=== PATIENT | male | born 1955 | race Caucasian/White ===

== ENCOUNTER → 2016-08-16 | Outpatient (CLI) | payer OTHER ==
[~2016-08-16] MED LIST: ASPI81TA28 PO; CARV3.12 PO; CEPH500C PO; CIPR-255 PO; CLOP1TAB15 PO; CLOP1TAB5 PO; CZR25 PO; ESCI5TAB PO; FERRTAB18 PO; FRS/40 PO; HYDR-5688 PO; IPRA1AER2 INH; KFL500 PO; LISI-725 PO; LNX125 PO; LPT/40 PO; LPT40 PO; METO25TA3 PO; NCDT14 TD; PHEN-1043 PO; POTA10CA28 PO; POTA1POW PO; POTA1TAB97 PO; PRS5 PO; SACU1TAB PO; SPIR25TA89 PO; SPR25 PO; TORS20TA2 PO; TPRSR25 PO; VNTHFA/IN INH; hydroxyzine PEG
[2016-08-16 17:53] LABS: BLOOD UREA NITROGEN 22 mg/dl (7-18); BUN/CREATININE RATIO 19.5 (10-20); CALCIUM 8.5 mg/dl (8.5-10.1); CARBON DIOXIDE 27 mmol/L (21-32); CHLORIDE 104 mmol/L (98-107); GLUCOSE 98 mg/dl (70-99); MAGNESIUM 2.3 mg/dl (1.8-2.4); POTASSIUM 4.1 mmol/L (3.5-5.1); SODIUM 141 mmol/L (136-145)
[2016-08-16 19:14] LABS: LYME DISEASE AB IGG NEG (NEG); LYME DISEASE AB IGM NEG (NEG)
== END | disposition home or self-care (01) ==
LOC: C.LABPBG 11:53
PROVIDERS: ATTEND Family Medicine
DX: R06.02 Shortness of breath (principal); J20.9 Acute bronchitis, unspecified; R53.83 Other fatigue; R21 Rash and other nonspecific skin eruption

== ENCOUNTER 2016-08-25 10:08 | Inpatient (IN) | payer OTHER ==
[~2016-08-25] VITALS: Ht 182.9 cm; Wt 80.1 kg
[2016-08-25 10:41] LABS: HEMATOCRIT 38.5 % (42-52); MEAN CORPUSCULAR HEMOGLOBIN 28.3 pg (25-34); MEAN CORPUSCULAR HGB CONC 33.2 g/dl (32-36); MEAN PLATELET VOLUME 9.6 fL (7.4-10.4); PLATELET COUNT 376 K/uL (130-400); RED BLOOD COUNT 4.53 M/uL (4.7-6.1); WHITE BLOOD COUNT 9.67 K/uL (4.8-10.8)
[2016-08-25 10:54] LABS: INR 1.2 (0.9-1.1); PROTHROMBIN TIME (PATIENT) 12.7 SECONDS (9.0-12.0)
[2016-08-25 10:59] LABS: BUN/CREATININE RATIO 24.3 (10-20); CALCIUM 8.7 mg/dl (8.5-10.1); CREATININE 1.2 mg/dl (0.60-1.40); POTASSIUM 4.1 mmol/L (3.5-5.1)
[2016-08-25] MEDS ORDERED: FUROSEMIDE 40 MG/4 ML VIAL IV STA (11:02)
[2016-08-25 11:03] LABS: ALB/GLOB RATIO 0.9 (0.9-2); CKMB/CK RATIO 2.5 (0-3.0)
[2016-08-25] MEDS ORDERED: CLOP1TAB5 PO (11:07)
[2016-08-25] MEDS ORDERED: FRS/40 PO (11:07)
[2016-08-25] MEDS ORDERED: POTA1TAB97 PO (11:07)
[2016-08-25] MEDS ORDERED: ASPI81TA28 PO (11:07)
[2016-08-25] MEDS ORDERED: LISI-725 PO (11:07)
[2016-08-25] MEDS ORDERED: CARV3.12 PO (11:07)
--- NOTE | 2016-08-25 11:18 | DIAGNOSTIC IMAGING REPORT ---
CHEST ONE VIEW PORTABLE CLINICAL HISTORY: CP/SOB dyspnea COMPARISON STUDY: No previous studies for comparison. FINDINGS: Moderate cardiomegaly. Bipolar cardiac pacemaker. Diaphragms are smooth. Mild prominence of pulmonary vasculature. IMPRESSION: Findings of early congestive heart failure Electronically signed by: Javier Kim M.D. 08/25/2016 11:16 AM Dictated Date/Time: 08/25/2016 11:16 AM
[2016-08-25 11:33] LABS: MAGNESIUM 2.6 mg/dl (1.8-2.4); PHOSPHORUS 4.2 mg/dl (2.5-4.9)
--- NOTE | 2016-08-25 13:07 | EMERGENCY ROOM VISIT NOTE ---
ED Visit Note First contact with patient: 11:02 The patient was initially evaluated by Mr. Pedersen. He was re-examined by me. His care and treatment plan were discussed and agreed upon. I refer you to Mr. Pedersen's dictation for full details.
[2016-08-25 13:16] LABS: INFLUENZA A PCR Neg for Influ A (NEG); INFLUENZA B PCR Neg for Influ B (NEG)
[2016-08-25] MEDS ORDERED: NITROGLYCERIN 0.4 MG SL PER TAB CHARGE SL PRN (13:30)
[2016-08-25] MEDS ORDERED: POLYETHYLENE (MIRALAX) 17 GM PACK PO PRN (13:30)
[2016-08-25] MEDS ORDERED: ONDANSETRON INJ 2 MG/ML 2 ML VIAL IV PRN (13:30)
[2016-08-25] MEDS ORDERED: ACETAMINOPHEN 325 MG TAB PO PRN (13:30)
[2016-08-25] MEDS ORDERED: ALBUT/IPRATROP 3MG/0.5MG NEB 3 ML VIAL INH PRN (13:30)
[2016-08-25] MEDS ORDERED: MAGNESIUM HYDROXIDE SUSP 30 ML UDC PO PRN (13:30)
[2016-08-25] MEDS ORDERED: ALUMINUM/MAGNESIUM/SIMETH (MAALOX MAX) 30 ML UDC PO PRN (13:30)
--- NOTE | 2016-08-25 13:54 | History and Physical ---
History & Physical Date & Time of Service: Aug 25, 2016 at 13:31 Chief Complaint: Sob, Fluid, Swelling In Legs,Ankles,Feet, Cough Primary Care Physician: Katelyn Sutton DO History of Present Illness Source: patient, family Patient is a pleasant 61 y/o male, with PMHx of systolic CHF, T2DM, HTN, HDL, PVD s/p aorta-femoral bypass, ?COPD, who presented to the ED from PCP office due to hypoxia with ambulation w/ O2 saturation at 86%. According to patient, he has been having progressive SOB over the last month. Patient was prescribed abx treatment and prednisone course by PCP with minimal relief in his symptoms; medications were completed 2 weeks ago. He admits to having the flu ~2 months ago. Since that time, he feels his breathing has been slowly declining. + orthopnea. He admits to smoking 1 ppd. His PCP believes he has COPD, and patient is scheduled for outpatient PFTs. +bilateral lower extremity edema. Edema has been worsening over the last 1 month as well. No improvement with Lasix 40 mg BID. Patient follows with Dr. Glover for his CHF/cardiomyopathy. According to patient, his EF is 15%. Pacemaker/ICD was placed in January of 2016. +cough with sputum production. +hematuria- started this AM. Per patient, this is not the first time he has experienced hematuria. In March 2016, he had an episode of hematuria and a CT was performed looking for stones; no stones identified at that time. Patient denies any fever, chills, sweats, lightheadedness, dizziness, vision changes, CP, palpitations, wheezing, abdominal pain, nausea, vomiting, diarrhea, melena, numbness/tingling, weakness , muscle/joint pain, anxiety/depression, active bleeding, or new skin discoloration/changes. Past Medical/Surgical History Medical hx: 1. Systolic CHF 2. T2DM 3. HTN 4. HDL 5. PVD s/p aorta-femoral bypass 6. ?COPD Surgical hx: 1. Hernia repair x2 2. Herniated disc repair 3. L knee replacement 4. Aorta-femoral bypass 5. Cholecystectomy 6. s/p pacemaker/ICD Family History FH: diabetes mellitus FH: gallbladder disease FH: heart disease FH: hypertension Social History Smoking Status: Current Every Day Smoker Smokeless Tobacco Use: No Alcohol Use: occasionally Marital Status: Housing status: lives with family Allergies Coded Allergies: Metformin (Unverified Adverse Reaction, Severe, MEMORY LOSS, 08/25/16) Codeine (Unverified Adverse Reaction, Intermediate, ITCHING, 08/25/16) Home Medications Scheduled Aspirin (Aspirin Ec), 81 MG PO DAILY Carvedilol (Coreg), 3.125 MG PO DAILY Clopidogrel Bisulfate (Plavix), 75 MG PO DAILY Furosemide (Lasix), 40 MG PO BID Lisinopril (Zestril), 20 MG PO DAILY Potassium Chloride (K-Tab), 20 MEQ PO DAILY Physical Exam Vital Signs Date Time Temp Pulse Resp B/P Pulse Ox O2 Delivery O2 Flow Rate FiO2 08/25/16 11:40 97 Room Air 08/25/16 10:54 99 Room Air 08/25/16 10:54 84 20 103/77 99 Room Air 08/25/16 10:53 84 20 103/77 100 Room Air 08/25/16 10:50 97 Room Air 08/25/16 10:36 82 08/25/16 10:09 82 20 98/66 Room Air General Appearance: no apparent distress Head: normocephalic, atraumatic Eyes: normal inspection, PERRL ENT: hearing grossly normal Neck: supple Respiratory/Chest: no respiratory distress, no accessory muscle use, + crackles (bilateral lung bases ) Cardiovascular: regular rate, rhythm Abdomen/GI: normal bowel sounds, non tender, soft Back: normal inspection Extremities/Musculoskelatal: no calf tenderness, + swelling (+2 pitting edema of bilateral lower extremities L>R) Neurologic/Psych: alert, normal mood/affect, oriented x 3 Skin: normal color, warm/dry, no rash Diagnostics Laboratory Results Results Past 24 Hours Test 08/25/16 10:30 08/25/16 11:13 08/25/16 11:15 08/25/16 11:39 Range/Units White Blood Count 9.67 4.8-10.8 K/uL Red Blood Count 4.53 4.7-6.1 M/uL Hemoglobin 12.8 14.0-18.0 g/dL Hematocrit 38.5 42-52 % Mean Corpuscular Volume 85.0 80-100 fL Mean Corpuscular Hemoglobin 28.3 25-34 pg Mean Corpuscular Hemoglobin Concent 33.2 32-36 g/dl RDW Standard Deviation 54.8 36.4-46.3 fL RDW Coefficient of Variation 17.9 11.5-14.5 % Platelet Count 376 130-400 K/uL Mean Platelet Volume 9.6 7.4-10.4 fL Prothrombin Time 12.7 9.0-12.0 SECONDS Prothromb Time International Ratio 1.2 0.9-1.1 Activated Partial Thromboplast Time 25.1 21.0-31.0 SECONDS Partial Thromboplastin Ratio 1.0 Sodium Level 141 136-145 mmol/L Potassium Level 4.1 3.5-5.1 mmol/L Chloride Level 105 98-107 mmol/L Carbon Dioxide Level 27 21-32 mmol/L Anion Gap 9.0 3-11 mmol/L Blood Urea Nitrogen 29 7-18 mg/dl Creatinine 1.20 0.60-1.40 mg/dl Est Creatinine Clear Calc Drug Dose 72.8 ml/min Estimated GFR () 76.3 Estimated GFR (Non- 65.8 BUN/Creatinine Ratio 24.3 10-20 Random Glucose 97 70-99 mg/dl Calcium Level 8.7 8.5-10.1 mg/dl Phosphorus Level 4.2 2.5-4.9 mg/dl Magnesium Level 2.6 1.8-2.4 mg/dl Total Bilirubin 1.7 0.2-1 mg/dl Aspartate Amino Transf (AST/SGOT) 23 15-37 U/L Alanine Aminotransferase (ALT/SGPT) 33 12-78 U/L Alkaline Phosphatase 133 45-117 U/L Total Creatine Kinase 87 39-308 U/L Creatine Kinase MB 2.2 0.5-3.6 ng/ml Creatine Kinase MB Ratio 2.5 0-3.0 Troponin I 0.061 0-0.045 ng/ml Pro-B-Type Natriuretic Peptide 21868 0-900 pg/ml Total Protein 6.5 6.4-8.2 gm/dl Albumin 3.1 3.4-5.0 gm/dl Globulin 3.4 2.5-4.0 gm/dl Albumin/Globulin Ratio 0.9 0.9-2 Bedside Troponin I 0.000 0-0.045 ng/ml Influenza Type A (RT-PCR) Neg for Influ A NEG Influenza Type B (RT-PCR) Neg for Influ B NEG Lactic Acid Level 1.2 0.4-2.0 mmol/L Microbiology Results 08/25/16 Blood Culture, Received Pending 08/25/16 Blood Culture, Received Pending Diagnostic Radiology CHEST ONE VIEW PORTABLE CLINICAL HISTORY: CP/SOB dyspnea COMPARISON STUDY: No previous studies for comparison. FINDINGS: Moderate cardiomegaly. Bipolar cardiac pacemaker. Diaphragms are smooth. Mild prominence of pulmonary vasculature. IMPRESSION: Findings of early congestive heart failure Electronically signed by: Toney Kim M.D. 08/25/2016 11:16 AM Dictated Date/Time: 08/25/2016 11:16 AM The status of this report is Signed. Draft = Not yet reviewed or approved by Radiologist. Signed = Reviewed and approved by Radiologist. EKG RAMÓN TONEY ID:[id number] 25-AUG-2016 10:22:59 [facility] Normal sinus rhythm Left axis deviation Non-specific intra-ventricular conduction block Abnormal ECG No previous ECGs available Confirmed by CELESTINE DAVIS ([id number]) on 08/25/2016 1:03:47 PM 25mm/s 10mm/mV 150Hz 8.0 SP2 12SL 241 SHERIF: 13 Referred by: Confirmed By: CELESTINE Fleming. rate 89 BPM ME interval 158 ms QRS duration 128 ms QT/QTc 422/513 ms P-R-T axes 78 -39 85 1955 (61 yr) Male Room: Loc: Tamale Maker:TERRENCE Thurman ind: Impression Assessment and Plan 61 y/o male, with PMHx of systolic CHF, T2DM, HTN, HDL, PVD s/p aorta-femoral bypass, ?COPD, who presented to the ED from PCP office due to hypoxia with ambulation w/ O2 saturation at 86%. Acute on chronic systolic HF/cardiomyopathy s/p pacemaker/ICD: - Admit tele for cardiac monitoring - Trend cardiac enzymes - IV Lasix 40 mg BID. Hold PO Lasix 40 mg BID - Continue KCL 20 mEq supplement - Continue Coreg 3.125 mg PO daily - ECHO - Monitor daily weights and I&Os - Check TSH - Recheck BNP tomorrow AM - Blood cultures pending - Influenza negative - Patient follows with Dr. Glover of [place]--> no records available UTI w/ hematuria: - U/A dirty, urine culture pending - IV Rocephin Anemia, baseline hgb 13.0- stable: Follow CBC Elevated LFTs: Follow CMP T2DM: - BSG ACHS w/ sliding insulin scale - Check ha1c HDL: - Continue Lipitor 40 mg PO daily - Check lipid panel HTN: Continue Losartan 25 mg PO daily ?COPD: - Smoke 1 pack per day- smoking cessation counselling - Continue Combivent - Nicotine patch - Scheduled for PFTs outpt by PCP PVD s/p aorta-femoral bypass: Continue ASA 81 mg PO daily and Plavix 75 mg PO daily GI Prophylaxis: Maalox PRN, IV Zofran PRN, Colace and/or Milk of Mag PRN DVT prophylaxis: Ambulation, GERSON and SCDs Code Status: LEVEL I, FULL Dispo: From home, lives w/ Level of Care Telemetry Resuscitation Status FULL RESUSCITATION VTE Prophylaxis VTE Risk Assessment Done? Y/N: Yes Risk Level: Moderate Given or contraindicated: T.E.D. Stockings, SCD's
--- NOTE | 2016-08-25 14:34 | EMERGENCY ROOM VISIT NOTE ---
History First contact with patient: 11:02 Chief Complaint: SHORTNESS OF BREATH Stated Complaint: SOB, FLUID, SWELLING IN LEGS,ANKLES,FEET, COUGH Nursing Triage Summary: with increasing shortnes of breath for a month. see dr Glover (cardiology) has had a pacer put in for CHF, then got sick and was on antibiotics and steroids ever since has been retaining fluid. unable to walk the mitchell at PCP office o2 sat was 86 % after. sent over History of Present Illness The patient is a 61 year old male who presents to the Emergency Room with complaints of lower extremity swelling, shortness of breath and fatigue. The patient reports a history of CHF. The patient had a pacemaker and defibrillator placed on 01/16/16. His current fighting vehicle systems maintainer is Dr. Glover. He is in the process of transferring his care to [facility] fighting vehicle systems maintainer. The patient reports that he and his had the flu approximately one month ago. The patient was given a prescription for a "powerful antibiotic" and prednisone. The patient reports that his symptoms never really did resolve. He started to notice significantly worsening lower extremity swelling and shortness of breath 2 weeks ago. His fighting vehicle systems maintainer suggested that he go to [facility] for admission, but the patient refused. The patient is currently taking furosemide twice daily. He reports that the water pills are helping somewhat with his fluid retention. The patient was referred here this morning by his PCP as he was in the office for an appointment , and when ambulating through the hallways, his O2 saturation was 86%. The patient denies any recent chest pain, productive cough, sore throat, headache, sinus congestion, fevers or chills. Review of Systems HEENT: Denies dizziness, visual problems, hearing loss, tinnitus. Denies difficulty swallowing or oral lesions. PULMONARY: Denies cough, sputum production or hemoptysis. The patient does report shortness of breath. CARDIOVASCULAR: Denies chest pain, palpitations or orthopnea. He does report peripheral edema. GASTROINTESTINAL: Denies diarrhea, constipation, nausea, vomiting, or abdominal pain. GENITOURINARY: Denies dysuria, frequency, urgency or nocturia. NEUROLOGIC: Denies history of epilepsy, CVA, TIA or chronic headaches. MUSCULOSKELETAL: Denies history of joint tenderness/swelling. SKIN: Denies rashes or lesions. PSYCHIATRIC: Denies history of depression or mental illness. ENDOCRINE: Denies history of diabetes or thyroid disorders. 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 (5) History of pacemaker (6) Hypertension Surgical Problems: (1) History of [id number] bypass (2) History of left knee replacement Family History FH: diabetes mellitus FH: gallbladder disease FH: heart disease FH: hypertension Social History Smoking Status: Current Every Day Smoker Alcohol Use: none Marital Status: Occupation Status: retired Current/Historical Medications Scheduled Aspirin (Aspirin Ec), 81 MG PO DAILY Carvedilol (Coreg), 3.125 MG PO DAILY Clopidogrel Bisulfate (Plavix), 75 MG PO DAILY Furosemide (Lasix), 40 MG PO BID Lisinopril (Zestril), 20 MG PO DAILY Potassium Chloride (K-Tab), 20 MEQ PO DAILY Allergies Coded Allergies: Metformin (Unverified Adverse Reaction, Severe, MEMORY LOSS, 08/25/16) Codeine (Unverified Adverse Reaction, Intermediate, ITCHING, 08/25/16) Physical Exam Vital Signs Date Time Temp Pulse Resp B/P Pulse Ox O2 Delivery O2 Flow Rate FiO2 08/25/16 13:06 77 20 107/75 100 Room Air 08/25/16 11:40 97 Room Air 08/25/16 10:54 99 Room Air 08/25/16 10:54 84 20 103/77 99 Room Air 08/25/16 10:53 84 20 103/77 100 Room Air 08/25/16 10:50 97 Room Air 08/25/16 10:36 82 08/25/16 10:09 82 20 98/66 Room Air Physical Exam CONSTITUTIONAL: Healthy and well nourished. Alert and oriented X 3 with positive affect. She does not appear acutely or toxic. He does not appear in any acute distress. HEENT: Normocephalic, atraumatic. Pupils equal, round and reactive. Ears and nares are clear. No scleral icterus or conjunctival injection/pallor. NECK: Full active range of motion without discomfort. No obvious JVD or carotid bruits. RESPIRATORY: Clear to auscultation bilaterally with no wheezing, crackles, rhonchi or stridor. Lungs sounds are distant. CARDIOVASCULAR: Regular rate and rhythm with no murmurs, rubs or gallops. GASTROINTESTINAL: Bowel sounds present in all quadrants. Soft and nontender to palpation. No bruits on palpation or auscultation. MUSCULOSKELETAL: Full range of motion of all joints without discomfort. Patient does have 2+ pretibial pitting edema. He also has skin changes about the feet and ankles. He'll pulses are intact. INTEGUMENTARY: No rash or other significant dermatologic conditions noted. HEMATOLOGIC: No ecchymosis or petechiae. NEUROLOGIC: No focal neurologic deficits noted. Medical Decision & Procedures ER Provider Diagnostic Interpretation: My interpretation of an ECG shows a normal sinus rhythm of [address] elevation, conduction abnormalities or pacing. My interpretation of a portable chest x-ray shows on is consistent with failure pattern. Radiologist report is as follows: CHEST ONE VIEW PORTABLE CLINICAL HISTORY: CP/SOB dyspnea COMPARISON STUDY: No previous studies for comparison. FINDINGS: Moderate cardiomegaly. Bipolar cardiac pacemaker. Diaphragms are smooth. Mild prominence of pulmonary vasculature. IMPRESSION: Findings of early congestive heart failure Laboratory Results 08/25/16 10:30 08/25/16 10:30 Test 08/25/16 10:30 08/25/16 11:13 08/25/16 11:15 08/25/16 11:39 Red Blood Count 4.53 M/uL (4.7-6.1) Mean Corpuscular Volume 85.0 fL (80-100) Mean Corpuscular Hemoglobin 28.3 pg (25-34) Mean Corpuscular Hemoglobin Concent 33.2 g/dl (32-36) RDW Standard Deviation 54.8 fL (36.4-46.3) RDW Coefficient of Variation 17.9 % (11.5-14.5) Mean Platelet Volume 9.6 fL (7.4-10.4) Prothrombin Time 12.7 SECONDS (9.0-12.0) Prothromb Time International Ratio 1.2 (0.9-1.1) Activated Partial Thromboplast Time 25.1 SECONDS (21.0-31.0) Partial Thromboplastin Ratio 1.0 Anion Gap 9.0 mmol/L (3-11) Est Creatinine Clear Calc Drug Dose 72.8 ml/min Estimated GFR () 76.3 Estimated GFR (Non- 65.8 BUN/Creatinine Ratio 24.3 (10-20) Calcium Level 8.7 mg/dl (8.5-10.1) Phosphorus Level 4.2 mg/dl (2.5-4.9) Magnesium Level 2.6 mg/dl (1.8-2.4) Total Bilirubin 1.7 mg/dl (0.2-1) Aspartate Amino Transf (AST/SGOT) 23 U/L (15-37) Alanine Aminotransferase (ALT/SGPT) 33 U/L (12-78) Alkaline Phosphatase 133 U/L (45-117) Total Creatine Kinase 87 U/L (39-308) Creatine Kinase MB 2.2 ng/ml (0.5-3.6) Creatine Kinase MB Ratio 2.5 (0-3.0) Troponin I 0.061 ng/ml (0-0.045) Pro-B-Type Natriuretic Peptide 12912 pg/ml (0-900) Total Protein 6.5 gm/dl (6.4-8.2) Albumin 3.1 gm/dl (3.4-5.0) Globulin 3.4 gm/dl (2.5-4.0) Albumin/Globulin Ratio 0.9 (0.9-2) Bedside Troponin I 0.000 ng/ml (0-0.045) Influenza Type A (RT-PCR) Neg for Influ A (NEG) Influenza Type B (RT-PCR) Neg for Influ B (NEG) Lactic Acid Level 1.2 mmol/L (0.4-2.0) The above labs were reviewed. Bedside troponin and lactic acid are normal. BNP is almost 23,000. CBC and partial renal profile are otherwise grossly normal with a creatinine of 1.2. Medications Administered Medications (Trade) Dose Ordered Sig/Elroy Route Start Time Stop Time Status Last Admin Dose Admin Furosemide (Lasix Inj) 40 mg NOW STAT IV 08/25/16 11:02 08/25/16 11:06 DC 08/25/16 11:46 40 MG ED Course Patient history and physical exam were performed. Nurse's notes were reviewed. Vital signs were reviewed and were normal. His O2 saturation at rest was 100 % on room air. Probably ambulation was not performed, but phone documentation from the PCPs office did indicate that he was hypoxic on ambulation. Otherwise the patient is normotensive and afebrile. The patient did not appear in any acute respiratory distress. IV access was established, and labs were drawn. ECG was normal. Portable chest x-ray shows a congestive heart failure pattern. Review of labs shows a markedly elevated BNP of nearly 23,000. Troponin and lactic acid are normal. The case was further discussed with Dr. Connelly, ED attending physician, who agrees with hospitalist evaluation. The case was further discussed with the [facility] hospitalist service. See their dictation for further treatment and final disposition. Medical Decision Patient presents to the emergency department with symptoms consistent with CHF exacerbation. The patient has a history of CHF. He is currently on diuretics without any improvement of underlying peripheral edema. He also has a significant history of pacemaker/defibrillator placement. The patient does have chest x-ray findings and markedly elevated BNP consistent with a CHF exacerbation. ECG and troponin were otherwise normal. I do not suspect myocardial infarction. The patient is also afebrile, without leukocytosis and normal lactic acid. I do not suspect sepsis. Impression Primary Impression: CHF (congestive heart failure) Departure Information Referrals Katelyn Sutton DO (PCP) Patient Instructions My [facility] Problem Qualifiers Primary Impression: CHF (congestive heart failure) Congestive heart failure type: unspecified congestive heart failure type Congestive heart failure chronicity: acute on chronic Qualified Codes: I50.9 - Heart failure, unspecified
[2016-08-25] MEDS ORDERED: GLUCOSE 10 TABS/TUBE PO PRN (15:00)
[2016-08-25] MEDS ORDERED: DEXTROSE 50% 50 ML SYR IV PRN (15:00)
[2016-08-25] MEDS ORDERED: GLUCOSE 40% GEL 15 GM TUBE PO PRN (15:00)
[2016-08-25] MEDS ORDERED: GLUCAGON FOR INJ 1 MG VIAL SQ PRN (15:00)
[2016-08-25 16:00] VITALS: BP 104/70; PULSE 91; TEMP 36.3; O2SAT 96
[2016-08-25] MEDS ORDERED: CEFTRIAXONE SOD INJ 1 GM in DEXTROSE 5% ADD-VANTAGE 50ML 50 ML IV SCH (16:00)
[2016-08-25 17:00] VITALS: BP 104/70; PULSE 91; O2SAT 96; Ht 182.9 cm; Wt 80.1 kg
[2016-08-25] MEDS: FUROSEMIDE INJ 40 MG in SYRINGE 0 ML IV SCH (17:23)
[2016-08-25] MEDS: IPRATROPIUM BROMIDE/ALBUTEROL respimat INH INH SCH ×2 (17:23→21:18)
[2016-08-25] MEDS: INSULIN ASPART 100 UNITS/ML 3 ML PEN SC SCH ×2 (17:24→21:00)
[2016-08-25] MEDS ORDERED: COUGH DROP (SUGAR FREE) LOZ 24 LOZ/1 BOX PO STA (19:56)
[2016-08-25 19:58] VITALS: BP 108/70; PULSE 93; TEMP 36.8; O2SAT 94
[2016-08-25 20:00] VITALS: O2SAT 94
[2016-08-25] MEDS ORDERED: GUAIFENESIN SUGAR FREE 100 MG/5 ML UDC PO PRN (20:00)
[2016-08-25] MEDS ORDERED: COUGH DROP (SUGAR FREE) LOZ 24 LOZ/1 BOX PO PRN (20:00)
[2016-08-25] MEDS ORDERED: GUAIFENESIN SUGAR FREE 100 MG/5 ML UDC PO ONE (20:30)
[2016-08-26] VITALS (10 sets, daily range): BP systolic 91–138; BP diastolic 57–88; PULSE 70–99; TEMP 36.3–37.2; O2SAT 93–100
[2016-08-26 06:31] LABS: HEMATOCRIT 37.6 % (42-52); MEAN CELL VOLUME 84.9 fL (80-100); MEAN CORPUSCULAR HEMOGLOBIN 27.8 pg (25-34); MEAN CORPUSCULAR HGB CONC 32.7 g/dl (32-36); MEAN PLATELET VOLUME 10.1 fL (7.4-10.4); PLATELET COUNT 390 K/uL (130-400); RED BLOOD COUNT 4.43 M/uL (4.7-6.1); WHITE BLOOD COUNT 10.13 K/uL (4.8-10.8)
[2016-08-26 06:38] LABS: INR 1.2 (0.9-1.1); PROTHROMBIN TIME (PATIENT) 12.6 SECONDS (9.0-12.0)
[2016-08-26 07:06] LABS: BUN/CREATININE RATIO 23.6 (10-20); CALCIUM 8.5 mg/dl (8.5-10.1); CREATININE 1.2 mg/dl (0.60-1.40); MAGNESIUM 2.3 mg/dl (1.8-2.4); POTASSIUM 3.8 mmol/L (3.5-5.1)
--- NOTE | 2016-08-26 07:10 | Hospitalist Progress Note ---
Hospitalist Progress Note Date of Service Aug 26, 2016. Subjective Pt evaluation today including: conversation w/ patient, physical exam, chart review, lab review, review of inpatient medication list Voiding: no voiding problems, no incontinence Patient states he is feeling well. SOB and bilateral lower extremity edema has improved. Hematuria has resolved. He is eating and drinking OK. Patient denies any fever, chills, sweats, lightheadedness, dizziness, vision changes, CP, palpitations, wheezing, cough, abdominal pain, nausea, vomiting, diarrhea, urinary symptoms, melena, numbness/tingling, weakness, muscle/joint pain, anxiety/depression, active bleeding, or new skin discoloration/changes. Medications Current Inpatient Medications Medications (Trade) Dose Ordered Sig/Elroy Route Start Time Stop Time Status Last Admin Dose Admin Acetaminophen (Tylenol Tab) 650 mg Q4H PRN PO 08/25/16 13:30 09/24/16 13:29 Al Hydrox/Mg Hydrox/Simethicone (Maalox Max Susp) 15 ml Q4H PRN PO 08/25/16 13:30 09/24/16 13:29 Magnesium Hydroxide (Milk Of Magnesia Susp) 30 ml Q12H PRN PO 08/25/16 13:30 09/24/16 13:29 Ondansetron HCl (Zofran Inj) 4 mg Q6H PRN IV 08/25/16 13:30 09/24/16 13:29 Nitroglycerin (Nitrostat Tab) 0.4 mg UD PRN SL 08/25/16 13:30 09/24/16 13:29 Polyethylene 17 gm 17 gm DAILY PRN PO 08/25/16 13:30 09/24/16 13:29 Furosemide/Syringe (Lasix Inj/ Syringe) 4 ml @ 4 mls/min BID17 IV 08/25/16 17:00 09/24/16 16:59 08/26/16 08:16 4 MLS/MIN Aspirin (Ecotrin Tab) 81 mg DAILY PO 08/26/16 09:00 09/25/16 08:59 08/26/16 08:20 81 MG Carvedilol (Coreg Tab) 3.125 mg DAILY PO 08/26/16 09:00 09/25/16 08:59 08/26/16 08:17 3.125 MG Clopidogrel Bisulfate (plAVix TAB) 75 mg DAILY PO 08/26/16 09:00 09/25/16 08:59 08/26/16 08:18 75 MG Potassium Chloride 20 meq 20 meq QAM PO 08/26/16 09:00 09/25/16 08:59 08/26/16 08:18 20 MEQ Ceftriaxone Sodium/Dextrose (Rocephin Inj/ Dextrose Add-[place] 50ML) 50 ml @ 100 mls/hr Q24H IV 08/25/16 16:00 09/04/16 15:59 08/25/16 16:15 100 MLS/HR Insulin Aspart (novoLOG ASPART) SLIDING SCALE G... ACHS SC 08/25/16 16:00 09/24/16 15:59 Albuterol/ Ipratropium (Duoneb) 3 ml Q4R PRN INH 08/25/16 13:30 09/24/16 13:29 Atorvastatin Calcium (Lipitor Tab) 40 mg QAM PO 08/26/16 09:00 09/25/16 08:59 08/26/16 08:19 40 MG Albuterol/ Ipratropium (Combivent Respimat Inh) 1 puffs QID INH 08/25/16 17:00 09/24/16 16:59 08/26/16 08:16 1 PUFFS Losartan Potassium (coZAAR TAB) 25 mg QAM PO 08/26/16 09:00 09/25/16 08:59 Future Hold Nicotine (Nicoderm Cq 14MG Patch) 1 patch QAM TD 08/26/16 09:00 09/25/16 08:59 Miscellaneous (Remove Nicoderm Patch) 1 ea HS N/A 08/25/16 21:00 09/24/16 20:59 Glucose (Glucose 40% Gel) 15-30 GRAMS 15 GRAMS... UD PRN PO 08/25/16 15:00 09/24/16 14:59 Glucose (Glucose Chew Tab) 4-8 Tablets 4 Tabl... UD PRN PO 08/25/16 15:00 09/24/16 14:59 Dextrose (Dextrose 50% 50ML Syringe) 25-50ML OF 50% DW IV FOR... UD PRN IV 08/25/16 15:00 09/24/16 14:59 Glucagon (Glucagon Inj) 1 mg UD PRN SQ 08/25/16 15:00 09/24/16 14:59 Guaifenesin (Robitussin Sugar Free Syrup) 100 mg Q6H PRN PO 08/25/16 20:00 09/24/16 19:59 Menthol (Nice Vlad) 1 vlad Q1H PRN PO 08/25/16 20:00 09/24/16 19:59 Objective Vital Signs Date Time Temp Pulse Resp B/P Pulse Ox O2 Delivery O2 Flow Rate FiO2 08/26/16 04:43 36.6 70 22 104/72 100 Nasal Cannula 2.0 08/26/16 04:00 Room Air 2.0 Nasal Cannula 08/26/16 00:32 36.6 88 18 109/76 98 Nasal Cannula 2.0 08/26/16 00:00 Room Air 2.0 Nasal Cannula 08/25/16 20:00 94 Room Air 08/25/16 19:58 36.8 93 18 108/70 94 Room Air 08/25/16 17:00 91 18 104/70 96 Room Air 08/25/16 16:00 96 Room Air 08/25/16 16:00 36.3 91 18 104/70 96 Room Air 08/25/16 15:27 73 20 108/86 99 Room Air 08/25/16 14:08 61 15 96 08/25/16 14:01 100/53 08/25/16 13:08 69 30 99 08/25/16 13:06 77 20 107/75 100 Room Air 08/25/16 13:01 108/75 08/25/16 12:49 112/83 08/25/16 12:08 99 24 98 08/25/16 11:40 97 Room Air 08/25/16 11:08 78 11 97 08/25/16 11:00 103/76 08/25/16 10:54 99 Room Air 08/25/16 10:54 84 20 103/77 99 Room Air 08/25/16 10:53 103/77 08/25/16 10:53 84 20 103/77 100 Room Air 08/25/16 10:50 97 Room Air 08/25/16 10:36 82 08/25/16 10:31 105/80 08/25/16 10:09 82 20 98/66 Room Air Physical Exam General Appearance: no apparent distress Eyes: normal inspection, PERRL ENT: hearing grossly normal Neck: supple Respiratory/Chest: no respiratory distress, no accessory muscle use, + decreased breath sounds (bilateral lung bases ) Cardiovascular: + pertinent finding (irregular, regular rate ) Abdomen: normal bowel sounds, non tender, soft Extremities: no calf tenderness, + pertinent finding (TEDs on. +1-2 pitting edema of bilateral lower extremities from ankle to mid-torres ) Neurologic/Psychiatric: alert, normal mood/affect, oriented x 3 Skin: normal color, warm/dry, no rash Laboratory Results Last 24 Hours Test 08/25/16 10:30 08/25/16 11:13 08/25/16 11:15 08/25/16 11:39 White Blood Count 9.67 K/uL Red Blood Count 4.53 M/uL Hemoglobin 12.8 g/dL Hematocrit 38.5 % Mean Corpuscular Volume 85.0 fL Mean Corpuscular Hemoglobin 28.3 pg Mean Corpuscular Hemoglobin Concent 33.2 g/dl RDW Standard Deviation 54.8 fL RDW Coefficient of Variation 17.9 % Platelet Count 376 K/uL Mean Platelet Volume 9.6 fL Prothrombin Time 12.7 SECONDS Prothromb Time International Ratio 1.2 Activated Partial Thromboplast Time 25.1 SECONDS Partial Thromboplastin Ratio 1.0 Sodium Level 141 mmol/L Potassium Level 4.1 mmol/L Chloride Level 105 mmol/L Carbon Dioxide Level 27 mmol/L Anion Gap 9.0 mmol/L Blood Urea Nitrogen 29 mg/dl Creatinine 1.20 mg/dl Est Creatinine Clear Calc Drug Dose 72.8 ml/min Estimated GFR () 76.3 Estimated GFR (Non- 65.8 BUN/Creatinine Ratio 24.3 Random Glucose 97 mg/dl Calcium Level 8.7 mg/dl Phosphorus Level 4.2 mg/dl Magnesium Level 2.6 mg/dl Total Bilirubin 1.7 mg/dl Aspartate Amino Transf (AST/SGOT) 23 U/L Alanine Aminotransferase (ALT/SGPT) 33 U/L Alkaline Phosphatase 133 U/L Total Creatine Kinase 87 U/L Creatine Kinase MB 2.2 ng/ml Creatine Kinase MB Ratio 2.5 Troponin I 0.061 ng/ml Pro-B-Type Natriuretic Peptide 99755 pg/ml Total Protein 6.5 gm/dl Albumin 3.1 gm/dl Globulin 3.4 gm/dl Albumin/Globulin Ratio 0.9 Bedside Troponin I 0.000 ng/ml Influenza Type A (RT-PCR) Neg for Influ A Influenza Type B (RT-PCR) Neg for Influ B Lactic Acid Level 1.2 mmol/L Test 08/25/16 16:13 08/25/16 18:00 08/25/16 18:10 08/25/16 20:01 Bedside Glucose 110 mg/dl 97 mg/dl Creatine Kinase MB Ratio Creatine Kinase MB 1.9 ng/ml Troponin I 0.048 ng/ml Test 08/26/16 02:00 08/26/16 02:24 08/26/16 05:50 Creatine Kinase MB Ratio Creatine Kinase MB 1.5 ng/ml Troponin I 0.051 ng/ml White Blood Count 10.13 K/uL Red Blood Count 4.43 M/uL Hemoglobin 12.3 g/dL Hematocrit 37.6 % Mean Corpuscular Volume 84.9 fL Mean Corpuscular Hemoglobin 27.8 pg Mean Corpuscular Hemoglobin Concent 32.7 g/dl RDW Standard Deviation 53.9 fL RDW Coefficient of Variation 17.8 % Platelet Count 390 K/uL Mean Platelet Volume 10.1 fL Prothrombin Time 12.6 SECONDS Prothromb Time International Ratio 1.2 Sodium Level 142 mmol/L Potassium Level 3.8 mmol/L Chloride Level 105 mmol/L Carbon Dioxide Level 28 mmol/L Anion Gap 9.0 mmol/L Blood Urea Nitrogen 28 mg/dl Creatinine 1.20 mg/dl Est Creatinine Clear Calc Drug Dose 72.8 ml/min Estimated GFR () 76.3 Estimated GFR (Non- 65.8 BUN/Creatinine Ratio 23.6 Random Glucose 87 mg/dl Calcium Level 8.5 mg/dl Magnesium Level 2.3 mg/dl Alanine Aminotransferase (ALT/SGPT) 30 U/L Albumin 3.0 gm/dl Triglycerides Level 77 mg/dl Cholesterol Level 83 mg/dl VLDL Cholesterol, Calculated 15 mg/dl Assessment and Plan 61 y/o male, with PMHx of systolic CHF, T2DM, HTN, HDL, PVD s/p aorta-femoral bypass, ?COPD, who presented to the ED from PCP office due to hypoxia with ambulation w/ O2 saturation at 86%. Acute on chronic systolic HF/cardiomyopathy s/p pacemaker/ICD: - Admit tele for cardiac monitoring--> reviewed- paced SR, with episodes of PVCs - Trend cardiac enzymes- negative - IV Lasix 40 mg BID. Hold PO Lasix 40 mg BID - Continue KCL 20 mEq supplement - Continue Coreg 3.125 mg PO daily - ECHO pending - Monitor daily weights and I&Os- good UO - TSH WNL - Blood cultures pending - Influenza negative - Patient follows with Dr. Glover of [place]--> no records available UTI w/ hematuria POA- hematuria resolved: - U/A dirty, urine culture pending - IV Rocephin Anemia, baseline hgb 13.0- stable: Follow CBC Elevated LFTs: Follow CMP T2DM: - BSG ACHS w/ sliding insulin scale - Ha1c 6.8% HDL: - Continue Lipitor 40 mg PO daily - Lipid panel reviewed HTN: Hold Losartan 25 mg PO daily due to low BPs and being treated w/ IV Lasix ?COPD: - Smoke 1 pack per day- smoking cessation counselling - Continue Combivent - DuoNeb PRN - Nicotine patch - Scheduled for PFTs outpt by PCP PVD s/p aorta-femoral bypass: Continue ASA 81 mg PO daily and Plavix 75 mg PO daily GI Prophylaxis: Maalox PRN, IV Zofran PRN, Colace and/or Milk of Mag PRN DVT prophylaxis: Ambulation, GERSON and SCDs Code Status: LEVEL I, FULL Dispo: From home, lives w/ . Discharge to home once medically stable. Hopefully w/in the next 1-2 days.
[2016-08-26 07:15] LABS: CHOLESTEROL/HDL RATIO 3.3; THYROID STIMULATING HORMONE 0.775 uIu/ml (0.300-4.500)
[2016-08-26 08:01] LABS: ESTIMATED AVERAGE GLUCOSE 148 mg/dl; HA1C FLAG Normal (Normal)
[2016-08-26] MEDS: INSULIN ASPART 100 UNITS/ML 3 ML PEN SC SCH ×4 (08:16→21:00)
[2016-08-26] MEDS: IPRATROPIUM BROMIDE/ALBUTEROL respimat INH INH SCH ×4 (08:16→20:43)
[2016-08-26] MEDS: FUROSEMIDE INJ 40 MG in SYRINGE 0 ML IV SCH ×2 (08:16→17:13)
[2016-08-26] MEDS: CARVEDILOL 3.125 MG TAB PO SCH (08:17)
[2016-08-26] MEDS: CLOPIDOGREL BISULFATE 75 MG TAB PO SCH (08:18)
[2016-08-26] MEDS: POTASSIUM CHLORIDE 20 MEQ TABCR PO SCH (08:18)
[2016-08-26] MEDS: ATORVASTATIN 40 MG TAB PO SCH (08:19)
[2016-08-26] MEDS: ASPIRIN 81 MG ECTAB PO SCH (08:20)
[2016-08-26] MEDS: NICOTINE 14 MG/24 HR TDSY TD SCH ×2 (08:26→14:51)
[2016-08-26] MEDS ORDERED: LOSARTAN POTASSIUM 25 MG TAB PO SCH (09:00)
--- NOTE | 2016-08-26 14:46 | ECHOCARDIOGRAM REPORT ---
*NOTICE TO RECEIVING REPUBLICAN AGENCY This information is strictly Confidential and protected under [place] law. [place] law prohibits you from making any further disclosure of this information unless further disclosure is expressly permitted by the written consent of the person to whom it pertains or is authorized by law. A general authorization for the release of medical or other information is not sufficient for this purpose. Hospital accepts no responsibility if the information is made available to any other person, INCLUDING THE PATIENT. Interpretation Summary * Name: TONEY MELGAR Study Date: 08/26/2016 08:06 AM BP: 119/88 mmHg * Patient Location: .[facility]\S\N288\S\2 HR: 88 * : 1955 (M/d/yyyy) Gender: Male Height: 72 in * Age: 61 yrs Ethnicity: [place] Weight: 182 lb * Ordering Physician: Melissa Gutierrez * Performed By: Galilea Paris * * Reason For Study: CHF * BSA: 2.0 m2 * -- Conclusions -- * The left ventricle is severely dilated. * Left ventricular systolic function is severely reduced. * The right ventricle is moderately dilated. * The right ventricular systolic function is moderate to severely reduced. * The left atrium is severely dilated. * The right atrium is moderately dilated. * The non-coronary cusp is immobile and severely calcified. * Mild aortic regurgitation. * There is moderate mitral regurgitation. * Right ventricular systolic pressure is elevated at 40-50mmHg. Procedure Details * A complete two-dimensional transthoracic echocardiogram was performed (2D, M-mode, Doppler and color flow Doppler). Left Ventricle * The left ventricle is severely dilated. * There is borderline concentric left ventricular hypertrophy. * Ejection Fraction = 15-20%. * Left ventricular systolic function is severely reduced. * Basal segments are moderately hypokinetic with more severe hypokinesis distally. Anterior apex appears akinetic Right Ventricle * The right ventricle is moderately dilated. * The right ventricular systolic function is moderate to severely reduced. Atria * The left atrium is severely dilated. * The right atrium is moderately dilated. * The interatrial septum bows toward right atrium consistent with elevated left atrial pressure. Mitral Valve * The mitral valve is grossly normal. * There is moderate mitral regurgitation. Tricuspid Valve * The tricuspid valve is not well visualized, but is grossly normal. * There is mild tricuspid regurgitation. * Right ventricular systolic pressure is elevated at 40-50mmHg. Aortic Valve * The non-coronary cusp is immobile and severely calcified. * No hemodynamically significant valvular aortic stenosis. * Mild aortic regurgitation. Pericardium/Pleural * There is no pericardial effusion. MMode 2D Measurements and Calculations IVSd 1.2 cm IVSs 1.2 cm LVIDd 8.2 cm LVIDs 7.6 cm LVPWd 1.2 cm LVPWs 1.2 cm IVS/LVPW 0.99 FS 7.2 % EDV(Teich) 360.7 ml ESV(Teich) 305.3 ml EF(Teich) 15.3 % EDV(cubed) 544.3 ml ESV(cubed) 435.3 ml EF(cubed) 20.0 % % IVS thick 1.3 % % LVPW thick 4.4 % LV mass(C)d 513.2 grams LV mass(C)dI 250.7 grams/m\S\2 LV mass(C)s 467.7 grams LV mass(C)sI 228.5 grams/m\S\2 CO(Teich) 5.0 l/min CI(Teich) 2.4 l/min/m\S\2 SV(Teich) 55.3 ml SI(Teich) 27.0 ml/m\S\2 CO(cubed) 9.8 l/min CI(cubed) 4.8 l/min/m\S\2 SV(cubed) 109.1 ml SI(cubed) 53.3 ml/m\S\2 EPSS 2.3 cm LA dimension 5.2 cm asc Aorta Diam 3.6 cm LVOT diam 2.1 cm LVOT area 3.3 cm\S\2 LVAd ap4 65.7 cm\S\2 LVLd ap4 10.1 cm EDV(MOD-sp4) 348.0 ml LVAs ap4 57.7 cm\S\2 LVLs ap4 9.5 cm ESV(MOD-sp4) 290.0 ml EF(MOD-sp4) 16.7 % LVAd ap2 61.4 cm\S\2 LVLd ap2 9.9 cm EDV(MOD-sp2) 319.0 ml LVAs ap2 54.3 cm\S\2 LVLs ap2 9.0 cm ESV(MOD-sp2) 274.0 ml EF(MOD-sp2) 14.1 % CO(MOD-sp4) 5.2 l/min CI(MOD-sp4) 2.6 l/min/m\S\2 SV(MOD-sp4) 58.0 ml SI(MOD-sp4) 28.3 ml/m\S\2 CO(MOD-sp2) 4.1 l/min CI(MOD-sp2) 2.0 l/min/m\S\2 SV(MOD-sp2) 45.0 ml SI(MOD-sp2) 22.0 ml/m\S\2 Doppler Measurements and Calculations MV E max narcisa 60.4 cm/sec MV dec time 0.11 sec Ao V2 max 114.0 cm/sec Ao max PG 5.2 mmHg Ao max PG (full) 4.0 mmHg LOLITA(V,A) 1.6 cm\S\2 LOLITA(V,D) 1.6 cm\S\2 AI max narcisa 346.8 cm/sec AI max PG 48.1 mmHg AI dec slope 163.3 cm/sec\S\2 AI P1/2t 621.9 msec LV V1 max PG 1.2 mmHg LV V1 max 53.9 cm/sec MR max narcisa 333.3 cm/sec MR max PG 44.6 mmHg MR mean narcisa 217.3 cm/sec MR mean PG 22.8 mmHg MR VTI 104.8 cm PA V2 max 46.8 cm/sec PA max PG 0.87 mmHg PI end-d narcisa 170.8 cm/sec TR max narcisa 323.1 cm/sec
[2016-08-26] MEDS: CEPHALEXIN MONOHYDRATE 500 MG CAP PO SCH ×2 (17:15→20:43)
[2016-08-26] MEDS ORDERED: LISINOPRIL 5 MG TAB PO ONE (19:00)
[2016-08-26 19:18] LABS: FREE PSA 0.09 ng/ml; PROSTATE SPECIFIC ANTIGEN 0.867 ng/ml (0.000-4.000)
--- NOTE | 2016-08-26 19:51 | DIAGNOSTIC IMAGING REPORT ---
ABDOMEN AND PELVIS CT WITHOUT CONTRAST CT DOSE: 414.02 mGy.cm HISTORY: Generalized abdominal pain. TECHNIQUE: Multiaxial CT images of the abdomen and pelvis were performed without contrast. COMPARISON STUDY: None. FINDINGS: Groundglass densities at the base of the left lower lobe favor mild dependent change. Trace left pleural effusion. The heart is moderately enlarged. Pacemaker wires are noted. Bilateral L5 spondylolysis. Evidence for aortobiiliac stent graft repair. Mild body wall edema. Trace ascites. Normal bladder. There is a 2 cm right and a 2.3 severe left adrenal nodule. These are consistent with benign adrenal adenomas. No renal stones or hydronephrosis. Small calcification within the left kidney is likely cortical. There is a 2.6 cm hypodense lesion within the left kidney and a 3 cm hypodense lesion within the right kidney. These are incompletely is noncontrast study but favor cysts. The unenhanced spleen, liver, and pancreas are unremarkable. Cholecystectomy. No retroperitoneal lymphadenopathy. Suboptimal evaluation for bowel pathology due to the lack of intravenous and oral contrast. However, there is no definite bowel wall thickening or obstruction. Colonic diverticulosis. Normal appendix. IMPRESSION: 1. No definite bowel wall thickening or obstruction. 2. Normal appendix. 3. Colonic diverticulosis. 4. No renal stones or hydronephrosis. 5. Moderate cardiomegaly and a trace left pleural effusion. 6. Mild body wall edema and trace ascites. 7. Additional findings as described above. Electronically signed by: Chapo Nieto M.D. 08/26/2016 7:50 PM Dictated Date/Time: 08/26/2016 7:39 PM
[2016-08-26 20:10] LABS: URINE APPEARANCE CLEAR (CLEAR); URINE BILIRUBIN NEG (NEG); URINE COLOR YELLOW; URINE NITRITE NEG (NEG); URINE PH 5.5 (4.5-7.5); URINE SPECIFIC GRAVITY 1.006 (1.000-1.030); UROBILINOGEN NEG (NEG)
[2016-08-26 20:15] LABS: MANUAL MICROSCOPIC REQUIRED? NO; REVIEW REQ? NO
[2016-08-27] VITALS (10 sets, daily range): BP systolic 90–110; BP diastolic 60–71; PULSE 79–90; TEMP 36.2–36.6; O2SAT 94–100
[2016-08-27 08:00] LABS: INR 1.1 (0.9-1.1); PROTHROMBIN TIME (PATIENT) 12.2 SECONDS (9.0-12.0)
[2016-08-27 08:21] LABS: BUN/CREATININE RATIO 24.3 (10-20); CALCIUM 8.7 mg/dl (8.5-10.1); CREATININE 1.1 mg/dl (0.60-1.40); MAGNESIUM 2.5 mg/dl (1.8-2.4); POTASSIUM 3.9 mmol/L (3.5-5.1)
[2016-08-27] MEDS: FUROSEMIDE INJ 40 MG in SYRINGE 0 ML IV SCH (08:30)
[2016-08-27] MEDS: IPRATROPIUM BROMIDE/ALBUTEROL respimat INH INH SCH ×4 (08:30→21:28)
[2016-08-27] MEDS: ATORVASTATIN 40 MG TAB PO SCH (08:30)
[2016-08-27] MEDS: CLOPIDOGREL BISULFATE 75 MG TAB PO SCH (08:32)
[2016-08-27] MEDS: ASPIRIN 81 MG ECTAB PO SCH (08:32)
[2016-08-27] MEDS: CARVEDILOL 3.125 MG TAB PO SCH (08:32)
[2016-08-27] MEDS: CEPHALEXIN MONOHYDRATE 500 MG CAP PO SCH ×4 (08:32→21:28)
[2016-08-27] MEDS: POTASSIUM CHLORIDE 20 MEQ TABCR PO SCH (08:33)
[2016-08-27] MEDS: NICOTINE 14 MG/24 HR TDSY TD SCH (08:33)
[2016-08-27] MEDS: INSULIN ASPART 100 UNITS/ML 3 ML PEN SC SCH ×4 (08:39→20:44)
[2016-08-27] MEDS ORDERED: LISINOPRIL 20 MG TAB PO SCH (09:00)
--- NOTE | 2016-08-27 10:25 | Cardiology Consultation ---
Cardiology Consultation Date of Consultation: Aug 27, 2016. Attending Physician: Dr. My Lopez Pt evaluation today including: conversation w/ patient, physical exam, chart review, lab review History of Present Illness Patient noticed shortness of breath approximately beginning 1 month ago, which has progressively worsened since then. He is unsure as to what may have triggered this change as he was feeling very well prior, without any respiratory /cardiac symptoms. His progressive dyspnea was associated with feelings of fatigue, but no chest pain, palpitations, diaphoresis, nausea or vomiting. As the dyspnea continued to worsen, he did begin to experience dizziness/ lightheadedness, described as vision blacking out and requiring to sit down to recover. No other vision changes or headaches noted. He went to see the PCP who believed it to be a COPD exacerbation and put the patient on antibiotics and prednisone. The courses were completed two weeks ago and the patient continued to feel worse despite the medications. Early this week, patient also describes that his shortness of breath was particularly worse with micturition. Upon commencing urinating, he would suddenly feel himself gasping for air. However, patient denies syncope or associated falls. Diet lund, patient states he was never told to watch his sodium intake and has been eating relatively salty/high sodium foods. From a weight standpoint, patient says he weighs himself daily. Prior to this month, he was consistently in the low 170s lbs. About 4-5 weeks ago, he had started to notice that he was gradually putting on some weight. In the last 2 weeks, he says his weight has increased by 10lbs. He notes that there was significant swelling in his lower extremities. Patient states that he has had trouble sleeping for the last month. Although this wasn't the case prior, he now requires extra pillow support because he is unable to lie flat in bed. He also says he wakes up at night intermittently coughing and short of breath. He does not use home oxygen or CPAP. Patient has not noted a significant change in exercise tolerance, as he is not very active to begin with and does not push himself to exertion. At baseline, he ambulates independently, but is only able to walk about half a block before dyspnea and fatigue necessitate him taking a ~5min break before recommencing activity. He denies claudication symptoms. Currently he is able to walk about 50 feet (just around the home) without issue. He is unsure of his tolerance to stairs as he lives in a [place] and has not used any stairs in months/years. Family History FH: diabetes mellitus FH: gallbladder disease FH: heart disease FH: hypertension Social History Smoking Status: Current Every Day Smoker History of Alcohol Use: No Review of Systems Constitutional: + fatigue, + weakness, No chills, No fever Respiratory: + cough, + dyspnea on exertion, + shortness of breath, + sputum Cardiac: + PND, + edema, + orthopnea, No chest pain, No claudication, No palpitations Abdomen: No GI bleeding, No nausea, No pain, No vomiting Male : + hematuria, + nocturia more than once/night, + urinary frequency, No dysuria, No incontinence All Other Systems: Reviewed and Negative Allergies Coded Allergies: Metformin (Unverified Adverse Reaction, Severe, MEMORY LOSS, 08/25/16) Codeine (Unverified Adverse Reaction, Intermediate, ITCHING, 08/25/16) Medications Current Inpatient Medications Medications (Trade) Dose Ordered Sig/Elroy Route Start Time Stop Time Status Last Admin Dose Admin Acetaminophen (Tylenol Tab) 650 mg Q4H PRN PO 08/25/16 13:30 09/24/16 13:29 Al Hydrox/Mg Hydrox/Simethicone (Maalox Max Susp) 15 ml Q4H PRN PO 08/25/16 13:30 09/24/16 13:29 Magnesium Hydroxide (Milk Of Magnesia Susp) 30 ml Q12H PRN PO 08/25/16 13:30 09/24/16 13:29 Ondansetron HCl (Zofran Inj) 4 mg Q6H PRN IV 08/25/16 13:30 09/24/16 13:29 Nitroglycerin (Nitrostat Tab) 0.4 mg UD PRN SL 08/25/16 13:30 09/24/16 13:29 Polyethylene 17 gm 17 gm DAILY PRN PO 08/25/16 13:30 09/24/16 13:29 Furosemide/Syringe (Lasix Inj/ Syringe) 4 ml @ 4 mls/min BID17 IV 08/25/16 17:00 09/24/16 16:59 08/27/16 08:30 4 MLS/MIN Aspirin (Ecotrin Tab) 81 mg DAILY PO 08/26/16 09:00 09/25/16 08:59 08/27/16 08:32 81 MG Carvedilol (Coreg Tab) 3.125 mg DAILY PO 08/26/16 09:00 09/25/16 08:59 08/27/16 08:32 3.125 MG Clopidogrel Bisulfate (plAVix TAB) 75 mg DAILY PO 08/26/16 09:00 09/25/16 08:59 08/27/16 08:32 75 MG Potassium Chloride (Klor-Con Tab) 20 meq QAM PO 08/26/16 09:00 09/25/16 08:59 08/27/16 08:33 20 MEQ Insulin Aspart (novoLOG ASPART) SLIDING SCALE G... ACHS SC 08/25/16 16:00 09/24/16 15:59 Albuterol/ Ipratropium (Duoneb) 3 ml Q4R PRN INH 08/25/16 13:30 09/24/16 13:29 Atorvastatin Calcium (Lipitor Tab) 40 mg QAM PO 08/26/16 09:00 09/25/16 08:59 08/27/16 08:30 40 MG Albuterol/ Ipratropium (Combivent Respimat Inh) 1 puffs QID INH 08/25/16 17:00 09/24/16 16:59 08/27/16 08:30 1 PUFFS Losartan Potassium (coZAAR TAB) 25 mg QAM PO 08/26/16 09:00 09/25/16 08:59 Future Hold Nicotine (Nicoderm Cq 14MG Patch) 1 patch QAM TD 08/26/16 09:00 09/25/16 08:59 08/26/16 14:51 1 PATCH Miscellaneous (Remove Nicoderm Patch) 1 ea HS N/A 08/25/16 21:00 09/24/16 20:59 08/26/16 20:43 1 EA Glucose (Glucose 40% Gel) 15-30 GRAMS 15 GRAMS... UD PRN PO 08/25/16 15:00 09/24/16 14:59 Glucose (Glucose Chew Tab) 4-8 Tablets 4 Tabl... UD PRN PO 08/25/16 15:00 09/24/16 14:59 Dextrose (Dextrose 50% 50ML Syringe) 25-50ML OF 50% DW IV FOR... UD PRN IV 08/25/16 15:00 09/24/16 14:59 Glucagon (Glucagon Inj) 1 mg UD PRN SQ 08/25/16 15:00 09/24/16 14:59 Guaifenesin (Robitussin Sugar Free Syrup) 100 mg Q6H PRN PO 08/25/16 20:00 09/24/16 19:59 08/26/16 14:29 100 MG Menthol (Nice Vlad) 1 vlad Q1H PRN PO 08/25/16 20:00 09/24/16 19:59 Cephalexin Monohydrate (Keflex Cap) 500 mg QID PO 08/26/16 17:00 08/31/16 16:59 08/27/16 08:32 500 MG Lisinopril (Zestril Tab) 10 mg DAILY PO 08/27/16 09:00 09/26/16 08:59 08/27/16 08:32 10 MG Physical Exam Vital Signs Past 12 Hours Date Time Temp Pulse Resp B/P Pulse Ox O2 Delivery O2 Flow Rate FiO2 08/27/16 07:57 96 Room Air 08/27/16 07:32 36.3 79 18 102/68 96 08/27/16 04:00 Nasal Cannula 2.0 08/27/16 03:29 36.6 80 18 110/71 100 Nasal Cannula 2.0 08/27/16 00:00 Nasal Cannula 2.0 08/26/16 23:10 36.5 81 18 91/57 100 Nasal Cannula 2.5 Constitutional: General Apperance: heathly-appearing, well-nourished, well-developed Level of Distress: NAD Head: normocephalic, atraumatic ENMT: pharynx normal Neck: supple, trachea midline Lungs: Respiratory effort: no dyspnea, good air movement Auscultation: breath sounds normal, no wheezing, no rhonchi, dry rales/ crackles (at bases, worse on right) Cardiovascular: Apical Impulse: not displaced Heart Auscultation: RRR, normal S1, normal S2, murmur Peripheral Pulses: Bruits: none appreciated Carotid Pulse: normal on the left, normal on the right Radial Pulse: normal on the left, normal on the right Dorsalis Pedis Pulse: normal on the left, decreased on the right Abdomen: Bowel Sounds: normal Inspection & Palpation: soft, non-distended, no tenderness, guarding & rebound Liver: no hepatomegaly Extremities: no cyanosis, no varicosities, no clubbing, no ulcers, edema Data Laboratory Results: Last 24 Hours Test 08/26/16 11:31 08/26/16 16:45 08/26/16 16:48 08/26/16 18:45 Bedside Glucose 105 mg/dl 115 mg/dl Urine Color YELLOW Urine Appearance CLEAR Urine pH 5.5 Urine Specific [place] 1.006 Urine Protein NEG Urine Glucose (UA) NEG Urine Ketones NEG Urine Occult Blood NEG Urine Nitrite NEG Urine Bilirubin NEG Urine Urobilinogen NEG Urine Leukocyte Esterase NEG Prostate Specific Antigen 0.867 ng/ml Free Prostate Specific Antigen 0.09 ng/ml Percent Free Prostate Specific Ag % Test 08/26/16 20:40 08/27/16 07:12 08/27/16 07:40 Bedside Glucose 129 mg/dl 97 mg/dl Prothrombin Time 12.2 SECONDS Prothromb Time International Ratio 1.1 Sodium Level 141 mmol/L Potassium Level 3.9 mmol/L Chloride Level 104 mmol/L Carbon Dioxide Level 27 mmol/L Anion Gap 10.0 mmol/L Blood Urea Nitrogen 27 mg/dl Creatinine 1.10 mg/dl Est Creatinine Clear Calc Drug Dose 79.4 ml/min Estimated GFR () 84.7 Estimated GFR (Non- 73.1 BUN/Creatinine Ratio 24.3 Random Glucose 87 mg/dl Calcium Level 8.7 mg/dl Magnesium Level 2.5 mg/dl Total Bilirubin 1.6 mg/dl Aspartate Amino Transf (AST/SGOT) 15 U/L Alanine Aminotransferase (ALT/SGPT) 26 U/L Alkaline Phosphatase 109 U/L Total Protein 5.6 gm/dl Albumin 2.8 gm/dl Globulin 2.8 gm/dl Albumin/Globulin Ratio 1.0 Echocardiography The left atrium and ventricle are severely dilated. Left ventricular systolic function is severely reduced. Ejection Fraction = 15- 20%. Basal segments are moderately hypokinetic with more severe hypokinesis distally. Anterior apex appears akinetic The right atrium and ventricle is moderately dilated. The right ventricular systolic function is moderate to severely reduced. Right ventricular systolic pressure is elevated at 40-50mmHg.The left ventricle is severely dilated. The non-coronary cusp is immobile and severely calcified. Mild aortic regurgitation. Moderate mitral regurgitation. EKG: Normal sinus rhythm Left axis deviation Non-specific intra-ventricular conduction block Telemetry reviewed: at 08:00 PAC noted with compensatory pause, followed by broad complex QRS and eventual pacing seen. Assessment & Plan 61 year old male with systolic CHF and dilated cardiomyopathy s/p pacemaker/ICD insertion in Jan 2016 presents with dyspnea and hypoxia. Clinical assessment consistent with labs and imaging, patients symptoms likely secondary to CHF exacerbation. CHF - ongoing evidence of volume overload with JVD, evidence of fluid on lung auscultation and sacral and lower limb edema - Recommend continuing high dose of IV Lasix 40mg BID - Monitor daily weights, and assess for negative fluid balance. Daily assessment of hydration status required. - If patient ready for home, would discharge on Lasix PO 80mg BID if he can get close follow up with web publisher in the next week, with BMP - If amenable, would aim for ongoing diuresis to approach euvolemic state prior to discharge - Continue carvedilol 3.125mg daily and KCl supplement - Consider addition of spironolactone for buttermaker benefits seen in CHF - Would consider addition of Entresto on outpatient basis, to be determined by web publisher on follow up PVD s/p aorta-femoral bypass - Continue aspirin 81mg daily, clopidogrel 75mg daily and atorvastatin 40mg daily HTN - Continue carvedilol 3.125mg daily - Continue decreased Lisinopril dose 10mg in view of low normal blood pressure readings HLD - Continue atorvastatin 40mg daily Thank you for allowing us to participate in the care of this patient. DR. LOPEZ ADDENDUM: Patient seen and examined with Dr. Hopkins and assessment and plan discussed. I agree with plan as outlined above with following additions-- Patient with mild residual congestion on exam today but reports significant improvement form admission and appears comfortable on room air. Switched back to home 40mg PO lasix today which is reasonable. With severely reduced EF, NYHA class III symptoms would add Spironolactone 25 mg to his heart failure regimen Will need close outpatient follow-up on discharge. Follow-up with his [employer] Operator in [place] or if he wishes can follow-up with me. Otherwise not concerned about tachycardia while standing or NSVT on telemetry. Monitor electrolytes. Continue beta-pavithra.
[2016-08-27 10:29] LABS: MEAN CELL VOLUME 85.2 fL (80-100); MEAN CORPUSCULAR HEMOGLOBIN 27.1 pg (25-34); MEAN CORPUSCULAR HGB CONC 31.8 g/dl (32-36); MEAN PLATELET VOLUME 10.2 fL (7.4-10.4); PLATELET COUNT 389 K/uL (130-400); RED BLOOD COUNT 4.46 M/uL (4.7-6.1); WHITE BLOOD COUNT 10.07 K/uL (4.8-10.8)
--- NOTE | 2016-08-27 11:19 | Hospitalist Progress Note ---
Hospitalist Progress Note Date of Service Aug 27, 2016. Subjective Pt evaluation today including: conversation w/ patient, physical exam, chart review, lab review, review of studies, review of inpatient medication list Voiding: no voiding problems, no incontinence Patient states he is feeling well. Patient denies any fever, chills, sweats, lightheadedness, dizziness, vision changes, CP, palpitations, edema, SOB, wheezing, cough, abdominal pain, nausea, vomiting, diarrhea, urinary symptoms, melena, numbness/tingling, weakness, muscle/joint pain, anxiety/depression, active bleeding, or new skin discoloration/changes. Medications Current Inpatient Medications Medications (Trade) Dose Ordered Sig/Elroy Route Start Time Stop Time Status Last Admin Dose Admin Acetaminophen (Tylenol Tab) 650 mg Q4H PRN PO 08/25/16 13:30 09/24/16 13:29 Al Hydrox/Mg Hydrox/Simethicone (Maalox Max Susp) 15 ml Q4H PRN PO 08/25/16 13:30 09/24/16 13:29 Magnesium Hydroxide (Milk Of Magnesia Susp) 30 ml Q12H PRN PO 08/25/16 13:30 09/24/16 13:29 Ondansetron HCl (Zofran Inj) 4 mg Q6H PRN IV 08/25/16 13:30 09/24/16 13:29 Nitroglycerin (Nitrostat Tab) 0.4 mg UD PRN SL 08/25/16 13:30 09/24/16 13:29 Polyethylene (Miralax Powder Packet) 17 gm DAILY PRN PO 08/25/16 13:30 09/24/16 13:29 Aspirin (Ecotrin Tab) 81 mg DAILY PO 08/26/16 09:00 09/25/16 08:59 08/27/16 08:32 81 MG Carvedilol (Coreg Tab) 3.125 mg DAILY PO 08/26/16 09:00 09/25/16 08:59 08/27/16 08:32 3.125 MG Clopidogrel Bisulfate (plAVix TAB) 75 mg DAILY PO 08/26/16 09:00 09/25/16 08:59 08/27/16 08:32 75 MG Potassium Chloride (Klor-Con Tab) 20 meq QAM PO 08/26/16 09:00 09/25/16 08:59 08/27/16 08:33 20 MEQ Insulin Aspart (novoLOG ASPART) SLIDING SCALE G... ACHS SC 08/25/16 16:00 09/24/16 15:59 Albuterol/ Ipratropium (Duoneb) 3 ml Q4R PRN INH 08/25/16 13:30 09/24/16 13:29 Atorvastatin Calcium (Lipitor Tab) 40 mg QAM PO 08/26/16 09:00 09/25/16 08:59 08/27/16 08:30 40 MG Albuterol/ Ipratropium (Combivent Respimat Inh) 1 puffs QID INH 08/25/16 17:00 09/24/16 16:59 08/27/16 08:30 1 PUFFS Losartan Potassium (coZAAR TAB) 25 mg QAM PO 08/26/16 09:00 09/25/16 08:59 Future Hold Nicotine (Nicoderm Cq 14MG Patch) 1 patch QAM TD 08/26/16 09:00 09/25/16 08:59 08/26/16 14:51 1 PATCH Miscellaneous (Remove Nicoderm Patch) 1 ea HS N/A 08/25/16 21:00 09/24/16 20:59 08/26/16 20:43 1 EA Glucose (Glucose 40% Gel) 15-30 GRAMS 15 GRAMS... UD PRN PO 08/25/16 15:00 09/24/16 14:59 Glucose (Glucose Chew Tab) 4-8 Tablets 4 Tabl... UD PRN PO 08/25/16 15:00 09/24/16 14:59 Dextrose (Dextrose 50% 50ML Syringe) 25-50ML OF 50% DW IV FOR... UD PRN IV 08/25/16 15:00 09/24/16 14:59 Glucagon (Glucagon Inj) 1 mg UD PRN SQ 08/25/16 15:00 09/24/16 14:59 Guaifenesin (Robitussin Sugar Free Syrup) 100 mg Q6H PRN PO 08/25/16 20:00 09/24/16 19:59 08/26/16 14:29 100 MG Menthol (Nice Vlad) 1 vlad Q1H PRN PO 08/25/16 20:00 09/24/16 19:59 Cephalexin Monohydrate (Keflex Cap) 500 mg QID PO 08/26/16 17:00 08/31/16 16:59 08/27/16 08:32 500 MG Furosemide (Lasix Tab) 40 mg BID17 PO 08/27/16 17:00 09/26/16 16:59 Objective Vital Signs Date Time Temp Pulse Resp B/P Pulse Ox O2 Delivery O2 Flow Rate FiO2 08/27/16 07:57 96 Room Air 08/27/16 07:32 36.3 79 18 102/68 96 08/27/16 04:00 Nasal Cannula 2.0 08/27/16 03:29 36.6 80 18 110/71 100 Nasal Cannula 2.0 08/27/16 00:00 Nasal Cannula 2.0 08/26/16 23:10 36.5 81 18 91/57 100 Nasal Cannula 2.5 08/26/16 20:21 36.3 99 18 108/74 98 Room Air 08/26/16 20:00 97 Room Air 2.0 08/26/16 16:00 37.2 80 18 138/85 96 Nasal Cannula 2.0 08/26/16 16:00 96 Room Air 2.0 08/26/16 12:00 96 Room Air 08/26/16 11:26 36.8 80 18 101/68 99 Physical Exam General Appearance: no apparent distress Eyes: normal inspection, PERRL ENT: hearing grossly normal Neck: supple Respiratory/Chest: lungs clear, no respiratory distress, no accessory muscle use Cardiovascular: regular rate, rhythm Abdomen: normal bowel sounds, non tender, soft Extremities: no calf tenderness, + swelling (+2 pitting edema of LLE and +1 pitting edema of RLE) Neurologic/Psychiatric: alert, normal mood/affect, oriented x 3 Skin: normal color, warm/dry, no rash Laboratory Results Last 24 Hours Test 08/26/16 11:31 08/26/16 16:45 08/26/16 16:48 08/26/16 18:45 Bedside Glucose 105 mg/dl 115 mg/dl Urine Color YELLOW Urine Appearance CLEAR Urine pH 5.5 Urine Specific [place] 1.006 Urine Protein NEG Urine Glucose (UA) NEG Urine Ketones NEG Urine Occult Blood NEG Urine Nitrite NEG Urine Bilirubin NEG Urine Urobilinogen NEG Urine Leukocyte Esterase NEG Prostate Specific Antigen 0.867 ng/ml Free Prostate Specific Antigen 0.09 ng/ml Percent Free Prostate Specific Ag % Test 08/26/16 20:40 08/27/16 07:12 08/27/16 07:40 Bedside Glucose 129 mg/dl 97 mg/dl White Blood Count 10.07 K/uL Red Blood Count 4.46 M/uL Hemoglobin 12.1 g/dL Hematocrit 38.0 % Mean Corpuscular Volume 85.2 fL Mean Corpuscular Hemoglobin 27.1 pg Mean Corpuscular Hemoglobin Concent 31.8 g/dl RDW Standard Deviation 54.5 fL RDW Coefficient of Variation 17.9 % Platelet Count 389 K/uL Mean Platelet Volume 10.2 fL Prothrombin Time 12.2 SECONDS Prothromb Time International Ratio 1.1 Sodium Level 141 mmol/L Potassium Level 3.9 mmol/L Chloride Level 104 mmol/L Carbon Dioxide Level 27 mmol/L Anion Gap 10.0 mmol/L Blood Urea Nitrogen 27 mg/dl Creatinine 1.10 mg/dl Est Creatinine Clear Calc Drug Dose 79.4 ml/min Estimated GFR () 84.7 Estimated GFR (Non- 73.1 BUN/Creatinine Ratio 24.3 Random Glucose 87 mg/dl Calcium Level 8.7 mg/dl Magnesium Level 2.5 mg/dl Total Bilirubin 1.6 mg/dl Aspartate Amino Transf (AST/SGOT) 15 U/L Alanine Aminotransferase (ALT/SGPT) 26 U/L Alkaline Phosphatase 109 U/L Total Protein 5.6 gm/dl Albumin 2.8 gm/dl Globulin 2.8 gm/dl Albumin/Globulin Ratio 1.0 Diagnostic Results ABDOMEN AND PELVIS CT WITHOUT CONTRAST CT DOSE: 414.02 mGy.cm HISTORY: Generalized abdominal pain. TECHNIQUE: Multiaxial CT images of the abdomen and pelvis were performed without contrast. COMPARISON STUDY: None. FINDINGS: Groundglass densities at the base of the left lower lobe favor mild dependent change. Trace left pleural effusion. The heart is moderately enlarged. Pacemaker wires are noted. Bilateral L5 spondylolysis. Evidence for aortobiiliac stent graft repair. Mild body wall edema. Trace ascites. Normal bladder. There is a 2 cm right and a 2.3 severe left adrenal nodule. These are consistent with benign adrenal adenomas. No renal stones or hydronephrosis. Small calcification within the left kidney is likely cortical. There is a 2.6 cm hypodense lesion within the left kidney and a 3 cm hypodense lesion within the right kidney. These are incompletely is noncontrast study but favor cysts. The unenhanced spleen, liver, and pancreas are unremarkable. Cholecystectomy. No retroperitoneal lymphadenopathy. Suboptimal evaluation for bowel pathology due to the lack of intravenous and oral contrast. However, there is no definite bowel wall thickening or obstruction. Colonic diverticulosis. Normal appendix. IMPRESSION: 1. No definite bowel wall thickening or obstruction. 2. Normal appendix. 3. Colonic diverticulosis. 4. No renal stones or hydronephrosis. 5. Moderate cardiomegaly and a trace left pleural effusion. 6. Mild body wall edema and trace ascites. 7. Additional findings as described above. Electronically signed by: Chapo Nieto M.D. 08/26/2016 7:50 PM Dictated Date/Time: 08/26/2016 7:39 PM The status of this report is Signed. Draft = Not yet reviewed or approved by Radiologist. Signed = Reviewed and approved by Radiologist. Assessment and Plan 61 y/o male, with PMHx of systolic CHF, T2DM, HTN, HDL, PVD s/p aorta-femoral bypass, ?COPD, who presented to the ED from PCP office due to hypoxia with ambulation w/ O2 saturation at 86%. Acute on chronic systolic HF/cardiomyopathy s/p pacemaker/ICD: - Admit tele for cardiac monitoring - Trend cardiac enzymes- negative - IV Lasix 40 mg BID x4 doses. Resume PO Lasix 40 mg BID - Continue KCL 20 mEq supplement - Continue Coreg 3.125 mg PO daily - ECHO- The left ventricle is severely dilated. Left ventricular systolic function is severely reduced. The right ventricle is moderately dilated. The right ventricular systolic function is moderate to severely reduced. The left atrium is severely dilated. The right atrium is moderately dilated. The non- coronary cusp is immobile and severely calcified. Mild aortic regurgitation. There is moderate mitral regurgitation. Right ventricular systolic pressure is elevated at 40-50mmHg. - Monitor daily weights and I&Os- good UO - TSH WNL - Blood cultures NGTD - Influenza negative - Patient follows with Dr. Glover of [place]--> no records available - Episodes of tachycardia/SOB w/ standing--> consult cardiology, appreciate recommendations UTI w/ hematuria POA- hematuria resolved: - U/A dirty, urine culture pending - IV Rocephin x1 dose, started Keflex 500 mg PO QID on 08/27 - Patient started to experience pain w/ urination--> consult urology, appreciate recommendations - CT of abdomen/pelvis - PSA WNL Anemia, baseline hgb 13.0- stable: Follow CBC Elevated LFTs: Follow CMP T2DM: - BSG ACHS w/ sliding insulin scale - Ha1c 6.8% HDL: - Continue Lipitor 40 mg PO daily - Lipid panel reviewed HTN: Hold Losartan 25 mg PO daily due to low BPs and being treated w/ IV Lasix ?COPD: - Smoke 1 pack per day- smoking cessation counselling - Continue Combivent - DuoNeb PRN - Nicotine patch - Scheduled for PFTs outpt by PCP PVD s/p aorta-femoral bypass: Continue ASA 81 mg PO daily and Plavix 75 mg PO daily GI Prophylaxis: Maalox PRN, IV Zofran PRN, Colace and/or Milk of Mag PRN DVT prophylaxis: - Ambulation, GERSON and SCDs - Hold chemical anticoagulation due to hematuria/anemia Code Status: LEVEL I, FULL Dispo: From home, lives w/ . Discharge to home once medically stable. Hopefully w/in the next 1-2 days.
--- NOTE | 2016-08-27 15:25 | Urology Consultation ---
History General Date of Service: Aug 27, 2016. Primary Care Physician: Katelyn Sutton, DO Pt seen a urologist before?: No History of Present Illness 61y/o male w/ hematuria in the setting of suspected UTI - blood has now resolved - no current dysuria, urgency, frequency - on plavix - baseline voiding pattern has been unremarkable - rare nocturia - good strength of stream, no bother CT: b/l adrenal lesions (both under 3cm, c/w adenomas); renal cysts (likely). No clear masses, no hydro. No bladder masses, no clot in the bladder, no stones. UA yesterday - clear - complex overall hx - infected left knee after meniscus surgery - ultimately with extended course of abx, replacement/washout/replacement - vascular bypass - CHF - subjectively reports he feels very well right now Imaging Imaging: CT Laboratory Labs were reviewed and are within normal limits unless listed below. Labs are available in the chart and at [facility]08/27/16 07:12 08/27/16 07:12 Test 08/26/16 16:45 08/26/16 18:45 08/27/16 07:12 08/27/16 11:37 Urine Color YELLOW Urine Appearance CLEAR (CLEAR) Urine pH 5.5 (4.5-7.5) Urine Specific [place] 1.006 (1.000-1.030) Urine Protein NEG (NEG) Urine Glucose (UA) NEG (NEG) Urine Ketones NEG (NEG) Urine Occult Blood NEG (NEG) Urine Nitrite NEG (NEG) Urine Bilirubin NEG (NEG) Urine Urobilinogen NEG (NEG) Urine Leukocyte Esterase NEG (NEG) Prostate Specific Antigen 0.867 ng/ml (0.000-4.000) Free Prostate Specific Antigen 0.09 ng/ml Percent Free Prostate Specific Ag % Red Blood Count 4.46 M/uL (4.7-6.1) Mean Corpuscular Volume 85.2 fL (80-100) Mean Corpuscular Hemoglobin 27.1 pg (25-34) Mean Corpuscular Hemoglobin Concent 31.8 g/dl (32-36) RDW Standard Deviation 54.5 fL (36.4-46.3) RDW Coefficient of Variation 17.9 % (11.5-14.5) Mean Platelet Volume 10.2 fL (7.4-10.4) Prothrombin Time 12.2 SECONDS (9.0-12.0) Prothromb Time International Ratio 1.1 (0.9-1.1) Anion Gap 10.0 mmol/L (3-11) Est Creatinine Clear Calc Drug Dose 79.4 ml/min Estimated GFR () 84.7 Estimated GFR (Non- 73.1 BUN/Creatinine Ratio 24.3 (10-20) Calcium Level 8.7 mg/dl (8.5-10.1) Magnesium Level 2.5 mg/dl (1.8-2.4) Total Bilirubin 1.6 mg/dl (0.2-1) Aspartate Amino Transf (AST/SGOT) 15 U/L (15-37) Alanine Aminotransferase (ALT/SGPT) 26 U/L (12-78) Alkaline Phosphatase 109 U/L (45-117) Total Protein 5.6 gm/dl (6.4-8.2) Albumin 2.8 gm/dl (3.4-5.0) Globulin 2.8 gm/dl (2.5-4.0) Albumin/Globulin Ratio 1.0 (0.9-2) Bedside Glucose 132 mg/dl (70-99) Past History congestive heart failure, coronary artery disease, heart disease, high cholesterol, hypertension, osteoarthritis, vascular disease Past Surgical History: orthopedic surgery, other (vascular) Family History FH: diabetes mellitus FH: gallbladder disease FH: heart disease FH: hypertension Social History Hx Tobacco Use In Past Year?: Yes Marital status: Housing status: lives with family Occupation status: retired Allergies Coded Allergies: Metformin (Unverified Adverse Reaction, Severe, MEMORY LOSS, 08/25/16) Codeine (Unverified Adverse Reaction, Intermediate, ITCHING, 08/25/16) Medications Home Medications: Home Meds and Scripts Medications Dose Route/Sig Max Daily Dose Days Date Category K-Tab (Potassium Chloride) 20 Meq Tab 20 Meq PO DAILY 08/25/16 Reported Plavix (Clopidogrel Bisulfate) 75 Mg Tab 75 Mg PO DAILY 08/25/16 Reported Coreg (Carvedilol) 3.125 Mg Tab 3.125 Mg PO DAILY 08/25/16 Reported Zestril (Lisinopril) 20 Mg Tab 20 Mg PO DAILY 08/25/16 Reported Lasix (Furosemide) 40 Mg Tab 40 Mg PO BID 08/25/16 Reported Aspirin Ec (Aspirin) 81 Mg Tab 81 Mg PO DAILY 08/25/16 Reported Inpatient Medications: Current Inpatient Medications Medications (Trade) Dose Ordered Sig/Elroy Route Start Time Stop Time Status Last Admin Dose Admin Acetaminophen (Tylenol Tab) 650 mg Q4H PRN PO 08/25/16 13:30 09/24/16 13:29 Al Hydrox/Mg Hydrox/Simethicone (Maalox Max Susp) 15 ml Q4H PRN PO 08/25/16 13:30 09/24/16 13:29 Magnesium Hydroxide (Milk Of Magnesia Susp) 30 ml Q12H PRN PO 08/25/16 13:30 09/24/16 13:29 Ondansetron HCl (Zofran Inj) 4 mg Q6H PRN IV 08/25/16 13:30 09/24/16 13:29 Nitroglycerin (Nitrostat Tab) 0.4 mg UD PRN SL 08/25/16 13:30 09/24/16 13:29 Polyethylene (Miralax Powder Packet) 17 gm DAILY PRN PO 08/25/16 13:30 09/24/16 13:29 Aspirin (Ecotrin Tab) 81 mg DAILY PO 08/26/16 09:00 09/25/16 08:59 08/27/16 08:32 81 MG Carvedilol (Coreg Tab) 3.125 mg DAILY PO 08/26/16 09:00 09/25/16 08:59 08/27/16 08:32 3.125 MG Clopidogrel Bisulfate (plAVix TAB) 75 mg DAILY PO 08/26/16 09:00 09/25/16 08:59 08/27/16 08:32 75 MG Potassium Chloride (Klor-Con Tab) 20 meq QAM PO 08/26/16 09:00 09/25/16 08:59 08/27/16 08:33 20 MEQ Insulin Aspart (novoLOG ASPART) SLIDING SCALE G... ACHS SC 08/25/16 16:00 09/24/16 15:59 Albuterol/ Ipratropium (Duoneb) 3 ml Q4R PRN INH 08/25/16 13:30 09/24/16 13:29 Atorvastatin Calcium (Lipitor Tab) 40 mg QAM PO 08/26/16 09:00 09/25/16 08:59 08/27/16 08:30 40 MG Albuterol/ Ipratropium (Combivent Respimat Inh) 1 puffs QID INH 08/25/16 17:00 09/24/16 16:59 08/27/16 14:00 1 PUFFS Losartan Potassium (coZAAR TAB) 25 mg QAM PO 08/26/16 09:00 09/25/16 08:59 Future Hold Nicotine (Nicoderm Cq 14MG Patch) 1 patch QAM TD 08/26/16 09:00 09/25/16 08:59 08/26/16 14:51 1 PATCH Miscellaneous (Remove Nicoderm Patch) 1 ea HS N/A 08/25/16 21:00 09/24/16 20:59 08/26/16 20:43 1 EA Glucose (Glucose 40% Gel) 15-30 GRAMS 15 GRAMS... UD PRN PO 08/25/16 15:00 09/24/16 14:59 Glucose (Glucose Chew Tab) 4-8 Tablets 4 Tabl... UD PRN PO 08/25/16 15:00 09/24/16 14:59 Dextrose (Dextrose 50% 50ML Syringe) 25-50ML OF 50% DW IV FOR... UD PRN IV 08/25/16 15:00 09/24/16 14:59 Glucagon (Glucagon Inj) 1 mg UD PRN SQ 08/25/16 15:00 09/24/16 14:59 Guaifenesin (Robitussin Sugar Free Syrup) 100 mg Q6H PRN PO 08/25/16 20:00 09/24/16 19:59 08/26/16 14:29 100 MG Menthol (Nice Vlad) 1 vlad Q1H PRN PO 08/25/16 20:00 09/24/16 19:59 Cephalexin Monohydrate (Keflex Cap) 500 mg QID PO 08/26/16 17:00 08/31/16 16:59 08/27/16 14:00 500 MG Furosemide (Lasix Tab) 40 mg BID17 PO 08/27/16 17:00 09/26/16 16:59 Review of Systems Review of Systems Constitutional: No chills, No fever, No frequent headaches, No problem reported , No see HPI, No weight loss Eyes: No blurred vision, No double vision, No eye pain, No loss of night vision , No problem reported, No see HPI Neurological: No dizzy, No numbness/tingling, No passing out, No problem reported, No see HPI, No seizures Endocrine: No excessive thirst, No problem reported, No see HPI, No tired/ sluggish, No too cold, No too hot Gastrointestinal: No abdominal pain, No constipation, No diarrhea, No indigestion, No nausea, No problem reported, No see HPI, No vomiting Cardiovascular: No angina, No chest pain, No heart murmur, No irregular heartbeat, No palpitations, No problem reported, No see HPI, No swelling ankles/ feet Respiratory: No chronic cough, No coughing up blood, No problem reported, No see HPI, No shortness of breath, No wheezing Skin: No boils, No dry skin, No problem reported, No rash, No see HPI Musculoskeletal: No arthritis, No back pain, No joint pain, No neck pain, No problem reported, No see HPI Blood / Lymphatic: No bleed easily, No bruise easily, No problem reported, No see HPI, No swollen glands Ears / Nose / Throat: No hearing loss, No hoarse voice, No problem reported, No see HPI, No sinus, No sore throat Psychologic / Mental: No difficulty sleeping, No nervous, No problem reported, No see HPI, No trouble remembering Male : + blood in urine All Other Systems: Reviewed and Negative Physical Exam Vital Signs: Vital Signs Past 12 Hours Date Time Temp Pulse Resp B/P Pulse Ox O2 Delivery O2 Flow Rate FiO2 08/27/16 15:05 36.3 87 18 97/66 94 08/27/16 12:00 96 Room Air 08/27/16 11:33 36.2 80 18 90/68 99 08/27/16 07:57 96 Room Air 08/27/16 07:32 36.3 79 18 102/68 96 08/27/16 04:00 Nasal Cannula 2.0 08/27/16 03:29 36.6 80 18 110/71 100 Nasal Cannula 2.0 Physical Exam: General Appearance: WD/WN, no apparent distress Eyes: bilateral eyes normal inspection ENT: hearing grossly normal Neck: no adenopathy Respiratory/Chest: no respiratory distress, no accessory muscle use Cardiovascular: regular rate, rhythm, no edema Gastrointestinal: Abdomen: normal abdomen Bladder: normal bladder Renal: normal renal Extremities: no pedal edema, no calf tenderness Neurologic/Psychiatric: alert, normal mood/affect, oriented x 3 Skin: normal color, warm/dry Lymphatic: no adenopathy Assessment & Plan Assessment & Plan Hematuria - in the setting of UTI? - currently resolved - CT without clear pathology (no large tumors, masses, stones, hydro) - discussed the general workup of hematuria - given his smoking hx, I have recommended we arrange f/u and completion of his hematuria w/u as an outpatient - there are no other studies that need to be completed acutely from a standpoint - we will arrange for outpt f/u
[2016-08-27] MEDS ORDERED: SPIRONOLACTONE 25 MG TAB PO ONE (17:00)
[2016-08-27] MEDS ORDERED: POTA10CA28 PO (17:33)
[2016-08-27] MEDS ORDERED: KFL500 PO (17:33)
[2016-08-27] MEDS ORDERED: NCDT14 TD (17:33)
[2016-08-27] MEDS ORDERED: CZR25 PO (17:33)
[2016-08-27] MEDS ORDERED: LPT40 PO (17:33)
[2016-08-27] MEDS ORDERED: SPR25 PO (17:33)
--- NOTE | 2016-08-27 17:33 | Discharge Instructions ---
Discharge Instructions Date of Service Aug 28, 2016. Admission Reason for Admission: CHF Discharge Discharge Diagnosis / Problem: hematuria , chf exac Discharge Goals Goal(s): Decrease discomfort, Improve function, Increase independence, Improve disease control, Improve nutritional status, Learn about illness, Diagnostic testing, Therapeutic intervention, Prevent Disease Progression, Specific goals Activity Recommendations Activity Limitations: resume your previous activity . Instructions / Follow-Up Instructions / Follow-Up you was admitted because fo hypoxia with ambulation, Was found has CHF exacerbation Acute on chronic systolic Heart failure/cardiomyopathy s/p pacemaker/ICD: you followed with Dr. Glover of [place]-, you have expressed your intention to follow up with [facility] group title department manager because you preferred to transfer over here, RN please provide telephone number for Mr. Mckeon to call for appointment. you was having hematuria with possible UTI your CT of abdomen shows bilateral hypodensities area in kidneys, urology saw patient felt likely is cyst, you need to follow up with Urologist as instructed I give you Rx for labs test on Tuesday, you need to do it and report the results to pcp You need to have blood pressure check 2 time a day, writing down number and bring it to your family doctor to adjust that palpation medicine dose Your new medicine Losartan should be hold when the systolic blood pressure less than 95 - you need to follow up with your primary care physician in 1 week, - take medication as instructed, never overdose or any misuse, or take with alcohol, because misuse of medicine may cause organ damage or , call your primary care physician if have questions of medicaitons. - call your primary care physician OR go to local emergency room if has any fever/chill, chest pain, shortness of breathing, nausea/vomiting/abdominal pain , facial droop/slurry speech/local weakness, or if has any questions. - fall precaution - diet as instructed - you need to follow up with your subspecialist, such as urologist, and title department manager - you should understand that it is important to follow up the above instruction , and "not following the above instruction" may cause delayed or missed care of your medical conditions which may cause permanent organ damage and even . Call your Primary Care doctor if any of the following symptoms or problems start or get worse: * Shortness of breath or difficulty breathing * Wake up at night short of breath * Chest pain * Cough * Swelling of your hands, feet, or legs * More fatigued or tired with your normal activity * Palpitations - sudden fast heart beats WEIGHT * Weigh yourself every morning after using the bathroom. * Use the same scale. * Wear the same amount of clothing. * Write your weight down on a chart. * Call your Primary Care doctor if you gain more than 2-3 pounds in 1-2 days. MEDICATIONS * Use this discharge instruction sheet for medication instructions. * Take your medications at the time your doctor ordered. * Do not skip a dose of your medicines. * If you miss a dose of medicine, take it as soon as possible, but DO NOT DOUBLE A DOSE. * Read your medicine information when you get home. * Know all of the side effects of your medicine. If in doubt, ask your pharmacist * Call your Primary Care doctor's office if you have any side effects. * Be sure all of your doctors know what medicine and herbs you take (including cold, flu, and herbal medicine). Take the following with you to your follow-up doctor appointments: * Weight Chart * Medication List * List of questions Do not drink excessive alcohol, beer or wine. Current Hospital Diet Patient's current hospital diet: AHA Diet (Heart Healthy), Diabetes Type 2 Diet Discharge Diet Recommended Diet: Diabetes Type 2 Diet Fluid Restriction: 1800 ml (7 cups) Pending Studies Studies pending at discharge: no Laboratory Results Hemoglobin A1c Test 08/26/16 05:50 Range/Units Estimated Average Glucose 148 mg/dl Hemoglobin A1c 6.8 H 4.5-5.6 % Lipid Panel Test 08/26/16 05:50 Range/Units Triglycerides Level 77 0-150 mg/dl Cholesterol Level 83 0-200 mg/dl HDL Cholesterol 25 mg/dl Cholesterol/HDL Ratio 3.3 LDL Cholesterol, Calculated 43 mg/dl Medical Emergencies . Who to Call and When: Call 911 or go to the Emergency Room if: * If at any time you feel your situation is an emergency * You have tightness or pain in your chest that does not go away with rest or Nitroglycerin * You are very short of breath even with rest . Non-Emergent Contact Non-Emergency issues call your: Primary Care Provider . . "Provider Documentation" section prepared by Jamey Dixon. VTE Core Measure Inpt VTE Proph given/why not?: Sergio Medina, ALBINO's
[2016-08-27] MEDS: FUROSEMIDE 40 MG TAB PO SCH (17:53)
[2016-08-27 18:25] LABS: BUN/CREATININE RATIO 28.3 (10-20); CALCIUM 8.4 mg/dl (8.5-10.1); CREATININE 1.1 mg/dl (0.60-1.40); MAGNESIUM 2.4 mg/dl (1.8-2.4); PHOSPHORUS 3.4 mg/dl (2.5-4.9); POTASSIUM 3.9 mmol/L (3.5-5.1)
[2016-08-28] VITALS: O2SAT 99
[2016-08-28 04:00] VITALS: O2SAT 99
[2016-08-28 04:30] VITALS: BP 113/74; PULSE 84; TEMP 36.3; O2SAT 96
[2016-08-28 06:19] LABS: HEMATOCRIT 37.2 % (42-52); MEAN CELL VOLUME 84.7 fL (80-100); MEAN CORPUSCULAR HEMOGLOBIN 27.1 pg (25-34); MEAN PLATELET VOLUME 9.8 fL (7.4-10.4); PLATELET COUNT 355 K/uL (130-400); RED BLOOD COUNT 4.39 M/uL (4.7-6.1); WHITE BLOOD COUNT 9.51 K/uL (4.8-10.8)
[2016-08-28] MEDS: INSULIN ASPART 100 UNITS/ML 3 ML PEN SC SCH (06:30)
[2016-08-28 06:35] LABS: INR 1.1 (0.9-1.1)
[2016-08-28 06:48] LABS: BUN/CREATININE RATIO 26.8 (10-20); CALCIUM 8.5 mg/dl (8.5-10.1); CREATININE 1.1 mg/dl (0.60-1.40); MAGNESIUM 2.4 mg/dl (1.8-2.4); POTASSIUM 4.2 mmol/L (3.5-5.1)
[2016-08-28 07:27] VITALS: BP 95/65; PULSE 89; TEMP 36.3; O2SAT 93
[2016-08-28] MEDS: CARVEDILOL 3.125 MG TAB PO SCH (07:37)
[2016-08-28] MEDS: NICOTINE 14 MG/24 HR TDSY TD SCH (07:38)
[2016-08-28] MEDS: IPRATROPIUM BROMIDE/ALBUTEROL respimat INH INH SCH (07:39)
[2016-08-28] MEDS: ASPIRIN 81 MG ECTAB PO SCH (07:39)
[2016-08-28] MEDS: CEPHALEXIN MONOHYDRATE 500 MG CAP PO SCH (07:40)
[2016-08-28] MEDS: ATORVASTATIN 40 MG TAB PO SCH (07:40)
[2016-08-28] MEDS: CLOPIDOGREL BISULFATE 75 MG TAB PO SCH (07:40)
[2016-08-28] MEDS: FUROSEMIDE 40 MG TAB PO SCH (07:41)
[2016-08-28 08:29] VITALS: BP 95/65; PULSE 89; TEMP 36.3; O2SAT 93
[2016-08-28] MEDS ORDERED: SPIRONOLACTONE 25 MG TAB PO SCH (09:00)
[2016-08-28] MEDS ORDERED: POTASSIUM CHLORIDE 10 MEQ TABCR PO SCH (09:00)
--- NOTE | 2016-08-28 09:40 | Discharge Summary ---
Discharge Summary Date of Service Aug 28, 2016. Discharge Summary Admission Date: Aug 25, 2016 at 13:24 Discharge Date: Aug 28, 2016 Discharge Disposition: [facility] facility Principal Diagnosis: Acute on chronic systolic HF/cardiomyopathy s/p pacemaker/ ICD: Problems/Secondary Diagnoses: hematuria with possible UTI POA Anemia, Elevated LFTs: T2DM: HDL: HTN: ?COPD: Stable continue current care 4 beat of NSTVT, Procedures: Echo report seeping Consultations: Cardiology and urologist Medication Reconciliation New Medications: Atorvastatin (Atorvastatin Calcium) 40 Mg Tab 40 MG PO QAM for 30 Days, #30 TAB Cephalexin Monohydrate (Cephalexin) 500 Mg Cap 500 MG PO QID for 5 Days, #20 CAP Losartan Potassium (Losartan Potassium) 25 Mg Tab 25 MG PO QAM for 30 Days, #30 TAB hold when SBP<95 Nicotine (Nicotine) 1 Patch Tdsy 1 PATCH TD QAM for 30 Days Potassium Chloride (Micro-K Ext Rel) 10 Meq Capcr 10 MEQ PO QAM for 14 Days Spironolactone (Spironolactone) 25 Mg Tab 25 MG PO QAM for 30 Days, #30 TAB Continued Medications: Aspirin (Aspirin Ec) 81 Mg Tab 81 MG PO DAILY Carvedilol (Coreg) 3.125 Mg Tab 3.125 MG PO DAILY, TAB Clopidogrel Bisulfate (Plavix) 75 Mg Tab 75 MG PO DAILY, TAB Furosemide (Lasix) 40 Mg Tab 40 MG PO BID, TAB Discontinued Medications: Lisinopril (Zestril) 20 Mg Tab 20 MG PO DAILY, TAB Potassium Chloride (K-Tab) 20 Meq Tab 20 MEQ PO DAILY Discharge Exam Doing well, monitor has no remarkable events No special complaint Review of Systems: Constitutional: + fatigue, + weakness, No chills, No fever, No problem reported, No sweats, No weight loss Eyes: No diplopia, No discharge, No eye pain, No problem reported, No redness, No worsening of vision ENT: No dental problems, No hearing loss, No nasal symptoms, No problem reported, No sore throat, No tinnitus, No trouble swallowing, No unusual epistaxis Respiratory: No cough, No dyspnea at rest, No dyspnea on exertion, No hemoptysis, No problem reported, No shortness of breath, No sputum, No wheezing Cardiovascular: + edema (bilateral lower extremities is better), No PND, No chest pain, No claudication, No orthopnea, No palpitations, No problem reported Abdomen: No GI bleeding, No constipation, No diarrhea, No nausea, No pain, No problem reported, No vomiting Musculoskeletal: No calf pain, No joint pain, No muscle pain, No problem reported, No swelling Genitourinary - Male: No dysuria, No hematuria, No impotence, No lesions, No penile discharge, No problem reported, No urinary frequency, No urinary hesitancy, No urinary incontinence, No urinary retention, No urinary urgency Neurologic: No balance problems, No memory loss, No numbness/tingling, No paralysis, No problem reported, No vertigo, No weakness Psychiatric: No anhedonism, No anxiety, No depression symptoms, No insomnia , No problem reported, No substance abuse Endocrine: No excessive thirst, No excessive urination, No fatigue, No problem reported Hematologic / Lymphatic: No abnormal bleeding/bruising, No clotting problems , No night sweats, No problem reported, No swollen lymph nodes Integumentary: + bleeding, + color change, + itch, + new/changing skin lesions, + problem reported, + rash Physical Exam: General Appearance: WD/WN, no apparent distress Eyes: normal inspection, PERRL, EOMI ENT: normal ENT inspection, hearing grossly normal, TMs normal Neck: supple, no adenopathy, thyroid normal Respiratory/Chest: chest non-tender, no respiratory distress, no accessory muscle use, + decreased breath sounds Cardiovascular: regular rate, rhythm, no edema, no gallop, no JVD, no murmur Abdomen / GI: normal bowel sounds, non tender, soft, no organomegaly, no pulsatile mass Extremities: normal inspection, no calf tenderness, normal capillary refill , + swelling (1+) Neurologic/Psychiatric: gate tender II-XII nml as tested, no motor/sensory deficits , alert, normal mood/affect, normal reflexes, oriented x 3 Skin: normal color, warm/dry, no rash Hospital Course 61 y/o male admitted due to hypoxia with ambulation w/ O2 saturation at 86%. Was found has CHF exacerbation Acute on chronic systolic HF/cardiomyopathy s/p pacemaker/ICD: Has been on IV Lasix 40 mg BID x4 doses. Resume PO Lasix 40 mg BID continue improving and stable, totally -3 L which is consistent with weight lost all 3 kg during his hospitalization - Continue Coreg 3.125 mg PO daily , added Aldactone, decreased potassium dose, watch BMP - ECHO- The left ventricle is severely dilated. Left ventricular systolic function is severely reduced. The right ventricle is moderately dilated. The right ventricular systolic function is moderate to severely reduced. The left atrium is severely dilated. The right atrium is moderately dilated. The non- coronary cusp is immobile and severely calcified. Mild aortic regurgitation. There is moderate mitral regurgitation. Right ventricular systolic pressure is elevated at 40-50mmHg. - Continue Monitor daily weights and I&Os- good UO - TSH WNL - Blood cultures NGTD - Influenza negative - Patient follows with Dr. Glover of [place]--> no records available, now is seeing many physicians group textile technical officer because patient preferred to transfer over here, input appreciated, has detail counseling about lifestyle modification which include fluid restriction - On 08/27/2016, tele monitor just report he has 4 beat of NSTVT, Labs checked, magnesium and phosphorus was normal and repeated this morning was normal potassium was normal, EKG was unremarkable hematuria with possible UTI POA- hematuria resolved, CT of abdomen shows bilateral hypodensities area in kidneys, urology saw patient filled likely is cyst, - U/A dirty, urine culture pending - IV Rocephin x1 dose, started Keflex 500 mg PO QID on 08/27 - Patient started to experience pain w/ urination--> consult urology, appreciate recommendations - PSA WNL Anemia, Elevated LFTs: T2DM: HDL: HTN: ?COPD: Stable continue current care Stable to discharge outpatient follow-up with urology and cardiology Instructions / Follow-Up you was admitted because fo hypoxia with ambulation, Was found has CHF exacerbation Acute on chronic systolic Heart failure/cardiomyopathy s/p pacemaker/ICD: you followed with Dr. Glover of [place]-, you have expressed your intention to follow up with [facility] physicians group textile technical officer because you preferred to transfer over here, RN please provide telephone number for Mr. Mckeon to call for appointment. you was having hematuria with possible UTI your CT of abdomen shows bilateral hypodensities area in kidneys, urology saw patient felt likely is cyst, you need to follow up with Urologist as instructed I give you Rx for labs test on Tuesday, you need to do it and report the results to pcp You need to have blood pressure check 2 time a day, writing down number and bring it to your family doctor to adjust that palpation medicine dose Your new medicine Losartan should be hold when the systolic blood pressure less than 95 - you need to follow up with your primary care physician in 1 week, - take medication as instructed, never overdose or any misuse, or take with alcohol, because misuse of medicine may cause organ damage or , call your primary care physician if have questions of medicaitons. - call your primary care physician OR go to local emergency room if has any fever/chill, chest pain, shortness of breathing, nausea/vomiting/abdominal pain , facial droop/slurry speech/local weakness, or if has any questions. - fall precaution - diet as instructed - you need to follow up with your subspecialist, such as urologist, and textile technical officer - you should understand that it is important to follow up the above instruction , and "not following the above instruction" may cause delayed or missed care of your medical conditions which may cause permanent organ damage and even . Total Time Spent: Greater than 30 minutes This includes examination of the patient, discharge planning, medication reconciliation, and communication with other providers. Discharge Instructions Please refer to the electronic Patient Visit Report (Discharge Instructions) for additional information. Additional Copies To Francisco Vaughan MD; Simon Sarkar
== END 2016-08-28 10:50 | disposition home or self-care (01) | DRG 292 ==
LOC: ENRESERVTM → ENRESERVDT → C.EDB 10:09 → C.MED 13:24
PROVIDERS: ADMIT Hospitalist; ATTEND Hospitalist
DX: I50.23 Acute on chronic systolic (congestive) heart failure (principal); N39.0 Urinary tract infection, site not specified; I42.0 Dilated cardiomyopathy; J44.9 Chronic obstructive pulmonary disease, unspecified; R31.9 Hematuria, unspecified; D64.9 Anemia, unspecified; E11.9 Type 2 diabetes mellitus without complications; I10 Essential (primary) hypertension; I25.10 Atherosclerotic heart disease of native coronary artery without angina pectoris; E78.00 Pure hypercholesterolemia, unspecified; M19.90 Unspecified osteoarthritis, unspecified site; Z83.3 Family history of diabetes mellitus; Z82.49 Family history of ischemic heart disease and other diseases of the circulatory system; F17.210 Nicotine dependence, cigarettes, uncomplicated; Z95.810 Presence of automatic (implantable) cardiac defibrillator; K57.30 Diverticulosis of large intestine without perforation or abscess without bleeding; I08.0 Rheumatic disorders of both mitral and aortic valves

== ENCOUNTER → 2016-08-25 | Outpatient (CLI) | payer OTHER ==
[2016-08-25 11:17] LABS: URINE APPEARANCE TURBID (CLEAR); URINE COLOR RED; URINE NITRITE POS (NEG); UROBILINOGEN NEG (NEG)
[2016-08-25 11:28] LABS: MANUAL MICROSCOPIC REQUIRED? YES; REVIEW REQ? NO; URINE BILIRUBIN NEG (NEG)
[2016-08-25 11:35] LABS: URINE AMORPHOUS SEDIMENT PRESENT (NONE PRSENT); URINE RBC >30 /hpf (0-4)
[2016-08-25 11:36] LABS: URINE BACTERIA 2+ (NEG)
== END | disposition home or self-care (01) ==
LOC: C.LABSPEC 10:57
PROVIDERS: ATTEND Family Medicine
DX: R31.9 Hematuria, unspecified (principal)

== ENCOUNTER 2016-09-23 11:45 | Inpatient (IN) | payer OTHER ==
[~2016-09-23] VITALS: Ht 182.9 cm; Wt 78.9 kg
[~2016-09-23 11:45] MED LIST changes: -CEPH500C PO; -CIPR-255 PO; -CLOP1TAB15 PO; -ESCI5TAB PO; -FERRTAB18 PO; -HYDR-5688 PO; -IPRA1AER2 INH; -LISI-725 PO; -LNX125 PO; -LPT/40 PO; -METO25TA3 PO; -PHEN-1043 PO; -POTA1POW PO; -POTA1TAB97 PO; -PRS5 PO; -SACU1TAB PO; -SPIR25TA89 PO; -TORS20TA2 PO; -TPRSR25 PO; -VNTHFA/IN INH; -hydroxyzine PEG
[2016-09-23] MEDS ORDERED: FUROSEMIDE 40 MG/4 ML VIAL IV STA (11:56)
--- NOTE | 2016-09-23 12:21 | DIAGNOSTIC IMAGING REPORT ---
CHEST ONE VIEW PORTABLE HISTORY: Atypical CHEST PAIN COMPARISON: Chest 08/25/2016. FINDINGS: No pneumothorax. No pleural effusions. No new focal lung consolidations to suggest pneumonia. No evidence for pulmonary edema. Left-sided dual-chamber pacemaker. Moderate to severe enlargement of the cardiac silhouette, unchanged. IMPRESSION: Moderate to severe enlargement of the cardiac silhouette, unchanged. Electronically signed by: Chapo Nieto M.D. 09/23/2016 12:19 PM Dictated Date/Time: 09/23/2016 12:18 PM
[2016-09-23 12:49] LABS: HEMATOCRIT 37.1 % (42-52); MEAN CELL VOLUME 82.3 fL (80-100); MEAN CORPUSCULAR HEMOGLOBIN 26.4 pg (25-34); MEAN CORPUSCULAR HGB CONC 32.1 g/dl (32-36); MEAN PLATELET VOLUME 10.5 fL (7.4-10.4); PLATELET COUNT 275 K/uL (130-400); RED BLOOD COUNT 4.51 M/uL (4.7-6.1); WHITE BLOOD COUNT 8.16 K/uL (4.8-10.8)
[2016-09-23 13:05] LABS: INR 1.3 (0.9-1.1); PROTHROMBIN TIME (PATIENT) 14.1 SECONDS (9.0-12.0)
[2016-09-23 13:11] LABS: BUN/CREATININE RATIO 24.5 (10-20); CALCIUM 8.3 mg/dl (8.5-10.1); CREATININE 1.2 mg/dl (0.60-1.40); MAGNESIUM 2.3 mg/dl (1.8-2.4); POTASSIUM 3.3 mmol/L (3.5-5.1)
[2016-09-23 13:18] LABS: MANUAL MICROSCOPIC REQUIRED? YES; URINE APPEARANCE CLOUDY (CLEAR); URINE COLOR RED; URINE NITRITE NEG (NEG); UROBILINOGEN NEG (NEG)
[2016-09-23 13:20] LABS: REVIEW REQ? NO; URINE BILIRUBIN NEG (NEG)
[2016-09-23 13:28] LABS: URINE RBC >30 /hpf (0-4)
[2016-09-23 13:29] LABS: URINE BACTERIA NEG (NEG)
[2016-09-23 13:30] LABS: ZZUR CULT IF INDIC CLEAN CATCH YES
[2016-09-23 13:41] LABS: CKMB/CK RATIO 2.9 (0-3.0); THYROID STIMULATING HORMONE 1.17 uIu/ml (0.300-4.500)
[2016-09-23] MEDS ORDERED: ESCI5TAB PO (13:50)
[2016-09-23] MEDS ORDERED: LPT/40 PO (13:50)
[2016-09-23] MEDS ORDERED: IPRA1AER2 INH (13:50)
[2016-09-23] MEDS ORDERED: VNTHFA/IN INH (13:50)
[2016-09-23 14:05] LABS: ACANTHOCYTES 1+; ANISOCYTOSIS PRESENT; BASO % 0.2 %; BASO ABS # 0.02 K/uL (0-0.2); COMPLETE YES; GIANT PLATELETS 1+; HYPOCHROMIA PRESENT; IG% 0.1 %; LYMPH % 26.5 %; LYMPH ABS # 2.16 K/uL (1.2-3.4); MONO % 8.5 %; NEUT % 63.7 %; OVALOCYTES 1+
[2016-09-23] MEDS ORDERED: POTASSIUM CHLORIDE 10 MEQ TABCR PO STA (14:06)
--- NOTE | 2016-09-23 14:09 | EMERGENCY ROOM VISIT NOTE ---
History First contact with patient: 11:51 Chief Complaint: HEMATURIA Stated Complaint: BLOOD IN URINE, SWELLING FROM KNEES DOWN, COUGH Nursing Triage Summary: Pt here two weeks ago with chf, reports edema to b/l le at that time. States still having edema to lower extremities. Pt states, "I've had an itch for over a month. I dont know if it's meds I am on. The itch is driving me nuts." Pt reports hematuria that began yesterday. Denies sob or weakness. History of Present Illness The patient is a 61 year old male who presents to the Emergency Room with complaints of increasing leg swelling for the past few days with a history of CHF with a 3 pound weight gain. Patient also complains of pruritus. Patient denies chest pain, dyspnea, abdominal pain, vomiting, diarrhea, fever, chills. 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 He follows with Dr. hernandez for urology for his cyst on his kidneys and his hematuria. Review of Systems See HPI for pertinent positives & negatives. A total of 10 systems reviewed and were otherwise negative. 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 (5) History of pacemaker (6) Hypertension Surgical Problems: (1) History of kiolk-hxhqo-zoskciy bypass (2) History of left knee replacement Family History FH: diabetes mellitus FH: gallbladder disease FH: heart disease FH: hypertension Social History Smoking Status: Current Every Day Smoker Alcohol Use: none Marital Status: Occupation Status: retired Current/Historical Medications Scheduled Albuterol Hfa (Ventolin Hfa), 2-4 PUFFS INH Q6H Aspirin (Aspirin Ec), 81 MG PO QAM Atorvastatin (Lipitor), 40 MG PO HS Carvedilol (Coreg), 3.125 MG PO BID Clopidogrel Bisulfate (Plavix), 75 MG PO QAM Escitalopram Oxalate (Lexapro), 5 MG PO HS Furosemide (Lasix), 40 MG PO BID Ipratropium-Albuterol (Combivent Respimat), 1 PUFFS INH QID Losartan Potassium (Losartan Potassium), 25 MG PO QAM Potassium Chloride (Micro-K Ext Rel), 10 MEQ PO QAM Spironolactone (Spironolactone), 25 MG PO QAM Allergies Coded Allergies: Metformin (Unverified Adverse Reaction, Severe, MEMORY LOSS, 09/23/16) Codeine (Unverified Adverse Reaction, Intermediate, ITCHING, 09/23/16) Physical Exam Vital Signs Date Time Temp Pulse Resp B/P Pulse Ox O2 Delivery O2 Flow Rate FiO2 09/23/16 13:53 91 16 125/89 100 Room Air 09/23/16 13:02 78 09/23/16 12:32 Room Air 09/23/16 12:32 100 Room Air 09/23/16 12:30 71 18 106/60 100 Room Air 09/23/16 11:52 75 24 94/56 100 Room Air Physical Exam VITALS: Vitals are noted on the nurse's note and reviewed by myself. Vital signs stable. GENERAL: Pleasant male, in no acute distress, nondiaphoretic, well-developed well-nourished. SKIN: The skin was without rashes, erythema, edema, or bruising. There is no tenting of the skin. Capillary reflex less than 2 seconds. HEAD: Normocephalic atraumatic. EARS: External auditory canals clear, tympanic membranes pearly vickers without erythema or effusion bilaterally. EYES: Pupils equal round and reactive to light and accommodation. Conjunctivae without injection, sclerae without icterus. Extraocular movements intact. NOSE: Patent, turbinates without inflammation or discharge. MOUTH: Mucous membranes mildly dry. Pharynx without erythema or exudate. Uvula midline. Airway patent. Tongue does not deviate. NECK: Supple without nuchal rigidity. No lymphadenopathy. No thyromegaly. Cervical spine is nontender. No JVD. HEART: Regular rate and rhythm LUNGS: Clear to auscultation bilaterally without wheezes, rales or rhonchi. No dullness to percussion. No retractions or accessory muscle use. ABDOMEN: Positive bowel sounds x 4. Normal tympanic percussion. Soft, nontender, without masses or organomegaly. Montgomery sign negative. No guarding or rebound tenderness. MUSCULOSKELETAL: No muscle atrophy, erythema, noted. +1 pitting edema up to the mid tib-fib bilaterally. NEURO: Patient was alert and oriented to person place and time. Normal sensation to light and sharp touch. No focal neurological deficits. Medical Decision & Procedures Laboratory Results 09/23/16 12:20 Red Blood Count 4.51, Mean Corpuscular Volume 82.3, Mean Corpuscular Hemoglobin 26.4, Mean Corpuscular Hemoglobin Concent 32.1, Mean Platelet Volume 10.5, Neutrophils (%) (Auto) 63.7, Lymphocytes (%) (Auto) 26.5, Monocytes (%) (Auto) 8.5, Eosinophils (%) (Auto) 1.0, Basophils (%) (Auto) 0.2, Neutrophils # (Auto) 5.20, Lymphocytes # (Auto) 2.16, Monocytes # (Auto) 0.69, Eosinophils # (Auto) 0.08, Basophils # (Auto) 0.02 09/23/16 12:20 Test 09/23/16 12:20 09/23/16 12:55 White Blood Count 8.16 K/uL (4.8-10.8) Red Blood Count 4.51 M/uL (4.7-6.1) Hemoglobin 11.9 g/dL (14.0-18.0) Hematocrit 37.1 % (42-52) Mean Corpuscular Volume 82.3 fL (80-100) Mean Corpuscular Hemoglobin 26.4 pg (25-34) Mean Corpuscular Hemoglobin Concent 32.1 g/dl (32-36) Platelet Count 275 K/uL (130-400) Mean Platelet Volume 10.5 fL (7.4-10.4) Neutrophils (%) (Auto) 63.7 % Lymphocytes (%) (Auto) 26.5 % Monocytes (%) (Auto) 8.5 % Eosinophils (%) (Auto) 1.0 % Basophils (%) (Auto) 0.2 % Neutrophils # (Auto) 5.20 K/uL (1.4-6.5) Lymphocytes # (Auto) 2.16 K/uL (1.2-3.4) Monocytes # (Auto) 0.69 K/uL (0.11-0.59) Eosinophils # (Auto) 0.08 K/uL (0-0.5) Basophils # (Auto) 0.02 K/uL (0-0.2) RDW Standard Deviation 54.3 fL (36.4-46.3) RDW Coefficient of Variation 18.3 % (11.5-14.5) Immature Granulocyte % (Auto) 0.1 % Immature Granulocyte # (Auto) 0.01 K/uL (0.00-0.02) Giant Platelets 1+ Hypochromasia PRESENT Anisocytosis PRESENT Ovalocytes 1+ Acanthocytes 1+ Prothrombin Time 14.1 SECONDS (9.0-12.0) Prothromb Time International Ratio 1.3 (0.9-1.1) Activated Partial Thromboplast Time 26.6 SECONDS (21.0-31.0) Partial Thromboplastin Ratio 1.0 Anion Gap 9.0 mmol/L (3-11) Est Creatinine Clear Calc Drug Dose 72.8 ml/min Estimated GFR () 76.3 Estimated GFR (Non- 65.8 BUN/Creatinine Ratio 24.5 (10-20) Calcium Level 8.3 mg/dl (8.5-10.1) Magnesium Level 2.3 mg/dl (1.8-2.4) Total Bilirubin 2.3 mg/dl (0.2-1) Direct Bilirubin 0.7 mg/dl (0-0.2) Aspartate Amino Transf (AST/SGOT) 17 U/L (15-37) Alanine Aminotransferase (ALT/SGPT) 27 U/L (12-78) Alkaline Phosphatase 132 U/L (45-117) Total Creatine Kinase 70 U/L (39-308) Creatine Kinase MB 2.0 ng/ml (0.5-3.6) Creatine Kinase MB Ratio 2.9 (0-3.0) Troponin I 0.065 ng/ml (0-0.045) Pro-B-Type Natriuretic Peptide 63113 pg/ml (0-900) Total Protein 6.2 gm/dl (6.4-8.2) Albumin 3.1 gm/dl (3.4-5.0) Thyroid Stimulating Hormone (TSH) 1.170 uIu/ml (0.300-4.500) Urine Color RED Urine Appearance CLOUDY (CLEAR) Urine pH 6.0 (4.5-7.5) Urine Specific [place] 1.020 (1.000-1.030) Urine Protein 2+ (NEG) Urine Glucose (UA) NEG (NEG) Urine Ketones NEG (NEG) Urine Occult Blood 3+ (NEG) Urine Nitrite NEG (NEG) Urine Bilirubin NEG (NEG) Urine Urobilinogen NEG (NEG) Urine Leukocyte Esterase NEG (NEG) Urine RBC >30 /hpf (0-4) Urine WBC 10-30 /hpf (0-5) Urine Epithelial Cells 10-20 /lpf (0-5) Urine Bacteria NEG (NEG) Medications Administered Medications (Trade) Dose Ordered Sig/[place] Route Start Time Stop Time Status Last Admin Dose Admin Furosemide (Lasix Inj) 40 mg NOW STAT IV 09/23/16 11:56 09/23/16 12:00 DC 09/23/16 12:34 40 MG ED Course Prior records reviewed and summarized above. Triage Nursing notes reviewed. Additional history obtained from the family. The patient's history was concerning for swelling and pain in the leg. Differential diagnosis: Etiologies such as DVT, musculoskeletal, infection, joint effusion, trauma, lymphedema, idiopathic, CHF, as well as others were entertained.. Physical examination: The physical examination revealed no signs of infection. Neurovascularly intact. ER treatment provided: Lasix On reassessment the patient felt better. Diagnostics interpreted by me: EKG: Normal sinus, normal intervals, no acute ST-T wave changes. Occasional PVC , Impression normal sinus rhythm with occasional PVC interpreted by myself The labs revealed mild anemia, hypokalemia, elevated troponin, hematuria Imaging studies: CHEST ONE VIEW PORTABLE HISTORY: Atypical CHEST PAIN COMPARISON: Chest 08/25/2016. FINDINGS: No pneumothorax. No pleural effusions. No new focal lung consolidations to suggest pneumonia. No evidence for pulmonary edema. Left-sided dual-chamber pacemaker. Moderate to severe enlargement of the cardiac silhouette, unchanged. IMPRESSION: Moderate to severe enlargement of the cardiac silhouette, unchanged. Electronically signed by: Chapo Nieto M.D. Consultation: A consultation was placed with Dr. Toney, hospitalist. The case was discussed and diagnostics were reviewed. The patient was evaluated in the ER for further treatment. This appears to be consistent with elevated troponin with mild CHF that the troponin could be elevated from. Patient will be evaluated by medicine for possible admission. Patient was neurovascularly and neurologically intact. He was well-appearing. He was not hypoxic. Stable H&H. By the evaluation outlined above emergent etiologies such as DVT, septic joint, trauma, infection , as well as others were deemed relatively unlikely. case reviewed with my Attending Medical Decision As above Impression Primary Impression: Elevated troponin Additional Impressions: Anemia Hematuria CHF (congestive heart failure) Departure Information Dispostion Being Evaluated By Hospitalist Condition FAIR Referrals Katelyn Sutton DO (PCP) Patient Instructions My [facility] Problem Qualifiers
--- NOTE | 2016-09-23 14:16 | EMERGENCY ROOM VISIT NOTE ---
ED Visit Note First contact with patient: 11:51 I did evaluate and examine this patient myself. I did guide management for the patient. I agree with the PA's assessment as discussed. Please see the PAs dictation for further details. I did independently review the x-rays and blood work. He does have an elevated troponin and complains of increased shortness of breath recently but denies chest pain. He will be hospitalized for further evaluation.
[2016-09-23] MEDS ORDERED: SPIRONOLACTONE 25 MG TAB PO SCH (14:21)
[2016-09-23] MEDS ORDERED: POTASSIUM CHLORIDE 10 MEQ TABCR PO SCH (14:25)
[2016-09-23] MEDS ORDERED: ZOLPIDEM TARTRATE 5 MG TAB PO PRN (14:30)
[2016-09-23] MEDS ORDERED: ONDANSETRON INJ 2 MG/ML 2 ML VIAL IV PRN (14:30)
[2016-09-23] MEDS ORDERED: NITROGLYCERIN 0.4 MG SL PER TAB CHARGE SL PRN (14:30)
[2016-09-23 15:54] VITALS: BP 99/62; PULSE 80; TEMP 36.4; O2SAT 100
[2016-09-23 15:58] VITALS: BP 99/62; PULSE 80; TEMP 36.4; O2SAT 100; Ht 182.9 cm; Wt 78.9 kg
[2016-09-23 16:00] VITALS: O2SAT 100
--- NOTE | 2016-09-23 16:35 | History and Physical ---
History & Physical Date & Time of Service: Sep 23, 2016 at 16:18 Chief Complaint: Acute Systolic Chf, Nyha Class 4 Primary Care Physician: Katelyn Sutton DO History of Present Illness Source: patient, spouse The patient is a 61-year-old male who presents emergency department with complaint of worsening shortness of breath, increasing leg swelling and 7 pound weight gain over the previous few weeks. He reports that his appetite is reduced, that he continues on a low sodium diet, and is not excessive and salt or sugar intake. Most recently admitted into the hospital from August 25 August 28 for acute CHF, and had the addition of spironolactone to his regimen. However, his reports that the prescription was filled at the pharmacy, but somehow it has been displaced and he has not been taking. She thinks that he may have put it off to the side with anti-anxiety medications that he was prescribed, that made him feel spacey and that he had stopped. He does continue to take his Lasix as prescribed. He and his also report that, just as last time, when he had the similar symptoms he has been urinating more blood, but this time he is actually urinating clots as well. He has an upcoming urology appointment with . Family History FH: diabetes mellitus FH: gallbladder disease FH: heart disease FH: hypertension Social History Smoking Status: Current Every Day Smoker Smokeless Tobacco Use: No Alcohol Use: none Drug Use: none Marital Status: Housing status: lives with family Occupational Status: retired Multi-Drug Resistant Organisms History of MDRO: No Allergies Coded Allergies: Metformin (Unverified Adverse Reaction, Severe, MEMORY LOSS, 09/23/16) Codeine (Unverified Adverse Reaction, Intermediate, ITCHING, 09/23/16) Home Medications Scheduled Albuterol Hfa (Ventolin Hfa), 2-4 PUFFS INH Q6H Aspirin (Aspirin Ec), 81 MG PO QAM Atorvastatin (Lipitor), 40 MG PO HS Carvedilol (Coreg), 3.125 MG PO BID Clopidogrel Bisulfate (Plavix), 75 MG PO QAM Escitalopram Oxalate (Lexapro), 5 MG PO HS Furosemide (Lasix), 40 MG PO BID Ipratropium-Albuterol (Combivent Respimat), 1 PUFFS INH QID Losartan Potassium (Losartan Potassium), 25 MG PO QAM Potassium Chloride (Micro-K Ext Rel), 10 MEQ PO QAM Spironolactone (Spironolactone), 25 MG PO QAM Review of Systems The patient denies chest pain, palpitations, cough, vision change, hearing change, sore throat, fevers, chills, sweats, weight change, fatigue, nausea, vomiting, abdominal pain, pelvic pain, blood in stool, lightheadedness, dizziness, headache, memory loss, rash, imbalance, focal weakness, numbness or tingling in arms or legs, arthralgias or myalgias, back or neck pain, night sweats, or allergy symptoms. The review of systems is otherwise negative other than for that already noted above, and at least 10 systems have been reviewed. Physical Exam Vital Signs Date Time Temp Pulse Resp B/P Pulse Ox O2 Delivery O2 Flow Rate FiO2 09/23/16 15:58 36.4 80 24 99/62 100 Room Air 09/23/16 15:54 36.4 80 24 99/62 100 Room Air 09/23/16 14:32 80 16 106/78 98 Room Air 09/23/16 13:53 91 16 125/89 100 Room Air 09/23/16 13:02 78 09/23/16 12:32 Room Air 09/23/16 12:32 100 Room Air 09/23/16 12:30 71 18 106/60 100 Room Air 09/23/16 11:52 75 24 94/56 100 Room Air The patient is awake, well-developed and adequately nourished, alert and oriented 3, normocephalic and atraumatic, lying in bed and in mild acute distress. HEENT--PERRL, EOMI, mucous membranes and oropharynx normal. Neck--supple, no JVD or bruits, thyroid normal, trachea midline, no adenopathy. Heart--normal S1 and S2, no extra beats, no murmurs, rubs or gallops. Lungs--crackles at the bases bilaterally, no respiratory distress, no accessory muscle use. Abdomen--normal bowel sounds and soft, nontender and nondistended, no hernias or masses, no organomegaly. Extremities--no cyanosis, clubbing. There is bilaterally pretibial 3+ pitting Edema. There are good distal pulses b/l. Dermatologic--normal skin turgor, normal color, warm and dry, no abnormal lymph nodes, no rash. Neurologic--cranial nerves II through XII grossly intact. Rheumatologic--limited due to breathing issues. Psychiatric--normal affect. Diagnostics Laboratory Results Results Past 24 Hours Test 09/23/16 12:20 09/23/16 12:55 Range/Units White Blood Count 8.16 4.8-10.8 K/uL Red Blood Count 4.51 4.7-6.1 M/uL Hemoglobin 11.9 14.0-18.0 g/dL Hematocrit 37.1 42-52 % Mean Corpuscular Volume 82.3 80-100 fL Mean Corpuscular Hemoglobin 26.4 25-34 pg Mean Corpuscular Hemoglobin Concent 32.1 32-36 g/dl Platelet Count 275 130-400 K/uL Mean Platelet Volume 10.5 7.4-10.4 fL Neutrophils (%) (Auto) 63.7 % Lymphocytes (%) (Auto) 26.5 % Monocytes (%) (Auto) 8.5 % Eosinophils (%) (Auto) 1.0 % Basophils (%) (Auto) 0.2 % Neutrophils # (Auto) 5.20 1.4-6.5 K/uL Lymphocytes # (Auto) 2.16 1.2-3.4 K/uL Monocytes # (Auto) 0.69 0.11-0.59 K/uL Eosinophils # (Auto) 0.08 0-0.5 K/uL Basophils # (Auto) 0.02 0-0.2 K/uL RDW Standard Deviation 54.3 36.4-46.3 fL RDW Coefficient of Variation 18.3 11.5-14.5 % Immature Granulocyte % (Auto) 0.1 % Immature Granulocyte # (Auto) 0.01 0.00-0.02 K/uL Giant Platelets 1+ Hypochromasia PRESENT Anisocytosis PRESENT Ovalocytes 1+ Acanthocytes 1+ Prothrombin Time 14.1 9.0-12.0 SECONDS Prothromb Time International Ratio 1.3 0.9-1.1 Activated Partial Thromboplast Time 26.6 21.0-31.0 SECONDS Partial Thromboplastin Ratio 1.0 Sodium Level 143 136-145 mmol/L Potassium Level 3.3 3.5-5.1 mmol/L Chloride Level 106 98-107 mmol/L Carbon Dioxide Level 28 21-32 mmol/L Anion Gap 9.0 3-11 mmol/L Blood Urea Nitrogen 29 7-18 mg/dl Creatinine 1.20 0.60-1.40 mg/dl Est Creatinine Clear Calc Drug Dose 72.8 ml/min Estimated GFR () 76.3 Estimated GFR (Non- 65.8 BUN/Creatinine Ratio 24.5 10-20 Random Glucose 145 70-99 mg/dl Calcium Level 8.3 8.5-10.1 mg/dl Magnesium Level 2.3 1.8-2.4 mg/dl Total Bilirubin 2.3 0.2-1 mg/dl Direct Bilirubin 0.7 0-0.2 mg/dl Aspartate Amino Transf (AST/SGOT) 17 15-37 U/L Alanine Aminotransferase (ALT/SGPT) 27 12-78 U/L Alkaline Phosphatase 132 45-117 U/L Total Creatine Kinase 70 39-308 U/L Creatine Kinase MB 2.0 0.5-3.6 ng/ml Creatine Kinase MB Ratio 2.9 0-3.0 Troponin I 0.065 0-0.045 ng/ml Pro-B-Type Natriuretic Peptide 41873 0-900 pg/ml Total Protein 6.2 6.4-8.2 gm/dl Albumin 3.1 3.4-5.0 gm/dl Thyroid Stimulating Hormone (TSH) 1.170 0.300-4.500 uIu/ml Urine Color RED Urine Appearance CLOUDY CLEAR Urine pH 6.0 4.5-7.5 Urine Specific [place] 1.020 1.000-1.030 Urine Protein 2+ NEG Urine Glucose (UA) NEG NEG Urine Ketones NEG NEG Urine Occult Blood 3+ NEG Urine Nitrite NEG NEG Urine Bilirubin NEG NEG Urine Urobilinogen NEG NEG Urine Leukocyte Esterase NEG NEG Urine RBC >30 0-4 /hpf Urine WBC 10-30 0-5 /hpf Urine Epithelial Cells 10-20 0-5 /lpf Urine Bacteria NEG NEG Microbiology Results 09/23/16 Urine Culture, Received Pending Diagnostic Radiology Patient Name: TONEY MELGAR Unit Number: [id number] Dictated: 09/23/161217 Transcribed: 09/23/161217 LUCIANA Printed Date/Time: [~ rep prt dt]/[~ rep prt tm] [~ rep ct labl] - [~ rep ct ivnm] [facility] [place] [address] Dictated: 09/23/161217 Transcribed: 09/23/161217 ANAND Printed Date/Time: [~ rep prt dt]/[~ rep prt tm] [~ rep ct labl] - [~ rep ct ivnm] [~ rep ct add3]] CHEST ONE VIEW PORTABLE HISTORY: Atypical CHEST PAIN COMPARISON: Chest 08/25/2016. FINDINGS: No pneumothorax. No pleural effusions. No new focal lung consolidations to suggest pneumonia. No evidence for pulmonary edema. Left-sided dual-chamber pacemaker. Moderate to severe enlargement of the cardiac silhouette, unchanged. IMPRESSION: Moderate to severe enlargement of the cardiac silhouette, unchanged. Electronically signed by: Chapo Nieto M.D. 09/23/2016 12:19 PM Dictated Date/Time: 09/23/2016 12:18 PM The status of this report is Signed. Draft = Not yet reviewed or approved by Radiologist. Signed = Reviewed and approved by Radiologist. <AttendingPhy></AttendingPhy> <FamilyPhy>Katelyn Sutton DO</FamilyPhy> < PrimaryPhy>Katelyn Sutton, DO</PrimaryPhy> <UnitNumber>[id number]</UnitNumber > <VisitNumber>[id number]</VisitNumber> <PatientName>TONEY MELGAR</PatientName > <DateOfBirth>1955</DateOfBirth> <Location>C.EDB</Location> <ServiceDate> 09/23/16</ServiceDate> <MNE>ESINDI</MNE> <OrderingPhy>Lauren Walker PA-C</ OrderingPhy> <OrderingPhyMNE>f rep ord dr zhao</OrderingPhyMNE> <DictatingPhyMNE> f rep dict dr zhao</DictatingPhyMNE> <CCListMNE>f rep ct mne</CCListMNE> < AdmittingPhyMNE>f pt admit dr zhao</AdmittingPhyMNE> <AttendingPhyMNE>f pt attend dr zhao</AttendingPhyMNE> <ConsultingPhyMNE>f pt consult dr zhao</ConsultingPhyMNE> <FamilyPhyMNE>f pt fam dr zhao</FamilyPhyMNE> <OtherPhyMNE>f pt other dr zhao</OtherPhyMNE> < PrimaryPhyMNE>f pt prim care dr zhao</PrimaryPhyMNE> <ReferringPhyMNE>f pt referring dr zhao</ReferringPhyMNE> EKG EKG shows normal sinus rhythm with sinus arrhythmia, PVCs, left axis deviation and 85 bpm, nonspecific intraventricular conduction delay. Impression Assessment and Plan Acute on chronic systolic CHF--the patient will be admitted to the telemetry unit for serial cardiac enzymes, cardiac rhythm monitoring and a repeat 2-D echocardiogram with Dopplers. His last ejection fraction was 15-20% with four- chamber dilatation. We'll place on Lasix 40 mg IV twice a day and spironolactone 25 mg by mouth twice a day. If he does not respond appropriately , he may need a dobutamine drip. We will hold aspirin 81 mg every morning and clopidogrel 75 mg every morning briefly due to hematuria, and we'll continue carvedilol 3.125 mg by mouth twice a day and losartan potassium 25 mg by mouth every morning. Will be given potassium chloride 40 mEq by mouth 1 now for low potassium at 3.3. Continue potassium chloride 10 mEq by mouth daily. Hematuria with clots--we'll consult from urology. Hypercholesterolemia--continue atorvastatin 40 mg by mouth at bedtime. Depression--continue Lexapro 5 mg by mouth at bedtime. COPD--continue, 1 puff 4 times a day. Level of Care Telemetry Advanced Directives Existing Advance Directive: No Existing Living Will: No Existing Power of Strategic Accounts Manager: No Resuscitation Status FULL RESUSCITATION VTE Prophylaxis VTE Risk Assessment Done? Y/N: Yes Risk Level: Moderate Given or contraindicated: SCD's Social Service Consult None Apply
[2016-09-23] MEDS: IPRATROPIUM BROMIDE/ALBUTEROL respimat INH INH SCH ×2 (16:54→20:01)
[2016-09-23 20:00] VITALS: O2SAT 100
[2016-09-23] MEDS: FUROSEMIDE INJ 40 MG in SYRINGE 0 ML IV SCH (20:01)
[2016-09-23] MEDS: ESCITALOPRAM OXALATE 10 MG TAB PO SCH (20:02)
[2016-09-23] MEDS: SPIRONOLACTONE 25 MG TAB PO SCH (20:02)
[2016-09-23] MEDS: CARVEDILOL 3.125 MG TAB PO SCH (20:03)
[2016-09-23] MEDS: ATORVASTATIN 40 MG TAB PO SCH (20:03)
[2016-09-23 20:10] VITALS: BP 108/76; PULSE 92; TEMP 36.5; O2SAT 100
[2016-09-23] MEDS ORDERED: NURSING VERBAL MED ORDER ONE (20:30)
[2016-09-23] MEDS ORDERED: LORAZEPAM 2 MG/ML 1 ML VIAL ONE (20:30)
[2016-09-23] MEDS ORDERED: LORAZEPAM 2 MG/ML 1 ML VIAL IV PRN (20:30)
[2016-09-23 22:57] LABS: CKMB/CK RATIO 2.3 (0-3.0)
[2016-09-23 23:32] VITALS: BP 94/54; PULSE 88; TEMP 36.4; O2SAT 92
[2016-09-24 03:31] VITALS: BP 102/68; PULSE 81; TEMP 36.4; O2SAT 93
[2016-09-24 06:17] LABS: BASO % 0.3 %; BASO ABS # 0.03 K/uL (0-0.2); COMPLETE YES; EOS % 0.3 %; HEMATOCRIT 38.3 % (42-52); IG% 0.1 %; LYMPH % 28.5 %; LYMPH ABS # 3.09 K/uL (1.2-3.4); MEAN CELL VOLUME 83.3 fL (80-100); MEAN CORPUSCULAR HGB CONC 32.4 g/dl (32-36); MEAN PLATELET VOLUME 10.7 fL (7.4-10.4); MONO % 10.9 %; NEUT % 59.9 %; PLATELET COUNT 304 K/uL (130-400); WHITE BLOOD COUNT 10.83 K/uL (4.8-10.8)
[2016-09-24 07:07] LABS: BUN/CREATININE RATIO 26.2 (10-20); CALCIUM 8.7 mg/dl (8.5-10.1); CREATININE 1.4 mg/dl (0.60-1.40); MAGNESIUM 2.6 mg/dl (1.8-2.4); POTASSIUM 4.5 mmol/L (3.5-5.1)
[2016-09-24 07:13] LABS: CKMB/CK RATIO 2.2 (0-3.0)
[2016-09-24 07:55] VITALS: BP 104/70; PULSE 88; TEMP 36.6; O2SAT 94
[2016-09-24] MEDS: IPRATROPIUM BROMIDE/ALBUTEROL respimat INH INH SCH ×4 (08:27→20:46)
[2016-09-24] MEDS: SPIRONOLACTONE 25 MG TAB PO SCH ×2 (08:28→17:00)
[2016-09-24] MEDS: CARVEDILOL 3.125 MG TAB PO SCH ×2 (08:28→20:46)
[2016-09-24] MEDS: FUROSEMIDE INJ 40 MG in SYRINGE 0 ML IV SCH ×2 (08:28→17:00)
[2016-09-24] MEDS: LOSARTAN POTASSIUM 25 MG TAB PO SCH (08:29)
[2016-09-24] MEDS: POTASSIUM CHLORIDE 10 MEQ TABCR PO SCH (08:29)
[2016-09-24] MEDS ORDERED: CLOPIDOGREL BISULFATE 75 MG TAB PO SCH (09:00)
[2016-09-24 11:25] VITALS: BP 95/64; PULSE 75; TEMP 36.6; O2SAT 92
--- NOTE | 2016-09-24 11:54 | Urology Consultation ---
History General Date of Service: Sep 24, 2016. Primary Care Physician: Katelyn Sutton, DO Pt seen a urologist before?: Yes (Dr. Sarkar) If yes, why?: Hematuria History of Present Illness 61 year old male admitted with SOB and gross hematuria. Pt reports he has had visible blood in his urine since . He was hospitalized last month for UTI with hematuria. Noncontrast CT a/p on did not show hydro, stones or masses. Currently he has dark red bloody urine and voiding on his own. Reports he feels he is not emptying. C/o urinary urgency and frequency. He was on Plavix and ASA - these have been stopped. No previous urine cytology. Creatinine is 1.3 White count elevated Hgb and hct stable. He has not had an outpt cysto - is scheduled to see Dr. Sarkar on October 07 in office. Laboratory Last 24 Hours Test 09/23/16 12:20 09/23/16 12:55 09/23/16 22:15 09/24/16 06:07 White Blood Count 8.16 K/uL 10.83 K/uL Red Blood Count 4.51 M/uL 4.60 M/uL Hemoglobin 11.9 g/dL 12.4 g/dL Hematocrit 37.1 % 38.3 % Mean Corpuscular Volume 82.3 fL 83.3 fL Mean Corpuscular Hemoglobin 26.4 pg 27.0 pg Mean Corpuscular Hemoglobin Concent 32.1 g/dl 32.4 g/dl Platelet Count 275 K/uL 304 K/uL Mean Platelet Volume 10.5 fL 10.7 fL Neutrophils (%) (Auto) 63.7 % 59.9 % Lymphocytes (%) (Auto) 26.5 % 28.5 % Monocytes (%) (Auto) 8.5 % 10.9 % Eosinophils (%) (Auto) 1.0 % 0.3 % Basophils (%) (Auto) 0.2 % 0.3 % Neutrophils # (Auto) 5.20 K/uL 6.49 K/uL Lymphocytes # (Auto) 2.16 K/uL 3.09 K/uL Monocytes # (Auto) 0.69 K/uL 1.18 K/uL Eosinophils # (Auto) 0.08 K/uL 0.03 K/uL Basophils # (Auto) 0.02 K/uL 0.03 K/uL RDW Standard Deviation 54.3 fL 55.6 fL RDW Coefficient of Variation 18.3 % 18.4 % Immature Granulocyte % (Auto) 0.1 % 0.1 % Immature Granulocyte # (Auto) 0.01 K/uL 0.01 K/uL Giant Platelets 1+ Hypochromasia PRESENT Anisocytosis PRESENT Ovalocytes 1+ Acanthocytes 1+ Prothrombin Time 14.1 SECONDS Prothromb Time International Ratio 1.3 Activated Partial Thromboplast Time 26.6 SECONDS Partial Thromboplastin Ratio 1.0 Sodium Level 143 mmol/L 141 mmol/L Potassium Level 3.3 mmol/L 4.4 mmol/L 4.5 mmol/L Chloride Level 106 mmol/L 106 mmol/L Carbon Dioxide Level 28 mmol/L 24 mmol/L Anion Gap 9.0 mmol/L 11.0 mmol/L Blood Urea Nitrogen 29 mg/dl 37 mg/dl Creatinine 1.20 mg/dl 1.40 mg/dl Est Creatinine Clear Calc Drug Dose 72.8 ml/min 62.4 ml/min Estimated GFR () 76.3 63.3 Estimated GFR (Non- 65.8 54.6 BUN/Creatinine Ratio 24.5 26.2 Random Glucose 145 mg/dl 118 mg/dl Calcium Level 8.3 mg/dl 8.7 mg/dl Magnesium Level 2.3 mg/dl 2.6 mg/dl Total Bilirubin 2.3 mg/dl Direct Bilirubin 0.7 mg/dl Aspartate Amino Transf (AST/SGOT) 17 U/L Alanine Aminotransferase (ALT/SGPT) 27 U/L Alkaline Phosphatase 132 U/L Total Creatine Kinase 70 U/L 66 U/L 69 U/L Creatine Kinase MB 2.0 ng/ml 1.5 ng/ml 1.5 ng/ml Creatine Kinase MB Ratio 2.9 2.3 2.2 Troponin I 0.065 ng/ml 0.078 ng/ml 0.067 ng/ml Pro-B-Type Natriuretic Peptide 88135 pg/ml Total Protein 6.2 gm/dl Albumin 3.1 gm/dl Thyroid Stimulating Hormone (TSH) 1.170 uIu/ml Urine Color RED Urine Appearance CLOUDY Urine pH 6.0 Urine Specific [place] 1.020 Urine Protein 2+ Urine Glucose (UA) NEG Urine Ketones NEG Urine Occult Blood 3+ Urine Nitrite NEG Urine Bilirubin NEG Urine Urobilinogen NEG Urine Leukocyte Esterase NEG Urine RBC >30 /hpf Urine WBC 10-30 /hpf Urine Epithelial Cells 10-20 /lpf Urine Bacteria NEG Test 09/24/16 10:16 Current Inpatient Medications Medications (Trade) Dose Ordered Sig/Elroy Route Start Time Stop Time Status Last Admin Dose Admin Acetaminophen (Tylenol Tab) 650 mg Q4H PRN PO 09/23/16 14:30 10/23/16 14:29 Zolpidem Tartrate (Ambien Tab) 5 mg HSZ PRN PO 09/23/16 14:30 10/23/16 14:29 Nitroglycerin (Nitrostat Tab) 0.4 mg UD PRN SL 09/23/16 14:30 10/23/16 14:29 Ondansetron HCl (Zofran Inj) 4 mg Q6H PRN IV 09/23/16 14:30 10/23/16 14:29 Atorvastatin Calcium (Lipitor Tab) 40 mg HS PO 09/23/16 21:00 10/23/16 20:59 09/23/16 20:03 40 MG Carvedilol (Coreg Tab) 3.125 mg BID PO 09/23/16 21:00 10/23/16 20:59 09/24/16 08:28 3.125 MG Escitalopram Oxalate (Lexapro Tab) 5 mg HS PO 09/23/16 21:00 10/23/16 20:59 09/23/16 20:02 5 MG Albuterol/ Ipratropium (Combivent Respimat Inh) 1 puffs QID INH 09/23/16 17:00 10/23/16 16:59 09/24/16 08:27 1 PUFFS Losartan Potassium (coZAAR TAB) 25 mg QAM PO 09/24/16 09:00 10/24/16 08:59 09/24/16 08:29 25 MG Potassium Chloride (Klor-Con M10) 10 meq QAM PO 09/24/16 09:00 10/24/16 08:59 09/24/16 08:29 10 MEQ Spironolactone 25 mg 25 mg BID17 PO 09/23/16 21:00 10/23/16 20:59 09/24/16 08:28 25 MG Furosemide/Syringe (Lasix Inj/ Syringe) 4 ml @ 4 mls/min BID17 IV 09/23/16 21:00 10/23/16 20:59 09/24/16 08:28 4 MLS/MIN Lorazepam (Ativan Inj) 0.5 mg Q4H PRN IV 09/23/16 20:30 10/23/16 20:29 09/23/16 20:53 0.5 MG Labs were reviewed and are within normal limits unless listed below. Labs are available in the chart and at [facility] Problem List Medical Problems: (1) Anemia Status: Acute (2) Elevated troponin Status: Acute (3) Hematuria Status: Acute Past History congestive heart failure, coronary artery disease, heart disease, high cholesterol, hypertension, osteoarthritis, vascular disease Past Surgical History: orthopedic surgery, other Family History FH: diabetes mellitus FH: gallbladder disease FH: heart disease FH: hypertension Social History Hx Tobacco Use In Past Year?: Yes Marital status: Housing status: lives with family Occupation status: retired History of MDRO No Allergies Coded Allergies: Metformin (Unverified Adverse Reaction, Severe, MEMORY LOSS, 09/23/16) Codeine (Unverified Adverse Reaction, Intermediate, ITCHING, 09/23/16) Medications Home Medications: Home Meds and Scripts Medications Dose Route/Sig Max Daily Dose Days Date Category Dose Instructions Ventolin Hfa (Albuterol) 200 Puffs/62256 Mcg Aers 2-4 Puffs INH Q6H 09/23/16 Reported Combivent Respimat (Ipratropium-Albuterol) 1 Aer Aer 1 Puffs INH QID 09/23/16 Reported Lipitor (Atorvastatin) 40 Mg Tab 40 Mg PO HS 09/23/16 Reported Lexapro (Escitalopram Oxalate) 5 Mg Tab 5 Mg PO HS 09/23/16 Reported Micro-K Ext Rel (Potassium Chloride) 10 Meq Capcr 10 Meq PO QAM 14 08/27/16 Rx Spironolactone 25 Mg Tab 25 Mg PO QAM 30 08/27/16 Rx Losartan Potassium 25 Mg Tab 25 Mg PO QAM 30 08/27/16 Rx hold when SBP<95 Plavix (Clopidogrel Bisulfate) 75 Mg Tab 75 Mg PO QAM 08/25/16 Reported Coreg (Carvedilol) 3.125 Mg Tab 3.125 Mg PO BID 08/25/16 Reported Lasix (Furosemide) 40 Mg Tab 40 Mg PO BID 08/25/16 Reported Aspirin Ec (Aspirin) 81 Mg Tab 81 Mg PO QAM 08/25/16 Reported Inpatient Medications: Current Inpatient Medications Medications (Trade) Dose Ordered Sig/Elroy Route Start Time Stop Time Status Last Admin Dose Admin Acetaminophen (Tylenol Tab) 650 mg Q4H PRN PO 09/23/16 14:30 10/23/16 14:29 Zolpidem Tartrate (Ambien Tab) 5 mg HSZ PRN PO 09/23/16 14:30 10/23/16 14:29 Nitroglycerin (Nitrostat Tab) 0.4 mg UD PRN SL 09/23/16 14:30 10/23/16 14:29 Ondansetron HCl (Zofran Inj) 4 mg Q6H PRN IV 09/23/16 14:30 10/23/16 14:29 Atorvastatin Calcium (Lipitor Tab) 40 mg HS PO 09/23/16 21:00 10/23/16 20:59 09/23/16 20:03 40 MG Carvedilol (Coreg Tab) 3.125 mg BID PO 09/23/16 21:00 10/23/16 20:59 09/24/16 08:28 3.125 MG Escitalopram Oxalate (Lexapro Tab) 5 mg HS PO 09/23/16 21:00 10/23/16 20:59 09/23/16 20:02 5 MG Albuterol/ Ipratropium (Combivent Respimat Inh) 1 puffs QID INH 09/23/16 17:00 10/23/16 16:59 09/24/16 08:27 1 PUFFS Losartan Potassium (coZAAR TAB) 25 mg QAM PO 09/24/16 09:00 10/24/16 08:59 09/24/16 08:29 25 MG Potassium Chloride (Klor-Con M10) 10 meq QAM PO 09/24/16 09:00 10/24/16 08:59 09/24/16 08:29 10 MEQ Spironolactone 25 mg 25 mg BID17 PO 09/23/16 21:00 10/23/16 20:59 09/24/16 08:28 25 MG Furosemide/Syringe (Lasix Inj/ Syringe) 4 ml @ 4 mls/min BID17 IV 09/23/16 21:00 10/23/16 20:59 4/14/17 08:28 4 MLS/MIN Lorazepam (Ativan Inj) 0.5 mg Q4H PRN IV 09/23/16 20:30 10/23/16 20:29 09/23/16 20:53 0.5 MG Review of Systems Review of Systems Constitutional: No fever Eyes: No blurred vision Neurological: No dizzy Endocrine: No excessive thirst Gastrointestinal: No abdominal pain Cardiovascular: + see HPI Respiratory: + see HPI, + shortness of breath Blood / Lymphatic: + see HPI Male : + blood in urine, + frequent urination, + see HPI, No painful urination Physical Exam Vital Signs: Vital Signs Past 12 Hours Date Time Temp Pulse Resp B/P Pulse Ox O2 Delivery O2 Flow Rate FiO2 09/24/16 08:00 Room Air 09/24/16 07:55 36.6 88 22 104/70 94 Room Air 09/24/16 04:00 Room Air 09/24/16 03:31 36.4 81 22 102/68 93 Room Air 09/24/16 00:00 Room Air 09/23/16 23:32 36.4 88 22 94/54 92 Room Air Physical Exam: General Appearance: WD/WN, no apparent distress ENT: hearing grossly normal Neck: no JVD Respiratory/Chest: no respiratory distress, no accessory muscle use Extremities: + pedal edema, + swelling Neurologic/Psychiatric: alert, normal mood/affect, oriented x 3 Skin: normal color, warm/dry Assessment & Plan Assessment & Plan Gross Hematuria Voiding on his own but does not feel he is emptying well. Had nursing bladder scan pt- PVR was 390 Given the high residual- attempted to insert moreira catheter to irrigate bladder with possible clot retention. Pt has mild hypospadias- moreira insertion attempted with 22fr to 16 fr without success. Pt has urethral stenosis- unable to pass catheter. Was able to remove clot from urethra- pt sprayed urine at this point then was able to void on his own bloody urine with clots. repeat PVR of 143 ml. Will avoid moreira at this point.- but will get cart in case needed. Pt is on fluid restriction due to CHF/fluid retention. Hemodynamically stable. Continue to hold plavix/asa Urine culture pending. Would consider starting antibiotics to cover for UTI. Will get renal u/s to assess for hydro and reevaluate renal cysts. Send urine for cytology Check PSA. Thanks for the consult. Will continue to monitor hematuria. Case discussed with Dr. Vides. Pinpoint growth on urine culture. Wish to avoid urethral trauma unless pt unable to void completely as plavix certainly has not worn off will start on finasteride pt will need cysto when urine clears or plavix has worn off
[2016-09-24 11:57] LABS: PROSTATE SPECIFIC ANTIGEN 0.572 ng/ml (0.000-4.000)
--- NOTE | 2016-09-24 12:41 | ECHOCARDIOGRAM REPORT ---
*NOTICE TO RECEIVING [employer] This information is strictly Confidential and protected under [place] law. [place] law prohibits you from making any further disclosure of this information unless further disclosure is expressly permitted by the written consent of the person to whom it pertains or is authorized by law. A general authorization for the release of medical or other information is not sufficient for this purpose. Hospital accepts no responsibility if the information is made available to any other person, INCLUDING THE PATIENT. Interpretation Summary * Name: TONEY MELGAR Study Date: 09/24/2016 06:36 AM BP: 102/68 mmHg * Patient Location: C.2T\S\S229\S\2 HR: 72 * : 1955 (M/d/yyyy) Gender: Male Height: 72 in * Age: 61 yrs Ethnicity: [place] Weight: 182 lb * Ordering Physician: Mt Aparicio * Referring Physician: Katelyn Sutton * Performed By: Corinne Robertson RCS * * Reason For Study: CHF * BSA: 2.0 m2 * -- Conclusions -- * The left ventricle is severely dilated. * There is severe global hypokinesis of the left ventricle. * Left ventricular systolic function is severely reduced. * Ejection Fraction = <15%. * The aortic valve is trileaflet. * The non-coronary cusp is immobile and severely calcified. * Trace aortic regurgitation. * There is moderate mitral regurgitation. * There is mild to moderate tricuspid regurgitation. * Right ventricular systolic pressure is elevated at 40-50mmHg. Procedure Details * A complete two-dimensional transthoracic echocardiogram was performed (2D, M-mode, Doppler and color flow Doppler). Left Ventricle * The left ventricle is severely dilated. * There is normal left ventricular wall thickness. * Ejection Fraction = <15%. * Left ventricular systolic function is severely reduced. * There is severe global hypokinesis of the left ventricle. Right Ventricle * Borderline right ventricular enlargement. * There is a pacemaker lead in the right ventricle. Atria * The left atrium is mildly dilated. * Right atrial size is normal. * No ASD detected; PFO is not assessed. Mitral Valve * The mitral valve anatomy is normal. * There is no mitral valve stenosis. * There is moderate mitral regurgitation. Tricuspid Valve * The tricuspid valve anatomy is normal. * There is no tricuspid stenosis. * There is mild to moderate tricuspid regurgitation. * Right ventricular systolic pressure is elevated at 40-50mmHg. Aortic Valve * The aortic valve is trileaflet. * The non-coronary cusp is immobile and severely calcified. * No hemodynamically significant valvular aortic stenosis. * Trace aortic regurgitation. Pulmonic Valve * The pulmonic valve is not well visualized. Great Vessels * The aortic root is normal size. Pericardium/Pleural * There is no pericardial effusion. Great Vessels * Normal inferior vena cava diameter and respiratory variation suggests normal central venous pressure. Left Ventricular Diastolic Function * Diastolic dysfunction, Grade III, consistent with marked congestive heart failure. MMode 2D Measurements and Calculations IVSd 1.1 cm IVSs 0.91 cm LVIDd 7.5 cm LVIDs 7.4 cm LVPWd 1.3 cm LVPWs 1.6 cm IVS/LVPW 0.85 FS 0.83 % EDV(Teich) 295.0 ml ESV(Teich) 289.5 ml EF(Teich) 1.9 % EDV(cubed) 415.6 ml ESV(cubed) 405.3 ml EF(cubed) 2.5 % % IVS thick -19.51 % % LVPW thick 17.8 % LV mass(C)d 467.5 grams LV mass(C)dI 228.4 grams/m\S\2 LV mass(C)s 464.9 grams LV mass(C)sI 227.2 grams/m\S\2 SV(Teich) 5.5 ml SI(Teich) 2.7 ml/m\S\2 SV(cubed) 10.3 ml SI(cubed) 5.0 ml/m\S\2 Ao root diam 3.6 cm Ao root area 10.1 cm\S\2 ACS 1.7 cm LA dimension 3.9 cm LA/Ao 1.1 LVOT diam 2.1 cm LVOT area 3.6 cm\S\2 LVAd ap4 60.7 cm\S\2 LVLd ap4 9.3 cm EDV(MOD-sp4) 319.7 ml EDV(sp4-el) 334.4 ml LVAs ap4 58.2 cm\S\2 LVLs ap4 9.5 cm ESV(MOD-sp4) 294.1 ml ESV(sp4-el) 302.4 ml EF(MOD-sp4) 8.0 % EF(sp4-el) 9.6 % LVAd ap2 60.8 cm\S\2 LVLd ap2 9.0 cm EDV(MOD-sp2) 338.9 ml EDV(sp2-el) 348.0 ml LVAs ap2 59.1 cm\S\2 LVLs ap2 8.9 cm ESV(MOD-sp2) 323.2 ml ESV(sp2-el) 333.9 ml EF(MOD-sp2) 4.6 % EF(sp2-el) 4.0 % LVLd %diff -3.67 % EDV(MOD-bp) 340.7 ml LVLs %diff -7.33 % ESV(MOD-bp) 320.1 ml EF(MOD-bp) 6.1 % SV(MOD-sp4) 25.6 ml SI(MOD-sp4) 12.5 ml/m\S\2 SV(MOD-sp2) 15.8 ml SI(MOD-sp2) 7.7 ml/m\S\2 SV(MOD-bp) 20.6 ml SI(MOD-bp) 10.1 ml/m\S\2 SV(sp4-el) 32.0 ml SI(sp4-el) 15.6 ml/m\S\2 SV(sp2-el) 14.1 ml SI(sp2-el) 6.9 ml/m\S\2 Doppler Measurements and Calculations MV E max narcisa 80.5 cm/sec MV P1/2t max narcisa 88.2 cm/sec MV P1/2t 45.0 msec MVA(P1/2t) 4.9 cm\S\2 MV dec slope 573.8 cm/sec\S\2 MV dec time 0.14 sec Ao V2 max 77.6 cm/sec Ao max PG 2.4 mmHg Ao max PG (full) -0.18 mmHg LOLITA(V,A) 3.7 cm\S\2 LOLITA(V,D) 3.7 cm\S\2 AI max narcisa 321.9 cm/sec AI max PG 41.4 mmHg AI dec slope 161.4 cm/sec\S\2 AI P1/2t 584.1 msec LV V1 max PG 2.6 mmHg LV V1 max 80.5 cm/sec MR max narcisa 318.8 cm/sec MR max PG 40.8 mmHg PA V2 max 61.1 cm/sec PA max PG 1.5 mmHg PI max narcisa 232.1 cm/sec PI max PG 21.6 mmHg PI dec slope 215.5 cm/sec\S\2 PI P1/2t 315.4 msec TR max narcisa 260.6 cm/sec
--- NOTE | 2016-09-24 12:49 | Clinical Documentation Query ---
ARNAV Hayes : CLINICAL DOCUMENTATION QUERY Patient is a 61 year old male admitted for treatment of acute on chronic systolic CHF. Noted is an estimated GFR range of 55-73 ml/min from 08/16/16 to present. Combined with a history of hypertension, specified CKD will allow for DRG assignment which captures increased severity of illness when this triad of diagnoses is present (acute specified CHF, chronic specified kidney disease, and hypertension). In your clinical opinion is this patient being managed for: ( X ) Chronic kidney disease, stage 2-3 ( ) Other explanation of clinical findings (Please Explain) ( ) Unable to determine (Please Define) ( ) Need to Discuss ( ) Not Agree The medical record reflects the following clinical findings, treatment, and risk factors. Clinical Indicators:estimated GFR range of 55-73 ml/min from 08/16/16 to present Treatment: Serial chemistries Risk Factors: Smoking, chronic systolic CHF, hypertension Please clarify and document your clinical opinion in the progress notes and discharge summary. Terms such as "probable", "suspected", "likely", "questionable", "possible", or "still to be ruled out" are acceptable. IF IN AGREEMENT, YOU MUST DOCUMENT ABOVE DIAGNOSTIC STATEMENT IN DAILY PROGRESS NOTES AND DISCHARGE SUMMARY. This document is not part of the patient's record. Thank You, Ab Walker, JEREMY [phone]
--- NOTE | 2016-09-24 13:07 | CARDIOLOGY CONSULTATION ---
DATE OF CONSULTATION: 09/24/2016 CARDIOLOGY CONSULTATION ADDENDUM Data reviewed from [facility]. The patient underwent dual chamber ICD pacemaker implantation, January [address] [facility] medical/surgery registered nurse.
--- NOTE | 2016-09-24 13:46 | CARDIOLOGY CONSULTATION ---
DATE OF CONSULTATION: 09/24/2016 DATE OF CONSULTATION: 09/24/2016. REFERRING PHYSICIAN: Dr. Dixon. INDICATIONS: Congestive heart failure, hematuria. HISTORY OF PRESENT ILLNESS: The patient is a 61-year-old male with history of underlying nonischemic cardiomyopathy by patient description. He notes he is transferring care to [facility] previously followed by Dr. Herrera for cardiology concerns. His past medical history is notable for severe LV dysfunction prior pacer defibrillator implantation performed in January 2016 at [facility]. He carries a history of atherosclerotic peripheral vascular disease status post aortobifemoral bypass, history of chronic tobacco use, past congestive heart failure with recent hospitalization at [facility] on 08/25/2016 with clinical history by description of class 3 heart failure prior to hospitalization. Underlying medical problems also include hyperlipidemia, depression, chronic tobacco use. The patient represents this admission with complaints of worsening shortness of breath, lower extremity edema as well as recurrent hematuria. REVIEW OF SYSTEMS: Denies chest pains, tachypalpitations, syncope or near syncope. Notes no defibrillator activation. Notes no overt fevers or chills, weight is up just slightly but notes no dramatic change in weights at home. Exercise capacity is substantially reduced with minimal tolerance with activities. Notes no headache or visual changes. Notes no unexplained fevers or infections. Notes no rash or worsening arthritic complaint. Notes he has undergone prior diagnostic cardiac catheterization without obstructive disease consistent to explain patient's overall LV dysfunction per history. ALLERGIES: CODEINE AND METFORMIN. MEDICATIONS: Prior to hospitalization included albuterol inhaler 2 puffs q. 6 hours, aspirin 81 mg p.o. daily, atorvastatin 40 mg p.o. daily, carvedilol 3.125 mg b.i.d., Plavix 75 mg p.o. daily, Lexapro 5 was bedtime, furosemide 40 mg b.i.d., losartan 25 mg q.a.m., potassium chloride 10 mg q.a.m., spironolactone 25 mg p.o. every day. 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 FAMILY HISTORY: Not specifically notable for cardiac disease although little information available. 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 He uses no alcohol or significant [id number] medications. PHYSICAL EXAMINATION: VITAL SIGNS: Heart rate 75, blood pressure is 95/64. HEAD, EYES, EARS, NOSE, AND THROAT: Normocephalic, atraumatic. NECK: There is jugular venous distention to the angle of the jaw. LUNGS: Reveal crackles bibasilar. CARDIOVASCULAR EXAMINATION: Regular with a displaced apical impulse, grade 2/6 systolic murmur at the lower right sternal border. ABDOMEN: Soft with mild distention. EXTREMITIES: Reveal 2-3+ edema to the knees. NEUROLOGIC: The patient is answering questions, appears chronically fatigued. LABORATORY DATA: Troponins are mildly elevated but flat. Sodium is 141, potassium is 4.5, chloride is 106, bicarb 24, BUN is 37, creatinine is 1.4. Magnesium level is 2.6. TSH was normal. Echocardiogram demonstrated severely dilated left ventricle with severe diffuse LV dysfunction, EF less than 15%. There is mild to moderate mitral and tricuspid insufficiency and indirect evidence of at least moderate elevation in pulmonary pressures. Chest x-ray revealed no pulmonary edema though marked cardiac enlargement. White cell count 10.8, hemoglobin is 12.4, platelet count is 304. INR and PTT are normal. Urinalysis notable for 2+ protein, 3+ blood. IMPRESSION: A 61-year-old male with what appears to be a history of severely dilated cardiomyopathy with nonischemic origin, class 3-4 congestive heart failure, presents now with signs and symptoms of acute on chronic heart failure as well as gross hematuria. RECOMMENDATIONS AND PLAN: We will obtain records from [facility] regarding past cardiac procedures including pacer defibrillator interrogation. We will continue IV diuretics as ordered with patient on appropriate medical therapies otherwise. Currently on carvedilol, spironolactone, losartan. He is on aspirin and clopidogrel. Will obtain records regarding peripheral vascular procedures as well. Overall degree of LV dysfunction is significant. PLAN: Continue diuresis. Examination reflects both biventricular heart failure with jugular venous distention and peripheral edema. Will follow renal function as clinical course proceeds. The patient may require tertiary evaluation regarding destination therapies, LVAD, etc. in the future. Will follow patient in the hospital.
--- NOTE | 2016-09-24 14:33 | DIAGNOSTIC IMAGING REPORT ---
RENAL ULTRASOUND HISTORY: gross hematuria COMPARISON: Abdomen and pelvis CT 08/26/2016. FINDINGS: Right kidney: 11.6 cm. No hydronephrosis. Normal corticomedullary differentiation and cortical thickness. A 3.6 cm upper pole cyst containing a septation. Left kidney: 11.4 cm. No hydronephrosis. Normal corticomedullary differentiation and cortical thickness. A 2.5 cm upper pole cyst. Bladder: A 1.5 x 1.2 x 1.0 cm nonmobile echogenic nodule within the right posterior bladder. There is additional 5 mm echogenic nodule within the left posterior bladder. The ureteral jets are identified. Postvoid residual of 95 cc. IMPRESSION: 1. Bilateral renal cysts. 2. No hydronephrosis. 3. There are 2 echogenic nodules adherent to the posterior bladder wall with the largest measuring 1.5 cm. These are concerning for urothelial malignancy. Cystoscopy is recommended for further evaluation. 4. Small postvoid residual. Electronically signed by: Chapo Nieto M.D. 09/24/2016 2:31 PM Dictated Date/Time: 09/24/2016 2:27 PM
[2016-09-24 15:11] VITALS: BP 109/63; PULSE 70; TEMP 35.9; O2SAT 96
[2016-09-24] MEDS: CEFTRIAXONE SOD INJ 1 GM in DEXTROSE 5% ADD-VANTAGE 50ML 50 ML IV SCH (15:13)
--- NOTE | 2016-09-24 16:54 | Family Medicine Progress Note ---
Progress Note Date of Service Sep 24, 2016. Subjective Pt evaluation today including: conversation w/ patient, physical exam, chart review, lab review, review of studies Pain: Patient reports pain with urination this morning Voiding: voiding difficulty (difficulty passing urine) Constitutional: No chills, No fever Respiratory: + cough, + dyspnea at rest, + dyspnea on exertion, + shortness of breath, No sputum, No wheezing Cardiovascular: + PND, + orthopnea, No chest pain, No palpitations Abdomen: No nausea, No pain, No vomiting Male : + dysuria, + hematuria, + urinary frequency, No incontinence Medications Current Inpatient Medications Medications (Trade) Dose Ordered Sig/Elroy Route Start Time Stop Time Status Last Admin Dose Admin Acetaminophen (Tylenol Tab) 650 mg Q4H PRN PO 09/23/16 14:30 10/23/16 14:29 Zolpidem Tartrate (Ambien Tab) 5 mg HSZ PRN PO 09/23/16 14:30 10/23/16 14:29 Nitroglycerin (Nitrostat Tab) 0.4 mg UD PRN SL 09/23/16 14:30 10/23/16 14:29 Ondansetron HCl (Zofran Inj) 4 mg Q6H PRN IV 09/23/16 14:30 10/23/16 14:29 Atorvastatin Calcium (Lipitor Tab) 40 mg HS PO 09/23/16 21:00 10/23/16 20:59 09/23/16 20:03 40 MG Carvedilol (Coreg Tab) 3.125 mg BID PO 09/23/16 21:00 10/23/16 20:59 09/24/16 08:28 3.125 MG Escitalopram Oxalate (Lexapro Tab) 5 mg HS PO 09/23/16 21:00 10/23/16 20:59 09/23/16 20:02 5 MG Albuterol/ Ipratropium (Combivent Respimat Inh) 1 puffs QID INH 09/23/16 17:00 10/23/16 16:59 09/24/16 14:26 1 PUFFS Losartan Potassium (coZAAR TAB) 25 mg QAM PO 09/24/16 09:00 10/24/16 08:59 09/24/16 08:29 25 MG Potassium Chloride (Klor-Con M10) 10 meq QAM PO 09/24/16 09:00 10/24/16 08:59 09/24/16 08:29 10 MEQ Spironolactone 25 mg 25 mg BID17 PO 09/23/16 21:00 10/23/16 20:59 09/24/16 08:28 25 MG Furosemide/Syringe (Lasix Inj/ Syringe) 4 ml @ 4 mls/min BID17 IV 09/23/16 21:00 10/23/16 20:59 09/24/16 08:28 4 MLS/MIN Lorazepam 0.5 mg 0.5 mg Q4H PRN IV 09/23/16 20:30 10/23/16 20:29 09/23/16 20:53 0.5 MG Ceftriaxone Sodium/Dextrose (Rocephin Inj/ Dextrose Add-[place] 50ML) 50 ml @ 100 mls/hr Q24H IV 09/24/16 15:00 09/29/16 14:59 09/24/16 15:13 100 MLS/HR Finasteride (Proscar Tab) 5 mg QAM PO 09/25/16 09:00 10/25/16 08:59 Objective Vital Signs Date Time Temp Pulse Resp B/P Pulse Ox O2 Delivery O2 Flow Rate FiO2 09/24/16 15:11 35.9 70 18 109/63 96 Room Air 09/24/16 12:00 Room Air 09/24/16 11:25 36.6 75 22 95/64 92 Room Air 09/24/16 08:00 Room Air 09/24/16 07:55 36.6 88 22 104/70 94 Room Air 09/24/16 04:00 Room Air 09/24/16 03:31 36.4 81 22 102/68 93 Room Air 09/24/16 00:00 Room Air 09/23/16 23:32 36.4 88 22 94/54 92 Room Air 09/23/16 20:10 36.5 92 18 108/76 100 Room Air 09/23/16 20:00 100 Room Air Physical Exam General Appearance: WD/WN, no apparent distress Eyes: normal inspection, sclerae normal Neck: supple, no carotid bruits, + JVD Respiratory/Chest: chest non-tender, no respiratory distress, no accessory muscle use, + crackles Cardiovascular: regular rate, rhythm, no edema, no gallop, no murmur Abdomen: normal bowel sounds, non tender, soft Extremities: no calf tenderness, + pedal edema, + swelling (3+ Pitting to the hips) Neurologic/Psychiatric: alert, normal mood/affect, oriented x 3 Laboratory Results Results Past 24 Hours Test 09/23/16 22:15 09/24/16 06:07 Range/Units Potassium Level 4.4 4.5 3.5-5.1 mmol/L Total Creatine Kinase 66 69 39-308 U/L Creatine Kinase MB 1.5 1.5 0.5-3.6 ng/ml Creatine Kinase MB Ratio 2.3 2.2 0-3.0 Troponin I 0.078 0.067 0-0.045 ng/ml White Blood Count 10.83 4.8-10.8 K/uL Red Blood Count 4.60 4.7-6.1 M/uL Hemoglobin 12.4 14.0-18.0 g/dL Hematocrit 38.3 42-52 % Mean Corpuscular Volume 83.3 80-100 fL Mean Corpuscular Hemoglobin 27.0 25-34 pg Mean Corpuscular Hemoglobin Concent 32.4 32-36 g/dl Platelet Count 304 130-400 K/uL Mean Platelet Volume 10.7 7.4-10.4 fL Neutrophils (%) (Auto) 59.9 % Lymphocytes (%) (Auto) 28.5 % Monocytes (%) (Auto) 10.9 % Eosinophils (%) (Auto) 0.3 % Basophils (%) (Auto) 0.3 % Neutrophils # (Auto) 6.49 1.4-6.5 K/uL Lymphocytes # (Auto) 3.09 1.2-3.4 K/uL Monocytes # (Auto) 1.18 0.11-0.59 K/uL Eosinophils # (Auto) 0.03 0-0.5 K/uL Basophils # (Auto) 0.03 0-0.2 K/uL RDW Standard Deviation 55.6 36.4-46.3 fL RDW Coefficient of Variation 18.4 11.5-14.5 % Immature Granulocyte % (Auto) 0.1 % Immature Granulocyte # (Auto) 0.01 0.00-0.02 K/uL Sodium Level 141 136-145 mmol/L Chloride Level 106 98-107 mmol/L Carbon Dioxide Level 24 21-32 mmol/L Anion Gap 11.0 3-11 mmol/L Blood Urea Nitrogen 37 7-18 mg/dl Creatinine 1.40 0.60-1.40 mg/dl Est Creatinine Clear Calc Drug Dose 62.4 ml/min Estimated GFR () 63.3 Estimated GFR (Non- 54.6 BUN/Creatinine Ratio 26.2 10-20 Random Glucose 118 70-99 mg/dl Calcium Level 8.7 8.5-10.1 mg/dl Magnesium Level 2.6 1.8-2.4 mg/dl Prostate Specific Antigen 0.572 0.000-4.000 ng/ml Assessment and Plan Patient is a 61 year old male with a history of Nonischemic Dilated Cardiomyopathy s/p ICD placement in 01/2016 and an EF on previous admission in August of 15-20% that presents with worsening shortness of breath and lower extremity swelling 2/2 acute on chronic CHF exacerbation 1) Acute on Chronic CHF Exacerbation 2/2 Nonischemic Dilated Cardiomyopathy - ICD placement by Dr. Herrera in 01/2016 for prevention of sudden cardiac arrest - ECHO on past admission showed EF of 15-20% - ECHO this morning shows EF < 15% - Troponins stable since admission (0.065, 0.078, 0.067) - Telemetry - Sinus rhythm in the 80s, Run of Vtach (8 beats) - 40mg IV Lasix BID - 10mEq KCL - Spironolactone 25mg BID - Carvedilol 3.125mg PO BID - Cardiology Consult 2) Hematuria 2/2 suspected bladder carcinoma (differential also includes UTI, renal cysts, urinary tract stones) - Renal US: There are 2 echogenic nodules adherent to the posterior bladder wall with the largest measuring 1.5 cm. These are concerning for urothelial malignancy. Cystoscopy is recommended for further evaluation. - Urology Consult - History of smoking (>1PPD) - Hemoglobin stable - Rocephin 1g IV Daily - Urine Cytology ordered - Unable to place moreira due to urethral clot obstruction - Check PSA (ordered for tomorrow) - Finasteride 5mg PO Daily 3) History of Peripheral Artery Disease - S/p aortobifemoral bypass - Holding Aspirin and Plavix due to ongoing hematuria 4) CKD Stage 3 - Creatinine 1.4 - Baseline creatinine 1.2 - Current creatinine driven by dehydration as evidence from CBC/BMP and diuretic history - Continue to follow with daily CBC/BMP 5) Hyperlipidemia - Atorvastatin 40mg Daily 6) Depression -Lexapro 5mg Daily 7) Anxiety - Lorazepam 0.5mg q4hr PRN 8) COPD - Combivent 1 puff QID 9) DVT - Due to bleeding avoiding anticoagulation - SCDs 10) Code Status - Full Resuscitation Reviewed: Pt Seen/Exam by Me History Resident Physician Supervision Note: I interviewed and examined the patient. Discussed with Dr. Wild and agree with findings and plan as documented in the note. Any exceptions or clarifications are listed here: Patient feeling short of breath but slightly better than upon admission, Moreira was unable to be placed due to mild hypospadias, urethral stricture, and clot in the urethra as per urology. He is passing urine but it is still bloody. Vitals reviewed, bigeminy and one run of 8 beats of VT noted on telemetry Appears older than stated age, NAD Regular rate and rhythm, no murmurs gallops or rubs Positive bibasilar crackles, otherwise clear to auscultation bilaterally, breathing unlabored Abdomen soft nontender nondistended positive bowel sounds Extremities 1+ pitting edema to the knees bilaterally 61-year-old male with severe biventricular systolic CHF with an EF less than 15 % here with acute CHF and gross hematuria. -Concerning for bladder cancer with nodules visualized on ultrasound today-will need cystoscopy, need to discuss with urology on timing of this -Continue IV diuresis -With demand ischemia not likely to have non-STEMI with mildly elevated but stable troponins-appreciate cardiology following Documented By: Arabella Horn
--- NOTE | 2016-09-24 17:43 | GENITOURINARY CONSULTATION ---
DATE OF CONSULTATION: 09/24/2016 REASON FOR THE CONSULT: Gross hematuria. HISTORY OF PRESENTATION: The patient is a 61-year-old male with a history of severe congestive heart failure who presents with gross hematuria as well as symptoms of congestive heart failure. He had similar symptoms on presentation approximately 1 month ago, at which time he had gross hematuria on Plavix that resolved. He is scheduled to follow up with my partner, had a CT scan at the time of his last admission in August that had showed adenomatous renal cysts and no evidence of hydronephrosis. There were no obvious bladder masses seen at that time and no clot was in the bladder or stones. He was discharged and he has been on Plavix as well as aspirin and came back with gross hematuria and again shortness of breath consistent with heart failure. This morning, he was seen by the nurse practitioner having difficulty voiding with a residual of over 360 mL and she attempted to place a 22-Bengali catheter and then a 16-Bengali catheter but felt that he had a stricture stopped. He did have some bleeding from his urethra and subsequently was able to urinate with small residual. A sonogram was done which showed the lesions that were seen previously in his kidney consistent with cysts, but also showed what appeared to be relatively small 1.5 cm lesions in his bladder that are consistent with possible bladder tumors. The patient does have a long history of smoking. He has been passing some clots and again his Plavix has been stopped. Cardiology has seen the patient and it appears that he does not have significant obstructive heart disease, although it is unclear why his congestive heart failure is so severe. In this setting given the gross hematuria and difficulty with the possible stricture, I think it is quite important that he stay off of Plavix. If absolutely necessary, a baby aspirin could be given although I am concerned that the Plavix is going to be problematic if he continues to bleed and he has a stricture just getting a catheter in could cause significant bleeding. On this admission, his hematocrit is similar to what it was on his last admission. His urine is clearly grossly bloody. He does have some pinpoint growth on urine culture that is being reintubated. He has a slight elevation of his white blood cell count at 10.83 this morning and his hematocrit is 38.3, slightly up from yesterday. His creatinine is 1.4 and his PT is slightly elevated at 14.1, PTT is normal. The patient was seen down in the ultrasound and he appeared to be fatigued. ROS: see admitting H anp which was reviewed PHYSICAL EXAMINATION: HEENT: Unremarkable. LUNGS: Clear. He has no flank pain to percussion. ABDOMEN: Benign. EXTREMITIES: Unremarkable. NEUROLOGIC: He is alert and oriented without any focal or sensory deficits. ASSESSMENT: Gross hematuria, possible bladder tumor. PLAN: Stay off Plavix. The patient also has a possible stricture. We will need to assess for surgery and possible TURBT and incision of stricture at a future time off of Plavix. Unfortunately, because of Plavix if bleeding continues or gets worse, placing a catheter will place him at significant risk for hemorrhage. We will continue to follow this and we will also update the urine culture. MTDD
[2016-09-24 20:00] VITALS: BP_SYST 108; BP_SYST 138; BP_DIAS 68; BP_DIAS 82; PULSE 83; TEMP 36.3; O2SAT 95
[2016-09-24] MEDS: ESCITALOPRAM OXALATE 10 MG TAB PO SCH (20:46)
[2016-09-24] MEDS: ATORVASTATIN 40 MG TAB PO SCH (20:46)
[2016-09-24 23:54] VITALS: BP 115/73; PULSE 81; TEMP 36.5; O2SAT 95
[2016-09-25 03:08] VITALS: BP 118/77; PULSE 80; TEMP 36.4; O2SAT 93
[2016-09-25 05:30] LABS: BASO % 0.2 %; BASO ABS # 0.02 K/uL (0-0.2); COMPLETE YES; EOS % 0.8 %; IG% 0.3 %; LYMPH % 28.7 %; LYMPH ABS # 3.12 K/uL (1.2-3.4); MEAN CELL VOLUME 82.4 fL (80-100); MEAN CORPUSCULAR HEMOGLOBIN 26.3 pg (25-34); MEAN CORPUSCULAR HGB CONC 31.9 g/dl (32-36); MEAN PLATELET VOLUME 11.1 fL (7.4-10.4); MONO % 10.7 %; NEUT % 59.3 %; PLATELET COUNT 292 K/uL (130-400); RED BLOOD COUNT 4.37 M/uL (4.7-6.1); WHITE BLOOD COUNT 10.86 K/uL (4.8-10.8)
[2016-09-25 05:52] LABS: BUN/CREATININE RATIO 32.2 (10-20); CALCIUM 8.6 mg/dl (8.5-10.1); CREATININE 1.3 mg/dl (0.60-1.40); MAGNESIUM 2.5 mg/dl (1.8-2.4); POTASSIUM 4.5 mmol/L (3.5-5.1)
[2016-09-25 08:06] VITALS: BP 98/69; PULSE 87; TEMP 36.5; O2SAT 98
[2016-09-25] MEDS: SPIRONOLACTONE 25 MG TAB PO SCH (08:11)
[2016-09-25] MEDS: FUROSEMIDE INJ 40 MG in SYRINGE 0 ML IV SCH ×2 (08:11→16:51)
[2016-09-25] MEDS: IPRATROPIUM BROMIDE/ALBUTEROL respimat INH INH SCH ×4 (08:11→21:12)
[2016-09-25] MEDS: POTASSIUM CHLORIDE 10 MEQ TABCR PO SCH (08:12)
[2016-09-25] MEDS: FINASTERIDE 5 MG TAB PO SCH (08:13)
[2016-09-25] MEDS: CARVEDILOL 3.125 MG TAB PO SCH ×2 (09:00→21:13)
[2016-09-25] MEDS: LOSARTAN POTASSIUM 25 MG TAB PO SCH (09:00)
[2016-09-25] MEDS ORDERED: GUAIFENESIN SUGAR FREE 100 MG/5 ML UDC PO PRN (11:30)
[2016-09-25] MEDS ORDERED: SACUBITRIL-VALSARTAN 24-26 MG TAB PO ONE (11:44)
--- NOTE | 2016-09-25 12:08 | Cardiology Follow-Up ---
Subjective Subjective Date of Service: Sep 25, 2016. Pt evaluation today including: conversation w/ patient, physical exam, chart review, lab review, review of studies, review of inpatient medication list Additional Details: Pt seen and examined, states that he's feeling ok today. Still somewhat sob at rest. Did not diurese impressively. Denies cp, palpitations, lightheadedness or dizziness. Hematuria resolved. Tele reviewed: sinus rhythm without arrhythmia, occasional PVC's occurring as single beats. Problem List Medical Problems: (1) Anemia Status: Acute (2) Elevated troponin Status: Acute (3) Hematuria Status: Acute Review of Systems Constitutional: No chills, No fever Respiratory: + cough, + dyspnea at rest, + dyspnea on exertion, + shortness of breath, No sputum, No wheezing Cardiac: + PND, + orthopnea, No chest pain, No palpitations Abdomen: No nausea, No pain, No vomiting Male : + dysuria, + hematuria, + urinary frequency, No incontinence Objective Vital Signs Last Vital Signs Documentation Date Time Temp Pulse Resp B/P Pulse Ox O2 Delivery O2 Flow Rate FiO2 09/25/16 08:06 36.5 87 18 98/69 98 Room Air 09/24/16 20:00 3.0 Physical Exam: General Appearance: WD/WN, + mild distress, + pertinent finding (mild conversational dyspnea, auto peeping) Eyes: bilateral eyes EOMI, bilateral eyes PERRL, bilateral eyes normal inspection ENT: hearing grossly normal Neck: supple, no carotid bruits, + JVD Respiratory/Chest: chest non-tender, no respiratory distress, no accessory muscle use, + crackles Cardiovascular: regular rate, rhythm, no edema, no gallop, no murmur, + gallop/ S4 Abdomen: normal bowel sounds, non tender, soft Extremities: non-tender, normal inspection, no calf tenderness, + pedal edema, + swelling (+2 b/l LE pitting edema) Neurologic/Psychiatric: restaurant mgr II-XII nml as tested, no motor/sensory deficits, alert, normal mood/affect, oriented x 3 Skin: normal color, warm/dry Lymphatic: no adenopathy Assessment and Plan 1. acute decompensated systolic heart failure has not diuresed well prerenal by numbers chest cta without rales continued impressive LE edema will add compression stockings today in attempt to mobilize extravascular fluid will change to spironolactone to daily, no benefit to bid dosing from cardiac standpoint and increased risk of hyperkalemia will cont bid lasix today but if no significant diuresis overnight will likely attempt dobutamine in AM already on losartan, will change to Entresto bid will also consider changing coreg to toprol for increased selective beta blockade, will defer for now will ultimately need device/transplant evaluation had lengthy discussion informing patient that options would be limited if continues to smoke, agrees to quit 2. COPD has never seen pulm would consider evaluation 3. PAD would recommend restarting asa now and plavix as soon as possible
[2016-09-25 12:39] VITALS: BP 107/65; PULSE 87; TEMP 36.2; O2SAT 98
[2016-09-25] MEDS: CEFTRIAXONE SOD INJ 1 GM in DEXTROSE 5% ADD-VANTAGE 50ML 50 ML IV SCH (14:24)
--- NOTE | 2016-09-25 15:04 | Progress Note ---
Subjective Date of Service: Sep 25, 2016. Subjective Pt evaluation today including: conversation w/ patient, conversation w/ family , physical exam Pain: none pt urine is clearing and he is not having difficulty voiding ultrasound done yesterday suggests 2 small bladder tumors which would explain the recent 2 episodes of hematuria Problem List Medical Problems: (1) Anemia Status: Acute (2) Elevated troponin Status: Acute (3) Hematuria Status: Acute Objective Vital Signs Date Time Temp Pulse Resp B/P Pulse Ox O2 Delivery O2 Flow Rate FiO2 09/25/16 12:39 36.2 87 18 107/65 98 Room Air 09/25/16 12:00 Room Air 09/25/16 08:06 36.5 87 18 98/69 98 Room Air 09/25/16 08:00 Room Air 09/25/16 04:00 Room Air 09/25/16 03:08 36.4 80 22 118/77 93 Room Air 09/25/16 00:00 Room Air 09/24/16 23:54 36.5 81 18 115/73 95 Room Air 09/24/16 20:00 Room Air 09/24/16 20:00 36.3 83 22 108/68 95 Nasal Cannula 3.0 09/24/16 16:00 Room Air 09/24/16 15:11 35.9 70 18 109/63 96 Room Air Laboratory Results Last 24 Hours Test 09/25/16 05:10 White Blood Count 10.86 K/uL Red Blood Count 4.37 M/uL Hemoglobin 11.5 g/dL Hematocrit 36.0 % Mean Corpuscular Volume 82.4 fL Mean Corpuscular Hemoglobin 26.3 pg Mean Corpuscular Hemoglobin Concent 31.9 g/dl Platelet Count 292 K/uL Mean Platelet Volume 11.1 fL Neutrophils (%) (Auto) 59.3 % Lymphocytes (%) (Auto) 28.7 % Monocytes (%) (Auto) 10.7 % Eosinophils (%) (Auto) 0.8 % Basophils (%) (Auto) 0.2 % Neutrophils # (Auto) 6.44 K/uL Lymphocytes # (Auto) 3.12 K/uL Monocytes # (Auto) 1.16 K/uL Eosinophils # (Auto) 0.09 K/uL Basophils # (Auto) 0.02 K/uL RDW Standard Deviation 55.3 fL RDW Coefficient of Variation 18.4 % Immature Granulocyte % (Auto) 0.3 % Immature Granulocyte # (Auto) 0.03 K/uL Sodium Level 139 mmol/L Potassium Level 4.5 mmol/L Chloride Level 105 mmol/L Carbon Dioxide Level 26 mmol/L Anion Gap 8.0 mmol/L Blood Urea Nitrogen 42 mg/dl Creatinine 1.30 mg/dl Est Creatinine Clear Calc Drug Dose 67.2 ml/min Estimated GFR () 69.2 Estimated GFR (Non- 59.7 BUN/Creatinine Ratio 32.2 Random Glucose 120 mg/dl Calcium Level 8.6 mg/dl Magnesium Level 2.5 mg/dl Assessment and Plan if urine clear in am would start aspirin will try to arrange turbt this admission off plavix pt needs anesthesia
[2016-09-25 15:06] VITALS: BP 99/64; PULSE 63; TEMP 36.1; O2SAT 99
--- NOTE | 2016-09-25 16:57 | Family Medicine Progress Note ---
Progress Note Date of Service Sep 25, 2016. Subjective Pt evaluation today including: conversation w/ patient, physical exam, chart review, lab review, review of studies Pain: No pain reported this morning Voiding: voiding difficulty (hematuria and passing clots, but improved since admission) Patient states that his shortness of breath has improved since yesterday. He also states that his hematuria has improved and his urine has appeared to have less blood. Denies any chest pain, fever, chills, nausea, or vomiting. Constitutional: No chills, No fever Respiratory: + dyspnea on exertion, + shortness of breath, No cough, No wheezing Cardiovascular: + PND, + orthopnea, No chest pain, No palpitations Abdomen: No nausea, No pain, No vomiting Male : + hematuria Medications Current Inpatient Medications Medications (Trade) Dose Ordered Sig/Elroy Route Start Time Stop Time Status Last Admin Dose Admin Acetaminophen (Tylenol Tab) 650 mg Q4H PRN PO 09/23/16 14:30 10/23/16 14:29 Zolpidem Tartrate (Ambien Tab) 5 mg HSZ PRN PO 09/23/16 14:30 10/23/16 14:29 Nitroglycerin (Nitrostat Tab) 0.4 mg UD PRN SL 09/23/16 14:30 10/23/16 14:29 Ondansetron HCl (Zofran Inj) 4 mg Q6H PRN IV 09/23/16 14:30 10/23/16 14:29 Atorvastatin Calcium (Lipitor Tab) 40 mg HS PO 09/23/16 21:00 10/23/16 20:59 09/24/16 20:46 40 MG Carvedilol (Coreg Tab) 3.125 mg BID PO 09/23/16 21:00 10/23/16 20:59 09/24/16 20:46 3.125 MG Escitalopram Oxalate (Lexapro Tab) 5 mg HS PO 09/23/16 21:00 10/23/16 20:59 09/24/16 20:46 5 MG Albuterol/ Ipratropium 1 puffs 1 puffs QID INH 09/23/16 17:00 10/23/16 16:59 09/25/16 12:17 1 PUFFS Ceftriaxone Sodium/Dextrose (Rocephin Inj/ Dextrose Add-Chloride 50ML) 50 ml @ 100 mls/hr Q24H IV 09/24/16 15:00 09/29/16 14:59 09/25/16 14:24 100 MLS/HR Finasteride (Proscar Tab) 5 mg QAM PO 09/25/16 09:00 10/25/16 08:59 09/25/16 08:13 5 MG Spironolactone (Aldactone Tab) 25 mg DAILY PO 09/26/16 09:00 10/26/16 08:59 Guaifenesin (Robitussin Sugar Free Syrup) 100 mg Q6H PRN PO 09/25/16 11:30 10/25/16 11:29 09/25/16 16:26 100 MG Sacubitril/ Valsartan 1 tab 1 tab BID PO 09/25/16 21:00 10/25/16 20:59 Furosemide/Syringe (Lasix Inj/ Syringe) 4 ml @ 4 mls/min BID17 IV 09/25/16 17:00 10/25/16 16:59 Objective Vital Signs Date Time Temp Pulse Resp B/P Pulse Ox O2 Delivery O2 Flow Rate FiO2 09/25/16 16:00 Room Air 09/25/16 15:06 36.1 63 18 99/64 99 Room Air 09/25/16 12:39 36.2 87 18 107/65 98 Room Air 09/25/16 12:00 Room Air 09/25/16 08:06 36.5 87 18 98/69 98 Room Air 09/25/16 08:00 Room Air 09/25/16 04:00 Room Air 09/25/16 03:08 36.4 80 22 118/77 93 Room Air 09/25/16 00:00 Room Air 09/24/16 23:54 36.5 81 18 115/73 95 Room Air 09/24/16 20:00 Room Air 09/24/16 20:00 36.3 83 22 108/68 95 Nasal Cannula 3.0 Physical Exam General Appearance: WD/WN, no apparent distress Eyes: normal inspection, sclerae normal Respiratory/Chest: chest non-tender, no respiratory distress, no accessory muscle use, + crackles (At bases of the lungs) Cardiovascular: regular rate, rhythm, no gallop, no murmur Abdomen: normal bowel sounds, non tender, soft Extremities: non-tender, no calf tenderness, + pedal edema, + swelling (3+ lower extremity edema to his hips bilaterally) Neurologic/Psychiatric: alert, normal mood/affect, oriented x 3 Laboratory Results Results Past 24 Hours Test 09/25/16 05:10 Range/Units White Blood Count 10.86 4.8-10.8 K/uL Red Blood Count 4.37 4.7-6.1 M/uL Hemoglobin 11.5 14.0-18.0 g/dL Hematocrit 36.0 42-52 % Mean Corpuscular Volume 82.4 80-100 fL Mean Corpuscular Hemoglobin 26.3 25-34 pg Mean Corpuscular Hemoglobin Concent 31.9 32-36 g/dl Platelet Count 292 130-400 K/uL Mean Platelet Volume 11.1 7.4-10.4 fL Neutrophils (%) (Auto) 59.3 % Lymphocytes (%) (Auto) 28.7 % Monocytes (%) (Auto) 10.7 % Eosinophils (%) (Auto) 0.8 % Basophils (%) (Auto) 0.2 % Neutrophils # (Auto) 6.44 1.4-6.5 K/uL Lymphocytes # (Auto) 3.12 1.2-3.4 K/uL Monocytes # (Auto) 1.16 0.11-0.59 K/uL Eosinophils # (Auto) 0.09 0-0.5 K/uL Basophils # (Auto) 0.02 0-0.2 K/uL RDW Standard Deviation 55.3 36.4-46.3 fL RDW Coefficient of Variation 18.4 11.5-14.5 % Immature Granulocyte % (Auto) 0.3 % Immature Granulocyte # (Auto) 0.03 0.00-0.02 K/uL Sodium Level 139 136-145 mmol/L Potassium Level 4.5 3.5-5.1 mmol/L Chloride Level 105 98-107 mmol/L Carbon Dioxide Level 26 21-32 mmol/L Anion Gap 8.0 3-11 mmol/L Blood Urea Nitrogen 42 7-18 mg/dl Creatinine 1.30 0.60-1.40 mg/dl Est Creatinine Clear Calc Drug Dose 67.2 ml/min Estimated GFR () 69.2 Estimated GFR (Non- 59.7 BUN/Creatinine Ratio 32.2 10-20 Random Glucose 120 70-99 mg/dl Calcium Level 8.6 8.5-10.1 mg/dl Magnesium Level 2.5 1.8-2.4 mg/dl Assessment and Plan Patient is a 61 year old male with a history of Nonischemic Dilated Cardiomyopathy s/p ICD placement in 01/2016 and an EF on previous admission in August of 15-20% that presents with worsening shortness of breath and lower extremity swelling 2/2 acute on chronic CHF exacerbation 1) Acute on Chronic CHF Exacerbation 2/2 Nonischemic Dilated Cardiomyopathy - ICD placement by Dr. Herrera in 01/2016 for prevention of sudden cardiac arrest - ECHO on past admission showed EF of 15-20% - ECHO this morning shows EF < 15% - Troponins stable since admission (0.065, 0.078, 0.067) - Telemetry - Sinus rhythm in the 60s-70s with PVCs, PACs, and Bigeminy - 40mg IV Lasix BID - Entresto 24-26mg BID - 10mEq KCL - Spironolactone 25mg BID - Carvedilol 3.125mg PO BID - Cardiology Consult - Compression stockings - Spironolactone Daily (from BID) - Continue Lasix BID --> if no improvement switch to dobutamine in AM - Change Losartan to Entresto BID - Consider changing Coreg to Toprol - Eventually require device (LVAD) or transplant evaluation 2) Hematuria 2/2 suspected bladder carcinoma (differential also includes UTI, renal cysts, urinary tract stones) - Renal US: There are 2 echogenic nodules adherent to the posterior bladder wall with the largest measuring 1.5 cm. These are concerning for urothelial malignancy. Cystoscopy is recommended for further evaluation. - Urology Consult - Possible Stricture - Possible TURBT and incision of urethral stricture during inpatient stay - Cannot insert catheter due to significant risk of hemorrhage - Remain off of Plavix to prepare for potential surgery and due to current hematuria and bleeding - History of smoking (>1PPD) - Hemoglobin stable - Discontinued Rocephin due to finding source of bleed and also mixed urine culture - Urine Cytology ordered - PSA - 0.572 - Finasteride 5mg PO Daily 3) History of Peripheral Artery Disease - S/p aortobifemoral bypass - Holding Aspirin and Plavix due to ongoing hematuria 4) CKD Stage 3 - Renally dosing all medications and avoiding Nephrotoxic agents - Creatinine 1.3, improving - Baseline creatinine 1.2 - Continue to follow with daily CBC/BMP 5) Hyperlipidemia - Atorvastatin 40mg Daily 6) Depression and Anxiety - No issues - Lexapro 5mg Daily - Lorazepam 0.5mg q4hr PRN 8) COPD - Combivent 1 puff QID 9) DVT - Due to bleeding avoiding anticoagulation - SCDs 10) Code Status - Full Resuscitation History Resident Physician Supervision Note: I interviewed and examined the patient. Discussed with Dr. Wild and agree with findings and plan as documented in the note. Any exceptions or clarifications are listed here: Patient feeling short of breath but slightly better today. Discussed with him and his about his guarded prognosis with this heart failure. No hematuria today Vitals reviewed Appears older than stated age, NAD Regular rate and rhythm, no murmurs gallops or rubs Positive bibasilar crackles, otherwise clear to auscultation bilaterally, breathing unlabored Abdomen soft nontender nondistended positive bowel sounds Extremities 1+ pitting edema to the knees bilaterally 61-year-old male with severe biventricular systolic CHF with an EF less than 15 % here with acute CHF and gross hematuria. No clear etiology for his CHF but I do not yet have his cardiac catheterization report. Suspect this is ischemic given that he has known peripheral arterial disease and is a smoker. -Concerning for bladder cancer with nodules visualized on ultrasound -will need cystoscopy and TURBT possibly early next week after Plavix has been on hold for over 6 days -Continue IV diuresis and if not diuresing by tomorrow, will switch to dobutamine drip. Prognosis is not good unless he is a candidate for transplant evaluation -With demand ischemia not likely to have non-STEMI with mildly elevated but stable troponins-appreciate cardiology following Documented By: Arabella Horn
[2016-09-25 19:30] VITALS: BP 90/57; PULSE 54; TEMP 36.3; O2SAT 98
[2016-09-25] MEDS: SACUBITRIL-VALSARTAN 24-26 MG TAB PO SCH (21:12)
[2016-09-25] MEDS: ATORVASTATIN 40 MG TAB PO SCH (21:12)
[2016-09-25] MEDS: ESCITALOPRAM OXALATE 10 MG TAB PO SCH (21:13)
[2016-09-25 23:38] VITALS: BP 94/60; PULSE 78; TEMP 36.6; O2SAT 95
[2016-09-26] VITALS (7 sets, daily range): BP systolic 84–112; BP diastolic 49–68; PULSE 60–86; TEMP 36.1–36.6; O2SAT 94–98
[2016-09-26 05:23] LABS: HEMATOCRIT 34.3 % (42-52); MEAN CELL VOLUME 80.3 fL (80-100); MEAN CORPUSCULAR HGB CONC 32.4 g/dl (32-36); MEAN PLATELET VOLUME 10.9 fL (7.4-10.4); PLATELET COUNT 256 K/uL (130-400); RED BLOOD COUNT 4.27 M/uL (4.7-6.1); WHITE BLOOD COUNT 10.23 K/uL (4.8-10.8)
[2016-09-26 05:42] LABS: BUN/CREATININE RATIO 32.4 (10-20); CALCIUM 8.1 mg/dl (8.5-10.1); CREATININE 1.1 mg/dl (0.60-1.40); MAGNESIUM 2.4 mg/dl (1.8-2.4)
[2016-09-26 05:53] LABS: BASO ABS # 0.09 K/uL (0-0.2); BASOPHIL % 0.9 % (0-2); COMPLETE YES; ECHINOCYTES 2+; LYMPH ABS # 1.16 K/uL (1.2-3.4); LYMPHOCYTE % 11.3 %; VARIANT LYM ABS # 1.61 K/uL; VARIANT LYMPHOCYTE % 15.7 %
[2016-09-26] MEDS: IPRATROPIUM BROMIDE/ALBUTEROL respimat INH INH SCH ×4 (07:55→20:52)
[2016-09-26] MEDS: SPIRONOLACTONE 25 MG TAB PO SCH (07:55)
[2016-09-26] MEDS: SACUBITRIL-VALSARTAN 24-26 MG TAB PO SCH ×2 (07:56→20:53)
[2016-09-26] MEDS: CARVEDILOL 3.125 MG TAB PO SCH ×2 (07:56→20:54)
[2016-09-26] MEDS: FINASTERIDE 5 MG TAB PO SCH (07:57)
[2016-09-26] MEDS: FUROSEMIDE INJ 40 MG in SYRINGE 0 ML IV SCH (08:40)
[2016-09-26] MEDS ORDERED: SACUBITRIL-VALSARTAN 24-26 MG TAB PO SCH (09:00)
--- NOTE | 2016-09-26 10:41 | Cardiology Follow-Up ---
Subjective Subjective Date of Service: Sep 26, 2016. Pt evaluation today including: conversation w/ patient, physical exam, chart review, lab review, review of studies, review of inpatient medication list Additional Details: Pt seen and examined, states that he feels great today. No more hematuria. Denies sob even with light ambulation. Lower extremity edema greatly improved with compression stockings. Denies cp, palpitations, lightheadedness or dizziness. Tele reviewed: sinus rhythm Problem List Medical Problems: (1) Anemia Status: Acute (2) Elevated troponin Status: Acute (3) Hematuria Status: Acute Review of Systems Constitutional: No chills, No fever Respiratory: + dyspnea on exertion, + shortness of breath, No cough, No wheezing Cardiac: + PND, + orthopnea, No chest pain, No palpitations Abdomen: No nausea, No pain, No vomiting Male : + hematuria Objective Vital Signs Last Vital Signs Documentation Date Time Temp Pulse Resp B/P Pulse Ox O2 Delivery O2 Flow Rate FiO2 09/26/16 08:00 Room Air 09/26/16 07:53 36.4 77 18 91/59 95 09/24/16 20:00 3.0 Physical Exam: General Appearance: WD/WN, no apparent distress Eyes: bilateral eyes EOMI, bilateral eyes PERRL, bilateral eyes normal inspection ENT: hearing grossly normal Neck: supple, no carotid bruits, + JVD Respiratory/Chest: chest non-tender, no respiratory distress, no accessory muscle use, + crackles (At bases of the lungs) Cardiovascular: regular rate, rhythm, no gallop, no murmur Abdomen: normal bowel sounds, non tender, soft Extremities: non-tender, no calf tenderness, + pedal edema, + swelling (3+ lower extremity edema to his hips bilaterally) Neurologic/Psychiatric: alert, normal mood/affect, oriented x 3 Skin: normal color, warm/dry Lymphatic: no adenopathy Assessment and Plan 1. acute decompensated systolic heart failure has not diuresed well however, clinically looks great prerenal by numbers chest cta without rales edema improved/resolved with stockings no sob at rest or with limited ambulation will ambulate farther today no need for dobutamine at this time cont entresto, coreg, spironolactone will change lasix to po bid will also consider changing coreg to toprol for increased selective beta blockade, will defer for now will ultimately need device/transplant evaluation had lengthy discussion informing patient that options would be limited if continues to smoke, agrees to quit 2. COPD has never seen pulm would consider evaluation 3. PAD hx of fempop in 2014 no need for plavix at this point believe would be an acceptable risk to hold aspirin for a few days if required by urology 4. preop risk prior to undergoing cystoscopy patient counseled that he would be a high risk for adverse perioperative cardiovascular event, risk approx >5% no further cardiac testing or intervention would further lower that risk pt states that he understands, is accepting of the risk and would like to proceed no benefit from delaying from cardiac standpoint
--- NOTE | 2016-09-26 12:17 | Progress Note ---
Subjective Date of Service: Sep 26, 2016. Subjective Pt evaluation today including: conversation w/ patient, physical exam, chart review, lab review, review of inpatient medication list urine clear today pt w/o c/o chest pain and pedal edema improved Problem List Medical Problems: (1) Anemia Status: Acute (2) Elevated troponin Status: Acute (3) Hematuria Status: Acute Objective Vital Signs Date Time Temp Pulse Resp B/P Pulse Ox O2 Delivery O2 Flow Rate FiO2 09/26/16 11:02 36.4 60 18 96/61 97 Room Air 09/26/16 08:00 Room Air 09/26/16 07:53 36.4 77 18 91/59 95 Room Air 09/26/16 04:00 Room Air 09/26/16 03:43 36.6 72 18 112/68 94 Room Air 09/26/16 00:00 Room Air 09/25/16 23:38 36.6 78 18 94/60 95 Room Air 09/25/16 20:00 Room Air 09/25/16 19:30 36.3 54 18 90/57 98 Room Air 09/25/16 16:00 Room Air 09/25/16 15:06 36.1 63 18 99/64 99 Room Air 09/25/16 12:39 36.2 87 18 107/65 98 Room Air Laboratory Results Last 24 Hours Test 09/26/16 05:10 White Blood Count 10.23 K/uL Red Blood Count 4.27 M/uL Hemoglobin 11.1 g/dL Hematocrit 34.3 % Mean Corpuscular Volume 80.3 fL Mean Corpuscular Hemoglobin 26.0 pg Mean Corpuscular Hemoglobin Concent 32.4 g/dl Platelet Count 256 K/uL Mean Platelet Volume 10.9 fL RDW Standard Deviation 52.7 fL RDW Coefficient of Variation 18.2 % Neutrophils % (Manual) 66.0 % Lymphocytes % (Manual) 11.3 % Variant Lymphocytes % (manual) 15.7 % Monocytes % (Manual) 6.1 % Basophils % (Manual) 0.9 % Neutrophils # (Manual) 6.75 K/uL Total Absolute Neutrophils 6.75 K/uL Lymphocytes # (Manual) 1.16 K/uL Absolute Variant Lymphocytes 1.61 K/uL Total Absolute Lymphocytes 2.76 K/uL Monocytes # (Manual) 0.62 K/uL Basophils # (Manual) 0.09 K/uL Echinocytes 2+ Sodium Level 140 mmol/L Potassium Level 4.0 mmol/L Chloride Level 106 mmol/L Carbon Dioxide Level 29 mmol/L Anion Gap 5.0 mmol/L Blood Urea Nitrogen 36 mg/dl Creatinine 1.10 mg/dl Est Creatinine Clear Calc Drug Dose 79.4 ml/min Estimated GFR () 84.7 Estimated GFR (Non- 73.1 BUN/Creatinine Ratio 32.4 Random Glucose 105 mg/dl Calcium Level 8.1 mg/dl Magnesium Level 2.4 mg/dl Assessment and Plan urine clear would start baby aspirin but stay off plavix until turbt will try to arrange turbt this admission off plavix pt needs anesthesia consult npo after midnite possible turbt in am or Tuesday
--- NOTE | 2016-09-26 16:35 | Family Medicine Progress Note ---
Progress Note Date of Service Sep 26, 2016. Subjective Pt evaluation today including: conversation w/ patient, physical exam, chart review, lab review, review of studies Pain: No pain reported this morning Voiding: voiding difficulty (Occassional difficulty passing urine) Patient is resting in bed comfortably this morning in no acute distress. He states that his shortness of breath is greatly improved and he is no longer short of breath with rest, only with ambulation. He also states that he had no blood or clots in his urine yesterday. Urine in container at bedside appears yellow and clear with no evidence of blood tinge. Constitutional: No chills, No fever, No sweats Respiratory: + shortness of breath, No cough, No wheezing Cardiovascular: No chest pain, No palpitations Abdomen: No nausea, No pain, No vomiting Male : No dysuria, No hematuria Medications Current Inpatient Medications Medications (Trade) Dose Ordered Sig/Elroy Route Start Time Stop Time Status Last Admin Dose Admin Acetaminophen (Tylenol Tab) 650 mg Q4H PRN PO 09/23/16 14:30 10/23/16 14:29 Zolpidem Tartrate (Ambien Tab) 5 mg HSZ PRN PO 09/23/16 14:30 10/23/16 14:29 Nitroglycerin (Nitrostat Tab) 0.4 mg UD PRN SL 09/23/16 14:30 10/23/16 14:29 Ondansetron HCl (Zofran Inj) 4 mg Q6H PRN IV 09/23/16 14:30 10/23/16 14:29 Atorvastatin Calcium (Lipitor Tab) 40 mg HS PO 09/23/16 21:00 10/23/16 20:59 09/25/16 21:12 40 MG Carvedilol (Coreg Tab) 3.125 mg BID PO 09/23/16 21:00 10/23/16 20:59 09/26/16 07:56 3.125 MG Escitalopram Oxalate (Lexapro Tab) 5 mg HS PO 09/23/16 21:00 10/23/16 20:59 09/25/16 21:13 5 MG Albuterol/ Ipratropium (Combivent Respimat Inh) 1 puffs QID INH 09/23/16 17:00 10/23/16 16:59 09/26/16 13:00 1 PUFFS Finasteride (Proscar Tab) 5 mg QAM PO 09/25/16 09:00 10/25/16 08:59 09/26/16 07:57 5 MG Spironolactone (Aldactone Tab) 25 mg DAILY PO 09/26/16 09:00 10/26/16 08:59 09/26/16 07:55 25 MG Guaifenesin (Robitussin Sugar Free Syrup) 100 mg Q6H PRN PO 09/25/16 11:30 10/25/16 11:29 09/25/16 16:26 100 MG Sacubitril/ Valsartan 1 tab 1 tab BID PO 09/25/16 21:00 10/25/16 20:59 09/26/16 07:56 1 TAB Furosemide/Syringe (Lasix Inj/ Syringe) 4 ml @ 4 mls/min BID17 IV 09/25/16 17:00 10/25/16 16:59 09/26/16 08:40 4 MLS/MIN Aspirin (Aspirin Chew) 81 mg DAILY PO 09/27/16 09:00 10/27/16 08:59 Objective Physical Exam General Appearance: WD/WN, no apparent distress Eyes: normal inspection, sclerae normal Neck: supple, no carotid bruits, trachea midline Respiratory/Chest: chest non-tender, lungs clear, normal breath sounds Cardiovascular: regular rate, rhythm, no edema, no gallop Abdomen: normal bowel sounds, non tender, soft Extremities: no calf tenderness, + swelling (3+ Pitting edema in the lower extremities) Neurologic/Psychiatric: alert, normal mood/affect, oriented x 3 Laboratory Results Results Past 24 Hours Test 09/26/16 05:10 Range/Units White Blood Count 10.23 4.8-10.8 K/uL Red Blood Count 4.27 4.7-6.1 M/uL Hemoglobin 11.1 14.0-18.0 g/dL Hematocrit 34.3 42-52 % Mean Corpuscular Volume 80.3 80-100 fL Mean Corpuscular Hemoglobin 26.0 25-34 pg Mean Corpuscular Hemoglobin Concent 32.4 32-36 g/dl Platelet Count 256 130-400 K/uL Mean Platelet Volume 10.9 7.4-10.4 fL RDW Standard Deviation 52.7 36.4-46.3 fL RDW Coefficient of Variation 18.2 11.5-14.5 % Neutrophils % (Manual) 66.0 % Lymphocytes % (Manual) 11.3 % Variant Lymphocytes % (manual) 15.7 % Monocytes % (Manual) 6.1 % Basophils % (Manual) 0.9 0-2 % Neutrophils # (Manual) 6.75 1.4-6.5 K/uL Total Absolute Neutrophils 6.75 1.4-6.5 K/uL Lymphocytes # (Manual) 1.16 1.2-3.4 K/uL Absolute Variant Lymphocytes 1.61 K/uL Total Absolute Lymphocytes 2.76 1.2-3.4 K/uL Monocytes # (Manual) 0.62 0.11-0.59 K/uL Basophils # (Manual) 0.09 0-0.2 K/uL Echinocytes 2+ Sodium Level 140 136-145 mmol/L Potassium Level 4.0 3.5-5.1 mmol/L Chloride Level 106 98-107 mmol/L Carbon Dioxide Level 29 21-32 mmol/L Anion Gap 5.0 3-11 mmol/L Blood Urea Nitrogen 36 7-18 mg/dl Creatinine 1.10 0.60-1.40 mg/dl Est Creatinine Clear Calc Drug Dose 79.4 ml/min Estimated GFR () 84.7 Estimated GFR (Non- 73.1 BUN/Creatinine Ratio 32.4 10-20 Random Glucose 105 70-99 mg/dl Calcium Level 8.1 8.5-10.1 mg/dl Magnesium Level 2.4 1.8-2.4 mg/dl Assessment and Plan Patient is a 61 year old male with a history of Nonischemic Dilated Cardiomyopathy s/p ICD placement in 01/2016 and an EF on previous admission in August of 15-20% that presents with worsening shortness of breath and lower extremity swelling 2/2 acute on chronic CHF exacerbation 1) Acute on Chronic CHF Exacerbation 2/2 Nonischemic Dilated Cardiomyopathy - Very low EF during current admission and most likely will require transplant/ device placement - ICD placement by Dr. Herrera in 01/2016 for prevention of sudden cardiac arrest - ECHO on past admission showed EF of 15-20% - ECHO this morning shows EF < 15% - Troponins stable since admission (0.065, 0.078, 0.067) - Telemetry - 7 beat run of Vtach - 40mg IV Lasix BID --> Converted to 40mg PO BID - Entresto 24-26mg BID - 10mEq KCL - Spironolactone 25mg BID - Carvedilol 3.125mg PO BID - Cardiology Consult - Compression stockings - Spironolactone Daily (from BID) - Continue Lasix BID - Had mentioned considering Dobutamine if diuresis insufficient, but patient clinically improving so for time being holding off on Dobutamine - Change Losartan to Entresto BID - Consider changing Coreg to Toprol - Eventually require device (LVAD) or transplant evaluation - Will not be considered a candidate for transplant if currently smoking or has bladder cancer 2) Hematuria 2/2 suspected bladder carcinoma (differential also includes UTI, renal cysts, urinary tract stones) - Renal US: There are 2 echogenic nodules adherent to the posterior bladder wall with the largest measuring 1.5 cm. These are concerning for urothelial malignancy. Cystoscopy is recommended for further evaluation. - Urology Consult - Possible Stricture - Possible TURBT and incision of urethral stricture during inpatient stay - Cannot insert catheter due to significant risk of hemorrhage - Remain off of Plavix to prepare for potential surgery and due to current hematuria and bleeding - History of smoking (>1PPD) - Hemoglobin stable - Discontinued Rocephin due to finding source of bleed and also mixed urine culture - Urine Cytology ordered - Cytology sent but lab technicians unavailable during the weekend, follow up on Tuesday - PSA - 0.572 - Finasteride 5mg PO Daily 3) History of Peripheral Artery Disease - S/p aortobifemoral bypass - Holding Aspirin and Plavix due to ongoing hematuria 4) CKD Stage 3 - Resolved - Renally dosing all medications and avoiding Nephrotoxic agents - Creatinine 1.1, improving - Baseline creatinine 1.2 - Continue to follow with daily CBC/BMP 5) Hyperlipidemia - Atorvastatin 40mg Daily 6) Depression and Anxiety - No issues - Lexapro 5mg Daily - Lorazepam 0.5mg q4hr PRN 8) COPD - Combivent 1 puff QID - Consider PFTs as outpatient, PCP Katelyn Sutton currently following COPD 9) DVT - Due to bleeding avoiding anticoagulation - SCDs 10) Code Status - Full Resuscitation History Resident Physician Supervision Note: I interviewed and examined the patient. Discussed with Dr. Wild and agree with findings and plan as documented in the note. Any exceptions or clarifications are listed here: Patient feeling less short of breath today despite minimal diuresis since admission. Discussed case with cardiology today and will hold off on dobutamine drip. 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 Vitals reviewed Appears older than stated age, NAD Regular rate and rhythm, no murmurs gallops or rubs Positive bibasilar crackles, otherwise clear to auscultation bilaterally, breathing unlabored Abdomen soft nontender nondistended positive bowel sounds Extremities 2+ pitting edema to the knees bilaterally 61-year-old male with severe biventricular systolic CHF with an EF less than 15% , nonischemic dilated cardiomyopathy, here with acute CHF and gross hematuria. No clear etiology for his CHF. I reviewed his Cardiac catheterization reports in the records from [facility] which showed mild to moderate CAD nonobstructive in 2016. -Concerning for bladder cancer with nodules visualized on ultrasound -will need cystoscopy and TURBT possibly early next week after Plavix has been on hold for over 6 days-this has been discussed with Dr. Vides of urology -If he does indeed have a malignancy, he will not be a candidate for any sort of cardiac transplant. He also needs to quit smoking in order to be considered for transplant anyway. -Cardiology okay with switching to by mouth Lasix, they have added Entresto for decreased mortality benefit -With demand ischemia not likely to have non-STEMI with mildly elevated but stable troponins-appreciate cardiology following -Urology is okay with restarting a baby aspirin daily if deemed necessary-he has bypass grafts, but no stents for his PAD Documented By: Arabella Horn
[2016-09-26] MEDS: FUROSEMIDE 40 MG TAB PO SCH (17:56)
[2016-09-26] MEDS: ATORVASTATIN 40 MG TAB PO SCH (20:54)
[2016-09-26] MEDS: ESCITALOPRAM OXALATE 10 MG TAB PO SCH (20:54)
[2016-09-27] VITALS (13 sets, daily range): BP systolic 90–110; BP diastolic 53–78; PULSE 62–92; TEMP 36.4–36.8; O2SAT 94–100
[2016-09-27 05:53] LABS: HEMATOCRIT 35.3 % (42-52); MEAN CELL VOLUME 82.9 fL (80-100); MEAN CORPUSCULAR HGB CONC 32.6 g/dl (32-36); MEAN PLATELET VOLUME 10.8 fL (7.4-10.4); PLATELET COUNT 249 K/uL (130-400); RED BLOOD COUNT 4.26 M/uL (4.7-6.1); WHITE BLOOD COUNT 10.32 K/uL (4.8-10.8)
[2016-09-27] MEDS ORDERED: CIPROFLOXACIN 400MG / 200ML D5W IV SCH (06:00)
[2016-09-27 06:16] LABS: BUN/CREATININE RATIO 26.8 (10-20); CALCIUM 7.8 mg/dl (8.5-10.1); CREATININE 0.98 mg/dl (0.60-1.40); MAGNESIUM 2.6 mg/dl (1.8-2.4); POTASSIUM 3.9 mmol/L (3.5-5.1)
--- NOTE | 2016-09-27 08:04 | Progress Note ---
Subjective Date of Service: Sep 27, 2016. Subjective Pt evaluation today including: conversation w/ patient, chart review, lab review 61 yo male with gross hematuria. + hx of smoking. Noted to have incomplete bladder emptying. Butts catheter unable to be placed by nursing staff. ? urethral stricture. Urine is clear yellow today with some old clot in the bladder. H&H is stable. Pt denies pain or difficulty voiding today. Problem List Medical Problems: (1) Anemia Status: Acute (2) Elevated troponin Status: Acute (3) Hematuria Status: Acute Review of Systems Constitutional: No chills, No fever Respiratory: No shortness of breath Cardiac: No chest pain Abdomen: No nausea, No pain, No vomiting Male : No hematuria Heme: No abnormal bleeding/bruising Objective Vital Signs Date Time Temp Pulse Resp B/P Pulse Ox O2 Delivery O2 Flow Rate FiO2 09/27/16 07:42 36.6 89 18 96/63 94 Room Air 09/27/16 04:00 Room Air 09/27/16 03:32 36.4 62 18 90/53 96 Room Air 09/26/16 23:59 Room Air 09/26/16 23:44 36.5 65 18 86/49 96 Room Air 09/26/16 20:00 Room Air 09/26/16 19:10 36.5 86 18 94/61 98 Room Air 09/26/16 17:57 93/62 09/26/16 16:00 Room Air 09/26/16 15:35 36.1 62 18 84/57 97 Room Air 84/53 09/26/16 12:00 Room Air 09/26/16 11:02 36.4 60 18 96/61 97 Room Air 09/26/16 08:00 Room Air Physical Exam General Appearance: no apparent distress Eyes: normal inspection ENT: hearing grossly normal Neck: no JVD Respiratory/Chest: no respiratory distress, no accessory muscle use Cardiovascular: no JVD Extremities: normal inspection Neurologic/Psychiatric: alert, normal mood/affect, oriented x 3 Skin: normal color Laboratory Results Last 24 Hours Test 09/27/16 05:25 White Blood Count 10.32 K/uL Red Blood Count 4.26 M/uL Hemoglobin 11.5 g/dL Hematocrit 35.3 % Mean Corpuscular Volume 82.9 fL Mean Corpuscular Hemoglobin 27.0 pg Mean Corpuscular Hemoglobin Concent 32.6 g/dl RDW Standard Deviation 55.7 fL RDW Coefficient of Variation 18.6 % Platelet Count 249 K/uL Mean Platelet Volume 10.8 fL Sodium Level 143 mmol/L Potassium Level 3.9 mmol/L Chloride Level 108 mmol/L Carbon Dioxide Level 27 mmol/L Anion Gap 8.0 mmol/L Blood Urea Nitrogen 26 mg/dl Creatinine 0.98 mg/dl Est Creatinine Clear Calc Drug Dose 89.1 ml/min Estimated GFR () 97.4 Estimated GFR (Non- 84.1 BUN/Creatinine Ratio 26.8 Random Glucose 93 mg/dl Calcium Level 7.8 mg/dl Magnesium Level 2.6 mg/dl Assessment and Plan A/P: Gross hematuria Will plan for the OR today for a diagnostic cysto with possible TURBT, fulguration, clot evacuation, and TUR of stricture. Risks and benefits of the procedure discussed with the pt. All questions answered. Pt agrees to the procedure at this time. Consent obtained. Medical and cardiac clearance have been obtained. Will consult anesthesia. Will continue to follow along with primary service at this time.
--- NOTE | 2016-09-27 08:08 | Family Medicine Progress Note ---
Progress Note Date of Service Sep 27, 2016. Subjective Pt evaluation today including: conversation w/ patient, conversation w/ family Patient sitting up comfortably in bed. Denies acute overnight issues. Says that he has been feeling well, better than he has in weeks. Denies SOB or CP. Says he has not had overt hematuria since Tuesday. He is otherwise eating and sleeping well. Patient is nervous about the pending procedure and is particularly concerned about the possible adverse outcomes associated with TURBT. But he understands the need for such a procedure, given that he does not want anything to hinder his potential cardiac management. Constitutional: No chills, No fever Respiratory: No cough, No shortness of breath, No wheezing Cardiovascular: + edema, No PND, No chest pain, No orthopnea, No palpitations Abdomen: No nausea, No pain, No vomiting Male : No dysuria, No hematuria, No incontinence, No urinary frequency Skin: No color change, No rash Objective Vital Signs Date Time Temp Pulse Resp B/P Pulse Ox O2 Delivery O2 Flow Rate FiO2 09/27/16 07:42 36.6 89 18 96/63 94 Room Air 09/27/16 04:00 Room Air 09/27/16 03:32 36.4 62 18 90/53 96 Room Air 09/26/16 23:59 Room Air 09/26/16 23:44 36.5 65 18 86/49 96 Room Air 09/26/16 20:00 Room Air 09/26/16 19:10 36.5 86 18 94/61 98 Room Air 09/26/16 17:57 93/62 09/26/16 16:00 Room Air 09/26/16 15:35 36.1 62 18 84/57 97 Room Air 84/53 09/26/16 12:00 Room Air 09/26/16 11:02 36.4 60 18 96/61 97 Room Air Physical Exam General Appearance: WD/WN, no apparent distress Eyes: normal inspection, EOMI ENT: hearing grossly normal Neck: supple, no JVD Respiratory/Chest: lungs clear, normal breath sounds, no respiratory distress, no accessory muscle use Cardiovascular: regular rate, rhythm, no JVD, no murmur Abdomen: normal bowel sounds, non tender, soft Extremities: normal inspection, no calf tenderness, + pedal edema, + swelling ( minimal) Neurologic/Psychiatric: alert, normal mood/affect, oriented x 3 Skin: normal color, warm/dry, no rash Laboratory Results Results Past 24 Hours Test 09/27/16 05:25 Range/Units White Blood Count 10.32 4.8-10.8 K/uL Red Blood Count 4.26 4.7-6.1 M/uL Hemoglobin 11.5 14.0-18.0 g/dL Hematocrit 35.3 42-52 % Mean Corpuscular Volume 82.9 80-100 fL Mean Corpuscular Hemoglobin 27.0 25-34 pg Mean Corpuscular Hemoglobin Concent 32.6 32-36 g/dl RDW Standard Deviation 55.7 36.4-46.3 fL RDW Coefficient of Variation 18.6 11.5-14.5 % Platelet Count 249 130-400 K/uL Mean Platelet Volume 10.8 7.4-10.4 fL Sodium Level 143 136-145 mmol/L Potassium Level 3.9 3.5-5.1 mmol/L Chloride Level 108 98-107 mmol/L Carbon Dioxide Level 27 21-32 mmol/L Anion Gap 8.0 3-11 mmol/L Blood Urea Nitrogen 26 7-18 mg/dl Creatinine 0.98 0.60-1.40 mg/dl Est Creatinine Clear Calc Drug Dose 89.1 ml/min Estimated GFR () 97.4 Estimated GFR (Non- 84.1 BUN/Creatinine Ratio 26.8 10-20 Random Glucose 93 70-99 mg/dl Calcium Level 7.8 8.5-10.1 mg/dl Magnesium Level 2.6 1.8-2.4 mg/dl Assessment and Plan 61 year old male with a history of non-ischemic dilated cardiomyopathy s/p ICD placement in 01/[address] Herrera and EF 15-20% on 08/27 admitted with worsening shortness of breath and lower extremity swelling 2/2 acute on chronic CHF exacerbation Acute on Chronic CHF Exacerbation 2/2 Nonischemic Dilated Cardiomyopathy - Troponin x3 stable. Echo shows EF <15%. Cardiology consulted - recs appreciated. Concern for eventually requiring device (LVAD) or transplant evaluation. Patient aware that he will not be considered a candidate for transplant if currently smoking or has bladder cancer. Losartan changed to Entresto, spironolactone frequency decreased. - Continue PO furosemide 40mg BID, Entresto 24-26mg BID, Carvedilol 3.125mg PO BID, Spironolactone 25mg daily - Compression stockings - Considering Dobutamine if diuresis insufficient - patient clinically improving , so not required thus far Hematuria 2/2 suspected bladder carcinoma - differential also includes UTI, renal cysts, urinary tract stones. History of smoking (>1PPD). PSA - 0.572. Renal U/S showed 2 echogenic nodules concerning for urothelial malignancy adherent to the posterior bladder wall, the largest ~1.5 cm. Urology consulted - recs appreciated. Butts difficult to insert likely secondary to urethral stricture and also increased risk of hemorrhage. Rocephin discontinued due to finding source of bleed and also mixed urine culture - Trace urine cytology result - Hold clopidogrel for procedure and previous hematuria - Continue Finasteride 5mg PO daily - For diagnostic cysto +/- TURBT today History of Peripheral Artery Disease - s/p aortobifemoral bypass - Aspirin 81mg daily restarted - Plavix held COPD - Combivent 1 puff QID - Consider PFTs as outpatient, PCP Katelyn Sutton currently following COPD CKD Stage 3 - renally dosing all medications and avoiding Nephrotoxic agents, creatinine improving. Baseline creatinine 1.2 - Monitor BMP HLD - Atorvastatin 40mg Daily Depression and Anxiety - Lexapro 5mg Daily - Lorazepam 0.5mg q4hr PRN VTE prophylaxis - SCDs Code Status - Full Resuscitation Resident Physician Supervision Note: I interviewed and examined the patient. Discussed with Dr. Hopkins and agree with findings and plan as documented in the note. Any exceptions or clarifications are listed here: None Documented By: Anish Choi "I feel as good as i've felt in a long time" awaiting cysto no new breathing troubles discussed medication management and tertiary evals vitals noted, nad sitting up in bed looking NAD/pleasant, breathing unlabored, no pallor severe systolic chf - appearing compensated. for tertiary eval pending findings related to hematuria hematuria - for cysto today otherwise as above; pharmacologic DVT proph beyond asa obviously contraindicated due to hematuria Continued [facility] stay due to: inadequate oral pain control Discharge planning: home Resident Tracking Resident Involvement: Resident Care Provided Care Provided: Adult Hospital Medicine
[2016-09-27] MEDS ORDERED: ASPIRIN 81 MG CHEW PO SCH (09:00)
--- NOTE | 2016-09-27 09:30 | Cardiology Follow-Up ---
Subjective Subjective Date of Service: Sep 27, 2016. Pt evaluation today including: conversation w/ patient, physical exam, chart review, lab review, review of studies, review of inpatient medication list Additional Details: Pt seen and examined, states that he feels fine. Anxious about procedure today. Otherwise, denies cp, sob, palpitations, lightheadedness or dizziness. Compression stockings on, edema above the stocking line. Tele reviewed: Problem List Medical Problems: (1) Anemia Status: Acute (2) Elevated troponin Status: Acute (3) Hematuria Status: Acute Review of Systems Constitutional: No chills, No fever Respiratory: No shortness of breath Cardiac: No chest pain Abdomen: No nausea, No pain, No vomiting Male : No hematuria Heme: No abnormal bleeding/bruising Objective Vital Signs Last Vital Signs Documentation Date Time Temp Pulse Resp B/P Pulse Ox O2 Delivery O2 Flow Rate FiO2 09/27/16 07:42 36.6 89 18 96/63 94 Room Air 09/24/16 20:00 3.0 Physical Exam: General Appearance: WD/WN, no apparent distress Eyes: bilateral eyes EOMI, bilateral eyes PERRL, bilateral eyes normal inspection ENT: normal ENT inspection, hearing grossly normal, pharynx normal Neck: supple, no adenopathy, thyroid normal, no JVD, no carotid bruits, trachea midline Respiratory/Chest: chest non-tender, no respiratory distress, no accessory muscle use, + decreased breath sounds, + crackles (fibrotic) Cardiovascular: regular rate, rhythm, no JVD, no murmur, + gallop/S4 Abdomen: normal bowel sounds, non tender, soft, no organomegaly, no pulsatile mass Extremities: + swelling (+1 pitting edema above the stockings) Neurologic/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 acute decompensated systolic heart failure has not diuresed well however, clinically looks great chest cta some possible fibrotic rales edema improved/resolved with stockings no sob at rest or with limited ambulation cont to ambulate believe him to be medically optimized at this time cont entresto, coreg, spironolactone will change lasix to po bid will also consider changing coreg to toprol for increased selective beta blockade, will defer for now will ultimately need device/transplant evaluation had lengthy discussion informing patient that options would be limited if continues to smoke, agrees to quit 2. COPD has never seen pulm would consider evaluation 3. PAD hx of fempop in 2013 no need for plavix at this point urology ok with asa, restart 4. preop risk prior to undergoing cystoscopy patient counseled that he would be a high risk for adverse perioperative cardiovascular event, risk approx >5% no further cardiac testing or intervention would further lower that risk pt states that he understands, is accepting of the risk and would like to proceed no benefit from delaying from cardiac standpoint
[2016-09-27] MEDS: IPRATROPIUM BROMIDE/ALBUTEROL respimat INH INH SCH ×4 (13:00→20:01)
[2016-09-27] MEDS ORDERED: FENTANYL CITRATE INJ 50 MCG/1 ML 2 ML VIAL ONE ×2 (14:27→15:06)
[2016-09-27] MEDS ORDERED: LIDOCAINE HCL 2% 2 ML VIAL (20MG/ML) ONE (14:27)
[2016-09-27] MEDS ORDERED: PROPOFOL IV EMULSION 10 MG/ML 20 ML VIAL IV ONE (14:27)
[2016-09-27] MEDS ORDERED: MIDAZOLAM HCL 1 MG/ML 2ML VIAL ONE (14:27)
[2016-09-27] MEDS ORDERED: ONDANSETRON INJ 2 MG/ML 2 ML VIAL ONE (14:27)
[2016-09-27] MEDS ORDERED: DEXAMETHASONE SOD INJ 4 MG/ML VIAL ONE (14:27)
[2016-09-27] MEDS ORDERED: CONRAY 30% 150ML BOTTLE ONE (14:50)
[2016-09-27] MEDS ORDERED: FENTANYL CITRATE INJ 50 MCG/1 ML 2 ML VIAL IV PRN (15:15)
[2016-09-27] MEDS ORDERED: MEPERIDINE HCL 25 MG/ML CARP IV PRN (15:15)
[2016-09-27] MEDS ORDERED: EpHEDrine SULFATE INJ 50 MG/ML AMP IV PRN (15:15)
[2016-09-27] MEDS ORDERED: ONDANSETRON INJ 2 MG/ML 2 ML VIAL IV PRN (15:15)
[2016-09-27] MEDS ORDERED: LABETALOL HCL IV 5 MG/ML 20ML IV PRN (15:15)
[2016-09-27] MEDS ORDERED: HYDROmorphone INJ 1 MG/ML SYR IV PRN (15:15)
[2016-09-27] MEDS ORDERED: ATROPINE SULFATE 0.1 MG/ML 5ML SYR IV PRN (15:15)
[2016-09-27] MEDS ORDERED: BELLADONNA/OPIUM SUPP 60 MG SUPP PR ONE ×2 (15:21→15:27)
--- NOTE | 2016-09-27 15:43 | [facility] Post Operative Brief Note ---
Immediate Operative Summary Operative Date Sep 27, 2016. Pre-Operative Diagnosis Gross Hematuria Post-Operative Diagnosis Right Sided Bladder Tumor, Hypospadias with Meatal Stenosis Procedure(s) Performed Cystoscopy; Meatal Dilation; Bilateral Retrograde Pyelography; Transurethral Resection Bladder Tumor; Right Sided Ureteral Stent Placement Surgeon Dr. Gt Paris Manager Student Services Surgeon(s) none Estimated Blood Loss 10 cc Findings Meatal stenosis associated with hypospadias, BPH with obstructive bladder neck, normal RPG bilateral, good stent position (placed due to proximity of UO to TUR) , small R papillary bladder tumor (only one tumor noted on cysto) resected without bladder perforation Specimens A: Right side bladder tumor Cytology of Urine Drains 5 fr R multilength JJ ureteral stent, 18 fr silicone moreira 10 cc H2O Anesthesia GALMA Complication(s) None Disposition Recovery Room / PACU (should be able to restart anticoagulation in 1-2 days if urine is clear)
--- NOTE | 2016-09-27 15:54 | Anesthesiology Progress Note ---
Anesthesia Post Op Note Date & Time Sep 27, 2016 at 15:53 Vital Signs Pain Intensity: 0 Vital Signs Past 12 Hours Date Time Temp Pulse Resp B/P Pulse Ox O2 Delivery O2 Flow Rate FiO2 09/27/16 15:45 80 20 99/69 100 Mask 10 09/27/16 15:36 37.0 82 17 102/73 100 Mask 10 09/27/16 13:25 36.8 79 18 91/64 95 Room Air 3.0 09/27/16 12:00 Room Air 09/27/16 11:54 36.8 79 18 91/64 95 Room Air 09/27/16 08:00 94 Room Air 3.0 09/27/16 07:42 36.6 89 18 96/63 94 Room Air 09/27/16 04:00 Room Air Notes Mental Status: alert / awake / arousable, participated in evaluation Pt Amnestic to Procedure: Yes Nausea / Vomiting: adequately controlled Pain: adequately controlled Airway Patency, RR, SpO2: stable & adequate BP & HR: stable & adequate Hydration State: stable & adequate Anesthetic Complications: no major complications apparent
--- NOTE | 2016-09-27 16:03 | DIAGNOSTIC IMAGING REPORT ---
Retrograde PolyGram RETROGRADE INCLUDES KUB CLINICAL HISTORY: CYSTO nephrocalcinosis TECHNIQUE: Image intensifier COMPARISON STUDY: None FINDINGS: Retrograde opacification of the right ureter is performed and confirms a small filling defect of the lower right renal pelvis. There is be a right bladder diverticulum. There is retrograde passage of a left guidewire with partial opacification of the left ureter and upper collecting system. IMPRESSION: Bilateral retrograde examination with 1 and possibly 2 filling defects. One is in the distal right ureter at the level of the right sacroiliac joint of the second of the lower aspect of the right renal pelvis. Negative study of the left urinary tract in a retrograde fashion. Electronically signed by: Javier Kim M.D. 09/27/2016 4:01 PM Dictated Date/Time: 09/27/2016 3:59 PM
[2016-09-27] MEDS: SPIRONOLACTONE 25 MG TAB PO SCH (16:51)
[2016-09-27] MEDS: FUROSEMIDE 40 MG TAB PO SCH ×2 (16:52→17:00)
[2016-09-27] MEDS: SACUBITRIL-VALSARTAN 24-26 MG TAB PO SCH ×2 (16:52→20:01)
[2016-09-27] MEDS: FINASTERIDE 5 MG TAB PO SCH (16:52)
[2016-09-27] MEDS: CARVEDILOL 3.125 MG TAB PO SCH ×2 (16:52→20:01)
--- NOTE | 2016-09-27 17:48 | OPERATIVE REPORT ---
DATE OF OPERATION: 09/27/2016 PREOPERATIVE DIAGNOSIS: Recurrent gross hematuria on antiplatelet therapy. POSTOPERATIVE DIAGNOSES: Hypospadias with meatal stenosis, benign prostatic hypertrophy, and right-sided bladder tumor. PROCEDURES: Meatal dilation, cystoscopy, bilateral retrograde pyelography, transurethral resection of right-sided bladder tumor and right-sided ureteral stent placement. SURGEON: Dr. Gt Paris. CORRECTIONAL PROGRAM OFFICER: None. ANESTHESIA: General anesthesia with laryngeal mask. COMPLICATIONS: None. ESTIMATED BLOOD LOSS: 10 mL. FINDINGS: Meatal stenosis associated with hypospadias dilated to a 24-Lao caliber, BPH with obstructive bladder neck, normal retrograde pyelography bilaterally with some tracking of contrast into the mucosa on the right bladder floor, good stent position on the right side (placed due to proximity of the ureteral orifices to the transurethral resection), small right solitary papillary bladder tumor noted on cystoscopy resected in its entirety without bladder perforation. SPECIMENS SENT TO PATHOLOGY: Urine for cytology and right-sided bladder tumor for pathologic analysis. DRAINS LEFT IN PLACE: Include a 5-Lao multilength right-sided double-J ureteral stent in place and an 18-Lao silicone Butts to gravity drainage with 10 mL of sterile water in the balloon. BRIEF HISTORY OF PRESENT ILLNESS: Mr. Mckeon is a 61-year-old male who has been seen by our service on previous occasions due to a history of gross hematuria and voiding difficulties. Butts catheter was felt to be difficult by the primary service and per Dr. Vides's recommendation, it was not placed due to the patient's anticoagulation on antiplatelet therapy. Please see urology consultation and progress notes for further details. The patient was due for an outpatient appointment with our service, but was readmitted with further bleeding. CT scan has demonstrated no hydro or worrisome upper tract lesions, but ultrasound demonstrated 2 possible papillary lesions within the bladder. The patient is being brought to the operating room today to manage his difficulty as well as antiplatelet therapy has been stopped that may need to be restarted for his cardiac disease. Informed consent was reviewed in the chart preoperatively and intravenous ciprofloxacin provided for antibiotic coverage. SCDs used for DVT prophylaxis. DESCRIPTION OF PROCEDURE: The patient was properly identified and brought to the operative suite. After identification of appropriate consent on the chart, general anesthesia with laryngeal mask was initiated. The patient was prepped and draped in standard fashion for this procedure. time study observer-out procedure was followed. A hypospadias, known to the patient, was noted on initial evaluation. The patient's meatus was stenotic and likely due to his congenital difficulties, it did not allow for easy passage of the scope. This was therefore dilated using urethral dilators up to 24-Lao caliber. It was then allowed for access to the lower urinary tract. Cystoscopy demonstrated normal urethra and obstructive short prostate gland with obstructive bladder neck tissue. Minimal lateral lobe hypertrophy was appreciated. Scope was passed in the bladder once the bladder was surveyed in its entirety using 30 and 70 degree lenses. This demonstrated a solitary bladder tumor on the right bladder floor (great care being taken to evaluate the entirety of the bladder to ensure lack of a second tumor) with grade 2 trabeculation and ureteral orifices noted in the normal anatomic location bilaterally. No other mucosal abnormalities or worrisome finding was appreciated. Seeing the patient's history of intravenous contrast allergy in the form of itching and seeing the lack of a contrast study preoperatively, decision was made to perform retrograde pyelography to evaluate the upper urinary tract bilaterally for urothelial defects. Benadryl 50 mg IV was provided. Gentle retrograde pyelography was performed on both sides demonstrating a normal caliber ureter with no hydronephrosis, filling defects, strictures or other significant abnormalities in anatomy. A pocket of contrast in the right lower quadrant at the level of the bladder was noted and a possible ureterocele was first suspected, but this was felt afterwards be tracking of contrast in the submucosal plane perhaps due to relative tightness of the ureteral orifice on retrograde. This fortuitously happened underneath the bladder tumor and allowed for easier resection seeing the lifting of the mucosa from the bladder wall. After this was complete, the irrigation was switched for a sorbitol and the tumor was resected and sent for pathologic analysis. No evidence of residual tumor was appreciated on further cystoscopy. Surrounding mucosa was fulgurated. No bladder perforation was noted. At this point, it was appreciated that the level of the resection was in relative close proximity to the ureteral orifice, although it did not involve it directly. Due to concern over obstruction from edema on this side, decision to place a ureteral stent was made. Sensor tip wire was advanced up to the level of the right renal pelvis without difficulties or resistance. This was followed by a 5-Lao multilength stent with redundant stent present within the upper pole and a full coil within the renal pelvis and a double coil present within the bladder. Hydronephrotic drip was appreciated on this side with minimal bleeding. Small amount of urethral bleeding from passage of the scope and the dilation was also noted, rapidly abated. Bladder was partially distended and cystoscope was removed. An 18-Lao silicone catheter was placed with 10 mL of sterile water in the balloon and return of clear urine. Anesthesia was reversed after provision of a belladonna and opium suppository for further analgesia and the patient was transferred to recovery room in stable condition. FOLLOWUP CARE: The patient will be readmitted to the floor of the primary service. He should be able to undergo a trial of void prior to discharge home. We will arrange for cystoscopy and stent removal as an outpatient in a couple weeks' time. Findings were discussed with the patient's family who were present here today per the patient's wishes and further care per the primary service. The patient should be able to restart his antiplatelet therapy in a couple of days as long as his urine remains clear. I attest to the content of the Intraoperative Record and any orders documented therein. Any exceptions are noted below. DOMINGAD
[2016-09-27] MEDS: PHENAZOPYRIDINE HCL 200 MG TAB PO PRN (19:20)
[2016-09-27] MEDS: ATORVASTATIN 40 MG TAB PO SCH (20:01)
[2016-09-27] MEDS: ESCITALOPRAM OXALATE 10 MG TAB PO SCH (20:01)
[2016-09-27] MEDS: ACETAMINOPHEN 325 MG TAB PO PRN (20:24)
[2016-09-28] VITALS (7 sets, daily range): BP systolic 89–108; BP diastolic 52–72; PULSE 61–87; TEMP 36.5–36.8; O2SAT 95–99
[2016-09-28 06:04] LABS: MEAN CELL VOLUME 84.4 fL (80-100); MEAN CORPUSCULAR HGB CONC 30.8 g/dl (32-36); MEAN PLATELET VOLUME 11.2 fL (7.4-10.4); PLATELET COUNT 274 K/uL (130-400); WHITE BLOOD COUNT 9.17 K/uL (4.8-10.8)
[2016-09-28 06:30] LABS: BUN/CREATININE RATIO 19.7 (10-20); CALCIUM 8.4 mg/dl (8.5-10.1); CREATININE 1.1 mg/dl (0.60-1.40); POTASSIUM 4.1 mmol/L (3.5-5.1)
--- NOTE | 2016-09-28 07:41 | Family Medicine Progress Note ---
Progress Note Date of Service Sep 28, 2016. Subjective Pt evaluation today including: conversation w/ patient Patient well, sitting comfortably in bed. Denies acute overnight events. He is breathing comfortably, and denies CP, palpitations. He is having some mild bilateral inguinal tenderness and soreness in the general areas, but denies suprapubic pain. He is not requesting increased pain medication. He is otherwise eating and sleeping without issue. His leg swelling remains stable. There is significant hematuria in the Moreira bag. Constitutional: No chills, No fever Respiratory: No cough, No shortness of breath Cardiovascular: + edema, No PND, No chest pain, No orthopnea, No palpitations Abdomen: + pain, No nausea, No vomiting Male : + hematuria Objective Vital Signs Date Time Temp Pulse Resp B/P Pulse Ox O2 Delivery O2 Flow Rate FiO2 09/28/16 07:17 36.6 87 18 108/70 95 Room Air 09/28/16 04:00 Room Air 09/28/16 03:45 36.6 68 18 108/64 98 Nasal Cannula 2.0 09/28/16 00:01 Room Air 09/28/16 00:00 36.5 76 18 105/72 98 Room Air 09/27/16 20:00 96 Room Air 09/27/16 19:17 36.6 91 18 110/71 96 Room Air 09/27/16 18:00 36.5 86 16 109/78 99 Nasal Cannula 3.0 09/27/16 17:45 62 18 109/74 100 Nasal Cannula 3.0 09/27/16 17:15 92 16 106/71 99 Nasal Cannula 3.0 09/27/16 16:45 83 18 104/76 09/27/16 16:20 81 19 104/71 100 Nasal Cannula 2 09/27/16 16:10 36.4 72 14 100/66 99 Nasal Cannula 2 09/27/16 16:00 Nasal Cannula 3.0 09/27/16 16:00 72 12 95/67 98 Nasal Cannula 2 09/27/16 15:55 78 20 100 Mask 10 09/27/16 15:45 80 20 99/69 100 Mask 10 09/27/16 15:36 37.0 82 17 102/73 100 Mask 10 09/27/16 14:30 95 Nasal Cannula 3.0 09/27/16 14:30 36.6 83 18 109/75 95 Nasal Cannula 3.0 09/27/16 13:25 36.8 79 18 91/64 95 Room Air 3.0 09/27/16 12:00 Room Air 09/27/16 11:54 36.8 79 18 91/64 95 Room Air 09/27/16 08:00 94 Room Air 3.0 09/27/16 07:42 36.6 89 18 96/63 94 Room Air Physical Exam General Appearance: WD/WN, no apparent distress Eyes: normal inspection ENT: hearing grossly normal Neck: supple, no JVD Respiratory/Chest: lungs clear, normal breath sounds, no respiratory distress Cardiovascular: regular rate, rhythm, no murmur Abdomen: normal bowel sounds, soft, + tenderness (mild) Extremities: no calf tenderness, + pedal edema, + swelling Neurologic/Psychiatric: alert, normal mood/affect, oriented x 3 Skin: normal color, warm/dry, no rash Laboratory Results Results Past 24 Hours Test 09/28/16 05:14 Range/Units White Blood Count 9.17 4.8-10.8 K/uL Red Blood Count 4.50 4.7-6.1 M/uL Hemoglobin 11.7 14.0-18.0 g/dL Hematocrit 38.0 42-52 % Mean Corpuscular Volume 84.4 80-100 fL Mean Corpuscular Hemoglobin 26.0 25-34 pg Mean Corpuscular Hemoglobin Concent 30.8 32-36 g/dl RDW Standard Deviation 57.7 36.4-46.3 fL RDW Coefficient of Variation 18.7 11.5-14.5 % Platelet Count 274 130-400 K/uL Mean Platelet Volume 11.2 7.4-10.4 fL Sodium Level 141 136-145 mmol/L Potassium Level 4.1 3.5-5.1 mmol/L Chloride Level 105 98-107 mmol/L Carbon Dioxide Level 28 21-32 mmol/L Anion Gap 8.0 3-11 mmol/L Blood Urea Nitrogen 22 7-18 mg/dl Creatinine 1.10 0.60-1.40 mg/dl Est Creatinine Clear Calc Drug Dose 79.4 ml/min Estimated GFR () 84.7 Estimated GFR (Non- 73.1 BUN/Creatinine Ratio 19.7 10-20 Random Glucose 149 70-99 mg/dl Calcium Level 8.4 8.5-10.1 mg/dl Assessment and Plan 61 year old male with a history of non-ischemic dilated cardiomyopathy s/p ICD placement in 01/[address] Herrera and EF 15-20% on 08/27 admitted with worsening shortness of breath and lower extremity swelling 2/2 acute on chronic CHF exacerbation Acute on Chronic CHF Exacerbation 2/2 Nonischemic Dilated Cardiomyopathy - Troponin x3 stable. Echo shows EF <15%. Cardiology consulted - recs appreciated. Concern for eventually requiring device (LVAD) or transplant evaluation. Patient aware that he will not be considered a candidate for transplant if currently smoking or has bladder cancer. Losartan changed to Entresto, spironolactone frequency decreased. - Continue PO furosemide 40mg BID, Entresto 24-26mg BID, Carvedilol 3.125mg PO BID, Spironolactone 25mg daily - Compression stockings - Considering Dobutamine if diuresis insufficient - patient clinically improving , so not required thus far Hematuria 2/2 suspected bladder carcinoma - differential also includes UTI, renal cysts, urinary tract stones. History of smoking (>1PPD). PSA - 0.572. Renal U/S showed 2 echogenic nodules concerning for urothelial malignancy adherent to the posterior bladder wall, the largest ~1.5 cm. Urology consulted - recs appreciated. Moreira difficult to insert likely secondary to urethral stricture and also increased risk of hemorrhage. Rocephin discontinued due to finding source of bleed and also mixed urine culture. Cysto +/- TURBT performed 09/27. Urine cytology showed mildly atypical urothelial cells in papillary aggregates, but otherwise negative for high-grade urothelial carcinoma. - Hold clopidogrel until post-procedural hematuria improves - Continue moreira with irrigation. Will require MILAGRO prior to discharge once hematuria improves - Continue Finasteride 5mg PO daily History of Peripheral Artery Disease - s/p aortobifemoral bypass - Aspirin 81mg daily - Plavix held COPD - Combivent 1 puff QID - Consider PFTs as outpatient, PCP Katelyn Sutton currently following COPD CKD Stage 3 - renally dosing all medications and avoiding Nephrotoxic agents, creatinine improving. Baseline creatinine 1.2 - Monitor BMP HLD - Atorvastatin 40mg Daily Depression and Anxiety - Lexapro 5mg Daily - Lorazepam 0.5mg q4hr PRN VTE prophylaxis - SCDs Code Status - Full Resuscitation Resident Physician Supervision Note: I interviewed and examined the patient. Discussed with Dr. Hopkins and agree with findings and plan as documented in the note. Any exceptions or clarifications are listed here: None Documented By: Anish Choi feeling ok. no sob. ongoing hematuria post TURBT. no significant pain ros otherwise negative except for as above vitals noted nad breathing unlabored urine red no clots, no pallor or icterus hematuria s/p turbt - ongoing moreira drainage and time, hold asa severe systolic chf - currently compensated, continue current treatment Continued [facility] stay due to: other Discharge planning: home Resident Tracking Resident Involvement: Resident Care Provided Care Provided: Adult Hospital Medicine
[2016-09-28] MEDS: FUROSEMIDE 40 MG TAB PO SCH ×2 (08:27→16:53)
[2016-09-28] MEDS: IPRATROPIUM BROMIDE/ALBUTEROL respimat INH INH SCH ×4 (08:27→20:45)
--- NOTE | 2016-09-28 08:30 | Anesthesiology Progress Note ---
Anesthesia Post Op Note Date & Time Sep 28, 2016 at 08:29 Vital Signs Pain Intensity: 0.0 Vital Signs Past 12 Hours Date Time Temp Pulse Resp B/P Pulse Ox O2 Delivery O2 Flow Rate FiO2 09/28/16 07:17 36.6 87 18 108/70 95 Room Air 09/28/16 04:00 Room Air 09/28/16 03:45 36.6 68 18 108/64 98 Nasal Cannula 2.0 09/28/16 00:01 Room Air 09/28/16 00:00 36.5 76 18 105/72 98 Room Air Notes Mental Status: alert / awake / arousable, participated in evaluation Pt Amnestic to Procedure: Yes Nausea / Vomiting: adequately controlled Pain: adequately controlled Airway Patency, RR, SpO2: stable & adequate BP & HR: stable & adequate Hydration State: stable & adequate Anesthetic Complications: no major complications apparent
--- NOTE | 2016-09-28 08:48 | Progress Note ---
Subjective Date of Service: Sep 28, 2016. Subjective Pt evaluation today including: conversation w/ patient, physical exam, chart review, lab review, review of inpatient medication list Pain: Moreira irritation PO Intake: Yanelis PO intake Voiding: moreira catheter in place (burgandy urine, mix of hematuria and Pyridium , no clots) 61 yo male POD#1 s/p meatal dilation and TURBT. His moreira is in place, dark urine, no clots or irrigation by nursing overnight. Intraop findings reviewed. Problem List Medical Problems: (1) Anemia Status: Acute (2) Elevated troponin Status: Acute (3) Hematuria Status: Acute Review of Systems Constitutional: No chills, No fever Eyes: No worsening of vision ENT: No hearing loss Respiratory: + cough Cardiac: No chest pain Abdomen: No nausea, No vomiting Musculoskeletal: No joint pain Male : + hematuria Neurologic: No numbness/tingling, No weakness Psychiatric: No depression symptoms Skin: No color change, No new/changing skin lesions Objective Vital Signs Date Time Temp Pulse Resp B/P Pulse Ox O2 Delivery O2 Flow Rate FiO2 09/28/16 07:17 36.6 87 18 108/70 95 Room Air 09/28/16 04:00 Room Air 09/28/16 03:45 36.6 68 18 108/64 98 Nasal Cannula 2.0 09/28/16 00:01 Room Air 09/28/16 00:00 36.5 76 18 105/72 98 Room Air 09/27/16 20:00 96 Room Air 09/27/16 19:17 36.6 91 18 110/71 96 Room Air 09/27/16 18:00 36.5 86 16 109/78 99 Nasal Cannula 3.0 09/27/16 17:45 62 18 109/74 100 Nasal Cannula 3.0 09/27/16 17:15 92 16 106/71 99 Nasal Cannula 3.0 09/27/16 16:45 83 18 104/76 09/27/16 16:20 81 19 104/71 100 Nasal Cannula 2 09/27/16 16:10 36.4 72 14 100/66 99 Nasal Cannula 2 09/27/16 16:00 Nasal Cannula 3.0 09/27/16 16:00 72 12 95/67 98 Nasal Cannula 2 09/27/16 15:55 78 20 100 Mask 10 09/27/16 15:45 80 20 99/69 100 Mask 10 09/27/16 15:36 37.0 82 17 102/73 100 Mask 10 09/27/16 14:30 95 Nasal Cannula 3.0 09/27/16 14:30 36.6 83 18 109/75 95 Nasal Cannula 3.0 09/27/16 13:25 36.8 79 18 91/64 95 Room Air 3.0 09/27/16 12:00 Room Air 09/27/16 11:54 36.8 79 18 91/64 95 Room Air Physical Exam General Appearance: WD/WN, no apparent distress ENT: hearing grossly normal Neck: supple, no adenopathy Respiratory/Chest: no respiratory distress, no accessory muscle use Cardiovascular: no JVD Abdomen: non tender, soft Extremities: non-tender Neurologic/Psychiatric: alert, oriented x 3 Skin: normal color Laboratory Results Last 24 Hours Test 09/28/16 05:14 White Blood Count 9.17 K/uL Red Blood Count 4.50 M/uL Hemoglobin 11.7 g/dL Hematocrit 38.0 % Mean Corpuscular Volume 84.4 fL Mean Corpuscular Hemoglobin 26.0 pg Mean Corpuscular Hemoglobin Concent 30.8 g/dl RDW Standard Deviation 57.7 fL RDW Coefficient of Variation 18.7 % Platelet Count 274 K/uL Mean Platelet Volume 11.2 fL Sodium Level 141 mmol/L Potassium Level 4.1 mmol/L Chloride Level 105 mmol/L Carbon Dioxide Level 28 mmol/L Anion Gap 8.0 mmol/L Blood Urea Nitrogen 22 mg/dl Creatinine 1.10 mg/dl Est Creatinine Clear Calc Drug Dose 79.4 ml/min Estimated GFR () 84.7 Estimated GFR (Non- 73.1 BUN/Creatinine Ratio 19.7 Random Glucose 149 mg/dl Calcium Level 8.4 mg/dl Assessment and Plan A/P 61 yo male POD#1 s/p TURBT and meatal dilation, stent placement. Intermittent hematuria will likely persist with stent. Would try to hold antiplatelets a little longer if possible while healing from TURBT to avoid clot retention. Irrigate moreira as needed. Can hold Pyridium for more accurate evaluation of his urine color. Trial of void in 3-5 days depending on urine appearance. Can be done as outpatient if needed. Will schedule for cysto, stent removal in about 2 weeks. Will follow the patient with you. Continued [facility] stay due to: inadequate oral pain control Discharge planning: home
[2016-09-28] MEDS: CIPROFLOXACIN 500 MG TAB PO SCH ×2 (09:47→20:45)
[2016-09-28] MEDS: CARVEDILOL 3.125 MG TAB PO SCH ×2 (09:48→20:45)
[2016-09-28] MEDS: SACUBITRIL-VALSARTAN 24-26 MG TAB PO SCH ×2 (09:48→20:45)
[2016-09-28] MEDS: FINASTERIDE 5 MG TAB PO SCH (09:48)
[2016-09-28] MEDS: SPIRONOLACTONE 25 MG TAB PO SCH (09:48)
--- NOTE | 2016-09-28 11:33 | Cardiology Follow-Up ---
Subjective Subjective Date of Service: Sep 28, 2016. Pt evaluation today including: conversation w/ patient, physical exam, chart review, lab review, review of studies, review of inpatient medication list Additional Details: Pt seen and examined, states that he feels well. Butts in place with continued hematuria. Denies cp, sob, palpitations, lightheadedness or dizziness. Edema stable. Tele reviewed Problem List Medical Problems: (1) Anemia Status: Acute (2) Elevated troponin Status: Acute (3) Hematuria Status: Acute Review of Systems Constitutional: No chills, No fever Eyes: No worsening of vision ENT: No hearing loss Respiratory: + cough Cardiac: No chest pain Abdomen: No nausea, No vomiting Musculoskeletal: No joint pain Male : + hematuria Neurologic: No numbness/tingling, No weakness Psychiatric: No depression symptoms Heme: No abnormal bleeding/bruising Skin: No color change, No new/changing skin lesions Objective Vital Signs Last Vital Signs Documentation Date Time Temp Pulse Resp B/P Pulse Ox O2 Delivery O2 Flow Rate FiO2 09/28/16 08:00 Room Air 09/28/16 07:17 36.6 87 18 108/70 95 09/28/16 03:45 2.0 Physical Exam: General Appearance: WD/WN, no apparent distress Eyes: bilateral eyes EOMI, bilateral eyes PERRL, bilateral eyes normal inspection ENT: hearing grossly normal Neck: supple, no adenopathy Respiratory/Chest: no respiratory distress, no accessory muscle use Cardiovascular: no JVD Abdomen: non tender, soft Extremities: non-tender Neurologic/Psychiatric: alert, oriented x 3 Skin: normal color Lymphatic: no adenopathy Assessment and Plan 1. acute decompensated systolic heart failure remains stable chest cta some possible fibrotic rales edema improved/resolved with stockings no sob at rest or with limited ambulation cont to ambulate believe him to be medically optimized at this time cont entresto, coreg, spironolactone cont lasix to po bid will also consider changing coreg to toprol for increased selective beta blockade, will defer for now will ultimately need device/transplant evaluation had lengthy discussion informing patient that options would be limited if continues to smoke, agrees to quit 2. COPD has never seen pulm would consider evaluation 3. PAD hx of fempop in 2013 no need for plavix at this point urology ok with asa, restart 4. preop risk prior to undergoing cystoscopy patient counseled that he would be a high risk for adverse perioperative cardiovascular event, risk approx >5% no further cardiac testing or intervention would further lower that risk pt states that he understands, is accepting of the risk and would like to proceed no benefit from delaying from cardiac standpoint Continued [facility] stay due to: inadequate oral pain control Discharge planning: home
[2016-09-28] MEDS: ESCITALOPRAM OXALATE 10 MG TAB PO SCH (20:45)
[2016-09-28] MEDS: ATORVASTATIN 40 MG TAB PO SCH (20:45)
[2016-09-29 03:11] VITALS: BP 95/59; PULSE 60; TEMP 36.4; O2SAT 97
[2016-09-29 05:44] LABS: HEMATOCRIT 36.6 % (42-52); MEAN CELL VOLUME 86.3 fL (80-100); MEAN CORPUSCULAR HEMOGLOBIN 26.7 pg (25-34); MEAN CORPUSCULAR HGB CONC 30.9 g/dl (32-36); MEAN PLATELET VOLUME 11.1 fL (7.4-10.4); PLATELET COUNT 284 K/uL (130-400); RED BLOOD COUNT 4.24 M/uL (4.7-6.1); WHITE BLOOD COUNT 11.02 K/uL (4.8-10.8)
[2016-09-29 06:16] LABS: BUN/CREATININE RATIO 19.4 (10-20); CALCIUM 7.8 mg/dl (8.5-10.1); CREATININE 0.86 mg/dl (0.60-1.40); POTASSIUM 4.1 mmol/L (3.5-5.1)
--- NOTE | 2016-09-29 07:40 | Family Medicine Progress Note ---
Progress Note Date of Service Sep 29, 2016. Objective Vital Signs Date Time Temp Pulse Resp B/P Pulse Ox O2 Delivery O2 Flow Rate FiO2 09/29/16 04:00 Room Air 09/29/16 03:11 36.4 60 16 95/59 97 Room Air 09/28/16 23:59 Room Air 09/28/16 23:02 36.8 61 18 89/52 95 Room Air 09/28/16 20:00 Room Air 09/28/16 19:59 36.8 72 19 96/61 96 Room Air 09/28/16 16:00 Room Air 09/28/16 15:04 36.5 76 20 99/66 95 Room Air 09/28/16 12:00 Room Air 09/28/16 11:35 36.6 86 22 96/63 99 Room Air 09/28/16 08:00 Room Air Resident Tracking Resident Involvement: Resident Care Provided Care Provided: Adult Hospital Medicine
[2016-09-29 07:45] VITALS: BP 102/66; PULSE 80; TEMP 36.4; O2SAT 92
[2016-09-29] MEDS: IPRATROPIUM BROMIDE/ALBUTEROL respimat INH INH SCH ×2 (08:39→11:59)
[2016-09-29] MEDS: FINASTERIDE 5 MG TAB PO SCH (08:40)
[2016-09-29] MEDS: SACUBITRIL-VALSARTAN 24-26 MG TAB PO SCH (08:40)
[2016-09-29] MEDS: CARVEDILOL 3.125 MG TAB PO SCH (08:40)
[2016-09-29] MEDS: FUROSEMIDE 40 MG TAB PO SCH (08:40)
[2016-09-29] MEDS: SPIRONOLACTONE 25 MG TAB PO SCH (08:40)
--- NOTE | 2016-09-29 08:41 | Progress Note ---
Subjective Date of Service: Sep 29, 2016. Subjective Pt evaluation today including: conversation w/ patient, chart review, lab review Voiding: moreira catheter in place (patent, draining dark arana colored urine) 61 yo male s/p TURBT. Pt denies pain this morning. Feels well. H&H stable. Moreira continues to drain dark arana colored urine. Problem List Medical Problems: (1) Anemia Status: Acute (2) Elevated troponin Status: Acute (3) Hematuria Status: Acute Review of Systems Constitutional: No chills, No fever Respiratory: No shortness of breath Cardiac: No chest pain Abdomen: No nausea, No pain, No vomiting Male : + hematuria Heme: No abnormal bleeding/bruising Objective Vital Signs Date Time Temp Pulse Resp B/P Pulse Ox O2 Delivery O2 Flow Rate FiO2 09/29/16 07:45 36.4 80 18 102/66 92 Room Air 09/29/16 04:00 Room Air 09/29/16 03:11 36.4 60 16 95/59 97 Room Air 09/28/16 23:59 Room Air 09/28/16 23:02 36.8 61 18 89/52 95 Room Air 09/28/16 20:00 Room Air 09/28/16 19:59 36.8 72 19 96/61 96 Room Air 09/28/16 16:00 Room Air 09/28/16 15:04 36.5 76 20 99/66 95 Room Air 09/28/16 12:00 Room Air 09/28/16 11:35 36.6 86 22 96/63 99 Room Air Physical Exam General Appearance: no apparent distress Eyes: normal inspection ENT: hearing grossly normal Neck: no JVD Respiratory/Chest: no respiratory distress, no accessory muscle use Cardiovascular: no JVD Extremities: normal inspection Neurologic/Psychiatric: alert, normal mood/affect, oriented x 3 Skin: normal color Laboratory Results Last 24 Hours Test 09/29/16 05:24 White Blood Count 11.02 K/uL Red Blood Count 4.24 M/uL Hemoglobin 11.3 g/dL Hematocrit 36.6 % Mean Corpuscular Volume 86.3 fL Mean Corpuscular Hemoglobin 26.7 pg Mean Corpuscular Hemoglobin Concent 30.9 g/dl RDW Standard Deviation 58.6 fL RDW Coefficient of Variation 18.7 % Platelet Count 284 K/uL Mean Platelet Volume 11.1 fL Nucleated RBC Absolute Count (auto) 0.02 K/uL Nucleated Red Blood Cells % 0.2 % Sodium Level 141 mmol/L Potassium Level 4.1 mmol/L Chloride Level 107 mmol/L Carbon Dioxide Level 30 mmol/L Anion Gap 4.0 mmol/L Blood Urea Nitrogen 17 mg/dl Creatinine 0.86 mg/dl Est Creatinine Clear Calc Drug Dose 101.5 ml/min Estimated GFR () 110.0 Estimated GFR (Non- 94.9 BUN/Creatinine Ratio 19.4 Random Glucose 104 mg/dl Calcium Level 7.8 mg/dl Assessment and Plan A/P 61 yo male POD#2 s/p TURBT and meatal dilation, stent placement. Hematuria after stent placement not uncommon. Would try to hold antiplatelets a little longer if possible while healing from TURBT to avoid clot retention. Irrigate moreira as needed. Trial of void in 3-5 days depending on urine appearance. Can be done as outpatient if needed. Will schedule for cysto, stent removal in about 2 weeks. Pt OK for d/c home from [facility] when OK with primary service. Will follow the patient with you. Continued [facility] stay due to: other Discharge planning: home
--- NOTE | 2016-09-29 09:39 | PROGRESS NOTE ---
DATE: 09/29/2016 FOLLOWUP VISIT SUBJECTIVE: The patient is a 61-year-old with severe cardiomyopathy and chronic systolic heart failure. He was started on Entresto during this admission. He has been doing well. He is also here because of hematuria which is being managed by the urology service. He is status post ureteral stent. He has no complaints today. OBJECTIVE: VITAL SIGNS: Blood pressure is 100/60, pulse is regular at 60, he is afebrile. HEENT: He is normocephalic. Pupils are equal and reactive to light. Extraocular muscles are intact bilaterally. NECK: The neck veins are flat. Carotids have good upstrokes bilaterally without bruits. Thyroid is nonpalpable. RESPIRATORY: Breath sounds equal bilaterally and clear to auscultation. CARDIOVASCULAR: Heart has a regular rhythm. Normal S1, S2. No S3, S4. No cardiac rubs or murmurs. GASTROINTESTINAL: Abdomen is soft, nontender, without organomegaly. EXTREMITIES: Free of edema, digit clubbing, or cyanosis. NEUROLOGIC: He is grossly intact. SKIN: Warm to touch. LYMPH NODES: Negative to palpation. LABORATORY DATA: Hemoglobin is 11.3, WBC count is 11.0. Creatinine is 0.86. IMPRESSION: 1. Chronic systolic heart failure. 2. Hematuria. 3. Dilated cardiomyopathy, nonischemic. 4. [place] Heart Association class 3-4 congestive heart failure. RECOMMENDATIONS: The patient from a cardiac standpoint is doing well and will continue his current medications. The patient can be discharged per the hospitalist and urology services.
[2016-09-29 11:07] VITALS: BP 94/61; PULSE 81; TEMP 36.5; O2SAT 96
[2016-09-29] MEDS: PHENAZOPYRIDINE HCL 200 MG TAB PO PRN (11:58)
[2016-09-29] MEDS ORDERED: PHEN-1043 PO (12:49)
[2016-09-29] MEDS ORDERED: PRS5 PO (12:49)
[2016-09-29] MEDS ORDERED: SACU1TAB PO (12:49)
--- NOTE | 2016-09-29 13:05 | Discharge Instructions ---
Discharge Instructions Date of Service Sep 29, 2016. Admission Reason for Admission: Acute Systolic Chf, Nyha Class 4 Discharge Discharge Diagnosis / Problem: Acute on chronic congestive heart failure, bladder tumor Discharge Goals Goal(s): Decrease discomfort, Improve function, Improve disease control, Learn about illness, Diagnostic testing, Therapeutic intervention Activity Recommendations Activity Limitations: resume your previous activity Exercise/Sports Limitations: as tolerated . Instructions / Follow-Up Instructions / Follow-Up Congestive heart failure - At presentation, a heart attack was ruled out via labs. A chest zray did show significant fluid in the lungs and a heart ultra sound showed worsening cardiac functions. Cardiology helped with management and recommended changes in some of your medication, as listed below. Please continue all of these as prescribed upon discharge: furosemide 40mg twice daily , Entresto 24-26mg twice daily, Carvedilol 3.125mg PO twice daily, Spironolactone 25mg once daily. Once home, continue to wear your compression stockings daily and continuing a low salt diet is padilla. Read all food labels to help you decide when grocery shopping! Follow up will be arranged for you to see cardiologists to further assess and manage your cardiac health, they will discuss options with you in greater detail. Blood in urine - A renal ultra sound showed masses in the bladder. Urology performed a cystoscopy and removed a mass from your bladder. You are being discharged with your moreira in situ. You will follow up with urology in clinic at which point they will remove it and trial voiding. Your urologist will let you know if you can resume your clopidogrel, if the bladder bleeding has diminished. Continue Finasteride 5mg once daily. History of Peripheral Artery Disease s/p aortobifemoral bypass. Continue aspirin 81mg daily COPD - Continue Combivent 1 puff QID. Your PCP who is managing your [employer] [facility] can arrange for out patient pulmonary function tests CKD Stage 3 - very stable HLD - Continue atorvastatin 40mg Daily Continue all other home medications Current Hospital Diet Patient's current hospital diet: AHA Diet (Heart Healthy) Discharge Diet Recommended Diet: AHA Diet (Heart Healthy), Low Sodium Diet (2gm Na) Procedures Procedures Performed: Cystoscopy; Meatal Dilation; Bilateral Retrograde Pyelography; Transurethral Resection Bladder Tumor; Right Sided Ureteral Stent Placement Pending Studies Studies pending at discharge: no Laboratory Results Hemoglobin A1c Test 08/26/16 05:50 Range/Units Estimated Average Glucose 148 mg/dl Hemoglobin A1c 6.8 H 4.5-5.6 % Lipid Panel Test 08/26/16 05:50 Range/Units Triglycerides Level 77 0-150 mg/dl Cholesterol Level 83 0-200 mg/dl HDL Cholesterol 25 mg/dl Cholesterol/HDL Ratio 3.3 LDL Cholesterol, Calculated 43 mg/dl Medical Emergencies . Who to Call and When: Medical Emergencies: If at any time you feel your situation is an emergency, please call 911 immediately. . Non-Emergent Contact Non-Emergency issues call your: Primary Care Provider, Junior Paralegal, Urologist . . "Provider Documentation" section prepared by Kenya Hopkins. . VTE Core Measure Inpt VTE Proph given/why not?: SCD's
[2016-09-29 13:44] VITALS: BP 94/61; PULSE 81; TEMP 36.5; O2SAT 96
[2016-09-29] MEDS: ACETAMINOPHEN 325 MG TAB PO PRN (14:12)
[2016-09-29] MEDS ORDERED: NURSING VERBAL MED ORDER ONE (14:45)
[2016-09-29] MEDS ORDERED: OXYCODONE/ACETAMINOPHEN 5-325 TAB PO ONE (15:15)
--- NOTE | 2016-09-29 17:42 | Discharge Summary ---
Discharge Summary Date of Service Sep 29, 2016. (Alka. Hopkins MD) Discharge Summary Admission Date: Sep 23, 2016 at 14:29 Discharge Date: Sep 29, 2016 Discharge Disposition: Home Principal Diagnosis: Acute on chronic CHF and bladder tumor Procedures: Cystoscopy; Meatal Dilation; Bilateral Retrograde Pyelography; Transurethral Resection Bladder Tumor; Right Sided Ureteral Stent Placement (Alka. Hopkins MD) Medication Reconciliation New Medications: Finasteride (Finasteride) 5 Mg Tab 5 MG PO QAM for 30 Days, #30 TAB 2 Refills Phenazopyridine HCl (Phenazopyridine HCl) 200 Mg Tab 200 MG PO TID PRN for Bladder pain for 7 Days, #21 TAB Sacubitril-Valsartan (Entresto 24-26 mg) 1 Tab Tab 1 TAB PO BID for 30 Days, #60 TAB 2 Refills Continued Medications: Albuterol Hfa (Ventolin Hfa) 200 Puffs/88517 Mcg Aers 2-4 PUFFS INH Q6H, INHALER Aspirin (Aspirin Ec) 81 Mg Tab 81 MG PO QAM Atorvastatin (Lipitor) 40 Mg Tab 40 MG PO HS, TAB Carvedilol (Coreg) 3.125 Mg Tab 3.125 MG PO BID, TAB Escitalopram Oxalate (Lexapro) 5 Mg Tab 5 MG PO HS, TAB Furosemide (Lasix) 40 Mg Tab 40 MG PO BID, TAB Ipratropium-Albuterol (Combivent Respimat) 1 Aer Aer 1 PUFFS INH QID, INH Spironolactone (Spironolactone) 25 Mg Tab 25 MG PO QAM for 30 Days, #30 TAB Discontinued Medications: Clopidogrel Bisulfate (Plavix) 75 Mg Tab 75 MG PO QAM, TAB Losartan Potassium (Losartan Potassium) 25 Mg Tab 25 MG PO QAM for 30 Days, #30 TAB hold when SBP<95 Potassium Chloride (Micro-K Ext Rel) 10 Meq Capcr 10 MEQ PO QAM for 14 Days Discharge Exam Patient well, sitting comfortably in bed. Denies acute overnight events. He is breathing comfortably, and denies CP, palpitations. Inguinal soreness resolved. He is otherwise eating and sleeping without issue. His leg swelling remains improved. There is decreased concentration of hematuria in the Moreira bag. Patient keen to go home. Review of Systems: Constitutional: No chills, No fever Respiratory: No cough, No shortness of breath Cardiovascular: + edema, No PND, No chest pain, No orthopnea, No palpitations Abdomen: No constipation, No diarrhea, No nausea, No pain, No vomiting Genitourinary - Male: + hematuria, No dysuria Physical Exam: General Appearance: WD/WN, no apparent distress Eyes: normal inspection, EOMI ENT: hearing grossly normal, pharynx normal Neck: supple, no adenopathy, no JVD Respiratory/Chest: lungs clear, normal breath sounds, no respiratory distress, no accessory muscle use Cardiovascular: regular rate, rhythm, no murmur Abdomen / GI: normal bowel sounds, non tender, soft Extremities: normal inspection, no calf tenderness, + pedal edema (minimal) Neurologic/Psychiatric: alert, normal mood/affect, oriented x 3 Skin: normal color, warm/dry, no rash (Alka. Hopkins MD) Hospital Course 61 year old male with a history of non-ischemic dilated cardiomyopathy s/p ICD placement in 01/[address] Herrera and EF 15-20% on 08/27 admitted with worsening shortness of breath and lower extremity swelling 2/2 acute on chronic CHF exacerbation Acute on Chronic CHF Exacerbation 2/2 Nonischemic Dilated Cardiomyopathy - Troponin x3 stable. Echo shows EF <15%. Cardiology consulted. Concern for eventually requiring device (LVAD) or transplant evaluation. Patient aware that he will not be considered a candidate for transplant if currently smoking or has bladder cancer. Losartan changed to Entresto, spironolactone frequency decreased. On discharge, continue: - Furosemide 40mg BID, Entresto 24-26mg BID, Carvedilol 3.125mg BID, Spironolactone 25mg daily - Compression stockings - Heart healthy, low sodium diet - Follow up arranged for further cardiac assessment and treatment discussion/ decision Hematuria 2/2 suspected bladder carcinoma - History of smoking (>1PPD). PSA - 0.572. Renal U/S showed 2 echogenic nodules concerning for urothelial malignancy adherent to the posterior bladder wall, the largest ~1.5 cm. Urology consulted. Moreira difficult to insert likely secondary to urethral stricture and also increased risk of hemorrhage. Rocephin discontinued due to finding source of bleed and also mixed urine culture. Cysto + TURBT performed 09/27. Urine cytology showed mildly atypical urothelial cells in papillary aggregates, but otherwise negative for high-grade urothelial carcinoma. On discharge, continue: - Continue Finasteride 5mg PO daily - Moreira in situ with plans for urology outpatient follow up for trial void off catheter - Urologist to decide if clopidogrel to be resumed if hematuria diminished History of Peripheral Artery Disease - s/p aortobifemoral bypass On discharge, continue - Continue Aspirin 81mg daily - Clopidogrel held COPD - Combivent 1 puff QID - PCP to consider arranging PFTs +/- pulm referral if necessary, as per patient' s interest CKD Stage 3 - Renal function stable HLD - Atorvastatin 40mg Daily Depression/Anxiety - Lexapro 5mg Daily Code Status - Full Resuscitation Total Time Spent: Greater than 30 minutes This includes examination of the patient, discharge planning, medication reconciliation, and communication with other providers. (Alka. Hopkins MD) Resident Physician Supervision Note: I interviewed and examined the patient. Discussed with Dr. Hopkins and agree with findings and plan as documented in the note. Any exceptions or clarifications are listed here: None Documented By: Anish Choi feeling better overall wants to go home. after pt//dr hopkins and i all discussed discharge planning, later called about flank pain c/w discomfort from stent. gave 1x dose percocet w intention of writing Rx for prn at home. after 1x dose, pt decided he felt good enough to go home without Rx. extensive discussions on moreira care at home, when to worry, outpt f/u w urology. extensive discussions on sodium restriction, specifically less than 400mg/meal and less than 1500-2000mg in a day vitals noted, nad, breathing unlabored urine clearing no pallor or icterus a/p -severe systolic cardiomyopathy- medically stable, ongoing med management and tertiary eval, Na restrict -bladder tumor/hematuria - s/p TURBT and stenting. urology follow up early next week. for now home w moreira. Total Time Spent: Greater than 30 minutes (Anish Choi, D.Dalton.) Discharge Instructions Please refer to the electronic Patient Visit Report (Discharge Instructions) for additional information. (Alka. Hopkins MD) Additional Copies To Gt Edwards M.D.; Samuel Rosario M.D.; Katelyn Sutton,
== END 2016-09-29 15:34 | disposition home or self-care (01) | DRG 987 ==
LOC: ENRESERVDT → ENRESERVTM → C.EDB 11:47 → C.2T 14:29
PROVIDERS: ADMIT Hospitalist; ATTEND Family Medicine
PROC: 0TBB8ZX Excision of Bladder, Via Natural or Artificial Opening Endoscopic, Diagnostic (ICD-10-PCS; principal; 2016-09-27 15:15)
PROC: 0T768DZ Dilation of Right Ureter with Intraluminal Device, Via Natural or Artificial Opening Endoscopic (ICD-10-PCS; principal; 2016-09-27 15:15)
PROC: BT1D1ZZ Fluoroscopy of Right Kidney, Ureter and Bladder using Low Osmolar Contrast (ICD-10-PCS; principal; 2016-09-27 15:15)
DX: I13.0 Hypertensive heart and chronic kidney disease with heart failure and stage 1 through stage 4 chronic kidney disease, or unspecified chronic kidney disease (principal); I50.23 Acute on chronic systolic (congestive) heart failure; N18.3 Chronic kidney disease, stage 3 (moderate); E87.6 Hypokalemia; J44.9 Chronic obstructive pulmonary disease, unspecified; E86.0 Dehydration; F32.9 Major depressive disorder, single episode, unspecified; F41.9 Anxiety disorder, unspecified; I42.0 Dilated cardiomyopathy; I25.10 Atherosclerotic heart disease of native coronary artery without angina pectoris; E78.00 Pure hypercholesterolemia, unspecified; M19.90 Unspecified osteoarthritis, unspecified site; Z83.3 Family history of diabetes mellitus; Z82.49 Family history of ischemic heart disease and other diseases of the circulatory system; N28.1 Cyst of kidney, acquired; Z95.810 Presence of automatic (implantable) cardiac defibrillator; Z96.652 Presence of left artificial knee joint; N40.0 Benign prostatic hyperplasia without lower urinary tract symptoms; Z79.82 Long term (current) use of aspirin; Z79.02 Long term (current) use of antithrombotics/antiplatelets; Z85.51 Personal history of malignant neoplasm of bladder; Z87.891 Personal history of nicotine dependence; R31.0 Gross hematuria; Q54.9 Hypospadias, unspecified

== ENCOUNTER 2016-10-08 10:46 | Emergency (ER) | payer OTHER ==
[~2016-10-08] VITALS: Ht 182.9 cm; Wt 79.5 kg
[~2016-10-08 10:46] MED LIST changes: -CEPH500C PO; -CIPR-255 PO; -CLOP1TAB15 PO; -FERRTAB18 PO; -HYDR-5688 PO; -LNX125 PO; -METO25TA3 PO; -POTA1POW PO; -SPIR25TA89 PO; -TORS20TA2 PO; -TPRSR25 PO; -hydroxyzine PEG
[2016-10-08 10:50] VITALS: Ht 182.9 cm; Wt 79.5 kg
[2016-10-08] MEDS ORDERED: SODIUM CHLORIDE 0.9% 1000ML 1,000 ML IV STA (11:52)
[2016-10-08] MEDS ORDERED: SODIUM CHLORIDE 0.9% 500ML 500 ML IV STA (11:52)
--- NOTE | 2016-10-08 12:27 | EMERGENCY ROOM VISIT NOTE ---
History Report prepared by Odalis: Vangie Brooks Under the Supervision of: Dr. Krystal Varner M.D. First contact with patient: 11:46 Chief Complaint: HEMATURIA Stated Complaint: TIRED, PEEING BLOOD History of Present Illness The patient is a 61 year old male who presents to the Emergency Room with complaints of persistent hematuria starting today. He describes it to be dark blood in his urine but denies any clots. He also reports burning with urination and increased urgency of urination. He also had low blood pressure today which was 93/68. He has a history of hypertension and is on high blood pressure medication. The patient is also on Aspirin. He was referred to the Emergency Room today by his urologist. The patient had was diagnosed with a bladder tumor which was removed 2 weeks ago. He is supposed to have one last surgery for the tumor in about a week. The patient is on fluid restriction due to a history of CHF. The patient denies fevers, chest pain, shortness of breath, abdominal pain , or any other complaints. He has a history of bypass surgery. Source of History: patient Onset: today Position: other (global) Quality: other (hematuria) Timing: other (persistent) Associated Symptoms: No SOB, No abdominal pain, No chest pain, No fevers Review of Systems See HPI for pertinent positives & negatives. A total of 10 systems reviewed and were otherwise negative. Past Medical & Surgical Medical Problems: (1) Acute systolic CHF (congestive heart failure), NYHA class 4 (2) CHF (congestive heart failure) (3) Gallbladder disease (4) History of implantable cardiac defibrillator (ICD) (5) History of infection of total joint prosthesis of knee (6) History of pacemaker (7) Hypertension Surgical Problems: (1) History of xjlux-yjmjn-[id number] bypass (2) History of left knee replacement Family History FH: diabetes mellitus FH: gallbladder disease FH: heart disease FH: hypertension Social History Smoking Status: Current Every Day Smoker Alcohol Use: none Drug Use: none Marital Status: Occupation Status: retired Current/Historical Medications Scheduled Albuterol Hfa (Ventolin Hfa), 2-4 PUFFS INH Q6H Aspirin (Aspirin Ec), 81 MG PO QAM Atorvastatin (Lipitor), 40 MG PO HS Carvedilol (Coreg), 3.125 MG PO BID Ciprofloxacin Hcl (Cipro), 500 MG PO BID Escitalopram Oxalate (Lexapro), 5 MG PO HS Finasteride (Finasteride), 5 MG PO QAM Furosemide (Lasix), 40 MG PO BID Ipratropium-Albuterol (Combivent Respimat), 1 PUFFS INH QID Sacubitril-Valsartan (Entresto 24-26 mg), 1 TAB PO BID Spironolactone (Spironolactone), 25 MG PO QAM Scheduled PRN Phenazopyridine HCl (Phenazopyridine HCl), 200 MG PO TID PRN for Bladder pain Allergies Coded Allergies: Iodinated Diagnostic Agents (Unverified Allergy, Intermediate, itchiness, 10/08/16) gets pretreat of Benadryl before tests Metformin (Unverified Adverse Reaction, Severe, MEMORY LOSS, 10/08/16) Codeine (Unverified Adverse Reaction, Intermediate, ITCHING, 10/08/16) Physical Exam Vital Signs Date Time Temp Pulse Resp B/P Pulse Ox O2 Delivery O2 Flow Rate FiO2 10/08/16 13:55 36.5 83 18 92/62 97 Room Air 10/08/16 12:39 73 10/08/16 12:03 36.6 10/08/16 12:03 36.5 86 18 93/70 97 Room Air 10/08/16 10:50 86 20 103/71 98 Room Air Physical Exam Vital signs reviewed. General: Chronically ill-appearing, pale, noticeably hypotensive. HEENT: No scleral icterus, PERRLA, neck supple. Atraumatic. Cardiovascular: Regular rate and rhythm, no extra sounds. Pulmonary: Clear to auscultation bilaterally, normal work of breathing. Abdomen: Soft, nontender, nondistended, positive bowel sounds. Musculoskeletal: Atraumatic, no peripheral edema. Neurologic: Patient awake alert and oriented x 3, full strength in all 4 extremities. Cranial nerves 2 through 12 grossly intact. Skin: Warm, dry, no rash Medical Decision & Procedures Laboratory Results 10/08/16 12:05 Red Blood Count 4.08, Mean Corpuscular Volume 84.1, Mean Corpuscular Hemoglobin 26.2, Mean Corpuscular Hemoglobin Concent 31.2, Mean Platelet Volume 9.6, Neutrophils (%) (Auto) 59.8, Lymphocytes (%) (Auto) 27.4, Monocytes (%) (Auto) 10.7, Eosinophils (%) (Auto) 1.6, Basophils (%) (Auto) 0.4, Neutrophils # (Auto ) 5.53, Lymphocytes # (Auto) 2.53, Monocytes # (Auto) 0.99, Eosinophils # (Auto ) 0.15, Basophils # (Auto) 0.04 10/08/16 10:25 Test 10/08/16 10:25 10/08/16 11:41 10/08/16 12:05 10/08/16 12:16 Est Creatinine Clear Calc Drug Dose 99.2 ml/min Estimated GFR () 109.0 Estimated GFR (Non- 94.0 BUN/Creatinine Ratio 18.6 (10-20) Calcium Level 8.2 mg/dl (8.5-10.1) Total Bilirubin 1.2 mg/dl (0.2-1) Direct Bilirubin 0.4 mg/dl (0-0.2) Aspartate Amino Transf (AST/SGOT) 13 U/L (15-37) Alanine Aminotransferase (ALT/SGPT) 25 U/L (12-78) Alkaline Phosphatase 144 U/L (45-117) Total Protein 6.3 gm/dl (6.4-8.2) Albumin 3.1 gm/dl (3.4-5.0) Urine Color RED Urine Appearance CLOUDY (CLEAR) Urine pH 6.5 (4.5-7.5) Urine Specific [place] 1.015 (1.000-1.030) Urine Protein 2+ (NEG) Urine Glucose (UA) NEG (NEG) Urine Ketones NEG (NEG) Urine Occult Blood 3+ (NEG) Urine Nitrite NEG (NEG) Urine Bilirubin NEG (NEG) Urine Urobilinogen NEG (NEG) Urine Leukocyte Esterase MODERATE (NEG) Urine RBC >30 /hpf (0-4) Urine WBC >30 /hpf (0-5) Urine Epithelial Cells 10-20 /lpf (0-5) Urine Calcium Oxalate Crystals PRESENT (NONE PRSENT) Urine Bacteria 1+ (NEG) Urine Mucus PRESENT (NONE PRSENT) White Blood Count 9.25 K/uL (4.8-10.8) Red Blood Count 4.08 M/uL (4.7-6.1) Hemoglobin 10.7 g/dL (14.0-18.0) Hematocrit 34.3 % (42-52) Mean Corpuscular Volume 84.1 fL (80-100) Mean Corpuscular Hemoglobin 26.2 pg (25-34) Mean Corpuscular Hemoglobin Concent 31.2 g/dl (32-36) Platelet Count 326 K/uL (130-400) Mean Platelet Volume 9.6 fL (7.4-10.4) Neutrophils (%) (Auto) 59.8 % Lymphocytes (%) (Auto) 27.4 % Monocytes (%) (Auto) 10.7 % Eosinophils (%) (Auto) 1.6 % Basophils (%) (Auto) 0.4 % Neutrophils # (Auto) 5.53 K/uL (1.4-6.5) Lymphocytes # (Auto) 2.53 K/uL (1.2-3.4) Monocytes # (Auto) 0.99 K/uL (0.11-0.59) Eosinophils # (Auto) 0.15 K/uL (0-0.5) Basophils # (Auto) 0.04 K/uL (0-0.2) RDW Standard Deviation 58.7 fL (36.4-46.3) RDW Coefficient of Variation 19.2 % (11.5-14.5) Immature Granulocyte % (Auto) 0.1 % Immature Granulocyte # (Auto) 0.01 K/uL (0.00-0.02) Poikilocytosis PRESENT Anisocytosis PRESENT Acanthocytes 1+ Schistocytes OCCASIONAL Bedside Hemoglobin 12.2 g/dl (14.0-18.0) Bedside Hematocrit 36 % (42-52) Bedside Sodium 141 mEq/L (135-144) Bedside Potassium 3.5 mEq/L (3.3-5.0) Bedside Chloride 102 mEq/L (101-112) Bedside Total CO2 25 mEq/l (24-31) Anion Gap 18.0 mmol/L (16-25) Bedside Blood Urea Nitrogen 16 mg/dl (7-18) Bedside Creatinine 0.8 mg/dl (0.6-1.3) Bedside Glucose (other) 62 mg/dl (70-99) Bedside Ionized Calcium (Luis Felipe) 1.12 mmol/l (1.12-1.32) Date/Time Source Procedure Growth Status 10/08/16 11:41 Urine , Clean Catch Urine Culture - Final NO GROWTH - LESS THAN 1,000 COLONIES/ML Complete Laboratory results per my review. Medications Administered Medications (Trade) Dose Ordered Sig/Elroy Route Start Time Stop Time Status Last Admin Dose Admin Sodium Chloride (Nss 1000ml) 1,000 ml @ 200 mls/hr Q5H STAT IV 10/08/16 11:52 10/08/16 15:33 DC 10/08/16 11:52 200 MLS/HR Ciprofloxacin (Cipro Tab) 500 mg NOW STAT PO 10/08/16 13:49 10/08/16 13:51 DC 10/08/16 13:58 500 MG ECG Indication: other (Low blood pressure) Rate (beats per minute): 93 Rhythm: normal sinus Findings: T-wave inversion (lateral), no acute ischemic change, left axis deviation, other (Nonspecific intraventricular conduction delay; likely previous anterior infarct) ED Course 1146: Past medical records reviewed. The patient was evaluated in room C08. A complete history and physical examination was performed. 1152: Sodium Chloride 1000 ml @ 200 mls/hr IV 1345: I discussed the patient's case with YONI Rivera with [facility]. 1349: Cipro Tab 500 mg PO 1410: Upon reevaluation, the patient appeared to have improvement of his symptoms. I discussed findings with him. He verbalized agreement of the treatment plan. The patient was discharged home. Medical Decision Differential diagnosis includes but is not limited to UTI, hematuria, anemia, dehydration, sepsis. This patient was evaluated and appeared to be in no significant distress. IV access was obtained and laboratory work was drawn. The patient was found to be mildly hypotensive here in the ER. In review of the patient's records, he is persistently hypotensive. This is likely related to CHF and diuretic therapy. The patient's urinalysis is grossly bloody. I suspect the patient has been fluid restricting and a clot has formed in the bladder. The patient was hydrated with normal saline solution. He urinated several times in the emergency department without difficulty. He states the gross bleeding has subsided. The patient was hesitant to leave without antibiotics. I did speak with the urology nurse practitioner, Lou Mcmanus, who has suggested a 3 day course of Cipro 500 mg twice a day. She stated they would follow-up on the urine culture on Tuesday. Pt was d/c to the care of his and encouraged to drink more water. He will follow-up with urology in several days for reevaluation and return to the ER for worsening of symptoms or any medical concerns. Consults Time Called: 1343 Consulting Physician: YONI Rivera with [facility] Returned Call: [phone] I discussed the patient's case with YONI Rivera with [facility]. Impression Primary Impression: Hematuria Additional Impression: Dehydration Scribe Attestation The scribe's documentation has been prepared under my direction and personally reviewed by me in its entirety. I confirm that the note above accurately reflects all work, treatment, procedures, and medical decision making performed by me. Departure Information Dispostion Home / Self-Care Prescriptions Ciprofloxacin Hcl (CIPRO) 500 Mg Tab 500 MG PO BID, #6 TAB Prov: Krystal Varner M.D. 10/08/16 Referrals Katelyn Sutton DO (PCP) Forms HOME CARE DOCUMENTATION FORM, IMPORTANT VISIT INFORMATION, WORK / SCHOOL INSTRUCTIONS Patient Instructions [facility] Additional Instructions Diagnosis: Dehydration, hematuria Cipro 500 mg twice daily for 3 days. Drink adequate fluids, max out your daily limits. Follow up with urology, call Mon for follow up appt. Return to emergency for worsening of symptoms or any medical concerns. Problem Qualifiers
[2016-10-08 12:29] LABS: ISTAT CREATININE 0.8 mg/dl (0.6-1.3); ISTAT HEMOGLOBIN 12.2 g/dl (14.0-18.0); ISTAT IONIZED CALCIUM 1.12 mmol/l (1.12-1.32)
[2016-10-08 12:39] LABS: BASO % 0.4 %; BASO ABS # 0.04 K/uL (0-0.2); EOS % 1.6 %; HEMATOCRIT 34.3 % (42-52); IG% 0.1 %; LYMPH % 27.4 %; LYMPH ABS # 2.53 K/uL (1.2-3.4); MEAN CELL VOLUME 84.1 fL (80-100); MEAN CORPUSCULAR HEMOGLOBIN 26.2 pg (25-34); MEAN CORPUSCULAR HGB CONC 31.2 g/dl (32-36); MEAN PLATELET VOLUME 9.6 fL (7.4-10.4); MONO % 10.7 %; NEUT % 59.8 %; PLATELET COUNT 326 K/uL (130-400); RED BLOOD COUNT 4.08 M/uL (4.7-6.1); WHITE BLOOD COUNT 9.25 K/uL (4.8-10.8)
[2016-10-08 12:51] LABS: MANUAL MICROSCOPIC REQUIRED? YES; URINE APPEARANCE CLOUDY (CLEAR); URINE BILIRUBIN NEG (NEG); URINE COLOR RED; URINE NITRITE NEG (NEG); URINE PH 6.5 (4.5-7.5); URINE SPECIFIC GRAVITY 1.015 (1.000-1.030); UROBILINOGEN NEG (NEG)
[2016-10-08 12:52] LABS: REVIEW REQ? NO
[2016-10-08 12:55] LABS: URINE RBC >30 /hpf (0-4)
[2016-10-08 12:55] LABS: BUN/CREATININE RATIO 18.6 (10-20); CALCIUM 8.2 mg/dl (8.5-10.1); CREATININE 0.88 mg/dl (0.60-1.40); POTASSIUM 3.5 mmol/L (3.5-5.1)
[2016-10-08 12:56] LABS: URINE BACTERIA 1+ (NEG); URINE MUCUS PRESENT (NONE PRSENT); URINE WBC >30 /hpf (0-5)
[2016-10-08 12:57] LABS: ZZUR CULT IF INDIC CLEAN CATCH YES
[2016-10-08 13:36] LABS: ACANTHOCYTES 1+; ANISOCYTOSIS PRESENT; COMPLETE YES; POIKILOCYTOSIS PRESENT; SCHISTOCYTES OCCASIONAL
[2016-10-08] MEDS ORDERED: CIPROFLOXACIN 500 MG TAB PO STA (13:49)
[2016-10-08 13:55] VITALS: BP 92/62; PULSE 83; TEMP 36.5; O2SAT 97
[2016-10-08] MEDS ORDERED: CIPR-255 PO (14:15)
== END 2016-10-08 14:33 | disposition home or self-care (01) ==
LOC: C.EDB 10:47 → C.EDC 14:33
DX: R31.9 Hematuria, unspecified (principal); E86.0 Dehydration; I10 Essential (primary) hypertension; I50.23 Acute on chronic systolic (congestive) heart failure; K82.9 Disease of gallbladder, unspecified; F17.200 Nicotine dependence, unspecified, uncomplicated; Z95.0 Presence of cardiac pacemaker; Z95.810 Presence of automatic (implantable) cardiac defibrillator; Z96.652 Presence of left artificial knee joint; Z98.890 Other specified postprocedural states; Z79.82 Long term (current) use of aspirin; Z79.899 Other long term (current) drug therapy; Z88.5 Allergy status to narcotic agent; Z91.041 Radiographic dye allergy status

== ENCOUNTER → 2016-10-08 | Outpatient (CLI) | payer OTHER ==
[~2016-10-08] MED LIST changes: +CEPH500C PO; +CIPR-255 PO; +CLOP1TAB15 PO; -CLOP1TAB5 PO; -CZR25 PO; +ESCI5TAB PO; +FERRTAB18 PO; +HYDR-5688 PO; +IPRA1AER2 INH; -KFL500 PO; +LNX125 PO; +LPT/40 PO; -LPT40 PO; +METO25TA3 PO; -NCDT14 TD; +PHEN-1043 PO; -POTA10CA28 PO; +POTA1POW PO; +PRS5 PO; +SACU1TAB PO; +SPIR25TA89 PO; +TORS20TA2 PO; +TPRSR25 PO; +VNTHFA/IN INH; +hydroxyzine PEG
== END | disposition home or self-care (01) ==
LOC: C.LABSPEC 15:38
PROVIDERS: ATTEND Urology
DX: R31.9 Hematuria, unspecified (principal)

== ENCOUNTER 2016-11-10 05:57 | Observation (INO) | payer OTHER ==
[2016-11-09 19:02] VITALS: BMI 21.0
[2016-11-10] VITALS (8 sets, daily range): BP systolic 91–107; BP diastolic 60–69; PULSE 67–98; TEMP 36.5–36.8; O2SAT 94–96; Ht 182.9 cm; Wt 70.7 kg
[~2016-11-10] VITALS: Ht 182.9 cm; Wt 70.7 kg
[~2016-11-10 05:57] MED LIST changes: +CIPR-255 PO
[2016-11-10] MEDS ORDERED: LACTATED RINGER'S 1000ML 1,000 ML IV SCH (06:00)
[2016-11-10] MEDS ORDERED: CLOP1TAB15 PO (07:00)
[2016-11-10] MEDS ORDERED: hydroxyzine PEG (07:09)
[2016-11-10] MEDS ORDERED: LNX125 PO (07:09)
[2016-11-10] MEDS ORDERED: TORS20TA2 PO (07:09)
[2016-11-10] MEDS ORDERED: METO25TA3 PO (07:09)
[2016-11-10] MEDS ORDERED: SPIR25TA89 PO (07:10)
[2016-11-10] MEDS ORDERED: FERRTAB18 PO (07:12)
[2016-11-10] MEDS ORDERED: POTA1POW PO (07:12)
[2016-11-10] MEDS ORDERED: BUPIVACAINE 0.5 % 5 MG/1 ML MPF 30ML VIAL ONE (07:20)
[2016-11-10] MEDS ORDERED: BACITRACIN 50000 UNIT VIAL ONE (07:20)
[2016-11-10] MEDS ORDERED: LIDOCAINE HCL 1% 20 ML VIAL ONE (07:20)
[2016-11-10] MEDS ORDERED: PROPOFOL IV EMULSION 10 MG/ML 100 ML VIAL IV ONE (07:29)
[2016-11-10] MEDS ORDERED: MIDAZOLAM HCL 1 MG/ML 2ML VIAL ONE ×2 (07:44)
[2016-11-10] MEDS ORDERED: FENTANYL CITRATE INJ 50 MCG/1 ML 2 ML VIAL ONE ×3 (07:44→09:31)
--- NOTE | 2016-11-10 07:51 | History & Physical Bridge Note ---
H&P Re-Evaluation Bridge Note: I have examined the patient, reviewed the History & Physical and in the interval since the performance of the History & Physical I have noted the following changes of clinical significance: No changes noted
[2016-11-10] MEDS ORDERED: LIDOCAINE HCL 2% 2 ML VIAL (20MG/ML) ONE (07:54)
[2016-11-10] MEDS ORDERED: PROPOFOL IV EMULSION 10 MG/ML 20 ML VIAL IV ONE (07:54)
[2016-11-10] MEDS ORDERED: ONDANSETRON INJ 2 MG/ML 2 ML VIAL IV PRN (08:00)
[2016-11-10] MEDS ORDERED: ATROPINE SULFATE 0.1 MG/ML 5ML SYR IV PRN (08:00)
[2016-11-10] MEDS ORDERED: CEFAZOLIN IV 2,000 MG/60 ML D5W IV ONE (08:01)
[2016-11-10] MEDS ORDERED: NURSING VERBAL MED ORDER ONE (08:03)
[2016-11-10] MEDS ORDERED: DiphenhydrAMINE HCL 50 MG/ML VIAL ONE (08:14)
[2016-11-10] MEDS ORDERED: METHYLPREDNISOLONE 125 MG VIAL ONE (08:14)
[2016-11-10] MEDS ORDERED: RANITIDINE HCL 25 MG/ML INJ ONE (08:14)
[2016-11-10] MEDS ORDERED: PHENYLEPHRINE HCL INJ 10 MG/ML VIAL ONE (09:09)
[2016-11-10] MEDS ORDERED: EpHEDrine SULFATE 50MG/5ML SYR ONE (09:09)
[2016-11-10] MEDS ORDERED: PHENYLEPHRINE 100MCG/ML 5ML SYR ONE (09:09)
[2016-11-10] MEDS ORDERED: PHENAZOPYRIDINE HCL 200 MG TAB PO PRN (10:45)
[2016-11-10] MEDS ORDERED: OXYCODONE/ACETAMINOPHEN 5-325 TAB PO PRN (10:45)
[2016-11-10] MEDS ORDERED: ALBUTEROL HFA 8 GM INHALER INH PRN (10:45)
[2016-11-10] MEDS ORDERED: ACETAMINOPHEN 325 MG TAB PO PRN (10:45)
--- NOTE | 2016-11-10 10:49 | [facility] Post Operative Brief Note ---
Immediate Operative Summary Operative Date November 10, 2016. Pre-Operative Diagnosis nicm, chronic systolic heart failure NYHA Class III, pVT Post-Operative Diagnosis same Procedure(s) Performed upgrade to biventricular ICD (insertion of LV lead) Surgeon wilver morales [employer]er Surgeon(s) none Estimated Blood Loss <10cc Findings none Fluids (cc crystalloids) 250cc Specimens none Drains none Anesthesia 4mg versed, 300mcg fentanyl, 850mg propofol Complication(s) None Disposition PCU
--- NOTE | 2016-11-10 10:51 | Discharge Instructions ---
Discharge Instructions Date of Service November 10, 2016. Admission Reason for Admission: Non Ischemic Cardiomyopathy W/Anesthesia Discharge Discharge Diagnosis / Problem: nicm Discharge Goals Goal(s): Improve function Activity Recommendations Activity Limitations: as noted below Lifting Limitations: no more than 10 pounds (do not lift the left elbow over the left shoulder for 1 month and do not lift more than 10 pounds with the left arm for 2 weeks) Shower/Bathe: tomorrow Driving or Machine Use: resume 1 day after discharge . Instructions / Follow-Up Instructions / Follow-Up ACTIVITY RECOMMENDATIONS: * Do not raise affected arm over head for 4 weeks. SPECIAL CARE INSTRUCTIONS: * If bleeding occurs, apply direct pressure to area for 5 minutes. * Call your doctor if you have severe pain, fever, drainage or bleeding at site. * Keep dressing on and dry for 48 hours then remove. * Keep any scheduled doctor's appointment. * Implant Card - hand held device with website information given. SKIN IRRITATION: * You may experience some redness and/or swelling in the area where radiation was administered. If any skin irritation occurs, please contact your family physician. FOLLOW UP VISIT: Keep any scheduled doctor appointments. Current Hospital Diet Patient's current hospital diet: Low Sodium Diet (2gm Na), AHA Diet (Heart Healthy) Discharge Diet Recommended Diet: AHA Diet (Heart Healthy), Low Sodium Diet (2gm Na) Procedures Procedures Performed: upgrade to biventricular ICD (insertion of LV lead) Pending Studies Studies pending at discharge: no Laboratory Results Hemoglobin A1c Test 08/26/16 05:50 Range/Units Estimated Average Glucose 148 mg/dl Hemoglobin A1c 6.8 H 4.5-5.6 % Lipid Panel Test 08/26/16 05:50 Range/Units Triglycerides Level 77 0-150 mg/dl Cholesterol Level 83 0-200 mg/dl HDL Cholesterol 25 mg/dl Cholesterol/HDL Ratio 3.3 LDL Cholesterol, Calculated 43 mg/dl Medical Emergencies . Who to Call and When: Medical Emergencies: If at any time you feel your situation is an emergency, please call 911 immediately. . Non-Emergent Contact Non-Emergency issues call your: Creative Technologist . . "Provider Documentation" section prepared by Marianna Conway. . VTE Core Measure Inpt VTE Proph given/why not?: Treatment not indicated
--- NOTE | 2016-11-10 10:56 | Discharge Summary ---
Discharge Summary Date of Service November 10, 2016. Discharge Summary Admission Date: 11/10/2016 Discharge Date: Nov 11, 2016 Discharge Disposition: Home Principal Diagnosis: NICM Secondary Diagnoses/Problems: Chronic systolic heart failure, NYHA Class III h/o dual chamber ICD 01/2016 (in [place]) pVT s/p ICD shock 10/28/2016 PAD s/p aorto-femoral bypass 02/2014 Hypotension Prior Tobacco Use COPD h/o bladder cancer Procedures: upgrade to BiVentricular ICD (insertion of LV pacing Lead) Medication Reconciliation Continued Medications: Albuterol Hfa (Ventolin Hfa) 200 Puffs/49013 Mcg Aers 2-4 PUFFS INH Q6H, INHALER Aspirin (Aspirin Ec) 81 Mg Tab 81 MG PO QAM Atorvastatin (Lipitor) 40 Mg Tab 40 MG PO HS, TAB Carvedilol (Coreg) 3.125 Mg Tab 3.125 MG PO BID, TAB Clopidogrel (Plavix) 75 Mg Tab 75 MG PO DAILY, TAB Digoxin (Digoxin) 0.125 Mg Tab 125 MCG PO DAILY Finasteride (Finasteride) 5 Mg Tab 5 MG PO QAM for 30 Days, #30 TAB 2 Refills Ipratropium-Albuterol (Combivent Respimat) 1 Aer Aer 1 PUFFS INH QID, INH Iron-Vitamin C (Vitron-C) 1 Tab Tab 1 TAB PO BID Metoprolol Succinate (Toprol Xl) 25 Mg Tabcr 0.5 TAB PO DAILY for 30 Days, #15 TAB 5 Refills Phenazopyridine HCl (Phenazopyridine HCl) 200 Mg Tab 200 MG PO TID PRN for Bladder pain for 7 Days, #21 TAB Potassium Chloride Pwd (Klor-Con Pwd) 20 Meq Pack 20 MEQ PO DAILY Sacubitril-Valsartan (Entresto 24-26 mg) 1 Tab Tab 1 TAB PO BID for 30 Days, #60 TAB 2 Refills Spironolactone (Aldactone) 25 Mg Tab 1 TAB PO BID for 90 Days, #180 TAB 1 Refill Torsemide (Demadex) 20 Mg Tab 100 TAB PO BID for 90 Days, TAB 1 Refill [hydroxyzine] () 25 MG PEG DIRECTED Admission Information Physical Exam (per Admitting): aaox3, NAD NC/AT, EOMI Supple, +JVD Nrl S1/S2, +Systolic murmur CTA b/l No w/r/r soft NT/ND Trace Edema b/l no focal deficits skin grossly intact Hospital Course Pt admitted for elective upgrade to BiVentricular ICD due to NICM EF 35%, LBBB and Chronic systolic HF, NYHA Class III. Pt underwent procedure without any complications. Monitored overnight and discharged home in stable condition. Total time spent on discharge = This includes examination of the patient, discharge planning, medication reconciliation, and communication with other providers. Discharge Instructions ACTIVITY RECOMMENDATIONS: * Do not raise affected arm over head for 4 weeks. SPECIAL CARE INSTRUCTIONS: * If bleeding occurs, apply direct pressure to area for 5 minutes. * Call your doctor if you have severe pain, fever, drainage or bleeding at site. * Keep dry for 48 hours. * Keep any scheduled doctor's appointment. * Implant Card - hand held device with website information given. SKIN IRRITATION: * You may experience some redness and/or swelling in the area where radiation was administered. If any skin irritation occurs, please contact your family physician. FOLLOW UP VISIT: Keep any scheduled doctor appointments.
[2016-11-10] MEDS ORDERED: IV FLUIDS COMPLETED PRN (11:00)
--- NOTE | 2016-11-10 11:29 | Anesthesiology Progress Note ---
Anesthesia Post Op Note Date & Time November 10, 2016 at 11:29 Vital Signs Pain Intensity: 0 Vital Signs Past 12 Hours Date Time Temp Pulse Resp B/P Pulse Ox O2 Delivery O2 Flow Rate FiO2 11/10/16 11:20 85 16 91/58 98 Room Air 11/10/16 11:05 88 16 88/57 98 Room Air 11/10/16 10:55 87 16 89/57 98 Room Air 11/10/16 10:45 87 16 92/65 98 Room Air Notes Mental Status: alert / awake / arousable, participated in evaluation Pt Amnestic to Procedure: Yes Nausea / Vomiting: adequately controlled Pain: adequately controlled Airway Patency, RR, SpO2: stable & adequate BP & HR: stable & adequate Hydration State: stable & adequate Anesthetic Complications: no major complications apparent
[2016-11-10] MEDS: IPRATROPIUM BROMIDE/ALBUTEROL respimat INH INH SCH ×3 (13:00→20:50)
[2016-11-10] MEDS ORDERED: DIGOXIN 0.125 MG TAB PO SCH (16:00)
[2016-11-10] MEDS: SPIRONOLACTONE 25 MG TAB PO SCH (16:56)
[2016-11-10] MEDS: TORSEMIDE 20 MG TAB PO SCH (16:58)
[2016-11-10] MEDS: CARVEDILOL 3.125 MG TAB PO SCH (20:50)
[2016-11-10] MEDS: SACUBITRIL-VALSARTAN 24-26 MG TAB PO SCH (20:52)
[2016-11-10] MEDS ORDERED: ATORVASTATIN 40 MG TAB PO SCH (21:00)
[2016-11-10] MEDS ORDERED: NON-FORMULARY MEDICATION (Iron-Vitamin C (Vitron-C) 1 TAB) PO SCH (21:00)
--- NOTE | 2016-11-11 02:01 | OPERATIVE REPORT ---
DATE OF OPERATION: 11/10/2016 PREOPERATIVE DIAGNOSES: Nonischemic cardiomyopathy, left bundle branch block, chronic systolic congestive heart failure, [place] [employer] class 3 and dual chamber ICD placed in January 2016 in [place]. POSTOPERATIVE DIAGNOSES: Nonischemic cardiomyopathy, chronic systolic heart failure, [place] [employer] class 3 and left bundle branch. PROCEDURE: Upgrade to biventricular rate responsive implantable cardiac defibrillator (insertion of a left ventricular pacing lead). SURGEON: Marianna Conway DO CONCERT MANAGER: None. ANESTHESIA: Monitored anesthetic care was given via anesthesiology. Total of 850 mg of propofol, 4 mg of Versed and 300 mcg of fentanyl. INTRAVENOUS FLUIDS: 250 mL. IV CONTRAST: 10 mL. ESTIMATED BLOOD LOSS: 10 mL. CONTRAST PRETREATMENT: 125 mg of Solu-Medrol, 25 mg of Benadryl and 50 mg of Zantac. COMPLICATIONS: None. CONDITION: Stable. URINE OUTPUT: Not applicable. SPECIMENS: None. FINDINGS: None. DRAINS: None. INDICATIONS: This is a 61-year-old gentleman who has a past medical history of nonischemic cardiomyopathy, most recent ejection fraction of 15%, chronic systolic congestive heart failure, [place] [employer] class 3, peripheral arterial disease status post an aortofemoral bypass back in February 2014, hypertension, prior tobacco use, COPD, history of bladder cancer and left bundle branch block. He used to follow in [place] and underwent a dual chamber ICD in January 2016 at that time. He then transferred his care to us for the last month and being found to be in acute heart failure and also with his baseline left bundle in addition. He was recommended to have upgrade to a biventricular device. In the interim, when I saw him till the procedure, he did also have an episode of VT when he got an ICD shock; this was on 10/28/2016 early in the morning. CONSENT: Consent was obtained prior to the patient going into the electrophysiology lab. The patient was informed of risks, benefits and alternatives to the procedure. Risks include but not limited to sudden cardiac , cardiac arrhythmias, cerebrovascular accident, myocardial infarction, injury to the blood vessels, chamber of the heart or lung, bleeding and infection. The patient understood these risks and agreed to the procedures as planned. Informed consent was obtained. DESCRIPTION OF THE PROCEDURE: The patient was brought into the electrophysiology lab in a fasting state. He was connected to continuous manager sustainability. Timeout was performed to ensure patient's identity and procedure correctly. The patient received prophylactic antibiotics prior to incision (2 grams of Ancef). The patient was prepped and draped over the left infraclavicular space in a normal surgical standard fashion. Monitored anesthetic care was given throughout the procedure via anesthesiology for patient's comfort level. [place] precautions were maintained throughout the procedure. A 10 mL of 1% lidocaine and bupivacaine mixture were given over the prior surgical incision. Incision was made over the prior surgical incision and blunt dissection was performed down to identify the cephalic vein. The cephalic vein was isolated next with a #11 blade and a guidewire was inserted without any resistance. A 9.5-Syriac sheath was inserted over the guidewire without any resistance. The dilator was removed and initially a Medtronic MPX command sheath was inserted and advanced into the right atrium. The guidewire and dilator were removed and a decapolar coronary sinus diagnostic catheter was inserted through the sheath to obtain access through the coronary into the coronary sinus. Coronary sinus did have a sharp takeoff, so we ended up switching out the same Medtronic MPX command outer sheath to an Attain Command extended hook outer sheath. Then I got access again into the coronary sinus, then we did a venogram of the coronary sinus and found a nice posterolateral branch. I wired this through with a Whisper wire. I did use an inner Attain Select 90 short sheath, hence there was an acute takeoff of the coronary sinus os to give me more stability. I then advanced the lead over the Whisper wire out into the posterolateral branch. We had adequate pacing threshold and impedance. I split the inner 90 sheath under fluoroscopic guidance, followed them by the outer command extended hook coronary sinus sheath, followed them by the 9.5 Syriac sheath; all under fluoroscopic guidance. The lead was fixated to the pectoralis muscle using 0 silk suture. I then continued with blunt dissection to get the prior defibrillator generator out and removed the pocket where the capsule was disrupted inferiorly and caudally to allow for new blood flow. The pocket was then flushed with copious amounts of bacitracin saline wash. The new defibrillator generator was attached to the leads making sure that the pins were in appropriate position, passed the set screws and the set screws were all tightened. The new pulse generator was placed in the pocket, making sure that the leads were lying flat beneath the device. The incision was then closed in 3-layer fashion, using 2-0 silk suture followed by 3-0 Vicryl suture followed by a 4-0 Monocryl running stitch and Dermabond was applied as well as a pressure dressing. EQUIPMENTS: 1. Explanted old defibrillator was a [employer] Assura DR serial #[id number] implanted on 01/16/2016. 2. New defibrillator generator is Medtronic Viva Quad XT BARREL WATERER-D model #[id number], serial #[id number]. 3. Right atrial lead serial # [id number] implanted on 01/16/2016. 4. Right ventricular lead, serial #[id number] implanted on 01/16/2016. 5. New left ventricular pacing lead is a Medtronic 4598-88 cm serial #[id number]. INTRAOPERATIVE TESTIN. Right atrial lead: P-waves 0.7 millivolts, impedance 465 ohms, threshold 0.7 volts at 1.9 milliamps. 2. Right ventricular lead was not tested intraoperatively as I did not have the correct tool to test the D4 lead. 3. Left ventricular intraoperative testing, bipolar LV1-LV2 R-waves 11.2 millivolts, impedance 611 ohms, threshold 1.5 volts at 2.4 milliamps. FINAL MEASUREMENTS THROUGH THE DEVICE: 1. Right atrial lead: P-wave 0.7 millivolts, impedance 455 ohms, threshold 0.75 volts at 0.4 milliseconds. 2. Right ventricular lead: R-wave 11.1 millivolts, impedance 456 ohms, threshold 0.5 volts at 0.4 milliseconds. 3. Left ventricular lead programmed bipolar, LV1-LV2, impedance 760 ohms, threshold 1.5 volts at 0.4 milliseconds. FINAL PARAMETERS: DDD 60/130. Right atrial and right ventricular amplitude 1.5 volts, pulse width 0.4 milliseconds, sensitivity 0.3 millivolts. Left ventricular amplitude 4 volts, pulse width 0.4 milliseconds. A VT monitor zone at 140 beats per minute, a VT zone at 176 beats per minute for 20 intervals and a VF zone at 200 beats per minute for 24/32 detection interval. IMPRESSION: Successful upgrade to a biventricular rate responsive implantable cardiac defibrillator. PLAN: Monitor patient overnight, 12-lead ECG, chest x-ray. He is not allowed to lift the left elbow over the left shoulder for 1 month. He cannot lift more than 10 pounds with the left arm for 2 weeks. He can shower tomorrow. He can remove the pressure dressing tomorrow and he should follow up in our [facility] office for device and wound check in 7-10 days as already scheduled. Continue all medications. Check renal function in the morning. I attest to the content of the Intraoperative Record and any orders documented therein. Any exceptions are noted below. MTDD
[2016-11-11 03:22] VITALS: BP 93/66; PULSE 94; TEMP 36.4; O2SAT 92
[2016-11-11 07:12] LABS: BUN/CREATININE RATIO 25.7 (10-20); POTASSIUM 4.4 mmol/L (3.5-5.1)
--- NOTE | 2016-11-11 07:49 | DIAGNOSTIC IMAGING REPORT ---
CHEST 2 VIEWS ROUTINE CLINICAL HISTORY: Pacemaker insertion. COMPARISON STUDY: Chest radiograph September 23, 2016. FINDINGS: A left subclavian biventricular pacer/AICD is in place. Lead tips project over the right atrial appendage, right ventricle as well as a third lead which likely extends from the coronary sinus. Moderate cardiomegaly is unchanged. There is no evidence of pulmonary edema. There is no pneumothorax. No pleural effusion is present. IMPRESSION: No pneumothorax following placement of a left subclavian biventricular pacer/AICD. Electronically signed by: Adam Black M.D. 11/11/2016 7:48 AM Dictated Date/Time: 11/11/2016 7:47 AM
[2016-11-11 08:00] VITALS: BP 84/59; PULSE 89; TEMP 36.9; O2SAT 96
[2016-11-11] MEDS: SPIRONOLACTONE 25 MG TAB PO SCH (08:00)
[2016-11-11] MEDS: SACUBITRIL-VALSARTAN 24-26 MG TAB PO SCH (08:00)
[2016-11-11] MEDS: CARVEDILOL 3.125 MG TAB PO SCH (08:00)
[2016-11-11] MEDS: IPRATROPIUM BROMIDE/ALBUTEROL respimat INH INH SCH (08:02)
[2016-11-11] MEDS: TORSEMIDE 20 MG TAB PO SCH (08:02)
[2016-11-11] MEDS ORDERED: CLOPIDOGREL BISULFATE 75 MG TAB PO SCH (09:00)
[2016-11-11] MEDS ORDERED: FINASTERIDE 5 MG TAB PO SCH (09:00)
[2016-11-11] MEDS ORDERED: METOPROLOL SUCC 25MG EXT REL TAB PO SCH ×2 (09:00)
[2016-11-11] MEDS ORDERED: POTASSIUM CHLORIDE PWD 20 MEQ PACK PO SCH (09:00)
[2016-11-11] MEDS ORDERED: ASPIRIN 81 MG ECTAB PO SCH (09:00)
--- NOTE | 2016-11-11 09:45 | Anesthesiology Progress Note ---
Anesthesia Post Op Note Date & Time Nov 11, 2016 at 09:45 Vital Signs Pain Intensity: 5.0 Vital Signs Past 12 Hours Date Time Temp Pulse Resp B/P (MAP) Pulse Ox O2 Delivery O2 Flow Rate FiO2 11/11/16 08:00 36.9 89 18 84/59 (67) 96 Room Air 11/11/16 08:00 Room Air 11/11/16 04:00 Room Air 11/11/16 03:22 36.4 94 20 93/66 (75) 92 Room Air 11/11/16 00:00 Room Air 11/10/16 23:14 36.6 93 18 95/61 (72) 96 Room Air Notes Mental Status: alert / awake / arousable, participated in evaluation Pt Amnestic to Procedure: Yes Nausea / Vomiting: adequately controlled Pain: adequately controlled Airway Patency, RR, SpO2: stable & adequate BP & HR: stable & adequate Hydration State: stable & adequate Anesthetic Complications: no major complications apparent
--- NOTE | 2016-11-11 10:10 | Cardiology Follow-Up ---
Subjective General Date of Service: Nov 11, 2016. Chief Complaint: Status post November 10, 2016 BiV upgrade Pt evaluation today including: conversation w/ patient, physical exam, chart review, lab review, review of studies, review of inpatient medication list History of Present Illness Patient seen and examined. No complaints. No chest pain. No palpitations. No diaphragmatic stimulation. No new or worsening dyspnea. Chest x-ray this morning looks good. Coronary sinus lead is OK. No pneumothorax. No pulmonary edema. No pleural effusion Device interrogation this morning reveals appropriate function. LV impedance 722 ohms. 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 Telemetry: Ventricular paced. Patient received 100 mg of Torsemide this morning. He notes that he has been inadvertently taking both Carvedilol and metoprolol at home, missing multiple doses of clopidogrel. Allergies Coded Allergies: Iodinated Diagnostic Agents (Unverified Allergy, Intermediate, itchiness, 11/10/16) gets pretreat of Benadryl before tests Metformin (Unverified Adverse Reaction, Severe, MEMORY LOSS, 11/10/16) Codeine (Unverified Adverse Reaction, Intermediate, ITCHING, 11/10/16) Social History Smoking Status: Current Every Day Smoker Hx Tobacco Use In Past Year?: Yes Hx Alcohol Use - Type And Amou: No Hx Substance Use - Type And Am: No Problem List Medical Problems: (1) Anemia Status: Acute (2) Dehydration Status: Acute (3) Elevated troponin Status: Acute (4) Hematuria Status: Acute (5) Hematuria Status: Acute Physical Exam Vital Signs Last Vital Signs Documentation Date Time Temp Pulse Resp B/P (MAP) Pulse Ox O2 Delivery O2 Flow Rate FiO2 11/11/16 08:00 36.9 89 18 84/59 (67) 96 Room Air Physical Exam Constitutional: Level of Distress: NAD, chronically ill Psychiatric: Mental Status: active & alert Orientation: to time, to place, to person Memory: recent memory normal, remote memory normal Head: normocephalic, atraumatic Neck: pertinent finding (Normal JVP. No HJR) Lungs: Respiratory effort: no dyspnea Auscultation: no wheezing, no rales/crackles, no rhonchi, deminished air movement, decreased breath sounds Cardiovascular: Heart Auscultation: no murmurs, no rubs, no gallops, tachycardia (100), pertinent finding (Left subclavian pressure dressing removed. Wound is glued, clean, dry, intact. Mild typical erythema and surround ecchymosis. ) Peripheral Pulses: Dorsalis Pedis Pulse: decreased on the left, decreased on the right Abdomen: Bowel Sounds: normal Inspection & Palpation: soft, non-distended, no tenderness, guarding & rebound Musculoskeletal: normal Extremities: no cyanosis, no edema, no varicosities Neurologic: Cranial Nerves: grossly intact Assessment and Plan Assessment and Plan Status post November 10, 2016 device upgrade to a biventricular rate responsive implantable cardiac defibrillator, insertion of a LV lead by Dr. Marianna Conway DO, without complication. OK to discharge home. Patient received 100 mg of Torsemide this morning. His home regimen of Torsemide is 50 mg twice a day thus he was advised to not take any further torsemide today. Metoprolol will be increased from 12.5 mg/day to 12.5 mg twice a day for additional heart rate control. He is not to take carvedilol. All other medications are to be continued as prescribed. Plans are for slow gradual titration of Toprol XL as tolerated noting the episode of VT on 10/28/2016 requiring device discharge. Cardiology follow-up at [facility] on November 23, 2016 at 2: 15 PM for General Cardiology follow-up as well as device interrogation. CARDIOLOGY ATTENDING ADDENDUM: The patient was seen and personally examined. Agree with Javier Reynolds PA-C's findings and plans as documented above. Laboratory Results Last 24 Hours Test 11/11/16 06:09 Sodium Level 138 mmol/L Potassium Level 4.4 mmol/L Chloride Level 99 mmol/L Carbon Dioxide Level 30 mmol/L Anion Gap 9.0 mmol/L Blood Urea Nitrogen 26 mg/dl Creatinine 1.00 mg/dl Est Creatinine Clear Calc Drug Dose 79.5 ml/min Estimated GFR () 95.1 Estimated GFR (Non- 82.0 BUN/Creatinine Ratio 25.7 Random Glucose 123 mg/dl Calcium Level 9.0 mg/dl
[2016-11-11 12:18] VITALS: BP 84/59; PULSE 89; TEMP 36.9; O2SAT 96
[2016-11-11] MEDS ORDERED: TPRSR25 PO (12:39)
[2016-11-11] MEDS ORDERED: TORSEMIDE 20 MG TAB PO SCH (16:45)
== END 2016-11-11 13:04 | disposition home or self-care (01) ==
LOC: ENRESERVDT → ENRESERVTM → C.ACU 05:57 → C.2T 10:46
PROVIDERS: ADMIT Internal Medicine; ATTEND Internal Medicine
DX: I42.9 Cardiomyopathy, unspecified (principal); I50.22 Chronic systolic (congestive) heart failure; J44.9 Chronic obstructive pulmonary disease, unspecified; I10 Essential (primary) hypertension; I44.7 Left bundle-branch block, unspecified; I73.9 Peripheral vascular disease, unspecified; Z95.810 Presence of automatic (implantable) cardiac defibrillator; Z87.891 Personal history of nicotine dependence; Z85.51 Personal history of malignant neoplasm of bladder; Z79.82 Long term (current) use of aspirin

== ENCOUNTER 2017-01-01 12:28 | Emergency (ER) | payer OTHER ==
[~2017-01-01] VITALS: Ht 185.4 cm; Wt 63.0 kg
[~2017-01-01 12:28] MED LIST changes: -CARV3.12 PO; -CIPR-255 PO; +CLOP1TAB15 PO; -ESCI5TAB PO; +FERRTAB18 PO; -FRS/40 PO; +LNX125 PO; +METO25TA3 PO; +POTA1POW PO; +SPIR25TA89 PO; -SPR25 PO; +TORS20TA2 PO; +hydroxyzine PEG
[2017-01-01 12:33] VITALS: TEMP 36.6; Ht 185.4 cm; Wt 63.0 kg
[2017-01-01] MEDS ORDERED: SODIUM CHLORIDE 0.9% 1000ML 1,000 ML IV STA (12:56)
[2017-01-01 13:08] LABS: BASO % 0.2 %; BASO ABS # 0.02 K/uL (0-0.2); HEMATOCRIT 40.6 % (42-52); IG% 0.2 %; LYMPH ABS # 2.67 K/uL (1.2-3.4); MEAN CELL VOLUME 89.2 fL (80-100); MEAN CORPUSCULAR HGB CONC 34.7 g/dl (32-36); MEAN PLATELET VOLUME 9.9 fL (7.4-10.4); MONO % 7.9 %; NEUT % 65.7 %; PLATELET COUNT 247 K/uL (130-400); RED BLOOD COUNT 4.55 M/uL (4.7-6.1); WHITE BLOOD COUNT 10.66 K/uL (4.8-10.8)
[2017-01-01 13:20] LABS: BLOOD UREA NITROGEN 25 mg/dl (7-18); BUN/CREATININE RATIO 21.1 (10-20); C-REACTIVE PROTEIN < 0.29 mg/dl (0-0.29); CALCIUM 9.2 mg/dl (8.5-10.1); CARBON DIOXIDE 28 mmol/L (21-32); CHLORIDE 98 mmol/L (98-107); GLUCOSE 105 mg/dl (70-99); POTASSIUM 3.8 mmol/L (3.5-5.1); SODIUM 133 mmol/L (136-145)
--- NOTE | 2017-01-01 13:35 | DIAGNOSTIC IMAGING REPORT ---
LEFT KNEE 3 VIEWS CLINICAL HISTORY: Left knee pain. COMPARISON: None FINDINGS: Alignment of the total left knee arthroplasty is anatomic. There is no periprosthetic fracture or lucency. There is a moderate to large left knee joint effusion. Left knee soft tissue swelling is noted. There is mild heterotopic ossification. Moderate vascular calcification is present. IMPRESSION: 1. Status post total left knee arthroplasty. No periprosthetic fracture or lucency. 2. Moderate to large left knee joint effusion. Electronically signed by: Adam Black M.D. 01/01/2017 1:33 PM Dictated Date/Time: 01/01/2017 1:32 PM
[2017-01-01 13:36] LABS: ANISOCYTOSIS PRESENT; COMPLETE YES
--- NOTE | 2017-01-01 14:23 | DIAGNOSTIC IMAGING REPORT ---
LEFT LOWER EXTREMITY VENOUS DOPPLER CLINICAL HISTORY: Left leg pain. COMPARISON STUDY: No previous studies for comparison. TECHNIQUE: Sonography of the deep venous system of the left lower extremity was performed. Compression and augmentation were evaluated. FINDINGS: The common femoral, superficial femoral and popliteal veins were compressible. Augmentation was normal. Flow was shown within the deep calf vessels. IMPRESSION: No evidence of deep venous thrombus within the left lower extremity. Electronically signed by: Adam Black M.D. 01/01/2017 2:22 PM Dictated Date/Time: 01/01/2017 2:22 PM
[2017-01-01] MEDS ORDERED: MoRPHine SULFATE 10 MG/ML CARP/VIAL IV STA (14:41)
[2017-01-01] MEDS ORDERED: SACU1TAB PO (14:44)
[2017-01-01] MEDS ORDERED: MoRPHine SULFATE 4 MG/ML 1 ML CARP\\VIAL IV STA (14:46)
[2017-01-01] MEDS ORDERED: KETOROLAC TROMETHAMINE 30 MG/ML VIAL IV STA (14:46)
[2017-01-01] MEDS ORDERED: CEFTRIAXONE SOD INJ 1 GM ADDVIAL IV STA (14:57)
[2017-01-01] MEDS ORDERED: CEPH500C PO (15:03)
[2017-01-01] MEDS ORDERED: HYDR-5688 PO (15:07)
[2017-01-01 15:47] VITALS: BP 98/56; PULSE 76; O2SAT 97
--- NOTE | 2017-01-01 17:54 | EMERGENCY ROOM VISIT NOTE ---
History Report prepared by Odalis: Sandra Pryor Under the Supervision of: Dr. Anish Rogel D.O. First contact with patient: 12:47 Chief Complaint: KNEEPAIN Stated Complaint: KNEE PAIN History of Present Illness The patient is a 61 year old male who presents to the Emergency Room with complaints of constant left knee pain beginning this morning. His pain radiates down into his torres, calf, and ankle. It is worsened with movement especially straightening the leg. He rates his current pain as an 8/10 in severity. The patient has an abrasion to the leg that he acquired yesterday from a branch while he was cutting the grass. He denies any recent falls and injury or trauma to the knee. He denies any new swelling to the knee. He also denies any chest pain, shortness of breath, nausea, and vomiting. He has had three previous surgeries on the left knee including a meniscus repair and knee replacement. His most recent surgery was about 1 year ago. The patient takes aspirin and Plavix. He was sent to the ED by ambulance from the [facility]. His knee has been infected a total of 2 times. Source of History: patient Onset: this morning Position: knee (left) Symptom Intensity: 8/10 Quality: other (radiating) Timing: constant Modifying Factors (Worsening): movement Associated Symptoms: No chest pain, No SOB, No nausea, No vomiting Review of Systems See HPI for pertinent positives & negatives. A total of 10 systems reviewed and were otherwise negative. Past Medical & Surgical Medical Problems: (1) Acute systolic CHF (congestive heart failure), NYHA class 4 (2) CHF (congestive heart failure) (3) Gallbladder disease (4) History of implantable cardiac defibrillator (ICD) (5) History of infection of total joint prosthesis of knee (6) History of pacemaker (7) Hypertension (8) NICM (nonischemic cardiomyopathy) Surgical Problems: (1) History of alaod-fftjq-pyffgno bypass (2) History of left knee replacement Family History FH: diabetes mellitus FH: gallbladder disease FH: heart disease FH: hypertension Social History Smoking Status: Current Every Day Smoker Alcohol Use: none Drug Use: none Marital Status: Housing Status: lives with significant other Occupation Status: retired Current/Historical Medications Scheduled Aspirin (Aspirin Ec), 81 MG PO QAM Atorvastatin (Lipitor), 40 MG PO HS Cephalexin Monohydrate (Keflex), 500 MG PO QID Clopidogrel (Plavix), 75 MG PO DAILY Digoxin (Digoxin), 0.125 MG PO DAILY Finasteride (Finasteride), 5 MG PO QAM Ipratropium-Albuterol (Combivent Respimat), 1 PUFFS INH QID Iron-Vitamin C (Vitron-C), 1 TAB PO BID Metoprolol Succinate (Toprol Xl), 0.5 TAB PO BID Sacubitril-Valsartan (Entresto 24-26 mg), 0.5 TAB PO BID Spironolactone (Aldactone), 1 TAB PO BID Torsemide (Demadex), 2 TAB PO BID Scheduled PRN Hydrocodone/Acetaminophen 5MG/325MG ([place] 5MG/325MG), 1 TABLET PO Q8H PRN for Pain Phenazopyridine HCl (Phenazopyridine HCl), 200 MG PO TID PRN for Bladder pain Allergies Coded Allergies: Iodinated Diagnostic Agents (Unverified Allergy, Intermediate, itchiness, 01/01/17) gets pretreat of Benadryl before tests Metformin (Unverified Adverse Reaction, Severe, MEMORY LOSS, 01/01/17) Codeine (Unverified Adverse Reaction, Intermediate, ITCHING, 01/01/17) Physical Exam Vital Signs Date Time Temp Pulse Resp B/P (MAP) Pulse Ox O2 Delivery O2 Flow Rate FiO2 01/01/17 15:47 76 20 98/56 97 01/01/17 14:42 75 15 94/60 97 Room Air 01/01/17 13:11 84 18 100/66 97 Room Air 01/01/17 12:33 36.6 82 18 97/59 98 Room Air Physical Exam GENERAL: alert, sitting up in bed, disheveled, well appearing, well nourished, no distress, non-toxic EYE EXAM: normal conjunctiva OROPHARYNX: no exudate, no erythema, lips, buccal mucosa, and tongue normal and mucous membranes are moist NECK: supple, no nuchal rigidity, no adenopathy, non-tender LUNGS: Clear to auscultation. Normal chest wall mechanics HEART: no murmurs, S1 normal and S2 normal ABDOMEN: abdomen soft, non-tender, normo-active bowel sounds, no masses, no rebound or guarding. BACK: Back is symmetrical on inspection and there is no deformity, no midline tenderness, no CVA tenderness. PELVIS: Stable to compression anteriorly and laterally. SKIN: no rashes and no bruising UPPER EXTREMITIES: upper extremities are grossly normal. LOWER EXTREMITIES: FROM of the left hip without tenderness. Left knee with a small amount of prepatellar swelling. Flexion greater than 90 with minimal discomfort, able to extend completely with minimal discomfort. No surrounding erythema. Linear abrasion in the mid tib/fib with good venous stasis. Tenderness on palpation of the calf, anterior tib/fib most prominent over the tibia and mid-torres. Minimal tenderness with ROM of left ankle. DP 2/4. Gross sensation intact. NEURO EXAM: Normal sensorium, cranial nerves II-XII grossly intact, normal speech, no gross weakness of arms, no gross weakness of legs. Medical Decision & Procedures ER Provider Diagnostic Interpretation: Radiology results as stated below per my review and the radiologist's interpretation: LEFT LOWER EXTREMITY VENOUS DOPPLER CLINICAL HISTORY: Left leg pain. COMPARISON STUDY: No previous studies for comparison. TECHNIQUE: Sonography of the deep venous system of the left lower extremity was performed. Compression and augmentation were evaluated. FINDINGS: The common femoral, superficial femoral and popliteal veins were compressible. Augmentation was normal. Flow was shown within the deep calf vessels. IMPRESSION: No evidence of deep venous thrombus within the left lower extremity. Electronically signed by: Adam Black M.D. 01/01/2017 2:22 PM Dictated Date/Time: 01/01/2017 2:22 PM LEFT KNEE 3 VIEWS CLINICAL HISTORY: Left knee pain. COMPARISON: None FINDINGS: Alignment of the total left knee arthroplasty is anatomic. There is no periprosthetic fracture or lucency. There is a moderate to large left knee joint effusion. Left knee soft tissue swelling is noted. There is mild heterotopic ossification. Moderate vascular calcification is present. IMPRESSION: 1. Status post total left knee arthroplasty. No periprosthetic fracture or lucency. 2. Moderate to large left knee joint effusion. Electronically signed by: Adam Black M.D. 01/01/2017 1:33 PM Dictated Date/Time: 01/01/2017 1:32 PM The status of this report is Signed. Laboratory Results 01/01/17 12:03 Red Blood Count 4.55, Mean Corpuscular Volume 89.2, Mean Corpuscular Hemoglobin 31.0, Mean Corpuscular Hemoglobin Concent 34.7, Mean Platelet Volume 9.9, Neutrophils (%) (Auto) 65.7, Lymphocytes (%) (Auto) 25.0, Monocytes (%) (Auto) 7.9, Eosinophils (%) (Auto) 1.0, Basophils (%) (Auto) 0.2, Neutrophils # (Auto) 7.00, Lymphocytes # (Auto) 2.67, Monocytes # (Auto) 0.84, Eosinophils # (Auto) 0.11, Basophils # (Auto) 0.02 01/01/17 12:03 Test 01/01/17 12:03 White Blood Count 10.66 K/uL (4.8-10.8) Red Blood Count 4.55 M/uL (4.7-6.1) Hemoglobin 14.1 g/dL (14.0-18.0) Hematocrit 40.6 % (42-52) Mean Corpuscular Volume 89.2 fL (80-100) Mean Corpuscular Hemoglobin 31.0 pg (25-34) Mean Corpuscular Hemoglobin Concent 34.7 g/dl (32-36) Platelet Count 247 K/uL (130-400) Mean Platelet Volume 9.9 fL (7.4-10.4) Neutrophils (%) (Auto) 65.7 % Lymphocytes (%) (Auto) 25.0 % Monocytes (%) (Auto) 7.9 % Eosinophils (%) (Auto) 1.0 % Basophils (%) (Auto) 0.2 % Neutrophils # (Auto) 7.00 K/uL (1.4-6.5) Lymphocytes # (Auto) 2.67 K/uL (1.2-3.4) Monocytes # (Auto) 0.84 K/uL (0.11-0.59) Eosinophils # (Auto) 0.11 K/uL (0-0.5) Basophils # (Auto) 0.02 K/uL (0-0.2) RDW Standard Deviation 72.4 fL (36.4-46.3) RDW Coefficient of Variation 22.7 % (11.5-14.5) Immature Granulocyte % (Auto) 0.2 % Immature Granulocyte # (Auto) 0.02 K/uL (0.00-0.02) Anisocytosis PRESENT Erythrocyte Sedimentation Rate 15 mm/hr (0-14) Anion Gap 7.0 mmol/L (3-11) Est Creatinine Clear Calc Drug Dose 59.1 ml/min Estimated GFR () 76.3 Estimated GFR (Non- 65.8 BUN/Creatinine Ratio 21.1 (10-20) Calcium Level 9.2 mg/dl (8.5-10.1) C-Reactive Protein < 0.29 mg/dl (0-0.29) Laboratory results per my review. Medications Administered Medications (Trade) Dose Ordered Sig/Elroy Route Start Time Stop Time Status Last Admin Dose Admin Sodium Chloride 1,000 ml @ 999 mls/hr Q1H1M STAT IV 01/01/17 12:56 01/01/17 13:56 DC 01/01/17 13:10 999 MLS/HR Ketorolac Tromethamine (Toradol Inj) 30 mg NOW STAT IV 01/01/17 14:46 01/01/17 14:47 DC 01/01/17 15:20 30 MG Ceftriaxone Sodium (Rocephin Inj) 1 gm NOW STAT IV 01/01/17 14:57 01/01/17 14:58 DC 01/01/17 15:20 1 GM ED Course ED COURSE: Vital signs were reviewed and showed normal vitals. The patients medical record was reviewed The above diagnostic studies were performed and reviewed. ED treatments and interventions as stated above. 1247: The patient was evaluated in room B2. A complete history and physical examination was performed. 1256: NSS 1000 ml @ 999 mls/hr IV 1441: Morphine sulfate 6 mg IV 1445: I spoke with Dr. Corrales of orthopedics at this time. We discussed the patient's case. He recommended starting the patient on antibiotics. He does not want to tap him at this point. Have the patient follow-up with his orthopedic surgeon on Tuesday morning. 1446: Toradol 30 mg IV 1451: Upon reevaluation, the patient is feeling significantly better. His blood pressure is always a little low and he wants to go home. He does not want crutches. I discussed my findings with the patient and he understands and agrees with the treatment plan. Based on the patients age, coexisting illnesses, exam and lab findings the decision to treat as an outpatient was made. The patient remained stable while under my care. The patient appeared well at the time of discharge. 1457: Rocephin 1 gm IV Medical Decision Differential diagnosis includes etiologies such as cellulitis, abscess, MRSA infection, DVT, necrotizing fasciitis, dermatitis, drug eruption, as well as others were entertained. Patient is a 61-year-old male who presents the ER for left lower leg pain. He notes he starts at the base of his knee and travels down the entire anterior portion of the torres which is tender on palpation. He has minimal pain with axial loading of his knee. No erythema. He does have swelling the patient notes this is been there for over a year. 3 previous surgeries for infected right knee. Last surgery over a year ago. Denies any recent trauma. X-rays show a large effusion. Ultrasound shows no clot. Patient was given Toradol with significant improvement in his pain. He was hypotensive but patient notes this is chronic. Sed and CRP were not significantly elevated. There is no overlying cellulitis. Discussed case with orthopedics as this judgment is on Plavix and has hardware in his knee in regards to having them tap them knee. They declined and recommended giving antibiotics and having the patient follow- up. At this time I do not believe that the knee is infected cannot be certain without tap. The patient also agrees that this does not feel like his previous infections. No leukocytosis, inflammatory markers and a slightly elevated and afebrile patient was discharged on antibiotics to follow-up with his orthopedic surgeon on Tuesday. Discussed with Pt concerning signs and symptoms to watch out for. Pt was instructed to follow up with their PCP and discussed with the patient their option to return to the ED at anytime for persistent or worsening symptoms. The appropriate anticipatory guidance and out-patient management, including indications for return to the emergency department, were explained at length to the patient and understood. Medication Reconcilliation Current Medication List: was personally reviewed by me Blood Pressure Screening Patient's blood pressure: Normal blood pressure Consults Time Called: 1443 Consulting Physician: Dr. Corrales Returned Call: [phone] Corrales of orthopedics at this time. We discussed the patient's case. He recommended starting the patient on antibiotics. He does not want to tap him at this point. Have the patient follow-up with his orthopedic surgeon on Tuesday morning. Impression Primary Impression: Knee pain Scribe Attestation The scribe's documentation has been prepared under my direction and personally reviewed by me in its entirety. I confirm that the note above accurately reflects all work, treatment, procedures, and medical decision making performed by me. Departure Information Dispostion Home / Self-Care Prescriptions Hydrocodone/Acetaminophen 5MG/325MG ([place] 5MG/325MG) Tab 1 TABLET PO Q8H Y for Pain, #10 TAB PRN PAIN Prov: Anish Rogel, 01/01/17 Cephalexin Monohydrate (Keflex) 500 Mg Cap 500 MG PO QID, #40 CAP Prov: Anish Rogel, 01/01/17 Referrals Katelyn Sutton DO (PCP) Forms HOME CARE DOCUMENTATION FORM, IMPORTANT VISIT INFORMATION Patient Instructions ED Knee Pain [place], [facility] Additional Instructions Please follow up with your primary care doctor with in the next 24 hours. Any worsening of your symptoms, please return to the ED immediately. This includes any fevers greater than 100.4, redness of knee, increased swelling, worsening pain, chest pain, shortness breath, persistent nausea, vomiting, unable to eat or drink, or any other concerning signs or symptoms from your standpoint. You were given medications during this visit that will inhibit your ability to drive, operate machinery and work. Please do NOT drive, operate machinery or work for the next 12hrs. You were also given a prescription for a narcotic. While taking this medication you should also not drive, operate machinery and or work. Please take antibiotics as prescribed. Please contact your orthopedic surgeon and be seen within the next 48 hours. Problem Qualifiers Primary Impression: Knee pain Chronicity: acute Laterality: left Qualified Codes: M25.562 - Pain in left knee
== END 2017-01-01 15:50 | disposition home or self-care (01) ==
LOC: EDBD 12:28 → C.EDB 12:32
DX: M25.562 Pain in left knee (principal); I50.9 Heart failure, unspecified; I10 Essential (primary) hypertension; Z83.3 Family history of diabetes mellitus; Z82.49 Family history of ischemic heart disease and other diseases of the circulatory system; F17.200 Nicotine dependence, unspecified, uncomplicated; Z79.82 Long term (current) use of aspirin; M79.605 Pain in left leg

== ENCOUNTER → 2017-01-07 | Outpatient (CLI) | payer OTHER ==
[~2017-01-07] MED LIST changes: +CEPH500C PO; +HYDR-5688 PO; -POTA1POW PO; -VNTHFA/IN INH; -hydroxyzine PEG
== END | disposition home or self-care (01) ==
LOC: C.LABPBG 11:09
PROVIDERS: ATTEND Family Medicine
DX: T84.84XA Pain due to internal orthopedic prosthetic devices, implants and grafts, initial encounter (principal); Y83.1 Surgical operation with implant of artificial internal device as the cause of abnormal reaction of the patient, or of later complication, without mention of misadventure at the time of the procedure

== ENCOUNTER → 2017-02-17 | Outpatient (CLI) | payer OTHER ==
[2017-02-17 12:46] LABS: ALT/SGPT 24 U/L (12-78); AST/SGOT 19 U/L (15-37); BLOOD UREA NITROGEN 30 mg/dl (7-18); BUN/CREATININE RATIO 30.5 (10-20); CARBON DIOXIDE 31 mmol/L (21-32); CHLORIDE 99 mmol/L (98-107); GLUCOSE 105 mg/dl (70-99); POTASSIUM 3.8 mmol/L (3.5-5.1); SODIUM 135 mmol/L (136-145)
[2017-02-17 12:47] LABS: ESTIMATED AVERAGE GLUCOSE 137 mg/dl; HA1C FLAG Normal (Normal)
[2017-02-17 12:57] LABS: ALKALINE PHOSPHATASE 119 U/L (45-117); CHOLESTEROL 134 mg/dl (0-200); CHOLESTEROL/HDL RATIO 2.6; HDL CHOLESTEROL 51 mg/dl; LDL CHOLESTEROL CALCULATED 65 mg/dl; THYROID STIMULATING HORMONE 0.696 uIu/ml (0.300-4.500); TRIGLYCERIDES 92 mg/dl (0-150); VERY LOW DENSITY LIPOPROT CALC 18 mg/dl
== END | disposition home or self-care (01) ==
LOC: C.LABPBG 09:40
PROVIDERS: ATTEND Family Medicine
DX: E11.9 Type 2 diabetes mellitus without complications (principal)

== ENCOUNTER → 2017-05-18 | Outpatient (CLI) | payer OTHER | END | disposition home or self-care (01) | LOC: C.LABPBG 09:14 | PROVIDERS: ATTEND Orthopaedic Surgery | DX: T84.84XA Pain due to internal orthopedic prosthetic devices, implants and grafts, initial encounter (principal); Y83.1 Surgical operation with implant of artificial internal device as the cause of abnormal reaction of the patient, or of later complication, without mention of misadventure at the time of the procedure ==

== ENCOUNTER 2019-08-06 11:34 | Inpatient (IN) ==
--- NOTE | 2019-08-06 12:13 | Emergency Department Note ---
Entered by Yazan Payan acting as a scribe for History of Present Illness General Chief complaint: Illness Stated complaint: FILLING UP WITH FLUID, SENT BY DR Schafer Seen by Provider: 08/06/19 11:49 Source: patient Limitations: no limitations History of Present Illness Onset (ago): week(s) 1 Location: lower extremity Pain Consistency: + constant Maximum Pain Intensity: 0 Quality: + constant Exacerbated By: + other (laying down) Associated symptoms: no chest pain, no fever/chills (fevers) and no nausea/vomiting The patient is a 64 year old male who presents to the Emergency Room with complaints of constant leg swelling starting a week ago. The patient's states the patient's symptoms are worse when he says down. The patient states he was told by Dr. Rosario to come to the ED. He states he gets bad SOB when he feels like he needs to urinate, but states it gets better once he urinates. The patient states his BP usually runs around 120-130 systolic. He states he was at [place] about 2 weeks ago because his defibrilator went off. He states he was sitting in the car and was not exerting himself when it went off. The patient denies having fevers, nausea, chest pain, and recent travel. The patient states he has an US, ECHO, and chemical stress test scheduled in 3 days. Home Medications Home Medications Medication Instructions Recorded Confirmed Type aspirin 81 mg tablet,delayed 81 mg PO QAM 12/25/18 08/06/19 History release eplerenone [Inspra] 25 mg PO QAM 01/25/19 08/06/19 History nebulizers #1 ea 04/02/19 07/18/19 Rx fluticasone fur. 100 mcg-umeclid 1 puffs INH DAILY #60 ea 06/18/19 08/06/19 Rx 62.5 mcg-vilant 25 mcg inhalat.powder sacubitril 24 mg-valsartan 26 mg 0.5 tab PO BID #60 tab 07/18/19 08/06/19 Rx tablet albuterol sulfate [Ventolin HFA] 1 puffs INH Q4H PRN 08/06/19 08/06/19 History atorvastatin [Lipitor] 40 mg PO QAM 08/06/19 08/06/19 History digoxin [Digox] 0 mcg PO MOFR 08/06/19 08/06/19 History finasteride [Proscar] 5 mg PO QAM 08/06/19 08/06/19 History metoprolol succinate 50 mg PO BID 08/06/19 08/06/19 History nystatin 5 ml PO Q4H PRN 08/06/19 08/06/19 History potassium chloride [Klor-Con M10] 10 meq PO QDD 08/06/19 08/06/19 History torsemide 20 - 40 mg PO BID 08/06/19 08/06/19 History Allergies Allergy/AdvReac Type Severity Reaction Status Date / Time Iodinated Contrast Media Allergy Intermediate itchiness, Verified 08/06/19 12:45 nausea metformin AdvReac Severe MEMORY LOSS Verified 08/06/19 12:45 codeine AdvReac Intermediate ITCHING Verified 08/06/19 12:45 Past Med/Surg History Medical History Allergic rhinitis Anxiety Arteriosclerotic cardiovascular disease Chronic obstructive pulmonary disease Chronic systolic congestive heart failure, NYHA class 3 Cough productive of purulent sputum Degenerative joint disease of knee, left Depression with anxiety Diabetes mellitus type 2 in nonobese Dyspnea and respiratory abnormalities Erectile dysfunction History of infection of total joint prosthesis of knee HX. RESOLVED IN 2015 History of pacemaker Hyperlipidemia Hypertension Lumbar disc disease Lumbar spinal stenosis Malignant neoplasm of bladder NICM (nonischemic cardiomyopathy) Peripheral vascular disease Renal cyst Tobacco abuse counseling Surgical History H/O transurethral destruction of bladder lesion TURBT September 2016 History of bospi-htlvl-qmneejw bypass October 2013 History of arthroscopy of knee L KNEE MENISCAL TEAR History of cholecystectomy History of hernia repair History of implantable cardioverter-defibrillator (ICD) placement [employer] ONSET: JAN 2016- LAST CHECKED SEPTEMBER 19 2018 - PLACED CARDIOMYOPATHY INITIAL IN JAN 2016, UPGRADE TO BIVENTRICULAR OCTOBER 2016. SEES DR. [place] History of lumbar laminectomy ONSET: FEB 1981 History of total knee arthroplasty [id number] LEFT KNEE Family History Father Cardiac disorder Lung cancer Mother Diabetes Hypertension Type 2 diabetes mellitus Vision impairment Sister Type 2 diabetes mellitus Denies family history of Ovarian cancer Prostate cancer Myocardial infarction Breast cancer Colorectal cancer Social History Preferred Language: Y[place] Communication Ability: Effective Visual Impairment: No Limitations Hearing Ability: Normal Handwriting Expert Required: No Beliefs That Will Affect Care: None marital status: Current Living Situation: Spouse current occupational status: employed 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 and A total of 10 systems reviewed and were otherwise negative Physical Exam Vital Signs Vital Signs - 24 hr 08/06/19 11:40 08/06/19 12:16 08/06/19 12:21 Temperature 36.4 C L Temperature Source Oral Pulse Rate 81 84 87 Pulse Rate from SpO2 Sensor 85 84 Respiratory Rate 16 21 21 Blood Pressure 95/60 L 98/64 L Blood Pressure Mean 71 75 Pulse Oximetry 98 99 98 Oxygen Delivery Method Room Air Sepsis Recent Fever Within 48 Hours No Sepsis New/Unexplained Change in Mental Status No Sepsis Action Taken by Nursing No Action Required 08/06/19 12:30 08/06/19 12:31 08/06/19 13:15 Temperature Temperature Source Pulse Rate 84 90 87 Pulse Rate from SpO2 Sensor 84 87 81 Respiratory Rate 16 22 12 Blood Pressure 97/66 L Blood Pressure Mean 68 Pulse Oximetry 96 98 97 Oxygen Delivery Method Sepsis Recent Fever Within 48 Hours Sepsis New/Unexplained Change in Mental Status Sepsis Action Taken by Nursing 08/06/19 13:20 08/06/19 13:21 08/06/19 13:30 Temperature Temperature Source Pulse Rate 84 87 86 Pulse Rate from SpO2 Sensor 95 H 74 81 Respiratory Rate 22 21 12 Blood Pressure 96/72 L 99/68 L Blood Pressure Mean 77 73 Pulse Oximetry 98 99 99 Oxygen Delivery Method Sepsis Recent Fever Within 48 Hours Sepsis New/Unexplained Change in Mental Status Sepsis Action Taken by Nursing 08/06/19 13:31 08/06/19 14:00 08/06/19 14:01 Temperature Temperature Source Pulse Rate 85 91 H 90 Pulse Rate from SpO2 Sensor 85 90 87 Respiratory Rate 19 22 20 Blood Pressure 86/69 L Blood Pressure Mean 71 Pulse Oximetry 98 98 98 Oxygen Delivery Method Sepsis Recent Fever Within 48 Hours Sepsis New/Unexplained Change in Mental Status Sepsis Action Taken by Nursing 08/06/19 14:30 08/06/19 14:31 Temperature Temperature Source Pulse Rate 87 85 Pulse Rate from SpO2 Sensor 74 83 Respiratory Rate 22 20 Blood Pressure 94/61 L Blood Pressure Mean 65 Pulse Oximetry 95 95 Oxygen Delivery Method Sepsis Recent Fever Within 48 Hours Sepsis New/Unexplained Change in Mental Status Sepsis Action Taken by Nursing GENERAL: Patient is awake alert in no acute distress patient is resting comfortably and showing no signs of anxiety EYES: The conjunctivae are clear. The pupils are round and reactive. EARS, NOSE, MOUTH AND THROAT: The nose is without any evidence of any deformity. Mucous membranes are moist. Tongue is midline. NECK: The neck is nontender and supple. RESPIRATORY: Diminished breath sounds are noted at both bases. There is no tachypnea or conversational dyspnea. CARDIOVASCULAR: Regular rate and rhythm noted there no murmurs rubs or gallops normal S1 normal S2. GASTROINTESTINAL: The abdomen is soft. Abdomen is nontender. PELVIS: The Pelvis is stable. No tenderness to palpation is noted. BACK: No midline tenderness or or step-off noted range of motion in flexion extension as well as rotation no signs of muscle spasm noted MUSCULOSKELETAL/EXTREMITIES: There is no evidence of gross deformity full range of motion is noted in the hips and shoulders. SKIN: Pedal edema was noted bilaterally. Skin was warm and dry. NEUROLOGIC: Patient is awake alert and oriented x3. Course Course 1152: The patient was evaluated in room C2B, and a complete history and physical examination were performed. 1301: I updated the patient on his labs and imaging results. I recommended admission, and the patient agreed with the plan. 1307: I discussed the patient's case with Dr. Valencia - [facility] Hospitalist. He will evaluate the patient for further management. Administered Medications Furosemide 40 mg/ Syringe 4 mls @ 4 mls/min IV [id number] LUIS Stop: 09/05/19 16:59 Last Admin: 08/06/19 18:03 Dose: 4 mls/min Documented by: [id number] Discontinued Medications Aspirin (Aspirin) 324 mg PO NOW STA Stop: 08/06/19 13:03 Last Admin: 08/06/19 13:16 Dose: 324 mg Documented by: [id number] Furosemide (Lasix) 40 mg IV NOW STA Stop: 08/06/19 13:08 Last Admin: 08/06/19 13:16 Dose: 40 mg Documented by: [id number] Miscellaneous (Order Awaiting Action) 1 ea N/A QS LUIS Stop: 09/05/19 16:59 Last Admin: 08/06/19 18:46 Dose: Not Given Documented by: [id number] Medical Decision Making Differential Diagnosis Differential diagnoses includes but is not limited to pneumonia, bronchitis, COPD/Asthma exacerbation, pneumothorax, pulmonary embolism, congestive heart failure, acute coronary syndrome Medical Records Attestation: I reviewed the patient's medical records. Home Medications Current Medication List: was personally reviewed by me Laboratory Data Attestation: I reviewed the patient's lab results. Result diagrams: 08/06/19 12:11 08/06/19 12:11 Lab Results 08/06/19 08/06/19 08/06/19 Range/Units 12:10 12:11 12:11 WBC 10.45 (4.8-10.8) K/uL RBC 4.32 L (4.7-6.1) M/uL Hgb 14.3 (14.0-18.0) g/dL Hct 41.5 L (42-52) % MCV 96.1 (80-100) fL MCH 33.1 (25-34) pg MCHC 34.5 (32-36) g/dL RDW Std Deviation 51.8 H (36.4-46.3) fL RDW Coeff of Rich 15.1 H (11.5-14.5) % Plt Count 224 (130-400) K/uL MPV 10.8 H (7.4-10.4) fL Immature Gran % (Auto) 0.2 % Neut % (Auto) 60.3 % Lymph % (Auto) 28.7 % [place] % (Auto) 10.0 % Eos % (Auto) 0.6 % Baso % (Auto) 0.2 % Immature Gran # (Auto) 0.02 (0.00-0.02) K/uL Neut # (Auto) 6.31 (1.4-6.5) K/uL Lymph # (Auto) 3.00 (1.2-3.4) K/uL [place] # (Auto) 1.04 H (0.11-0.59) K/uL Eos # (Auto) 0.06 (0-0.5) K/uL Baso # (Auto) 0.02 (0-0.2) K/uL PT INR APTT PTT Ratio Sodium 137 (136-145) mmol/L Potassium 3.7 (3.5-5.1) mmol/L Chloride 102 (98-107) mmol/L Carbon Dioxide 25 (21-32) mmol/L Anion Gap 11.0 (3-11) BUN 29 H (7-18) mg/dl Creatinine 1.44 H (0.6-1.4) mg/dl Est Cr Clr Drug Dosing 57.9 ml/min Est GFR ( Amer) 59.9 Est GFR (Non-Af Amer) 51.7 BUN/Creatinine Ratio 19.9 (10-20) Glucose 99 (70-99) mg/dl Calcium 9.1 (8.5-10.1) mg/dl Magnesium 2.3 (1.8-2.4) mg/dl Total Bilirubin 2.5 H (0.2-1) mg/dl AST 31 (15-37) U/L ALT 49 (12-78) U/L Alkaline Phosphatase 108 (45-117) U/L Troponin I 0.073 H* (0-0.045) ng/ml NT-Pro-B Natriuret Pep 20591 H (0-900) pg/ml Total Protein 7.1 (6.4-8.2) gm/dl Albumin 3.4 (3.4-5.0) gm/dl Globulin 3.7 (2.5-4.0) gm/dl Albumin/Globulin Ratio 0.9 (0.9-2) Specimen Hemolysis Urine Color Yellow Urine Appearance Clear (Clear) Urine pH 6.5 (4.5-7.5) Ur Specific [place] 1.013 (1.000-1.030) Urine Protein Negative (Negative) Urine Glucose (UA) Negative (Negative) Urine Ketones Negative (Negative) Urine Blood Negative (Negative) Urine Nitrite Negative (Negative) Urine Bilirubin Negative (Negative) Urine Urobilinogen Negative (Negative) Ur Leukocyte Esterase Negative (Negative) 08/06/19 08/06/19 Range/Units 12:11 13:41 WBC (4.8-10.8) K/uL RBC (4.7-6.1) M/uL Hgb (14.0-18.0) g/dL Hct (42-52) % MCV (80-100) fL MCH (25-34) pg MCHC (32-36) g/dL RDW Std Deviation (36.4-46.3) fL RDW Coeff of Rich (11.5-14.5) % Plt Count (130-400) K/uL MPV (7.4-10.4) fL Immature Gran % (Auto) % Neut % (Auto) % Lymph % (Auto) % [place] % (Auto) % Eos % (Auto) % Baso % (Auto) % Immature Gran # (Auto) (0.00-0.02) K/uL Neut # (Auto) (1.4-6.5) K/uL Lymph # (Auto) (1.2-3.4) K/uL [place] # (Auto) (0.11-0.59) K/uL Eos # (Auto) (0-0.5) K/uL Baso # (Auto) (0-0.2) K/uL PT Cancelled 11.8 INR Cancelled 1.2 H APTT Cancelled 24.4 PTT Ratio Cancelled 0.9 Sodium (136-145) mmol/L Potassium (3.5-5.1) mmol/L Chloride (98-107) mmol/L Carbon Dioxide (21-32) mmol/L Anion Gap (3-11) BUN (7-18) mg/dl Creatinine (0.6-1.4) mg/dl Est Cr Clr Drug Dosing ml/min Est GFR ( Amer) Est GFR (Non-Af Amer) BUN/Creatinine Ratio (10-20) Glucose (70-99) mg/dl Calcium (8.5-10.1) mg/dl Magnesium (1.8-2.4) mg/dl Total Bilirubin (0.2-1) mg/dl AST (15-37) U/L ALT (12-78) U/L Alkaline Phosphatase (45-117) U/L Troponin I (0-0.045) ng/ml NT-Pro-B Natriuret Pep (0-900) pg/ml Total Protein (6.4-8.2) gm/dl Albumin (3.4-5.0) gm/dl Globulin (2.5-4.0) gm/dl Albumin/Globulin Ratio (0.9-2) Specimen Hemolysis Urine Color Urine Appearance (Clear) Urine pH (4.5-7.5) Ur Specific [place] (1.000-1.030) Urine Protein (Negative) Urine Glucose (UA) (Negative) Urine Ketones (Negative) Urine Blood (Negative) Urine Nitrite (Negative) Urine Bilirubin (Negative) Urine Urobilinogen (Negative) Ur Leukocyte Esterase (Negative) Imaging Data Radiologist's Impression: Radiology results as stated below per my review and the radiologist's interpretation: XR chest 1V portable CLINICAL HISTORY: Dyspnea COMPARISON STUDY: 03/14/2019 FINDINGS: The heart is moderately enlarged. There is a left subclavian dual- chamber central venous pacemaker. There is no failure. There is no focal pulmonary consolidation.[ IMPRESSION: Progressive cardiac enlargement. No evidence of focal pulmonary consolidation. ACT 112: Negative or not required by law. Electronically signed by: Johann Avalos M.D. 08/06/2019 12:14 PM ECG Data Attestation: I personally reviewed and interpreted this ECG as follows: Indication: + SOB/dyspnea Rate (beats per minute): 90 Rhythm: + other (Ventricular paced rhythm) ECG ST segments: + ST depression ECG Findings: + PVCs Comparison ECG Date: from (11/02/17) Change: no significant change Blood Pressure Blood Pressure Findings: Low blood pressure Blood Pressure Disposition: further management by hospitalist ADIN Narrative The patient is a 64-year-old male who presented to the emergency department for an evaluation of orthopnea and dyspnea on exertion. The patient has a long cardiac history including cardiac stenting. He is currently scheduled for a work-up this week with his primary combiner operator as a follow-up from an admission to [facility] where he was unable to be kept in the hospital because no cardiac coverage. The patient admits to exertional symptoms. The patient's EKG shows no specific change from previous but he does have an elevated tropon in. The patient has had elevated troponin in the past. He is also somewhat hypotensive he states this is new over the last few weeks. I discussed the patient's laboratory and radiographic studies with him. He was treated with aspirin as well as Lasix in the emergency department. I would be very concerned this represents a cardiac event leading to the patient's decreased cardiac output hypotension and volume retention. For this reason I discussed his case with the on-call [facility] hospitalist. They have agreed to evaluate the patient in the emergency department for further management disposition. Is likely the patient will require further cardiac work-up such as echocardiogram to further evaluate and direct care. The patient was stable on reevaluation. He does continue to use tobacco products. Impression & Plan CHF (congestive heart failure), Peripheral edema, DAKOTA (acute kidney injury), Elevated troponin Discharge Plan Visit Data *Final* Discharge Date/Time: 08/06/19 16:00 Chief Complaint: Illness Stated Complaint: FILLING UP WITH FLUID, SENT BY DR TRUJILLO Provider: Ezra Lemus Discharge Problem: CHF (congestive heart failure), Peripheral edema, DAK[place] (acute kidney injury), Elevated troponin Patient Disposition: Admitted As Inpatient Discharge Instructions Interventions: ED Discharge Assessment Last Done: 08/06/19 16:00 Discharge Problem: CHF (congestive heart failure) Qualifiers: Heart failure type: unspecified Heart failure chronicity: unspecified Qualified Code(s): I50.9 - Heart failure, unspecified The scribe's documentation has been prepared under my direction and personally reviewed by me in its entirety. I confirm that the note above accurately reflects all work, treatment, procedures, and medical decision making performed by me.
--- NOTE | 2019-08-06 12:16 | XRay Report ---
XR chest 1V portable CLINICAL HISTORY: Dyspnea COMPARISON STUDY: 03/14/2019 FINDINGS: The heart is moderately enlarged. There is a left subclavian dual-chamber central venous pa cemaker. There is no failure. There is no focal pulmonary consolidation.[ IMPRESSION: Progressive cardiac enlargement. No evidence of focal pulmonary consolidation. ACT 112: Negative or not required by law. Electronically signed by: Johann Avalos M.D. 08/06/2019 12:14 PM
[2019-08-06 12:22] LABS: Appearance Urine Clear (Clear); Bilirubin Urine Negative (Negative); Blood Urine Negative (Negative); Color Urine Yellow; Glucose Urine UA Negative (Negative); Ketones Urine Negative (Negative); Leukocyte Esterase Urine Negative (Negative); Nitrite Urine Negative (Negative); Protein Urine Negative (Negative); Specific Gravity Urine 1.013 (1.000-1.030); Urobilinogen Urine Negative (Negative); pH Urine 6.5 (4.5-7.5)
[2019-08-06 12:24] LABS: Basophils # (auto) 0.02 K/uL (0-0.2); Basophils % (auto) 0.2 %; Eosinophils # (auto) 0.06 K/uL (0-0.5); Eosinophils % (auto) 0.6 %; Hematocrit (blood only) 41.5 % (42-52); Hemoglobin 14.3 g/dL (14.0-18.0); Immature Granulocytes # (auto) 0.02 K/uL (0.00-0.02); Immature Granulocytes % (auto) 0.2 %; Lymphocytes % (auto) 28.7 %; Mean Corpuscular Hemoglobin 33.1 pg (25-34); Mean Corpuscular Hgb Conc 34.5 g/dL (32-36); Mean Corpuscular Volume 96.1 fL (80-100); Mean Platelet Volume 10.8 fL (7.4-10.4); Monocytes # (auto) 1.04 K/uL (0.11-0.59); Neutrophils # (auto) 6.31 K/uL (1.4-6.5); Neutrophils % (auto) 60.3 %; Platelet Count 224 K/uL (130-400); RDW Coefficient of Variation 15.1 % (11.5-14.5); RDW Standard Deviation 51.8 fL (36.4-46.3); Red Blood Count 4.32 M/uL (4.7-6.1); White Blood Count 10.45 K/uL (4.8-10.8)
[2019-08-06 12:55] LABS: Albumin Globulin Ratio 0.9 (0.9-2); Albumin Level 3.4 gm/dl (3.4-5.0); BUN Creatinine Ratio 19.9 (10-20); Bilirubin,Total 2.5 mg/dl (0.2-1); Calcium 9.1 mg/dl (8.5-10.1); Creatinine Clr Calc Pharmacy 57.9 ml/min; Est GFR (African American) 59.9; Est GFR (Non-African American) 51.7; Globulin 3.7 gm/dl (2.5-4.0); Magnesium 2.3 mg/dl (1.8-2.4); Potassium 3.7 mmol/L (3.5-5.1); Total Protein 7.1 gm/dl (6.4-8.2); Troponin I 0.073 ng/ml (0-0.045)
[2019-08-06] MEDS ORDERED: ASPIRIN CHEW 324 MG PO STA (13:02)
[2019-08-06] MEDS ORDERED: FUROSEMIDE 40 MG/4 ML VIAL IV STA (13:07)
[2019-08-06 14:10] LABS: INR 1.2 (0.9-1.1); Partial Thromboplastin Ratio 0.9; Partial Thromboplastin Time 24.4 Seconds (21.0-31.0); Prothrombin Time 11.8 Seconds (9.0-12.0)
--- NOTE | 2019-08-06 14:55 | History & Physical Report ---
Date of Service August 06, 2019 Assessment & Plan (1) CHF (congestive heart failure): Acute non ischemic Systolic CHF 64 yo male reports Orthopnea and SOB on exertion. Trop mildly elevated. Low EF 15-20% Ordered lasix IV BID. Patient received first dose of lasix in ER. Will hold beta pavithra and lia inhibitor for now. (2) DAKOTA (acute kidney injury): Likely secondary to above problem. Will monitor his creatinine (3) Elevated troponin: Trop elevated. May need cardiac cath, will leave this up with cardio (4) Tobacco abuse counseling: Patient needs to quit smoking. (5) History of implantable cardioverter-defibrillator (ICD) placement: due to h/o non ischemic cardiomyopathy (6) Hyperlipidemia: continue statin (7) Hypertension: resume home meds except what is noticed above. Full code History of Present Illness Chief Complaint: Orthopnea Primary Care Provider: Katelyn Sutton DO 64 yo male with past medical history of severe cardiomyopathy reports that for the past month, he has been having a non productive cough. This progressed to orthopnea and shortness of breath on exertion which began 2 weeks ago. Patient needed to sit up to breath and could no longer rest his head in bed. Patient states that even walking towards the bathroom would make him feel SOB. Today he noticed some midsternal dull chest pain. Patient states he was recently seen by cardiology as an outpatient. Today, he called his computer technologist due to the fact that he was not improving and they recommended that he come to the ER. Allergies Allergy/AdvReac Type Severity Reaction Status Date / Time Iodinated Contrast Media Allergy Intermediate itchiness, Verified 08/06/19 12:45 nausea metformin AdvReac Severe MEMORY LOSS Verified 08/06/19 12:45 codeine AdvReac Intermediate ITCHING Verified 08/06/19 12:45 Home Medications Home Medications Medication Instructions Recorded Confirmed Type aspirin 81 mg tablet,delayed 81 mg PO QAM 12/25/18 08/06/19 History release eplerenone [Inspra] 25 mg PO QAM 01/25/19 08/06/19 History nebulizers #1 ea 04/02/19 07/18/19 Rx fluticasone fur. 100 mcg-umeclid 1 puffs INH DAILY #60 ea 06/18/19 08/06/19 Rx 62.5 mcg-vilant 25 mcg inhalat.powder sacubitril 24 mg-valsartan 26 mg 0.5 tab PO BID #60 tab 07/18/19 08/06/19 Rx tablet albuterol sulfate [Ventolin HFA] 1 puffs INH Q4H PRN 08/06/19 08/06/19 History atorvastatin [Lipitor] 40 mg PO QAM 08/06/19 08/06/19 History digoxin [Digox] 0 mcg PO MOFR 08/06/19 08/06/19 History finasteride [Proscar] 5 mg PO QAM 08/06/19 08/06/19 History metoprolol succinate 50 mg PO BID 08/06/19 08/06/19 History nystatin 5 ml PO Q4H PRN 08/06/19 08/06/19 History potassium chloride [Klor-Con M10] 10 meq PO QDD 08/06/19 08/06/19 History torsemide 20 - 40 mg PO BID 08/06/19 08/06/19 History Past Med/Surg History Medical History Allergic rhinitis Anxiety Arteriosclerotic cardiovascular disease Chronic obstructive pulmonary disease Chronic systolic congestive heart failure, NYHA class 3 Cough productive of purulent sputum Degenerative joint disease of knee, left Depression with anxiety Dyspnea and respiratory abnormalities Erectile dysfunction History of infection of total joint prosthesis of knee HX. RESOLVED IN 2015 History of pacemaker Hyperlipidemia Hypertension Lumbar disc disease Lumbar spinal stenosis Malignant neoplasm of bladder NICM (nonischemic cardiomyopathy) Peripheral vascular disease Renal cyst Tobacco abuse counseling Surgical History H/O transurethral destruction of bladder lesion TURBT September 2016 History of ainwo-bgeuq-tacgusl bypass October 2013 History of arthroscopy of knee L KNEE MENISCAL TEAR History of cholecystectomy History of hernia repair History of implantable cardioverter-defibrillator (ICD) placement MEDTRONIC ONSET: JAN 2016- LAST CHECKED SEPTEMBER 19 2018 - PLACED CARDIOMYOPATHY INITIAL IN JAN 2016, UPGRADE TO BIVENTRICULAR OCTOBER 2016. SEES DR. TONEY PARK History of lumbar laminectomy ONSET: FEB 1981 History of total knee arthroplasty [id number] LEFT KNEE Family History Father Cardiac disorder Lung cancer Mother Diabetes Hypertension Type 2 diabetes mellitus Vision impairment Sister Type 2 diabetes mellitus Denies family history of Ovarian cancer Prostate cancer Myocardial infarction Breast cancer Colorectal cancer Social History Preferred Language: Turkmen Communication Ability: Effective Visual Impairment: No Limitations Hearing Ability: Normal Mail Handler Required: No Beliefs That Will Affect Care: None marital status: Current Living Situation: Spouse current occupational status: employed 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 [employer] Other Information That Helps Us Care for You: No Feels Safe at Home: Yes Safety Concerns: Feels Safe At This Time Smoking Status: Current every day smoker Tobacco Type: cigarettes ; packs per day: 1 ; Cigarettes Per Day: 10 ; Second Hand Exposure: Yes ; Hx Alcohol Use: No Hx Substance Use: No Dental Care, Regularly: No Physical Activity Frequency: Does not Exercise Seatbelt Use: always Sunscreen Use: No Review of Systems Constitutional: + fatigue; no fever, no sweats and no body aches Eyes: no blind spots and no discharge Ear, Nose, Mouth, Throat: no ear pain and no tinnitus Respiratory: + cough and + dyspnea Cardiovascular: + chest pain Gastrointestinal: no abdominal pain and no early satiety Genitourinary: no dysuria Integumentary: no acne and no lesions Neurologic: no gait abnormality Psychiatric: no behavioral changes Endocrine: + fatigue Hematologic / Lymphatic: no easy bleeding Allergy / Immunological: no GI upset with certain foods Physical Exam Constitutional: well developed and well nourished Eyes: PERRL, conjunctivae normal, anicteric sclerae ENMT: external ear and nose normal, oropharynx normal Neck: trachea midline, no thyromegaly Respiratory: normal respiratory effort, lungs clear to auscultation (except for bibasilar rales) Cardiovascular: Rate/Rhythm: regular rate and regular rhythm Heart Sounds: normal S1 and normal S2 Vessels: + JVD Gastrointestinal (Abdomen): normal bowel sounds, soft, nontender, no hepatosplenomegaly Musculoskeletal: no cyanosis or clubbing, extremities motor strength 5/5 Extremities: extremities normal to inspection (except for lower extremity edema) Skin: no rashes, warm and dry Neurologic: PERRL, EOMI, accommodation nl, no face palsy, no dysarthria Psychiatric: A+Ox3, euthymic affect Lymphatic: no cervical or axillary lymphadenopathy Results & Data Vital Signs (Past 12 Hours) Vital Signs Temp Pulse Resp BP Pulse Ox 08/06/19 14:31 85 20 95 08/06/19 14:30 87 22 94/61 L 95 08/06/19 14:01 90 20 98 08/06/19 14:00 91 H 22 86/69 L 98 08/06/19 13:31 85 19 98 08/06/19 13:30 86 12 99/68 L 99 08/06/19 13:21 87 21 99 08/06/19 13:20 84 22 96/72 L 98 08/06/19 13:15 87 12 97 08/06/19 12:31 90 22 98 08/06/19 12:30 84 16 97/66 L 96 08/06/19 12:21 87 21 98 08/06/19 12:16 84 21 98/64 L 99 08/06/19 11:40 36.4 C L 81 16 95/60 L 98 PG Care Time/CCT Total # of Minutes Spent Total Time Spent with Patient: Total time spent is greater than 50% in coordination of care (as documented) at patient's floor/unit and/or counseling patient: Coding Level of Care Code 86508 Initial Inpt Care Lvl 3 Diagnoses CHF (congestive heart failure) I50.9 Heart failure chronicity: unspecified Heart failure type: unspecified DAKOTA (acute kidney injury) N17.9 Elevated troponin R79.89 Tobacco abuse counseling Z71.6 History of implantable cardioverter-defibrillator (ICD) placement Z95.810 Hyperlipidemia E78.5 Hypertension I10 Time Spent (min) 65 (1) CHF (congestive heart failure) Heart failure chronicity: unspecified Heart failure type: unspecified Qualified Code(s): I50.9 - Heart failure, unspecified
[2019-08-06] MEDS ORDERED: FUROSEMIDE 40 MG in SYRINGE 0 ML IV SCH (17:00)
[2019-08-06] MEDS ORDERED: EPLERENONE~ORDER AWAITING ACTION SCH (17:00)
[2019-08-07] MEDS ORDERED: DEXTROMETHORPHAN POLYMR COMPLX 30 MG/5 ML UDP PO PRN (02:33)
[2019-08-07 07:46] LABS: BUN Creatinine Ratio 23.7 (10-20); Calcium 8.7 mg/dl (8.5-10.1); Creatinine Clr Calc Pharmacy 52.8 ml/min; Est GFR (African American) 54.8; Est GFR (Non-African American) 47.3; Potassium 3.7 mmol/L (3.5-5.1)
[2019-08-07 07:58] LABS: Troponin I 0.08 ng/ml (0-0.045)
[2019-08-07] MEDS ORDERED: ATORVASTATIN 40 MG TAB PO SCH (09:00)
[2019-08-07] MEDS ORDERED: [UNRECOGNIZED DRUG - REMARK] PO SCH (09:00)
[2019-08-07] MEDS ORDERED: FLUTICASONE/VILANTEROL 100/25MCG 14 PUFFS/INHALER INH SCH (09:00)
[2019-08-07] MEDS ORDERED: FINASTERIDE 5 MG TAB PO SCH (09:00)
[2019-08-07] MEDS ORDERED: FLUTICASONE FUROATE 100MCG 14 PUFFS/INHALER INH SCH (09:00)
[2019-08-07] MEDS ORDERED: UMECLIDINIUM BROMIDE 62.5MCG/BLISTER 7 PUFFS/INHALER INH SCH (09:00)
[2019-08-07] MEDS ORDERED: ASPIRIN 81 MG ECTAB PO SCH (09:00)
[2019-08-07] MEDS ORDERED: ACETAMINOPHEN 325 MG TAB PO PRN (11:18)
--- NOTE | 2019-08-07 11:25 | Cardiac Catheterization ---
Cardiac Cath Procedure Brief Procedure Date August 07, 2019 Pre-Procedure Diagnosis Pre-Procedure Diagnosis: Valvular Disease AUC Score AUC Score: 7 Post-Procedure Diagnosis Post-Procedure Diagnosis: Normal Coronary Arteries Procedure(s) Performed Procedure(s) Performed: Coronary Angiography and Aortography [employer] Hemmer Samuel Rosario MD Estimated Blood Loss Estimated Blood Loss: <15cc Medication(s) Medication(s): Fentanyl (12.5 mcg IV), Lidocaine 1% (Local infiltration access site) and Versed (1 mg IV) Preliminary Findings Left dominant coronary anatomy and Large-caliber normal vessels without obstruction Left main normal length and caliber without obstruction Left anterior descending: Type III in distribution. Gives rise to a large diagonal branch shortly after its origin. There is no significant disease Left circumflex: Left circumflex is a dominant distribution. Gives rise to a large bifurcating obtuse marginal then turns along the AV groove to give rise to a single posterior lateral branch and a long posterior descending artery. There is no disease i. Ramus intermedius moderate caliber long vessel without disease Right coronary artery small nondominant vessel with 2 right ventricular branches and no disease Aortography: The aortic valve may be seen to be heavily calcified and with restricted mobility. There is trivial aortic insufficiency. The aortic root is mildly enlarged. The ascending aorta is moderately enlarged Recommendations Recommendations: Valve Replacement Specimens Specimens: None Fluids (cc crystalloids) Fluids (cc crystalloids): 50 Anesthesia Start time: 1032, stop time 1115 Procedural Complication(s) None Disposition Customer Strategy Manager Holding/Recovery
[2019-08-07] MEDS ORDERED: SODIUM CHLORIDE 0.9% 500 ML IV PRN (11:45)
[2019-08-07] MEDS ORDERED: SODIUM CHLORIDE 0.9% 1000ML 1,000 ML IV SCH ×2 (11:45→13:00)
[2019-08-07] MEDS ORDERED: HEPARIN SOD 5,000 UNIT/0.5 ML VIAL SQ SCH (14:00)
--- NOTE | 2019-08-07 14:17 | Cardiology Consultation ---
Date of Consultation August 07, 2019 Assessment & Plan (1) Low output heart failure: Patient is a very complex 64-year-old male with history as outlined of nonischemic cardiomyopathy and an underlying vascular disease with recent clinical decline following presentation with VT VF arrest on 07/20/2019. Despite medication adjustments and management of chronic class III-IV heart failure patient has had worsening dyspnea without signs of profound volume overload reflecting low cardiac output syndrome. Optimally patient should undergo pacer defibrillator interrogation, repeat diagnostic catheterization right and left assess filling pressures as well as exclude progression coronary artery disease, possible initiation of antiarrhythmic therapy and may require inotropic support as course progresses. I recommended referral to tertiary care center with patient agreement. Tentative transfer arrangements made to [facility], accepting Dr. Galen Mansfield (2) NICM (nonischemic cardiomyopathy): (3) Biventricular automatic implantable cardioverter defibrillator in situ: (4) Peripheral vascular disease: History of Present Illness Reason for Consultation: Low cardiac output, decompensated nonischemic car diomyopathy Requesting Physician: Dr. Jatin Falcon Attending Physician: Jatin Falcon History of Present Illness Patient is a 64 year old male with very complex past history 1. Systolic congestive heart failure. 2. Severe nonischemic cardiomyopathy. NYHA Class III-IV. EF less than 15%. 3. Status post dual chamber [facility] 4. Ventricular tachycardia on 10/28/2016 requiring device discharge. 5. Status post November 10, 2016 device upgrade to a biventricular rate responsive implantable cardiac defibrillator, insertion of a LV lead by Dr. Marianna Conway at [facility]. 6. Status post diagnostic cardiac catheterizations in 2011, February 2014, and December 2015. December 2015 catheterization with 30 to 40% mid LAD stenosis, mild disease in the left circumflex, and a 60 to 70% narrowing of the RCA without hemodynamic significance by FFR. 7. Past asymptomatic PVC's, asymptomatic nonsustained ventricular tachycardia 8. VT/VF arrest on July 20, 2019 with appropriate defibrillator discharge and resuscitation. No overt inciting cause other than hypokalemia observed on ER laboratory studies 9. Gynecomastia, resolved after switching Spironolactone to eplerenone 10. Dyslipidemia 11. Peripheral vascular disease; status post aortobifemoral bypass in October 2013. Followed by [facility] 12. Chronic tobacco abuse. COPD. 13. Recurrent bladder cancer, status post transurethral resection of a right sided bladder tumor on September 27, 2016 14. Hypertension 15. Dyslipidemia Patient presents this admission noting gradual decline after acute event on 07/20/2019. Patient that time had defibrillator activation for appropriate VT VF. No overt inciting cause on initial evaluation other than hypokalemia. Most recent has had worsening symptoms of dyspnea and fatigue despite upward titration of diuretics as an outpatient. Beta-blockers were increased after initial event. Today today continues to complain of weakness fatigue pallor and dyspnea though without significant volume overload. O2 saturations 97% on room air. No chest pains, tachypalpitations syncope or near syncope since 07/20/2019. No bleeding difficulties no melena medication dysuria hematuria. Patient has been compliant with his medications. Minimal weight gain Allergies Allergy/AdvReac Type Severity Reaction Status Date / Time Iodinated Contrast Media Allergy Intermediate itchiness, Verified 08/06/19 12:45 nausea metformin AdvReac Severe MEMORY LOSS Verified 08/06/19 12:45 codeine AdvReac Intermediate ITCHING Verified 08/06/19 12:45 Home Medications Home Medications Medication Instructions Recorded Confirmed Type aspirin 81 mg tablet,delayed 81 mg PO QAM 12/25/18 08/06/19 History release eplerenone [Inspra] 25 mg PO QAM 01/25/19 08/06/19 History nebulizers #1 ea 04/02/19 07/18/19 Rx fluticasone fur. 100 mcg-umeclid 1 puffs INH DAILY #60 ea 06/18/19 08/06/19 Rx 62.5 mcg-vilant 25 mcg inhalat.powder sacubitril 24 mg-valsartan 26 mg 0.5 tab PO BID #60 tab 07/18/19 08/06/19 Rx tablet albuterol sulfate [Ventolin HFA] 1 puffs INH Q4H PRN 08/06/19 08/06/19 History atorvastatin [Lipitor] 40 mg PO QAM 08/06/19 08/06/19 History digoxin [Digox] 0 mcg PO MOFR 08/06/19 08/06/19 History finasteride [Proscar] 5 mg PO QAM 08/06/19 08/06/19 History metoprolol succinate 50 mg PO BID 08/06/19 08/06/19 History nystatin 5 ml PO Q4H PRN 08/06/19 08/06/19 History potassium chloride [Klor-Con M10] 10 meq PO QDD 08/06/19 08/06/19 History torsemide 20 - 40 mg PO BID 08/06/19 08/06/19 History Patient History Medical History Allergic rhinitis Anxiety Arteriosclerotic cardiovascular disease Chronic obstructive pulmonary disease Chronic systolic congestive heart failure, NYHA class 3 Cough productive of purulent sputum Degenerative joint disease of knee, left Depression with anxiety Dyspnea and respiratory abnormalities Erectile dysfunction History of infection of total joint prosthesis of knee HX. RESOLVED IN 2015 History of pacemaker Hyperlipidemia Hypertension Lumbar disc disease Lumbar spinal stenosis Malignant neoplasm of bladder NICM (nonischemic cardiomyopathy) Peripheral vascular disease Renal cyst Tobacco abuse counseling Surgical History H/O transurethral destruction of bladder lesion TURBT September 2016 History of iwmbo-snrht-utlrwtf bypass October 2013 History of arthroscopy of knee L KNEE MENISCAL TEAR History of cholecystectomy History of hernia repair History of implantable cardioverter-defibrillator (ICD) placement MEDTRONIC ONSET: JAN 2016- LAST CHECKED SEPTEMBER 19 2018 - PLACED CARDIOMYOPATHY INITIAL IN JAN 2016, UPGRADE TO BIVENTRICULAR OCTOBER 2016. SEES DR. TONEY PARK History of lumbar laminectomy ONSET: FEB 1981 History of total knee arthroplasty [id number] LEFT KNEE Family History Father Cardiac disorder Lung cancer Mother Diabetes Hypertension Type 2 diabetes mellitus Vision impairment Sister Type 2 diabetes mellitus Denies family history of Ovarian cancer Prostate cancer Myocardial infarction Breast cancer Colorectal cancer Social History Preferred Language: Tongan Communication Ability: Effective Visual Impairment: No Limitations Hearing Ability: Normal Computing Consultant Required: No Beliefs That Will Affect Care: None marital status: Current Living Situation: Spouse current occupational status: employed 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 [employer] Other Information That Helps Us Care for You: No Feels Safe at Home: Yes Safety Concerns: Feels Safe At This Time Smoking Status: Current every day smoker Tobacco Type: cigarettes ; packs per day: 1 ; Cigarettes Per Day: 10 ; Second Hand Exposure: Yes ; Hx Alcohol Use: No Hx Substance Use: No Dental Care, Regularly: No Physical Activity Frequency: Does not Exercise Seatbelt Use: always Sunscreen Use: No Physical Exam Constitutional: + ill appearing Eyes: PERRL, conjunctivae normal, anicteric sclerae ENMT: external ear and nose normal, oropharynx normal Neck: trachea midline, no thyromegaly Respiratory: Auscultation: + diminished lung sounds Cardiovascular: Rate/Rhythm: regular rate and regular rhythm Heart Sounds: normal S1, normal S2 and + gallop; no murmur Palpation: + heave and + palpable S3 Vessels: + JVD, normal carotid upstroke and radial pulses present; no carotid bruit Extremities: + edema (Trace only) Gastrointestinal (Abdomen): normal bowel sounds, soft, nontender, no hepatosplenomegaly Musculoskeletal: no cyanosis or clubbing, extremities motor strength 5/5 Skin: no rashes, warm and dry Neurologic: PERRL, EOMI, accommodation nl, no face palsy, no dysarthria Psychiatric: A+Ox3, euthymic affect Results & Data ([facility]) Vital Signs (Past 12 Hours) Vital Signs Temp Pulse Pulse Resp BP Pulse Ox 08/07/19 12:04 36.9 C 73 18 100/73 97 08/07/19 07:58 36.2 C L 101 H 20 99/69 L 96 08/07/19 07:53 94 H 08/07/19 03:42 36.4 C L 54 L 17 107/79 98 Laboratory Results Laboratory Results - last 24 hr 08/06/19 08/07/19 08/07/19 19:04 01:00 06:52 Sodium 137 Potassium 3.7 Chloride 104 Carbon Dioxide 24 Anion Gap 9.0 BUN 37 H Creatinine 1.55 H Est Cr Clr Drug Dosing 52.8 Est GFR ( Amer) 54.8 Est GFR (Non-Af Amer) 47.3 BUN/Creatinine Ratio 23.7 H Glucose 120 H Calcium 8.7 Troponin I 0.076 H* 0.081 H* 0.080 H*
--- NOTE | 2019-08-07 14:27 | Electrocardiogram Report ---
Test Reason : Blood Pressure : / mmHG Vent. Rate : 090 BPM Atrial Rate : 090 BPM P-R Int : 000 ms QRS Dur : 136 ms QT Int : 398 ms P-R-T Axes : 081 -35 034 degrees QTc Int : 486 ms sinus rhythm with sequential Ventricular-paced rhythm Premature ventricular complexes Abnormal ECG When compared with ECG of 02-NOV-2017 10:45, Vent. rate has increased BY 28 BPM Confirmed by Francisco Vaughan ([id number]) on 08/07/2019 2:27:13 PM Referred By: REFERRED SELF Confirmed By:Dexter Vaughan
[2019-08-07 16:32] LABS: Albumin Level 3.3 gm/dl (3.4-5.0); Bilirubin Direct 0.4 mg/dl (0-0.2); Bilirubin,Total 1.8 mg/dl (0.2-1); Total Protein 6.7 gm/dl (6.4-8.2)
[2019-08-10] MEDS ORDERED: DIGOXIN 0.125 MG TAB PO SCH (16:00)
--- NOTE | 2019-08-13 12:55 | Discharge Summary ---
Date of Service August 07, 2019 Admission HPI Per Admitting Provider 64 yo male with past medical history of severe cardiomyopathy reports that for the past month, he has been having a non productive cough. This progressed to orthopnea and shortness of breath on exertion which began 2 weeks ago. Patient needed to sit up to breath and could no longer rest his head in bed. Patient states that even walking towards the bathroom would make him feel SOB. Today he noticed some midsternal dull chest pain. Patient states he was recently seen by cardiology as an outpatient. 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 Principal Diagnosis low cardiac output heart failure Discharge Exam Constitutional well developed and well nourished Eyes PERRL, conjunctivae normal, anicteric sclerae ENMT external ear and nose normal, oropharynx normal Neck trachea midline, no thyromegaly Respiratory normal respiratory effort, lungs clear to auscultation (except for bibasilar rales) Cardiovascular Rate/Rhythm: regular rate and regular rhythm Heart Sounds: normal S1 and normal S2 Vessels: + JVD Gastrointestinal (Abdomen) normal bowel sounds, soft, nontender, no hepatosplenomegaly Musculoskeletal no cyanosis or clubbing, extremities motor strength 5/5 Extremities: extremities normal to inspection (except for lower extremity edema) Skin no rashes, warm and dry Neurologic PERRL, EOMI, accommodation nl, no face palsy, no dysarthria Psychiatric A+Ox3, euthymic affect Lymphatic no cervical or axillary lymphadenopathy Discharge Data Allergies Allergy/AdvReac Type Severity Reaction Status Date / Time Iodinated Contrast Media Allergy Intermediate itchiness, Verified 08/06/19 12:45 nausea metformin AdvReac Severe MEMORY LOSS Verified 08/06/19 12:45 codeine AdvReac Intermediate ITCHING Verified 08/06/19 12:45 Consultations 08/06/19 13:07 ED Decision to Admit Stat 08/06/19 14:42 Consult Cardiology Routine Hospital Course (1) CHF (congestive heart failure): Acute non ischemic Systolic CHF 64 yo male reports Orthopnea and SOB on exertion. Trop mildly elevated. Low EF 15-20% Ordered lasix IV BID. Patient received first dose of lasix in ER. Will hold beta pavithra and lia inhibitor for now. On day 2 of hospital stay, Patient was evaluated by Cardiology. It was felt that due to his low cardiac output and DAKOTA and elevated LFTs. That patient was not having adequate perfusion. Patient will be transferred to a tertiary center. Patient gave consent for transfer (2) DAKOTA (acute kidney injury): Likely secondary to above problem. Will monitor his creatinine (3) Elevated troponin: Trop elevated. May need cardiac cath, will leave this up with cardio (4) Tobacco abuse counseling: Patient needs to quit smoking. (5) History of implantable cardioverter-defibrillator (ICD) placement: due to h/o non ischemic cardiomyopathy (6) Hyperlipidemia: continue statin (7) Hypertension: resume home meds except what is noticed above. Full code (8) Elevated bilirubin: will continue to monitor. Patient has history of cholecystectomy. Total Time Total Time Spent Total Time Spent (In Minutes): 35 Total Time Includes: Examination of the Patient, Discharge Planning and Medication Reconciliation Discharge Plan Discharge Items Patient Disposition: Transfer Acute Care Hospital Reason For Visit: SOB/ ACUTE CHF SYSTOLIC Discharge Diagnosis: Acute CHF systolic Activity: Resume your previous activity Non-emergency contact: Primary Care Provider Call non-emergency contact if: you have any medication questions Follow-up/Referrals: Katelyn Sutton DO [Primary Care Provider] - Diet: Heart Healthy Addtl Attending Provider Instructions: Being transfer to [facility] Pending Studies at Discharge: No Stand-Alone Forms: My [facility] Skilled Items Patient informed of condition?: Yes DNR: No Discharge Level of Care: Other Communicable Disease: No Discharge Prognosis: Stable Lines: None Urinary Catheter: No Medications and DC Order Prescriptions: New heparin, porcine (PF) 5,000 unit/0.5 mL Syringe 5,000 unit subcut Q8 Qty: 0 RF: 0 Incruse Ellipta 62.5 mcg/actuation Blister With Device 1 puff inhalation DAILY Qty: 0 RF: 0 Continued aspirin [Adult Low Dose Aspirin] 81 mg tablet,delayed release (DR/EC) 81 mg PO QAM RF: 0 (DME) nebulizers misc See Dose Instructions .ROUTE .MEDSUPPLY Qty: 1 RF: 0 Trelegy Ellipta 100-62.5-25 mcg blister with device 1 puffs INH DAILY Qty: 60 RF: 1 eplerenone [Inspra] 25 mg tablet 25 mg PO QAM RF: 0 atorvastatin [Lipitor] 40 mg tablet 40 mg PO QAM RF: 0 digoxin [Digox] 125 mcg (0.125 mg) tablet 0 mcg PO MOFR RF: 0 finasteride [Proscar] 5 mg tablet 5 mg PO QAM RF: 0 Discontinued Entresto 24-26 mg tablet 0.5 tab PO BID Qty: 60 RF: 2 albuterol sulfate [Ventolin HFA] 90 mcg/actuation HFA aerosol inhaler 1 puffs INH Q4H PRN (Reason: Shortness Of Breath Or Wheezing) RF: 0 nystatin 100,000 unit/mL suspension 5 ml PO Q4H PRN (Reason: Thrush) RF: 0 torsemide 20 mg tablet 20 - 40 mg PO BID RF: 0 metoprolol succinate 25 mg tablet extended release 24 hr 50 mg PO BID RF: 0 potassium chloride [Klor-Con M10] 10 mEq tablet,ER particles/crystals 10 meq PO QDD RF: 0 Discharge Orders: Discharge Order (Routine); Ordered 08/07/19 Ordered By: Jatin Falcon Admission Data Admit Date/Time: 08/06/19 14:41 Attending Provider: Jatin Falcon Admit Provider: Jatin Falcon Primary Care Provider: Katelyn Sutton Other Providers: Jaren Valencia ; Samuel Rosario Other Interventions: Discharge Summary Assessment (RN) Last Done: 08/07/19 15:39 DC Date/Time DO NOT enter until pt leaves facility: 08/07/19 17:00 Coding Level of Care Code D/C Day Management >30 mins Diagnoses CHF (congestive heart failure) I50.9 Heart failure chronicity: unspecified Heart failure type: unspecified DAKOTA (acute kidney injury) N17.9 Elevated troponin R79.89 Tobacco abuse counseling Z71.6 History of implantable cardioverter-defibrillator (ICD) placement Z95.810 Hyperlipidemia E78.5 Hypertension I10 Elevated bilirubin R17
== END 2019-08-07 17:00 | disposition short-term general hospital (02) | DRG 291 ==
LOC: ED 11:34 → 2S 14:41

== ENCOUNTER 2020-11-11 10:30 | Inpatient (IN) ==
--- NOTE | 2020-11-11 10:42 | Emergency Department Note ---
Impression & Plan Acute exacerbation of CHF (congestive heart failure), Acute hyperkalemia ED Provider Note NAME: TONEY MELGAR AGE: 65 SEX: M : 1955 ARRIVES VIA: Walk-In INFORMANT: Patient, ED PROVIDER(S): Jose Davis MD Chief Complaint: SOB HPI: Patient test present with concern for shortness of breath. The patient s tates that the shortness of breath began yesterday and has gotten progressively worse. It is at rest. Patient does have exertional dyspnea as well. The patient has had productive cough and does continue to smoke. Patient denies any fevers or chills. The patient states that he has been compliant with his medications. The patient did have recent up titration of his supplemental potassium and was recently increased on his milrinone from 0.25 mics per KG per minute to .3 mics per KG per minute. Patient does have a known history of severe systolic CHF nonischemic cardiomyopathy NYHA class IV EF less than 15% inotrope dependent on milrinone. Patient does present with shortness of breath ongoing since yesterday. She does also have an AICD. Patient is currently on 120 of torsemide in the morning along with 100 in the evening. Patient has had worsening lower extremity edema and a weight gain of approximately 9 to 10 pounds in the last week. Patient does follow with [facility] cardiology Dr. Sutton with PCP. ROS: See HPI for pertinent positives and negatives. A total of 10 systems were reviewed and otherwise negative. Past medical history: See below Surgical history: See below Social history: See below Physical Exam: GENERAL: Ill in appearance, wearing a mask. EYE EXAM: Normal conjunctiva. PERRL, no anisocoria and EOM's grossly intact w/o pain. NECK: Supple, no nuchal rigidity, no adenopathy, non-tender. No signs of meningismus. LUNGS: Bibasilar crackles. Normal chest wall mechanics. Chest: Right-sided chest catheter with milrinone infusion present. No surroundi ng erythema, drainage, or crepitus. HEART: NSR, no MRG. ABDOMEN: Abdomen soft, non-tender, normo-active bowel sounds, no masses, no rebound or guarding. BACK: No CVA TTP. SKIN: No rashes and no bruising. UPPER EXTREMITIES: Upper extremities are grossly normal. LOWER EXTREMITIES: Grossly normal, no edema. NEURO EXAM: A&O x3, cranial nerves II-XII grossly intact, normal speech, moves all 4 extremities on command w/o issue. Differential diagnoses: Reactive airway disease, pneumonia, pneumothorax, COPD, CHF, infections, cardiac ischemia, pulmonary embolism, musculoskeletal, gastrointestinal, as well as other pathologies. Course: Patient was seen and evaluated the bedside. Full history physical exam was performed. EKG interpreted by me AV dual paced rhythm, rate of 60, wide QRS and prolonged QT, Q waves present laterally and inferiorly. Imaging Studies: See below Cardiac monitoring: An order was placed for continuous cardiac monitoring. The monitor shows a rate of 60 w/ paced rhythm. MDM: Patient was seen due to concern for shortness of breath and is on virtually maximal outpatient therapy on milrinone digoxin, torsemide, eplerenone, milrinone and amiodarone. Blood work was obtained. The patient does have hyperkalemia. The patient was ordered medications ordered to lower this. The patient had had an increase in his supplemental potassium as it was as low as 2.9 a week ago. The patient has taken a total of 100 meqs of KCl on Tuesday. The patient had increase from 20 meqs daily to 60 daily. Patient still making decent urine although slightly decreased today. The patient was ordered 3 of Bumex IV. I did speak with the on-call clinical review nurse Dr. Machado who stated that given the maximal therapy would consider transfer for LVAD. After talking with the patient the patient is adamant about not pursuing LVAD therapy regardless of outcome. Patient understands that this may ultimately lead to his . The patient understands the consequences of not pursuing an LVAD as a treatment option. I did speak to the on-call hospitalist Dr. Falcon and the patient was admitted to the medicine service. Critical Care: I have personally spent 75 minutes of critical care time in direct management of this patient. This includes bedside care, interpretation of diagnostic studies, and testing, discussion with consultants, patient, and family members, and other require inpatient management activities. This 75 minutes is in excess of all separately billable procedures. Past Med/Surg History Medical History (Updated 11/11/20 @ 18:00 by Matty Machado DO) Allergic rhinitis Anxiety Arteriosclerotic cardiovascular disease Chronic kidney disease, stage 3 (moderate) Chronic obstructive pulmonary disease Chronic systolic CHF (congestive heart failure), NYHA class 4 <15%, milrinone dependent Degenerative joint disease of knee, left Depression with anxiety Diabetes mellitus type 2 in nonobese Erectile dysfunction History of infection of total joint prosthesis of knee HX. RESOLVED IN 2015 History of pacemaker Hyperlipidemia Hypertension Low output heart failure Lumbar disc disease Lumbar spinal stenosis Malignant neoplasm of bladder hx, s/p mass removal, in remission 11/2020 NICM (nonischemic cardiomyopathy) Peripheral vascular disease Renal cyst Tobacco abuse counseling Surgical History H/O transurethral destruction of bladder lesion (09/2016) TURBT September 2016 History of vjwdy-unuuo-qsawfph bypass (10/2013) October 2013 History of arthroscopy of knee L KNEE MENISCAL TEAR History of cholecystectomy History of hernia repair History of lumbar laminectomy ONSET: FEB 1981 History of total knee arthroplasty (01/2015) [id number] LEFT KNEE Presence of biventricular AICD (08/2016) Presence of combination internal cardiac defibrillator (ICD) and pacemaker (01/2016) then upgraded in August 2016 S/P cardiac catheterization 08/08/19 Dr. León- Rotational atherectomy and LULU x 2 S/P cardiac catheterization 08/15/19 Dr. Woodson S/P coronary artery stent placement (07/2019) LULU x 2 Family History Father Cardiac disorder Lung cancer Mother Diabetes Hypertension Type 2 diabetes mellitus Vision impairment Sister Type 2 diabetes mellitus Denies family history of Ovarian cancer Prostate cancer Myocardial infarction Breast cancer Colorectal cancer Social History Smoking Status: Current every day smoker Tobacco Type: Cigarettes packs per day: 0.5; Cigarettes Per Day: 0.5-1ppd; Second Hand Exposure: No; Do You Dip or Chew Tobacco: No; Tobacco Cessation Education Requested by Patient: No Hx Alcohol Use: No Hx Substance Use: No Preferred Language: Portuguese Communication Ability: Effective Visual Impairment: No Limitations Hearing Ability: Normal Property Economist Required: No Beliefs That Will Affect Care: None marital status: Current Living Situation: Spouse current occupational status: retired 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 [employer] Other Information That Helps Us Care for You: No Feels Safe at Home: Yes Safety Concerns: Feels Safe At This Time Childhood Exposure to Second-Hand Smoke: No caffeine: Yes (soda) Dental Care, Regularly: No Physical Activity Frequency: Does not Exercise Seatbelt Use: sometimes Sunscreen Use: No Assistive Devices: None Allergies Allergies Allergy/AdvReac Type Severity Reaction Status Date / Time Iodinated Contrast Media Allergy Intermediate itchiness, Verified 11/11/20 11:17 nausea metformin AdvReac Severe MEMORY LOSS Verified 11/11/20 11:17 codeine AdvReac Intermediate ITCHING Verified 11/11/20 11:17 Home Meds Home Medications Medication Instructions Recorded Confirmed aspirin 81 mg tablet,delayed 81 mg PO QAM 12/25/18 11/11/20 release digoxin [Digox] 125 mcg PO MOFR 08/06/19 11/11/20 pantoprazole 40 mg tablet,delayed 40 mg PO BID tab 03/11/20 11/11/20 release torsemide 100 mg tablet 100 mg PO BID tab 03/11/20 11/11/20 torsemide 20 mg tablet 20 mg PO QAM tab 09/11/20 11/11/20 ferrous sulfate 325 mg PO [id number] 11/11/20 11/11/20 finasteride 5 mg PO DAILY 11/11/20 11/11/20 potassium chloride 30 meq PO BID 11/11/20 11/11/20 Previous Rx's Medication Instructions Recorded amiodarone 200 mg tablet 200 mg PO BID #60 tab 08/22/19 metoprolol succinate 25 mg 25 mg PO DAILY #30 tab 08/22/19 tablet,extended release 24 hr milrinone 1 mg/mL intravenous See Rx Instructions .ROUTE 08/22/19 solution .COMPLEX #20 ml eplerenone 25 mg tablet 25 mg PO DAILY #30 tab 10/17/19 ipratropium 0.5 mg-albuterol 3 mg 3 ml INH Q8H PRN #180 ml 10/17/19 (2.5 mg base)/3 mL nebulization soln albuterol sulfate 90 mcg/actuation See Rx Instructions INH .COMPLEX 04/23/20 aerosol inhaler PRN #18 gm Results & Data (ED) Vital Signs Vital Signs - 24 hr 11/11/20 10:37 11/11/20 11:02 11/11/20 11:30 Temperature 36.4 C L Temperature Source Temporal Artery Scan Pulse Rate 47 L 60 60 Pulse Rate [Apical] 61 Pulse Rate from SpO2 Sensor 60 60 Pulse Rhythm Regular Pulse Rhythm [Apical] Regular Pulse Strength [Apical] Normal Respiratory Rate 20 25 H 22 Respiratory Effort / Characteristics Labored Respiratory Depth Deep Respiratory Pattern Regular Blood Pressure 95/58 L 93/58 L 91/61 L Blood Pressure [Right Arm] 91/61 L Blood Pressure Mean 70 69 71 Blood Pressure Mean [Right Arm] 71 Blood Pressure Position [Right Arm] Sitting Pulse Oximetry 97 99 100 Oxygen Delivery Method Room Air Room Air Oxygen Flow Rate 100 Sepsis Recent Fever Within 48 Hours No Sepsis New/Unexplained Change in Mental Status N/A Sepsis Action Taken by Nursing No Action Required 11/11/20 12:00 11/11/20 12:30 11/11/20 13:00 Temperature Temperature Source Pulse Rate 60 60 63 Pulse Rate [Apical] Pulse Rate from SpO2 Sensor 60 66 61 Pulse Rhythm Pulse Rhythm [Apical] Pulse Strength [Apical] Respiratory Rate 24 20 25 H Respiratory Effort / Characteristics Respiratory Depth Respiratory Pattern Blood Pressure 90/59 L 101/67 92/69 L Blood Pressure [Right Arm] Blood Pressure Mean 69 78 76 Blood Pressure Mean [Right Arm] Blood Pressure Position [Right Arm] Pulse Oximetry 99 92 98 Oxygen Delivery Method Oxygen Flow Rate Sepsis Recent Fever Within 48 Hours Sepsis New/Unexplained Change in Mental Status Sepsis Action Taken by Nursing 11/11/20 13:10 11/11/20 13:20 Temperature Temperature Source Pulse Rate 62 60 Pulse Rate [Apical] Pulse Rate from SpO2 Sensor 60 60 Pulse Rhythm Pulse Rhythm [Apical] Pulse Strength [Apical] Respiratory Rate 23 16 Respiratory Effort / Characteristics Respiratory Depth Respiratory Pattern Blood Pressure 92/62 L 114/71 Blood Pressure [Right Arm] Blood Pressure Mean 72 85 Blood Pressure Mean [Right Arm] Blood Pressure Position [Right Arm] Pulse Oximetry 97 97 Oxygen Delivery Method Oxygen Flow Rate Sepsis Recent Fever Within 48 Hours Sepsis New/Unexplained Change in Mental Status Sepsis Action Taken by Retirement Medications Current Medication List: was personally reviewed by me Laboratory Data Attestation: I reviewed the patient's lab results. Result diagrams: 11/11/20 11:23 11/11/20 14:28 Lab Results 11/11/20 11/11/20 11/11/20 Range/Units 11:23 11:23 11:23 WBC 10.83 H (4.8-10.8) K/uL RBC 3.99 L (4.7-6.1) M/uL Hgb 13.0 L (14.0-18.0) g/dL Hct 39.5 L (42-52) % MCV 99.0 (80-100) fL MCH 32.6 (25-34) pg MCHC 32.9 (32-36) g/dL RDW Std Deviation 58.6 H (36.4-46.3) fL RDW Coeff of Rich 16.3 H (11.5-14.5) % Plt Count 374 (130-400) K/uL MPV 10.3 (7.4-10.4) fL Immature Gran % (Auto) 0.4 % Neut % (Auto) 81.2 % Lymph % (Auto) 10.6 % [place] % (Auto) 7.6 % Eos % (Auto) 0.1 % Baso % (Auto) 0.1 % Neut # (Auto) 8.80 H (1.4-6.5) K/uL Lymph # (Auto) 1.15 L (1.2-3.4) K/uL [place] # (Auto) 0.82 H (0.11-0.59) K/uL Eos # (Auto) 0.01 (0-0.5) K/uL Baso # (Auto) 0.01 (0-0.2) K/uL Immature Gran # (Auto) 0.04 H (0.00-0.02) K/uL PT 11.7 (9.0-12.0) Seconds INR 1.2 H (0.9-1.1) VBG pH (7.36-7.41) VBG pCO2 (38-50) mmHg VBG pO2 mmHg VBG HCO3 mmol/L VBG O2 Saturation % VBG Base Excess mEq/L Barometric Pressure mm/Hg Sodium 129 L (136-145) mmol/L Potassium 6.1 H* (3.5-5.1) mmol/L Chloride 97 L (98-107) mmol/L Carbon Dioxide 22 (21-32) mmol/L Anion Gap 10.0 (3-11) BUN 55 H (7-18) mg/dl Creatinine 2.95 H (0.6-1.4) mg/dl Est Cr Clr Drug Dosing 24.7 ml/min Est GFR ( Amer) 25.0 ml/min Est GFR (Non-Af Amer) 21.6 ml/min BUN/Creatinine Ratio 18.8 (10-20) Glucose 129 H (70-99) mg/dl POC Glucose (70-99) mg/dl Calcium 9.2 (8.5-10.1) mg/dl Phosphorus 3.4 (2.5-4.9) mg/dl Magnesium 2.6 H (1.8-2.4) mg/dl Total Bilirubin 2.5 H (0.2-1) mg/dl AST 135 H (15-37) U/L ALT 150 H (12-78) U/L Alkaline Phosphatase 150 H (45-117) U/L Troponin I 0.054 H* (0-0.045) ng/ml NT-Pro-B Natriuret Pep 99010 H (0-900) pg/ml Total Protein 7.3 (6.4-8.2) gm/dl Albumin 3.3 L (3.4-5.0) gm/dl Globulin 4.0 (2.5-4.0) gm/dl Albumin/Globulin Ratio 0.8 L (0.9-2) Procalcitonin (0-0.5) ng/ml TSH 1.900 (0.300-4.500) uIu/ml Digoxin (0.8-2.0) ng/ml COVID-19 Eval Order SARS-CoV-2 (PCR) (Negative) 11/11/20 11/11/20 11/11/20 Range/Units 11:23 11:23 11:23 WBC (4.8-10.8) K/uL RBC (4.7-6.1) M/uL Hgb (14.0-18.0) g/dL Hct (42-52) % MCV (80-100) fL MCH (25-34) pg MCHC (32-36) g/dL RDW Std Deviation (36.4-46.3) fL RDW Coeff of Rich (11.5-14.5) % Plt Count (130-400) K/uL MPV (7.4-10.4) fL Immature Gran % (Auto) % Neut % (Auto) % Lymph % (Auto) % [place] % (Auto) % Eos % (Auto) % Baso % (Auto) % Neut # (Auto) (1.4-6.5) K/uL Lymph # (Auto) (1.2-3.4) K/uL [place] # (Auto) (0.11-0.59) K/uL Eos # (Auto) (0-0.5) K/uL Baso # (Auto) (0-0.2) K/uL Immature Gran # (Auto) (0.00-0.02) K/uL PT (9.0-12.0) Seconds INR (0.9-1.1) VBG pH (7.36-7.41) VBG pCO2 (38-50) mmHg VBG pO2 mmHg VBG HCO3 mmol/L VBG O2 Saturation % VBG Base Excess mEq/L Barometric Pressure mm/Hg Sodium (136-145) mmol/L Potassium (3.5-5.1) mmol/L Chloride (98-107) mmol/L Carbon Dioxide (21-32) mmol/L Anion Gap (3-11) BUN (7-18) mg/dl Creatinine (0.6-1.4) mg/dl Est Cr Clr Drug Dosing ml/min Est GFR ( Amer) ml/min Est GFR (Non-Af Amer) ml/min BUN/Creatinine Ratio (10-20) Glucose (70-99) mg/dl POC Glucose (70-99) mg/dl Calcium (8.5-10.1) mg/dl Phosphorus (2.5-4.9) mg/dl Magnesium (1.8-2.4) mg/dl Total Bilirubin (0.2-1) mg/dl AST (15-37) U/L ALT (12-78) U/L Alkaline Phosphatase (45-117) U/L Troponin I (0-0.045) ng/ml NT-Pro-B Natriuret Pep (0-900) pg/ml Total Protein (6.4-8.2) gm/dl Albumin (3.4-5.0) gm/dl Globulin (2.5-4.0) gm/dl Albumin/Globulin Ratio (0.9-2) Procalcitonin 0.30 (0-0.5) ng/ml TSH (0.300-4.500) uIu/ml Digoxin 2.1 H (0.8-2.0) ng/ml COVID-19 Eval Order Covid19 at [facility] SARS-CoV-2 (PCR) (Negative) 11/11/20 11/11/20 11/11/20 Range/Units 11:23 11:30 13:36 WBC (4.8-10.8) K/uL RBC (4.7-6.1) M/uL Hgb (14.0-18.0) g/dL Hct (42-52) % MCV (80-100) fL MCH (25-34) pg MCHC (32-36) g/dL RDW Std Deviation (36.4-46.3) fL RDW Coeff of Rich (11.5-14.5) % Plt Count (130-400) K/uL MPV (7.4-10.4) fL Immature Gran % (Auto) % Neut % (Auto) % Lymph % (Auto) % [place] % (Auto) % Eos % (Auto) % Baso % (Auto) % Neut # (Auto) (1.4-6.5) K/uL Lymph # (Auto) (1.2-3.4) K/uL [place] # (Auto) (0.11-0.59) K/uL Eos # (Auto) (0-0.5) K/uL Baso # (Auto) (0-0.2) K/uL Immature Gran # (Auto) (0.00-0.02) K/uL PT (9.0-12.0) Seconds INR (0.9-1.1) VBG pH 7.40 (7.36-7.41) VBG pCO2 41 (38-50) mmHg VBG pO2 20 mmHg VBG HCO3 25 mmol/L VBG O2 Saturation < 60.0 % VBG Base Excess 0 mEq/L Barometric Pressure 738.3 mm/Hg Sodium (136-145) mmol/L Potassium (3.5-5.1) mmol/L Chloride (98-107) mmol/L Carbon Dioxide (21-32) mmol/L Anion Gap (3-11) BUN (7-18) mg/dl Creatinine (0.6-1.4) mg/dl Est Cr Clr Drug Dosing ml/min Est GFR ( Amer) ml/min Est GFR (Non-Af Amer) ml/min BUN/Creatinine Ratio (10-20) Glucose (70-99) mg/dl POC Glucose 262 H (70-99) mg/dl Calcium (8.5-10.1) mg/dl Phosphorus (2.5-4.9) mg/dl Magnesium (1.8-2.4) mg/dl Total Bilirubin (0.2-1) mg/dl AST (15-37) U/L ALT (12-78) U/L Alkaline Phosphatase (45-117) U/L Troponin I (0-0.045) ng/ml NT-Pro-B Natriuret Pep (0-900) pg/ml Total Protein (6.4-8.2) gm/dl Albumin (3.4-5.0) gm/dl Globulin (2.5-4.0) gm/dl Albumin/Globulin Ratio (0.9-2) Procalcitonin (0-0.5) ng/ml TSH (0.300-4.500) uIu/ml Digoxin (0.8-2.0) ng/ml COVID-19 Eval Order SARS-CoV-2 (PCR) NEGATIVE (Negative) 11/11/20 Range/Units 13:37 WBC (4.8-10.8) K/uL RBC (4.7-6.1) M/uL Hgb (14.0-18.0) g/dL Hct (42-52) % MCV (80-100) fL MCH (25-34) pg MCHC (32-36) g/dL RDW Std Deviation (36.4-46.3) fL RDW Coeff of Rich (11.5-14.5) % Plt Count (130-400) K/uL MPV (7.4-10.4) fL Immature Gran % (Auto) % Neut % (Auto) % Lymph % (Auto) % [place] % (Auto) % Eos % (Auto) % Baso % (Auto) % Neut # (Auto) (1.4-6.5) K/uL Lymph # (Auto) (1.2-3.4) K/uL [place] # (Auto) (0.11-0.59) K/uL Eos # (Auto) (0-0.5) K/uL Baso # (Auto) (0-0.2) K/uL Immature Gran # (Auto) (0.00-0.02) K/uL PT (9.0-12.0) Seconds INR (0.9-1.1) VBG pH (7.36-7.41) VBG pCO2 (38-50) mmHg VBG pO2 mmHg VBG HCO3 mmol/L VBG O2 Saturation % VBG Base Excess mEq/L Barometric Pressure mm/Hg Sodium (136-145) mmol/L Potassium (3.5-5.1) mmol/L Chloride (98-107) mmol/L Carbon Dioxide (21-32) mmol/L Anion Gap (3-11) BUN (7-18) mg/dl Creatinine (0.6-1.4) mg/dl Est Cr Clr Drug Dosing ml/min Est GFR ( Amer) ml/min Est GFR (Non-Af Amer) ml/min BUN/Creatinine Ratio (10-20) Glucose (70-99) mg/dl POC Glucose 331 H* (70-99) mg/dl Calcium (8.5-10.1) mg/dl Phosphorus (2.5-4.9) mg/dl Magnesium (1.8-2.4) mg/dl Total Bilirubin (0.2-1) mg/dl AST (15-37) U/L ALT (12-78) U/L Alkaline Phosphatase (45-117) U/L Troponin I (0-0.045) ng/ml NT-Pro-B Natriuret Pep (0-900) pg/ml Total Protein (6.4-8.2) gm/dl Albumin (3.4-5.0) gm/dl Globulin (2.5-4.0) gm/dl Albumin/Globulin Ratio (0.9-2) Procalcitonin (0-0.5) ng/ml TSH (0.300-4.500) uIu/ml Digoxin (0.8-2.0) ng/ml COVID-19 Eval Order SARS-CoV-2 (PCR) (Negative) Administered Medications Amiodarone HCl (Amiodarone 200 Mg Tab) 200 mg PO BID [facility] Stop: 12/11/20 20:59 Last Admin: 11/11/20 22:54 Dose: 200 mg Documented by: [id number] Bumetanide 10 mg/ Sodium (Chloride) 50 mls @ 5 mls/hr IV .Q10H [facility] Stop: 12/11/20 14:44 Last Admin: 11/11/20 22:55 Dose: 1 mg/hr, 5 mls/hr Documented by: [id number] Infusion: 11/11/20 22:55 Dose: 1 mg/hr, 5 mls/hr Documented by: [id number] Admin: 11/11/20 15:57 Dose: 1 mg/hr, 5 mls/hr Documented by: [id number] Milrinone Lactate/Dextrose (Primacor/D5w) 20,000 mcg in 100 mls @ 6.129 mls/hr IV .[id number] [facility]; Protocol Stop: 12/11/20 15:59 Last Infusion: 11/11/20 19:22 Dose: 0.3 mcg/kg/min, 6.1 mls/hr Documented by: [id number] Cosigned by: [id number] Admin: 11/11/20 17:35 Dose: 0.3 mcg/kg/min, 6.1 mls/hr Documented by: [id number] Cosigned by: [id number] Lactic Acid (Ammonium Lactate 12% Lotion 225 Gm Btl) 1 gm EXT QID PRN PRN Reason: itching Stop: 12/11/20 18:49 Last Admin: 11/11/20 23:07 Dose: 1 gm Documented by: [id number] Miscellaneous (*Eplerenone*Order Awaiting Action) 1 ea N/A QS [facility] Stop: 12/11/20 15:59 Last Admin: 11/12/20 06:06 Dose: Not Given Documented by: [id number] Admin: 11/11/20 17:34 Dose: Not Given Documented by: [id number] Pantoprazole Sodium (Pantoprazole 40 Mg Tab) 40 mg PO BID [facility] Stop: 12/11/20 20:59 Last Admin: 11/11/20 22:54 Dose: 40 mg Documented by: [id number] Discontinued Medications Dextrose (Dextrose 50% 50 Ml Syringe) 50 ml IV NOW ONE Stop: 11/11/20 12:13 Last Admin: 11/11/20 12:56 Dose: 50 ml Documented by: [id number] Dextrose (Dextrose 50% 50 Ml Syringe) 50 ml IV NOW ONE Stop: 11/11/20 12:15 Last Admin: 11/11/20 12:57 Dose: 50 ml Documented by: [id number] Bumetanide 3 mg/ Syringe 12 mls @ 4 mls/min IV ONCE STA Stop: 11/11/20 12:14 Last Admin: 11/11/20 12:56 Dose: 4 mls/min Documented by: [id number] Calcium Gluconate () 1,000 mg in 60 mls @ 240 mls/hr IV NOW STA Stop: 11/11/20 12:26 Last Infusion: 11/11/20 13:32 Dose: 0 mls/hr Documented by: [id number] Admin: 11/11/20 12:56 Dose: 240 mls/hr Documented by: [id number] Albumin Human (Albumin 25%) 12.5 gm in 50 mls @ 50 mls/hr IV Q1H [facility] Stop: 11/11/20 23:29 Last Infusion: 11/12/20 02:45 Dose: 0 mls/hr Documented by: [id number] Admin: 11/12/20 01:40 Dose: 50 mls/hr Documented by: [id number] Infusion: 11/12/20 01:38 Dose: 50 mls/hr Documented by: [id number] Admin: 11/12/20 00:38 Dose: 50 mls/hr Documented by: [id number] Infusion: 11/12/20 00:05 Dose: 50 mls/hr Documented by: [id number] Admin: 11/11/20 23:05 Dose: 50 mls/hr Documented by: [id number] Infusion: 11/11/20 22:54 Dose: 50 mls/hr Documented by: [id number] Admin: 11/11/20 21:54 Dose: 50 mls/hr Documented by: [id number] Insulin Human Regular (Novolin-R Insulin Per Unit Charge) 10 units IV NOW STA Stop: 11/11/20 12:13 Last Admin: 11/11/20 12:57 Dose: 10 units Documented by: [id number] Cosigned by: [id number] Imaging Data Radiologist's Impression: Chest X-Ray 11/11/20 10:54 XR chest 1V portable CLINICAL HISTORY: weakness COMPARISON STUDY: Chest radiograph August 06, 2019. FINDINGS: A left subclavian biventricular pacer/AICD is in place. A right sided Nzzzmy-c-[id number] is noted. Marked cardiomegaly is noted. Interstitial thickening a nd mild bibasilar opacities are present. No pneumothorax is identified. There is no definite pleural effusion. IMPRESSION: Marked cardiomegaly. Interstitial thickening and mild bibasilar opacities. Pulmonary edema is favored. An infectious process could appear similar. ACT 112: Negative or not required by law. Electronically signed by: Adam Black M.D. 11/11/2020 11:43 AM Discharge Plan Visit Data Chief Complaint: Shortness of Breath/Dyspnea Stated Complaint: SOB ED Provider: Jose Davis Discharge Problem: Acute exacerbation of CHF (congestive heart failure), Acute hyperkalemia Patient Disposition: Admitted As Inpatient Discharge Instructions Interventions: ED Discharge Assessment Last Done: 11/11/20 14:45 Discharge Problem: Acute exacerbation of CHF (congestive heart failure) Qualifiers: Heart failure type: unspecified Qualified Code(s): I50.9 - Heart failure, unspecified
[2020-11-11 11:42] LABS: Basophils # (auto) 0.01 K/uL (0-0.2); Basophils % (auto) 0.1 %; Eosinophils # (auto) 0.01 K/uL (0-0.5); Eosinophils % (auto) 0.1 %; Hematocrit (blood only) 39.5 % (42-52); Immature Granulocytes # (auto) 0.04 K/uL (0.00-0.02); Immature Granulocytes % (auto) 0.4 %; Lymphocytes # (auto) 1.15 K/uL (1.2-3.4); Lymphocytes % (auto) 10.6 %; Mean Corpuscular Hemoglobin 32.6 pg (25-34); Mean Corpuscular Hgb Conc 32.9 g/dL (32-36); Mean Platelet Volume 10.3 fL (7.4-10.4); Monocytes # (auto) 0.82 K/uL (0.11-0.59); Monocytes % (auto) 7.6 %; Neutrophils % (auto) 81.2 %; Platelet Count 374 K/uL (130-400); RDW Coefficient of Variation 16.3 % (11.5-14.5); RDW Standard Deviation 58.6 fL (36.4-46.3); Red Blood Count 3.99 M/uL (4.7-6.1); White Blood Count 10.83 K/uL (4.8-10.8)
--- NOTE | 2020-11-11 11:44 | XRay Report ---
XR chest 1V portable CLINICAL HISTORY: weakness COMPARISON STUDY: Chest radiograph August 06, 2019. FINDINGS: A left subclavian biventricular pacer/AICD is in place. A right sided Wtjyaz-y-Xbjk is note d. Marked cardiomegaly is noted. Interstitial thickening and mild bibasilar opacities are present. No pneumothorax is identified. There is no definite pleural effusion. IMPRESSION: Marked cardiomegaly. Interstitial thickening and mild bibasilar opacities. Pulmonary edema is favored . An infectious process could appear similar. ACT 112: Negative or not required by law. Electronically signed by: Adam Black M.D. 11/11/2020 11:43 AM
[2020-11-11 11:46] LABS: Base Excess VBG 0 mEq/L; HCO3 VBG 25 mmol/L; PCO2 VBG 41 mmHg (38-50); PO2 VBG 20 mmHg
[2020-11-11 11:54] LABS: INR 1.2 (0.9-1.1); Prothrombin Time 11.7 Seconds (9.0-12.0)
[2020-11-11 12:08] LABS: Albumin Level 3.3 gm/dl (3.4-5.0); BUN Creatinine Ratio 18.8 (10-20); Calcium 9.2 mg/dl (8.5-10.1); Creatinine Clr Calc Pharmacy 24.7 ml/min; Est GFR (Non-African American) 21.6 ml/min; Magnesium 2.6 mg/dl (1.8-2.4); Potassium 6.1 mmol/L (3.5-5.1)
[2020-11-11] MEDS ORDERED: NovoLIN-R INSULIN PER UNIT CHARGE IV STA (12:12)
[2020-11-11] MEDS ORDERED: CALCIUM GLUCONATE 1,000 MG/60 ML BAG IV STA (12:12)
[2020-11-11] MEDS ORDERED: DEXTROSE 50% 50 ML SYRINGE IV ONE ×2 (12:12→12:14)
[2020-11-11] MEDS ORDERED: BUMETANIDE 3 MG in SYRINGE 0 ML IV STA (12:12)
[2020-11-11 12:16] LABS: Albumin Globulin Ratio 0.8 (0.9-2); Bilirubin,Total 2.5 mg/dl (0.2-1); Phosphorus 3.4 mg/dl (2.5-4.9); Thyroid Stimulating Hormone 1.9 uIu/ml (0.300-4.500); Total Protein 7.3 gm/dl (6.4-8.2)
--- NOTE | 2020-11-11 14:23 | History & Physical Report ---
Date of Service November 11, 2020 Assessment & Plan (1) Chronic systolic CHF (congestive heart failure), NYHA class 4: 65 yo M with End stage CHF, extensive cardiac hx including biV AICD placement, nonischemic cardiomyopathy, HLD admitted for dyspnea and hyperkalemia. Hyperkalemia - due to recent medication changes, 6.1 with abnormal EKG - 4.5 on repeat s/p insulin, calcium carbonate Acute Decompensated CHF exacerbation - 3mg Bumex IV in ED - Bumex drip on floor - albumin 50mg x1 for low BP - salt restriction, fluid restriction - i/o, daily weights - [facility] cardiology consult for medication changes and recommendations Cardiorenal syndrome superimposed on CKD3 - Cr 2.71, GFR ~23, baseline mid 40s? - renal dosing of medications - diuresis as above - daily bmp Congestive Hepatopathy - elevated LFTs 2/2 CHF exacerbation - diuresis as above, trend LFTs Nonischemic Cardiomyopathy - Dig level 2.1, given doses are on Tuesday and Tuesday, will continue - continue milrinone IV - continue metoprolol succinate daily; can consider holding if BP falls below 85/50 or MAP < 65 - continue amiodarone, eplerenone. - Recently taken off entresto. - holding torsemide for acute exacerbation of CHF, converted to bumex drip as above COPD - cont duonebs prn DVT ppx: heparin sq FEN/GI: DM2, low sodium, 2L fluid restriction diet, pantoprazole PO Dispo: PCU Code Status: Full Code. Palliative consult placed for assessment of patient's understanding of disease process/decision to be full code. says multiple physicians have tried to address that he/she isn't taking the disease course seriously, and she states she is but he doesn't appear to grasp it. (2) Chronic kidney disease, stage 3 (moderate): (3) Diabetes mellitus type 2 in nonobese: (4) Presence of biventricular AICD: (5) Depression with anxiety: (6) Chronic obstructive pulmonary disease: (7) Hypertension: (8) NICM (nonischemic cardiomyopathy): (9) Peripheral vascular disease: (10) Lumbar spinal stenosis: (11) Hyperlipidemia: (12) Arteriosclerotic cardiovascular disease: History of Present Illness 65 yo M with end stage HFrEF with EF 15-20%, CKD3, nonischemic cardiomyopathy, PVD, HTN, hx bladder cancer, DM2, BiV AICD, who presented to ER for SOB x few days. He follows with [facility]ology and had multiple meds changed ~1 week ago. He states that labs were also drawn and showed he had a potassium of 2.8. After this, he was told to take 60 mg of extra potassium in addition to his normal 40 mg, and increase daily dosing to 60 mg going forward. History mostly taken from at bedside because patient was somnolent on and off. Primary Care Provider: Katelyn Sutton DO Allergies Allergy/AdvReac Type Severity Reaction Status Date / Time Iodinated Contrast Media Allergy Intermediate itchiness, Verified 11/11/20 11:17 nausea metformin AdvReac Severe MEMORY LOSS Verified 11/11/20 11:17 codeine AdvReac Intermediate ITCHING Verified 11/11/20 11:17 Home Medications Medication Instructions Recorded Confirmed Type aspirin 81 mg tablet,delayed 81 mg PO QAM 12/25/18 11/11/20 History release digoxin [Digox] 125 mcg PO MOFR 08/06/19 11/11/20 History amiodarone 200 mg tablet 200 mg PO BID #60 tab 08/22/19 11/11/20 Rx metoprolol succinate 25 mg 25 mg PO DAILY #30 tab 08/22/19 11/11/20 Rx tablet,extended release 24 hr milrinone 1 mg/mL intravenous See Rx Instructions .ROUTE 08/22/19 11/11/20 Rx solution .COMPLEX #20 ml eplerenone 25 mg tablet 25 mg PO DAILY #30 tab 10/17/19 11/11/20 Rx ipratropium 0.5 mg-albuterol 3 mg 3 ml INH Q8H PRN #180 ml 10/17/19 11/11/20 Rx (2.5 mg base)/3 mL nebulization soln pantoprazole 40 mg tablet,delayed 40 mg PO BID tab 03/11/20 11/11/20 History release torsemide 100 mg tablet 100 mg PO BID tab 03/11/20 11/11/20 History albuterol sulfate 90 mcg/actuation See Rx Instructions INH .COMPLEX 04/23/20 11/11/20 Rx aerosol inhaler PRN #18 gm torsemide 20 mg tablet 20 mg PO QAM tab 09/11/20 11/11/20 History ferrous sulfate 325 mg PO 3XWK 11/11/20 11/11/20 History finasteride 5 mg PO DAILY 11/11/20 11/11/20 History potassium chloride 30 meq PO BID 11/11/20 11/11/20 History Past Med/Surg History Medical History (Updated 11/16/20 @ 09:51 by Brenda Lara MD) Acute hypoxemic respiratory failure Allergic rhinitis Anxiety Arteriosclerotic cardiovascular disease Cardiogenic shock Chronic kidney disease, stage 3 (moderate) Chronic obstructive pulmonary disease Chronic systolic CHF (congestive heart failure), NYHA class 4 <15%, milrinone dependent Degenerative joint disease of knee, left Depression with anxiety Diabetes mellitus type 2 in nonobese Dyspnea Erectile dysfunction History of infection of total joint prosthesis of knee HX. RESOLVED IN 2015 History of pacemaker Hyperlipidemia Hypertension Low output heart failure Lumbar disc disease Lumbar spinal stenosis Malignant neoplasm of bladder hx, s/p mass removal, in remission 11/2020 NICM (nonischemic cardiomyopathy) Palliative care encounter Peripheral vascular disease Renal cyst Tobacco abuse counseling Weakness Surgical History H/O transurethral destruction of bladder lesion (09/2016) TURBT September 2016 History of evhwx-dclms-xgngbhy bypass (10/2013) October 2013 History of arthroscopy of knee L KNEE MENISCAL TEAR History of cholecystectomy History of hernia repair History of lumbar laminectomy ONSET: FEB 1981 History of total knee arthroplasty (01/2015) [id number] LEFT KNEE Presence of biventricular AICD (08/2016) Presence of combination internal cardiac defibrillator (ICD) and pacemaker (01/2016) then upgraded in August 2016 S/P cardiac catheterization 08/08/19 Dr. León- Rotational atherectomy and LULU x 2 S/P cardiac catheterization 08/15/19 Dr. Woodson S/P coronary artery stent placement (07/2019) LULU x 2 Family History Father Cardiac disorder Lung cancer Mother Diabetes Hypertension Type 2 diabetes mellitus Vision impairment Sister Type 2 diabetes mellitus Denies family history of Ovarian cancer Prostate cancer Myocardial infarction Breast cancer Colorectal cancer Social History Smoking Status: Current every day smoker Tobacco Type: Cigarettes packs per day: 0.5; Cigarettes Per Day: 0.5-1ppd; Second Hand Exposure: No; Hx Alcohol Use: No Hx Substance Use: No Preferred Language: Kazakh Communication Ability: Effective Visual Impairment: No Limitations Hearing Ability: Normal Rides Attendant Required: No Beliefs That Will Affect Care: None marital status: Current Living Situation: Spouse current occupational status: retired 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 Feels Safe at Home: Yes Childhood Exposure to Second-Hand Smoke: No caffeine: Yes (soda) Dental Care, Regularly: No Physical Activity Frequency: Does not Exercise Seatbelt Use: sometimes Sunscreen Use: No Assistive Devices: None Review of Systems Constitutional: no fever, no chills, no sweats and no fatigue Eyes: no blind spots and no discharge Ear, Nose, Mouth, Throat: no hearing loss and no nasal congestion Respiratory: + dyspnea; no cough Cardiovascular: + dyspnea on exertion and + edema; no chest pain Gastrointestinal: + early satiety and + nausea; no abdominal pain, no vomiting, no constipation, no diarrhea/loose stools and no blood in stools Musculoskeletal: no joint pain and no myalgia Neurologic: no tingling, no numbness and no headache(s) Endocrine: no fatigue Physical Exam Physical Exam: Constitutional: lethargic appearing elderly man sitting up in bed but frequently dozing off Eyes: EOMI, pupils equal and reactive bilaterally, no scleral icterus Cardiac: bradycardic RR, blowing systolic murmur, gallops or rubs. Normal S1, S2. minimal JVD visible. Pulm: poor inspiratory effort, bibasilar crackles, difficult to auscultate lung sounds Abd: soft, nontender, nondistended, normal bowel sounds, no rebound or guarding Extremities: 1+ peripheral pulses, 2+ pitting edema to midshins bilaterally Neuro: frequent jerking of feet and asymmetric muscle movements Results & Data Results & Data ([facility]) Vital Signs (Past 12 Hours) Vital Signs Temp Pulse Pulse Resp BP BP Pulse Ox 11/11/20 13:20 60 16 114/71 97 11/11/20 13:10 62 23 92/62 L 97 11/11/20 13:00 63 25 H 92/69 L 98 06/01/21 12:30 60 20 101/67 92 11/11/20 12:00 60 24 90/59 L 99 11/11/20 11:30 60 61 22 91/61 L 91/61 L 100 11/11/20 11:02 60 25 H 93/58 L 99 11/11/20 10:37 36.4 C L 47 L 20 95/58 L 97 Laboratory Results WBC 10.83 K/uL (4.8-10.8) H 11/11/20 11:23 RBC 3.99 M/uL (4.7-6.1) L 11/11/20 11:23 Hgb 13.0 g/dL (14.0-18.0) L 11/11/20 11:23 Hct 39.5 % (42-52) L 11/11/20 11:23 MCV 99.0 fL (80-100) 11/11/20 11:23 MCH 32.6 pg (25-34) 11/11/20 11:23 MCHC 32.9 g/dL (32-36) 11/11/20 11:23 RDW Std Deviation 58.6 fL (36.4-46.3) H 11/11/20 11:23 RDW Coeff of Rich 16.3 % (11.5-14.5) H 11/11/20 11:23 Plt Count 374 K/uL (130-400) 11/11/20 11:23 MPV 10.3 fL (7.4-10.4) 11/11/20 11:23 Immature Gran % (Auto) 0.4 % 11/11/20 11:23 Neut % (Auto) 81.2 % 11/11/20 11:23 Lymph % (Auto) 10.6 % 11/11/20 11:23 [place] % (Auto) 7.6 % 11/11/20 11:23 Eos % (Auto) 0.1 % 11/11/20 11:23 Baso % (Auto) 0.1 % 11/11/20 11:23 Neut # (Auto) 8.80 K/uL (1.4-6.5) H 11/11/20 11:23 Lymph # (Auto) 1.15 K/uL (1.2-3.4) L 11/11/20 11:23 [place] # (Auto) 0.82 K/uL (0.11-0.59) H 11/11/20 11:23 Eos # (Auto) 0.01 K/uL (0-0.5) 11/11/20 11:23 Baso # (Auto) 0.01 K/uL (0-0.2) 11/11/20 11:23 Immature Gran # (Auto) 0.04 K/uL (0.00-0.02) H 11/11/20 11:23 PT 11.7 Seconds (9.0-12.0) 11/11/20 11:23 INR 1.2 (0.9-1.1) H 11/11/20 11:23 POC pH 7.44 (7.35-7.45) 11/11/20 14:35 POC pCO2 27 mmHg (35-46) L 11/11/20 14:35 POC pO2 79 mmHg (80-95) L 11/11/20 14:35 POC HCO3 19 steve/L (19-24) 11/11/20 14:35 POC Total CO2 19 mmol/L (24-31) L 11/11/20 14:35 POC Base Excess -6.0 steve/L (-9-1.8) 11/11/20 14:35 POC ABG O2 Sat 96.0 % (90-95) H 11/11/20 14:35 VBG pH 7.40 (7.36-7.41) 11/11/20 11:30 VBG pCO2 41 mmHg (38-50) 11/11/20 11:30 VBG pO2 20 mmHg 11/11/20 11:30 VBG HCO3 25 mmol/L 11/11/20 11:30 VBG O2 Saturation < 60.0 % 11/11/20 11:30 VBG Base Excess 0 mEq/L 11/11/20 11:30 Barometric Pressure 738.3 mm/Hg 11/11/20 11:30 Sodium 135 mmol/L (136-145) L 11/11/20 14:28 Potassium 4.6 mmol/L (3.5-5.1) D 11/11/20 14:28 Chloride 104 mmol/L (98-107) 11/11/20 14:28 Carbon Dioxide 22 mmol/L (21-32) 11/11/20 14:28 Anion Gap 9.0 (3-11) 11/11/20 14:28 BUN 49 mg/dl (7-18) H 11/11/20 14:28 Creatinine 2.71 mg/dl (0.6-1.4) H 11/11/20 14:28 Est Cr Clr Drug Dosing 26.9 ml/min 11/11/20 14:28 Est GFR ( Amer) 27.7 ml/min 11/11/20 14:28 Est GFR (Non-Af Amer) 23.9 ml/min 11/11/20 14:28 BUN/Creatinine Ratio 18.0 (10-20) 11/11/20 14:28 Glucose 172 mg/dl (70-99) H 11/11/20 14:28 POC Glucose 142 mg/dl (70-99) H 11/11/20 15:12 Calcium 8.2 mg/dl (8.5-10.1) L 11/11/20 14:28 Phosphorus 3.4 mg/dl (2.5-4.9) 11/11/20 11:23 Magnesium 2.6 mg/dl (1.8-2.4) H 11/11/20 11:23 Total Bilirubin 2.5 mg/dl (0.2-1) H 11/11/20 11:23 AST 135 U/L (15-37) H 11/11/20 11:23 ALT 150 U/L (12-78) H 11/11/20 11:23 Alkaline Phosphatase 150 U/L (45-117) H 11/11/20 11:23 Troponin I 0.049 ng/ml (0-0.045) H* 11/11/20 16:01 NT-Pro-B Natriuret Pep 67361 pg/ml (0-900) H 11/11/20 11:23 Total Protein 7.3 gm/dl (6.4-8.2) 11/11/20 11:23 Albumin 3.3 gm/dl (3.4-5.0) L 11/11/20 11:23 Globulin 4.0 gm/dl (2.5-4.0) 11/11/20 11:23 Albumin/Globulin Ratio 0.8 (0.9-2) L 11/11/20 11:23 Procalcitonin 0.30 ng/ml (0-0.5) 11/11/20 11:23 TSH 1.900 uIu/ml (0.300-4.500) 11/11/20 11:23 Digoxin 2.1 ng/ml (0.8-2.0) H 11/11/20 11:23 COVID-19 Eval Order Covid19 at [facility] 11/11/20 11:23 SARS-CoV-2 (PCR) NEGATIVE (Negative) 11/11/20 11:23 Impressions Chest X-Ray 11/11/20 10:54 XR chest 1V portable CLINICAL HISTORY: weakness COMPARISON STUDY: Chest radiograph August 06, 2019. FINDINGS: A left subclavian biventricular pacer/AICD is in place. A right sided [id number] is noted. Marked cardiomegaly is noted. Interstitial thickening and mild bibasilar opacities are present. No pneumothorax is identified. There is no definite pleural effusion. IMPRESSION: Marked cardiomegaly. Interstitial thickening and mild bibasilar opacities. Pulmonary edema is favored. An infectious process could appear similar. ACT 112: Negative or not required by law. Electronically signed by: Adam Black M.D. 11/11/2020 11:43 AM Supervising Physician Co-Signing Physician Notes During my face to face encounter with the patient, I obtained a history and physical examination. I reviewed and agree with above note and discussed case with Dr Diego I answered all of the patient's question. will admit for hyperkalemia and acute CHF. will consult palliative care due to his advanced CHF. Patient carries a poor prognosis. Resident Activity Tracking Resident Involvement: Resident Care Provided Care Provided: Adult Hospital Medicine
[2020-11-11 14:32] LABS: Oxygen Saturation VBG < 60.0 %
[2020-11-11 14:49] LABS: iSTAT Arterial Blood Gas HCO3 19 meg/L (19-24); iSTAT Arterial Blood Gas pCO2 27 mmHg (35-46); iSTAT Arterial Blood Gas pH 7.44 (7.35-7.45); iSTAT Arterial Blood Gas pO2 79 mmHg (80-95); iSTAT Carbon Dioxide 19 mmol/L (24-31)
[2020-11-11] MEDS ORDERED: ACETAMINOPHEN 325 MG TAB PO PRN (15:07)
[2020-11-11] MEDS ORDERED: MILRINONE 1 MG/ML SCH (15:07)
[2020-11-11] MEDS ORDERED: POLYETHYLENE (MIRALAX) 17 GM PACK PO PRN (15:07)
[2020-11-11] MEDS ORDERED: NITROGLYCERIN SL 0.4 MG/TAB TAB SL PRN (15:07)
[2020-11-11] MEDS ORDERED: ONDANSETRON INJ 2 MG/ML 2 ML VIAL IV PRN (15:07)
[2020-11-11] MEDS ORDERED: MAGNESIUM HYDROXIDE SUSP 30 ML UDC PO PRN (15:07)
[2020-11-11 15:10] LABS: Calcium 8.2 mg/dl (8.5-10.1); Creatinine Clr Calc Pharmacy 26.9 ml/min; Est GFR (African American) 27.7 ml/min; Est GFR (Non-African American) 23.9 ml/min; Potassium 4.6 mmol/L (3.5-5.1)
[2020-11-11] MEDS: SODIUM CHLORIDE 0.9% IV SCH ×2 (15:57→22:55)
[2020-11-11] MEDS: BUMETANIDE IV SCH ×2 (15:57→22:55)
--- NOTE | 2020-11-11 16:59 | Cardiology Consultation ---
Date of Consultation November 11, 2020 Assessment & Plan (1) Acute exacerbation of CHF (congestive heart failure): (2) Acute hyperkalemia: (3) Chronic kidney disease, stage 3 (moderate): (4) Chronic systolic CHF (congestive heart failure), NYHA class 4: (5) Presence of biventricular AICD: (6) Low output heart failure: (7) Malignant neoplasm of bladder: (8) Arteriosclerotic cardiovascular disease: (9) Chronic obstructive pulmonary disease: (10) Peripheral vascular disease: (11) Tobacco abuse counseling: Cardiovascular complex 65-year-old gentleman with severe nonischemic cardiomyopathy on outpatient milrinone drip followed closely by [facility] heart failure. He does present in significant volume overload and will require aggressive diuresis which is complicated by his chronic kidney disease. Given the fact he has not had a recent right heart catheterization I will not adjust his milrinone drip and should be continued at the outpatient settings. He has been started on a Bumex drip which I agree with and may need to be titrated up from 1 mg/h. Recommend evaluation by our nephrology colleagues. He was hyperkalemic at presentation but his electrolytes should be followed very closely and repleted as necessary with a goal potassium of 4-5 and magnesium greater than 2 to avoid ventricular tachycardia. He will be continued on his outpatient aspirin, metoprolol, eplerenone, amiodarone and digoxin. Continue to follow on telemetry. Strict I's and O's with daily weights on the same scale. (12) Unknown status of achievement of care plan goal: I discussed with the patient his very poor prognosis from a cardiac standpoint. At this point he is not even an LVAD candidate nor does he wish to have one implanted. I asked him directly if he would like heroic measures used to prolong his life knowing that the chances for meaningful recovery afterwards would be nil. He does not have an advanced directive currently and is still listed as a full code. He is not sure what he wants to do at this point in terms of end-of-life and will discuss it with his family. Recommend evaluation by our palliative care colleagues. History of Present Illness Reason for Consultation: Acute decompensated heart failure Requesting Physician: Dr. Davis Attending Physician: Jatin Falcon History of Present Illness Mr. Mckeon is a very pleasant yet very cardiac complex 65-year-old gentleman who presented to [facility] on 11/11/2020 with complaints of progressive shortness of breath. He states he started noticing his breathing worsening about a week and a half ago. He became dyspneic with less and less exertion and started propping himself up in bed and sleeping in a recliner. He has had some loose bowel movements. He denies any chest pain or palpitations. He states his been compliant with his medications without any issues. His milrinone drip has been running without issues. He is currently scheduled to undergo right heart catheterization on November 28 to help titrate his milrinone drip. Since admission he states his breathing is a little bit easier. I was contacted by the ER upon his presentation I recommended transfer to [place] for higher level of care and possible need for left ventricular assist device, however, the patient adamantly refused in the emergency department. Past medical history as per most recent outpatient cardiology note: 1. Severe systolic congestion heart failure, nonischemic cardiomyopathy, NYHA Class IV, EF less than 15%, inotrope dependent - Milrinone infusion following hospitalizations in August 2019 with profound systoilc and diastolic congestive heart failure. 2. Status post dual chamber pacemaker defibrillator implantation in January 2016 ([facility] [place]) 3. Ventricular tachycardia on 10/28/2016 requiring device discharge. 4. Status post November 10, 2016 device upgrade to a biventricular rate responsive implantable cardiac defibrillator, insertion of a LV lead by Dr. Marianna Conway at [facility]. 5. Status post diagnostic cardiac catheterizations in 2011, February 2014, December 2015, and last on August 08, 2019. 1. December 2015 catheterization with 30 to 40% mid LAD stenosis, mild disease in the left circumflex, and a 60 to 70% narrowing of the RCA without hemodynamic significance by FFR er documentation 2. Single-vessel coronary artery disease, calcified mid right coronary stenosis status post rotational atherectomy and drug-eluting stent implantation August 08, 2019 6. Frequent PVC's, nonsustained ventricular tachycardia, and VT/VF arrest on July 20, 2019 with appropriate defibrillator discharge and resuscitation; no overt inciting cause other than hypokalemia observed on ER laboratory studies 1. Status post initiation of amiodarone in July 2019 7. Gynecomastia, resolved after switching Spironolactone to eplerenone 8. Dyslipidemia 9. Peripheral vascular disease; status post aortobifemoral bypass in October 2013. Followed by [facility] 10. Chronic tobacco abuse. COPD. 11. Recurrent bladder cancer, status post transurethral resection of a right sided bladder tumor on September 27, 2016 12. Hypertension Allergies Allergy/AdvReac Type Severity Reaction Status Date / Time Iodinated Contrast Media Allergy Intermediate itchiness, Verified 11/11/20 11:17 nausea metformin AdvReac Severe MEMORY LOSS Verified 11/11/20 11:17 codeine AdvReac Intermediate ITCHING Verified 11/11/20 11:17 Home Medications Medication Instructions Recorded Confirmed Type aspirin 81 mg tablet,delayed 81 mg PO QAM 12/25/18 11/11/20 History release digoxin [Digox] 125 mcg PO MOFR 08/06/19 11/11/20 History amiodarone 200 mg tablet 200 mg PO BID #60 tab 08/22/19 11/11/20 Rx metoprolol succinate 25 mg 25 mg PO DAILY #30 tab 08/22/19 11/11/20 Rx tablet,extended release 24 hr milrinone 1 mg/mL intravenous See Rx Instructions .ROUTE 08/22/19 11/11/20 Rx solution .COMPLEX #20 ml eplerenone 25 mg tablet 25 mg PO DAILY #30 tab 10/17/19 11/11/20 Rx ipratropium 0.5 mg-albuterol 3 mg 3 ml INH Q8H PRN #180 ml 10/17/19 11/11/20 Rx (2.5 mg base)/3 mL nebulization soln pantoprazole 40 mg tablet,delayed 40 mg PO BID tab 03/11/20 11/11/20 History release torsemide 100 mg tablet 100 mg PO BID tab 03/11/20 11/11/20 History albuterol sulfate 90 mcg/actuation See Rx Instructions INH .COMPLEX 04/23/20 11/11/20 Rx aerosol inhaler PRN #18 gm torsemide 20 mg tablet 20 mg PO QAM tab 09/11/20 11/11/20 History ferrous sulfate 325 mg PO 3XWK 11/11/20 11/11/20 History finasteride 5 mg PO DAILY 11/11/20 11/11/20 History potassium chloride 30 meq PO BID 11/11/20 11/11/20 History Patient History Medical History Allergic rhinitis Anxiety Arteriosclerotic cardiovascular disease Chronic kidney disease, stage 3 (moderate) Chronic obstructive pulmonary disease Chronic systolic CHF (congestive heart failure), NYHA class 4 <15%, milrinone dependent Degenerative joint disease of knee, left Depression with anxiety Diabetes mellitus type 2 in nonobese Erectile dysfunction History of infection of total joint prosthesis of knee HX. RESOLVED IN 2015 History of pacemaker Hyperlipidemia Hypertension Low output heart failure Lumbar disc disease Lumbar spinal stenosis Malignant neoplasm of bladder hx, s/p mass removal, in remission 11/2020 NICM (nonischemic cardiomyopathy) Peripheral vascular disease Renal cyst Tobacco abuse counseling Surgical History H/O transurethral destruction of bladder lesion (09/2016) TURBT September 2016 History of rzixt-rbzgf-ajnqfec bypass (10/2013) October 2013 History of arthroscopy of knee L KNEE MENISCAL TEAR History of cholecystectomy History of hernia repair History of lumbar laminectomy ONSET: FEB 1981 History of total knee arthroplasty (01/2015) [id number] LEFT KNEE Presence of biventricular AICD (08/2016) Presence of combination internal cardiac defibrillator (ICD) and pacemaker (01/2016) then upgraded in August 2016 S/P cardiac catheterization 08/08/19 Dr. León- Rotational atherectomy and LULU x 2 S/P cardiac catheterization 08/15/19 Dr. Woodson S/P coronary artery stent placement (07/2019) LULU x 2 Family History Father Cardiac disorder Lung cancer Mother Diabetes Hypertension Type 2 diabetes mellitus Vision impairment Sister Type 2 diabetes mellitus Denies family history of Ovarian cancer Prostate cancer Myocardial infarction Breast cancer Colorectal cancer Social History Smoking Status: Current every day smoker Tobacco Type: Cigarettes packs per day: 0.5; Cigarettes Per Day: 0.5-1ppd; Second Hand Exposure: No; Do You Dip or Chew Tobacco: No; Tobacco Cessation Education Requested by Patient: No Hx Alcohol Use: No Hx Substance Use: No Preferred Language: Faroese Communication Ability: Effective Visual Impairment: No Limitations Hearing Ability: Normal Sales Office Coordinator Required: No Beliefs That Will Affect Care: None marital status: Current Living Situation: Spouse current occupational status: retired 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 No acute distress. HEENT: Normocephalic, atraumatic. Pupils equal, round and reactive to light and accommodation. Extraocular muscles are intact. Anicteric sclera. Moist mucous membranes. Neck: No JVD. No bruit. Cardiovascular: Regular. Positive S-4. Normal S-1 and S-2. No S-3. No murmurs or rubs. Pulmonary: Poor air movement in the bilateral bases with bilateral crackles. Scattered rhonchi no wheezing Abdomen: Bowel sounds x 4, soft. No rebound, guarding or tenderness. No organomegaly. Extremities: No clubbing, cyanosis or edema. +2 pedal pulses bilaterally. Skin: Warm and dry. Results & Data ([facility]) Vital Signs (Past 12 Hours) Vital Signs Temp Pulse Pulse Resp BP BP Pulse Ox 11/11/20 15:13 36.3 C L 55 L 16 88/58 L 100 11/11/20 13:20 60 16 114/71 97 11/11/20 13:10 62 23 92/62 L 97 11/11/20 13:00 63 25 H 92/69 L 98 11/11/20 12:30 60 20 101/67 92 11/11/20 12:00 60 24 90/59 L 99 11/11/20 11:30 60 61 22 91/61 L 91/61 L 100 11/11/20 11:02 60 25 H 93/58 L 99 11/11/20 10:37 36.4 C L 47 L 20 95/58 L 97 Diagnostic Findings Echocardiogram report from January 2020: Ultrasound contrast not used as patient has Definity listed as an allergy. Calculated LV ejection Fraction = 21% (bi-plane method of discs). There is diffuse hypokinesis. The left ventricular cavity is severely dilated (LVED volume >100 ml/m^2). The right ventricular cavity is severely dilated. The right ventricular systolic function is severely reduced. There is a pacemaker wire in the right ventricle. Mild aortic valve regurgitation is present. Severe secondary mitral regurgitation is present. Moderate tricuspid regurgitation is present. The aorta rooti is mildly enlarged (3.9 cm). Right heart catheterization performed January 2020: 64 year old male with history of ischemic cardiomyopathy (21%) on chronic Milrinone* Normal right side and mildly elevated left sided filling pressures. RA 4 and PCWP 19 mm Hg* Mild pulmonary hypertension, PA 56/20m mean 30 mm Hg* Normal cardiac output/index 4.79 L/min and 2.6 L/min/m2 respectively. (1) Acute exacerbation of CHF (congestive heart failure) Heart failure type: unspecified Qualified Code(s): I50.9 - Heart failure, unspecified
[2020-11-11 17:00] LABS: Troponin I 0.054 ng/ml (0-0.045)
[2020-11-11] MEDS: [UNRECOGNIZED DRUG - OTHER] SCH (17:34)
[2020-11-11] MEDS: MILRINONE LACTATE/D5W 20,000 MCG/100 ML BAG IV SCH (17:35)
[2020-11-11] MEDS ORDERED: AMMONIUM LACTATE 12% LOTION 225 GM BTL EXT PRN (18:50)
[2020-11-11] MEDS: ALBUMIN 25% 12.5 GM/50 ML VIAL IV SCH ×2 (21:54→23:05)
[2020-11-11] MEDS: PANTOprazole 40 MG TAB PO SCH (22:54)
[2020-11-11] MEDS: AMIODARONE 200 MG TAB PO SCH (22:54)
[2020-11-12] MEDS: ALBUMIN 25% 12.5 GM/50 ML VIAL IV SCH ×2 (00:38→01:40)
[2020-11-12] MEDS: [UNRECOGNIZED DRUG - OTHER] SCH ×2 (06:06→08:31)
[2020-11-12 07:04] LABS: Hematocrit (blood only) 36.4 % (42-52); Mean Corpuscular Hemoglobin 32.4 pg (25-34); Mean Corpuscular Volume 98.4 fL (80-100); Mean Platelet Volume 10.4 fL (7.4-10.4); Platelet Count 322 K/uL (130-400); RDW Coefficient of Variation 16.3 % (11.5-14.5); RDW Standard Deviation 57.6 fL (36.4-46.3); White Blood Count 10.04 K/uL (4.8-10.8)
[2020-11-12 07:39] LABS: Albumin Globulin Ratio 1.1 (0.9-2); Albumin Level 3.6 gm/dl (3.4-5.0); BUN Creatinine Ratio 18.1 (10-20); Bilirubin,Total 3.9 mg/dl (0.2-1); Calcium 8.9 mg/dl (8.5-10.1); Est GFR (African American) 23.5 ml/min; Est GFR (Non-African American) 20.3 ml/min; Globulin 3.4 gm/dl (2.5-4.0); Magnesium 2.9 mg/dl (1.8-2.4); Phosphorus 3.6 mg/dl (2.5-4.9); Potassium 5.3 mmol/L (3.5-5.1)
[2020-11-12] MEDS: SODIUM CHLORIDE 0.9% IV SCH (08:32)
[2020-11-12] MEDS: BUMETANIDE IV SCH (08:32)
[2020-11-12] MEDS: MILRINONE LACTATE/D5W 20,000 MCG/100 ML BAG IV SCH (08:35)
[2020-11-12] MEDS: PANTOprazole 40 MG TAB PO SCH ×2 (08:35→21:41)
[2020-11-12] MEDS: AMIODARONE 200 MG TAB PO SCH ×2 (08:35→21:40)
[2020-11-12] MEDS: ASPIRIN 81 MG ECTAB PO SCH (08:36)
[2020-11-12] MEDS: METOPROLOL SUCC 25MG EXT REL TAB PO SCH (08:36)
[2020-11-12] MEDS: FINASTERIDE 5 MG TAB PO SCH (08:36)
[2020-11-12] MEDS: HEPARIN SOD 5,000 UNIT/0.5 ML VIAL SQ SCH ×2 (08:37→21:41)
--- NOTE | 2020-11-12 08:54 | Hospitalist Progress Note ---
Date of Service November 12, 2020 Assessment & Plan (1) Chronic systolic CHF (congestive heart failure), NYHA class 4: 65 yo M with End stage CHF, extensive cardiac hx including biV AICD placement, nonischemic cardiomyopathy, HLD admitted for dyspnea and hyperkalemia. Acute Decompensated CHF exacerbation Patient with complex cardiac history followed closely at [place], EF 15 to 20%, is BiV AICD in place, with recent medication changes. Patient presents with significant fluid overload, will need to be aggressively diuresed. Patient received 3 mg of IV Bumex in the emergency department and was continued on IV Bumex drip in the floors. Patient has been placed on a fluid restricted as low sugar diet, and is now to being closely monitored, and directly weights are monitored. [facility] has been consulted recommending aggressive diuresis, no change in milrinone, consultation by nephrology, Bumex drip, and maintenance of a potassium between 4 and 5 and magnesium greater than 2. Unfortunately it appears as if this patient is not currently a candidate for LVAD and palliative care has been consulted - salt restriction, fluid restriction - i/o, daily weights - [facility] consulted following recommendations -Aggressive diuresis -Continue milrinone drip -Bumex drip -Nephro consult -Potassium 4-5, magnesium greater than 2 - Nephrology consulted -Increase Bumex drip to 2 mg -Daily metolazone -Electrolyte abnormalities secondary to cardiorenal syndrome -Follow-up UA for superimposed ATN on top of CKD - Palliative care consulted appreciate recommendations Cardiorenal syndrome superimposed on CKD3 Cr 2.71, GFR ~23 on presentation, baseline mid 40s. - CR:2.95->2.71->3.10 - renal dosing of medications - diuresis as above - daily bmp - Nephro consulted Congestive Hepatopathy - elevated LFTs 2/2 CHF exacerbation - diuresis as above, trend LFTs Nonischemic Cardiomyopathy - Dig level 2.1, given doses are on Tuesday and Tuesday, will continue - continue milrinone IV - continue metoprolol succinate daily; can consider holding if BP falls below 85/50 or MAP < 65 - continue amiodarone, eplerenone. - Recently taken off entresto. - holding torsemide for acute exacerbation of CHF, converted to bumex drip as above COPD - cont duonebs prn DVT ppx: heparin sq FEN/GI: DM2, low sodium, 2L fluid restriction diet, pantoprazole PO Dispo: PCU Code Status: Full Code. Palliative consult placed (2) Chronic kidney disease, stage 3 (moderate): (3) Diabetes mellitus type 2 in nonobese: (4) Presence of biventricular AICD: (5) Depression with anxiety: (6) Chronic obstructive pulmonary disease: (7) Hypertension: (8) NICM (nonischemic cardiomyopathy): (9) Peripheral vascular disease: (10) Lumbar spinal stenosis: (11) Hyperlipidemia: (12) Arteriosclerotic cardiovascular disease: Admission and Anticipated Discharge Date Admission Date: November 11, 2020 Supervising Physician Co-Signing Physician Notes Resident Physician Supervision Note: I independently interviewed and examined the patient and verified the padilla history and physical, reviewed labs and image studies and agree with resident Dr. Jose Angel Wylie findings and care plan. Subjective Patient sitting up in bed this morning in no acute distress. Patient reports no acute events overnight, denies feeling pain, and reports his symptoms are improving. He notes his fluid overload status is improving as well. We briefly had a discussion regarding different approaches to end-of-life care including a palliative approach versus a quantity approach. Patient verbalized kelsea bwoer. At present acute concerns relate to discharge hopefully prior to Tuesday so he can attend his granddaughter's event all questions were answered Physical Exam Physical Exam: General: Cachectic appearing gentleman in no acute distress HEENT: Normocephalic atraumatic Neck: Normal to visual inspection trachea midline Cardiac:Regular rate and rhythm I did not appreciate any significant murmurs rubs or gallops, S4 present, normal S1, normal S2, no S3 1+ pedal edema bilaterally, negative calf tenderness Respiratory: Poor air movement bilaterally with crackles in the bibasilar bases otherwise clear to auscultation GI: Bowel sounds present MSK: Moves all extremities Neuro: Alert and oriented x4 Psych: Calm and cooperative with interview Results & Data Results & Data ([facility]) Vital Signs (Past 12 Hours) Vital Signs Temp Pulse Resp BP Pulse Ox 11/12/20 07:06 36.7 C 56 L 18 87/58 L 97 11/12/20 04:10 58 L 18 85/55 L 98 11/12/20 03:06 98/41 L 11/12/20 00:17 36.3 C L 59 L 18 94/61 L 99 11/11/20 22:11 57 L 94/58 L Laboratory Results 11/12/20 11/12/20 11/12/20 Range/Units 07:18 06:30 06:30 WBC 10.04 (4.8-10.8) K/uL RBC 3.70 L (4.7-6.1) M/uL Hgb 12.0 L (14.0-18.0) g/dL Hct 36.4 L (42-52) % MCV 98.4 (80-100) fL MCH 32.4 (25-34) pg MCHC 33.0 (32-36) g/dL RDW Std Deviation 57.6 H (36.4-46.3) fL RDW Coeff of Rich 16.3 H (11.5-14.5) % Plt Count 322 (130-400) K/uL MPV 10.4 (7.4-10.4) fL Immature Gran % (Auto) % Neut % (Auto) % Lymph % (Auto) % [place] % (Auto) % Eos % (Auto) % Baso % (Auto) % Neut # (Auto) (1.4-6.5) K/uL Lymph # (Auto) (1.2-3.4) K/uL [place] # (Auto) (0.11-0.59) K/uL Eos # (Auto) (0-0.5) K/uL Baso # (Auto) (0-0.2) K/uL Immature Gran # (Auto) (0.00-0.02) K/uL PT (9.0-12.0) Seconds INR (0.9-1.1) POC pH (7.35-7.45) POC pCO2 (35-46) mmHg POC pO2 (80-95) mmHg POC HCO3 (19-24) steve/L POC Total CO2 (24-31) mmol/L POC Base Excess (-9-1.8) steve/L POC ABG O2 Sat (90-95) % VBG pH (7.36-7.41) VBG pCO2 (38-50) mmHg VBG pO2 mmHg VBG HCO3 mmol/L VBG O2 Saturation % VBG Base Excess mEq/L Barometric Pressure mm/Hg Sodium 130 L (136-145) mmol/L Potassium 5.3 H D (3.5-5.1) mmol/L Chloride 97 L (98-107) mmol/L Carbon Dioxide 23 (21-32) mmol/L Anion Gap 10.0 (3-11) BUN 56 H (7-18) mg/dl Creatinine 3.10 H D (0.6-1.4) mg/dl Est Cr Clr Drug Dosing 23.0 ml/min Est GFR ( Amer) 23.5 ml/min Est GFR (Non-Af Amer) 20.3 ml/min BUN/Creatinine Ratio 18.1 (10-20) Glucose 105 H (70-99) mg/dl POC Glucose 115 H (70-99) mg/dl Calcium 8.9 (8.5-10.1) mg/dl Phosphorus 3.6 (2.5-4.9) mg/dl Magnesium 2.9 H (1.8-2.4) mg/dl Total Bilirubin 3.9 H D (0.2-1) mg/dl AST 174 H (15-37) U/L ALT 190 H (12-78) U/L Alkaline Phosphatase 148 H (45-117) U/L Troponin I (0-0.045) ng/ml NT-Pro-B Natriuret Pep (0-900) pg/ml Total Protein 7.0 (6.4-8.2) gm/dl Albumin 3.6 (3.4-5.0) gm/dl Globulin 3.4 (2.5-4.0) gm/dl Albumin/Globulin Ratio 1.1 (0.9-2) Procalcitonin (0-0.5) ng/ml TSH (0.300-4.500) uIu/ml Digoxin (0.8-2.0) ng/ml COVID-19 Eval Order SARS-CoV-2 (PCR) (Negative) 11/11/20 11/11/20 11/11/20 Range/Units 16:01 15:12 14:35 WBC (4.8-10.8) K/uL RBC (4.7-6.1) M/uL Hgb (14.0-18.0) g/dL Hct (42-52) % MCV (80-100) fL MCH (25-34) pg MCHC (32-36) g/dL RDW Std Deviation (36.4-46.3) fL RDW Coeff of Rich (11.5-14.5) % Plt Count (130-400) K/uL MPV (7.4-10.4) fL Immature Gran % (Auto) % Neut % (Auto) % Lymph % (Auto) % [place] % (Auto) % Eos % (Auto) % Baso % (Auto) % Neut # (Auto) (1.4-6.5) K/uL Lymph # (Auto) (1.2-3.4) K/uL [place] # (Auto) (0.11-0.59) K/uL Eos # (Auto) (0-0.5) K/uL Baso # (Auto) (0-0.2) K/uL Immature Gran # (Auto) (0.00-0.02) K/uL PT (9.0-12.0) Seconds INR (0.9-1.1) POC pH 7.44 (7.35-7.45) POC pCO2 27 L (35-46) mmHg POC pO2 79 L (80-95) mmHg POC HCO3 19 (19-24) steve/L POC Total CO2 19 L (24-31) mmol/L POC Base Excess -6.0 (-9-1.8) steve/L POC ABG O2 Sat 96.0 H (90-95) % VBG pH (7.36-7.41) VBG pCO2 (38-50) mmHg VBG pO2 mmHg VBG HCO3 mmol/L VBG O2 Saturation % VBG Base Excess mEq/L Barometric Pressure mm/Hg Sodium (136-145) mmol/L Potassium (3.5-5.1) mmol/L Chloride (98-107) mmol/L Carbon Dioxide (21-32) mmol/L Anion Gap (3-11) BUN (7-18) mg/dl Creatinine (0.6-1.4) mg/dl Est Cr Clr Drug Dosing ml/min Est GFR ( Amer) ml/min Est GFR (Non-Af Amer) ml/min BUN/Creatinine Ratio (10-20) Glucose (70-99) mg/dl POC Glucose 142 H (70-99) mg/dl Calcium (8.5-10.1) mg/dl Phosphorus (2.5-4.9) mg/dl Magnesium (1.8-2.4) mg/dl Total Bilirubin (0.2-1) mg/dl AST (15-37) U/L ALT (12-78) U/L Alkaline Phosphatase (45-117) U/L Troponin I 0.049 H* (0-0.045) ng/ml NT-Pro-B Natriuret Pep (0-900) pg/ml Total Protein (6.4-8.2) gm/dl Albumin (3.4-5.0) gm/dl Globulin (2.5-4.0) gm/dl Albumin/Globulin Ratio (0.9-2) Procalcitonin (0-0.5) ng/ml TSH (0.300-4.500) uIu/ml Digoxin (0.8-2.0) ng/ml COVID-19 Eval Order SARS-CoV-2 (PCR) (Negative) 11/11/20 11/11/20 11/11/20 Range/Units 14:28 13:37 13:36 WBC (4.8-10.8) K/uL RBC (4.7-6.1) M/uL Hgb (14.0-18.0) g/dL Hct (42-52) % MCV (80-100) fL MCH (25-34) pg MCHC (32-36) g/dL RDW Std Deviation (36.4-46.3) fL RDW Coeff of Rich (11.5-14.5) % Plt Count (130-400) K/uL MPV (7.4-10.4) fL Immature Gran % (Auto) % Neut % (Auto) % Lymph % (Auto) % [place] % (Auto) % Eos % (Auto) % Baso % (Auto) % Neut # (Auto) (1.4-6.5) K/uL Lymph # (Auto) (1.2-3.4) K/uL [place] # (Auto) (0.11-0.59) K/uL Eos # (Auto) (0-0.5) K/uL Baso # (Auto) (0-0.2) K/uL Immature Gran # (Auto) (0.00-0.02) K/uL PT (9.0-12.0) Seconds INR (0.9-1.1) POC pH (7.35-7.45) POC pCO2 (35-46) mmHg POC pO2 (80-95) mmHg POC HCO3 (19-24) steve/L POC Total CO2 (24-31) mmol/L POC Base Excess (-9-1.8) steve/L POC ABG O2 Sat (90-95) % VBG pH (7.36-7.41) VBG pCO2 (38-50) mmHg VBG pO2 mmHg VBG HCO3 mmol/L VBG O2 Saturation % VBG Base Excess mEq/L Barometric Pressure mm/Hg Sodium 135 L (136-145) mmol/L Potassium 4.6 D (3.5-5.1) mmol/L Chloride 104 (98-107) mmol/L Carbon Dioxide 22 (21-32) mmol/L Anion Gap 9.0 (3-11) BUN 49 H (7-18) mg/dl Creatinine 2.71 H (0.6-1.4) mg/dl Est Cr Clr Drug Dosing 26.9 ml/min Est GFR ( Amer) 27.7 ml/min Est GFR (Non-Af Amer) 23.9 ml/min BUN/Creatinine Ratio 18.0 (10-20) Glucose 172 H (70-99) mg/dl POC Glucose 331 H* 262 H (70-99) mg/dl Calcium 8.2 L (8.5-10.1) mg/dl Phosphorus (2.5-4.9) mg/dl Magnesium (1.8-2.4) mg/dl Total Bilirubin (0.2-1) mg/dl AST (15-37) U/L ALT (12-78) U/L Alkaline Phosphatase (45-117) U/L Troponin I (0-0.045) ng/ml NT-Pro-B Natriuret Pep (0-900) pg/ml Total Protein (6.4-8.2) gm/dl Albumin (3.4-5.0) gm/dl Globulin (2.5-4.0) gm/dl Albumin/Globulin Ratio (0.9-2) Procalcitonin (0-0.5) ng/ml TSH (0.300-4.500) uIu/ml Digoxin (0.8-2.0) ng/ml COVID-19 Eval Order SARS-CoV-2 (PCR) (Negative) 11/11/20 11/11/20 11/11/20 Range/Units 11:30 11:23 11:23 WBC (4.8-10.8) K/uL RBC (4.7-6.1) M/uL Hgb (14.0-18.0) g/dL Hct (42-52) % MCV (80-100) fL MCH (25-34) pg MCHC (32-36) g/dL RDW Std Deviation (36.4-46.3) fL RDW Coeff of Rich (11.5-14.5) % Plt Count (130-400) K/uL MPV (7.4-10.4) fL Immature Gran % (Auto) % Neut % (Auto) % Lymph % (Auto) % [place] % (Auto) % Eos % (Auto) % Baso % (Auto) % Neut # (Auto) (1.4-6.5) K/uL Lymph # (Auto) (1.2-3.4) K/uL [place] # (Auto) (0.11-0.59) K/uL Eos # (Auto) (0-0.5) K/uL Baso # (Auto) (0-0.2) K/uL Immature Gran # (Auto) (0.00-0.02) K/uL PT (9.0-12.0) Seconds INR (0.9-1.1) POC pH (7.35-7.45) POC pCO2 (35-46) mmHg POC pO2 (80-95) mmHg POC HCO3 (19-24) steve/L POC Total CO2 (24-31) mmol/L POC Base Excess (-9-1.8) steve/L POC ABG O2 Sat (90-95) % VBG pH 7.40 (7.36-7.41) VBG pCO2 41 (38-50) mmHg VBG pO2 20 mmHg VBG HCO3 25 mmol/L VBG O2 Saturation < 60.0 % VBG Base Excess 0 mEq/L Barometric Pressure 738.3 mm/Hg Sodium (136-145) mmol/L Potassium (3.5-5.1) mmol/L Chloride (98-107) mmol/L Carbon Dioxide (21-32) mmol/L Anion Gap (3-11) BUN (7-18) mg/dl Creatinine (0.6-1.4) mg/dl Est Cr Clr Drug Dosing ml/min Est GFR ( Amer) ml/min Est GFR (Non-Af Amer) ml/min BUN/Creatinine Ratio (10-20) Glucose (70-99) mg/dl POC Glucose (70-99) mg/dl Calcium (8.5-10.1) mg/dl Phosphorus (2.5-4.9) mg/dl Magnesium (1.8-2.4) mg/dl Total Bilirubin (0.2-1) mg/dl AST (15-37) U/L ALT (12-78) U/L Alkaline Phosphatase (45-117) U/L Troponin I (0-0.045) ng/ml NT-Pro-B Natriuret Pep (0-900) pg/ml Total Protein (6.4-8.2) gm/dl Albumin (3.4-5.0) gm/dl Globulin (2.5-4.0) gm/dl Albumin/Globulin Ratio (0.9-2) Procalcitonin (0-0.5) ng/ml TSH (0.300-4.500) uIu/ml Digoxin (0.8-2.0) ng/ml COVID-19 Eval Order Covid19 at [facility] SARS-CoV-2 (PCR) NEGATIVE (Negative) 11/11/20 11/11/20 11/11/20 Range/Units 11:23 11:23 11:23 WBC (4.8-10.8) K/uL RBC (4.7-6.1) M/uL Hgb (14.0-18.0) g/dL Hct (42-52) % MCV (80-100) fL MCH (25-34) pg MCHC (32-36) g/dL RDW Std Deviation (36.4-46.3) fL RDW Coeff of Rich (11.5-14.5) % Plt Count (130-400) K/uL MPV (7.4-10.4) fL Immature Gran % (Auto) % Neut % (Auto) % Lymph % (Auto) % [place] % (Auto) % Eos % (Auto) % Baso % (Auto) % Neut # (Auto) (1.4-6.5) K/uL Lymph # (Auto) (1.2-3.4) K/uL [place] # (Auto) (0.11-0.59) K/uL Eos # (Auto) (0-0.5) K/uL Baso # (Auto) (0-0.2) K/uL Immature Gran # (Auto) (0.00-0.02) K/uL PT (9.0-12.0) Seconds INR (0.9-1.1) POC pH (7.35-7.45) POC pCO2 (35-46) mmHg POC pO2 (80-95) mmHg POC HCO3 (19-24) steve/L POC Total CO2 (24-31) mmol/L POC Base Excess (-9-1.8) steve/L POC ABG O2 Sat (90-95) % VBG pH (7.36-7.41) VBG pCO2 (38-50) mmHg VBG pO2 mmHg VBG HCO3 mmol/L VBG O2 Saturation % VBG Base Excess mEq/L Barometric Pressure mm/Hg Sodium 129 L (136-145) mmol/L Potassium 6.1 H* (3.5-5.1) mmol/L Chloride 97 L (98-107) mmol/L Carbon Dioxide 22 (21-32) mmol/L Anion Gap 10.0 (3-11) BUN 55 H (7-18) mg/dl Creatinine 2.95 H (0.6-1.4) mg/dl Est Cr Clr Drug Dosing 24.7 ml/min Est GFR ( Amer) 25.0 ml/min Est GFR (Non-Af Amer) 21.6 ml/min BUN/Creatinine Ratio 18.8 (10-20) Glucose 129 H (70-99) mg/dl POC Glucose (70-99) mg/dl Calcium 9.2 (8.5-10.1) mg/dl Phosphorus 3.4 (2.5-4.9) mg/dl Magnesium 2.6 H (1.8-2.4) mg/dl Total Bilirubin 2.5 H (0.2-1) mg/dl AST 135 H (15-37) U/L ALT 150 H (12-78) U/L Alkaline Phosphatase 150 H (45-117) U/L Troponin I 0.054 H* (0-0.045) ng/ml NT-Pro-B Natriuret Pep 55610 H (0-900) pg/ml Total Protein 7.3 (6.4-8.2) gm/dl Albumin 3.3 L (3.4-5.0) gm/dl Globulin 4.0 (2.5-4.0) gm/dl Albumin/Globulin Ratio 0.8 L (0.9-2) Procalcitonin 0.30 (0-0.5) ng/ml TSH 1.900 (0.300-4.500) uIu/ml Digoxin 2.1 H (0.8-2.0) ng/ml COVID-19 Eval Order SARS-CoV-2 (PCR) (Negative) 11/11/20 11/11/20 Range/Units 11:23 11:23 WBC 10.83 H (4.8-10.8) K/uL RBC 3.99 L (4.7-6.1) M/uL Hgb 13.0 L (14.0-18.0) g/dL Hct 39.5 L (42-52) % MCV 99.0 (80-100) fL MCH 32.6 (25-34) pg MCHC 32.9 (32-36) g/dL RDW Std Deviation 58.6 H (36.4-46.3) fL RDW Coeff of Rich 16.3 H (11.5-14.5) % Plt Count 374 (130-400) K/uL MPV 10.3 (7.4-10.4) fL Immature Gran % (Auto) 0.4 % Neut % (Auto) 81.2 % Lymph % (Auto) 10.6 % [place] % (Auto) 7.6 % Eos % (Auto) 0.1 % Baso % (Auto) 0.1 % Neut # (Auto) 8.80 H (1.4-6.5) K/uL Lymph # (Auto) 1.15 L (1.2-3.4) K/uL [place] # (Auto) 0.82 H (0.11-0.59) K/uL Eos # (Auto) 0.01 (0-0.5) K/uL Baso # (Auto) 0.01 (0-0.2) K/uL Immature Gran # (Auto) 0.04 H (0.00-0.02) K/uL PT 11.7 (9.0-12.0) Seconds INR 1.2 H (0.9-1.1) POC pH (7.35-7.45) POC pCO2 (35-46) mmHg POC pO2 (80-95) mmHg POC HCO3 (19-24) steve/L POC Total CO2 (24-31) mmol/L POC Base Excess (-9-1.8) steve/L POC ABG O2 Sat (90-95) % VBG pH (7.36-7.41) VBG pCO2 (38-50) mmHg VBG pO2 mmHg VBG HCO3 mmol/L VBG O2 Saturation % VBG Base Excess mEq/L Barometric Pressure mm/Hg Sodium (136-145) mmol/L Potassium (3.5-5.1) mmol/L Chloride (98-107) mmol/L Carbon Dioxide (21-32) mmol/L Anion Gap (3-11) BUN (7-18) mg/dl Creatinine (0.6-1.4) mg/dl Est Cr Clr Drug Dosing ml/min Est GFR ( Amer) ml/min Est GFR (Non-Af Amer) ml/min BUN/Creatinine Ratio (10-20) Glucose (70-99) mg/dl POC Glucose (70-99) mg/dl Calcium (8.5-10.1) mg/dl Phosphorus (2.5-4.9) mg/dl Magnesium (1.8-2.4) mg/dl Total Bilirubin (0.2-1) mg/dl AST (15-37) U/L ALT (12-78) U/L Alkaline Phosphatase (45-117) U/L Troponin I (0-0.045) ng/ml NT-Pro-B Natriuret Pep (0-900) pg/ml Total Protein (6.4-8.2) gm/dl Albumin (3.4-5.0) gm/dl Globulin (2.5-4.0) gm/dl Albumin/Globulin Ratio (0.9-2) Procalcitonin (0-0.5) ng/ml TSH (0.300-4.500) uIu/ml Digoxin (0.8-2.0) ng/ml COVID-19 Eval Order SARS-CoV-2 (PCR) (Negative) Medications Administered Current Inpatient Medications Acetaminophen (Acetaminophen 325 Mg Tab) 650 mg PO Q4H PRN PRN Reason: Pain or Fever Stop: 12/11/20 15:06 Amiodarone HCl (Amiodarone 200 Mg Tab) 200 mg PO BID [facility] Stop: 12/11/20 20:59 Last Admin: 11/12/20 08:35 Dose: 200 mg Documented by: Aspirin (Aspirin 81 Mg Ectab) 81 mg PO QAM [facility] Stop: 12/12/20 08:59 Last Admin: 11/12/20 08:36 Dose: 81 mg Documented by: Digoxin (Digoxin 0.125 Mg Tab) 0.125 mg PO MoFr@1600 [facility] Stop: 12/14/20 15:59 Ferrous Sulfate (Ferrous Sulfate 325 Mg Tab) 325 mg PO MoWeFr@0900 [facility] Stop: 12/12/20 08:59 Last Admin: 11/12/20 09:21 Dose: 325 mg Documented by: Finasteride (Finasteride 5 Mg Tab) 5 mg PO DAILY [facility] Stop: 12/12/20 08:59 Last Admin: 11/12/20 08:36 Dose: 5 mg Documented by: Heparin Sodium (Porcine) (Heparin Sod 5,000 Unit/0.5 Ml Vial) 5,000 units SQ Q12 [facility] Stop: 12/12/20 08:59 Last Admin: 11/12/20 08:37 Dose: 5,000 units Documented by: Bumetanide 10 mg/ Sodium (Chloride) 50 mls @ 5 mls/hr IV .Q10H [facility] Stop: 12/11/20 14:44 Last Admin: 11/12/20 08:32 Dose: 1 mg/hr, 5 mls/hr Documented by: Milrinone Lactate/Dextrose (Primacor/D5w) 20,000 mcg in 100 mls @ 6.129 mls/hr IV .[id number] [facility]; Protocol Stop: 12/11/20 15:59 Last Admin: 11/12/20 08:35 Dose: 0.3 mcg/kg/min, 6.1 mls/hr Documented by: Lactic Acid (Ammonium Lactate 12% Lotion 225 Gm Btl) 1 gm EXT QID PRN PRN Reason: itching Stop: 12/11/20 18:49 Last Admin: 11/11/20 23:07 Dose: 1 gm Documented by: Magnesium Hydroxide (Magnesium Hydroxide Susp 30 Ml Udc) 30 ml PO Q12H PRN PRN Reason: Constipation Stop: 12/11/20 15:06 Metoprolol Succinate (Metoprolol Succ 25mg Ext Rel Tab) 25 mg PO DAILY [facility] Stop: 12/12/20 08:59 Last Admin: 11/12/20 08:36 Dose: 25 mg Documented by: Miscellaneous (*Eplerenone*Order Awaiting Action) 1 ea N/A QS [facility] Stop: 12/11/20 15:59 Last Admin: 11/12/20 08:31 Dose: Not Given Documented by: Nitroglycerin (Nitroglycerin Sl 0.4 Mg/Tab Tab) 0.4 mg SL UD PRN PRN Reason: Chest Pain Stop: 12/11/20 15:06 Ondansetron HCl (Ondansetron Inj 2 Mg/Ml 2 Ml Vial) 4 mg IV Q6H PRN PRN Reason: Nausea Stop: 12/11/20 15:06 Pantoprazole Sodium (Pantoprazole 40 Mg Tab) 40 mg PO BID [facility] Stop: 12/11/20 20:59 Last Admin: 11/12/20 08:35 Dose: 40 mg Documented by: Polyethylene Glycol (Polyethylene (Miralax) 17 Gm Pack) 17 gm PO DAILY PRN PRN Reason: Constipation Stop: 12/11/20 15:06 Resident Activity Tracking Resident Involvement: Resident Care Provided Care Provided: Adult Hospital Medicine
--- NOTE | 2020-11-12 08:57 | Electrocardiogram Report ---
Test Reason : Blood Pressure : / mmHG Vent. Rate : 063 BPM Atrial Rate : 063 BPM P-R Int : 216 ms QRS Dur : 196 ms QT Int : 548 ms P-R-T Axes : 000 -83 079 degrees QTc Int : 560 ms AV dual-paced rhythm with prolonged AV conduction Abnormal ECG When compared with ECG of 11-NOV-2020 10:57, Vent. rate has increased BY 3 BPM Confirmed by Kartik Cruz ([id number]) on 11/12/2020 8:56:53 AM Referred By: REFERRED SELF Confirmed By:Kartik Cruz
[2020-11-12] MEDS: FERROUS SULFATE 325 MG TAB PO SCH (09:21)
--- NOTE | 2020-11-12 10:31 | Cardiology Progress Note ---
Date of Service November 12, 2020 Assessment & Plan (1) Acute exacerbation of CHF (congestive heart failure): (2) Acute hyperkalemia: (3) Chronic kidney disease, stage 3 (moderate): (4) Chronic systolic CHF (congestive heart failure), NYHA class 4: (5) Presence of biventricular AICD: (6) Low output heart failure: (7) Malignant neoplasm of bladder: (8) Arteriosclerotic cardiovascular disease: (9) Chronic obstructive pulmonary disease: (10) Peripheral vascular disease: (11) Tobacco abuse counseling: Cardiovascular complex 65-year-old gentleman with severe nonischemic cardiomyopathy on outpatient milrinone drip followed closely by [facility] advanced heart failure. He does present in significant volume overload and will require aggressive diuresis which is complicated by his chronic kidney disease. Given the fact he has not had a recent right heart catheterization I will not adjust his milrinone drip and should be continued at the outpatient settings. He has been started on a Bumex drip which I agree with and may need to be titrated up from 1 mg/h. No significant output since admission. Creatinine has declined. Recommend evaluation by our nephrology colleagues. He was hyperkalemic at presentation but his electrolytes should be followed very closely and repleted as necessary with a goal potassium of 4-5 and magnesium greater than 2 to avoid ventricular tachycardia. He will be continued on his outpatient aspirin, metoprolol, eplerenone, amiodarone and digoxin. Continue to follow on telemetry. Strict I's and O's with daily weights on the same scale. (12) Unknown status of achievement of care plan goal: I discussed with the patient his very poor prognosis from a cardiac standpoint. At this point he is not even an LVAD candidate nor does he wish to have one implanted. I asked him directly if he would like heroic measures used to prolong his life knowing that the chances for meaningful recovery afterwards would be nil. He does not have an advanced directive currently and is still listed as a full code. He is not sure what he wants to do at this point in terms of end-of-life and will discuss it with his family. Recommend evaluation by our palliative care colleagues. Once again today I discussed end-of-life care with him briefly. His current main focus is to be able to be discharged so that he may attend his granddaughter's eighth birthday on Tuesday. Currently she likes porfirio. Admission and Anticipated Discharge Date Admission Date: November 11, 2020 Subjective Patient seen and examined, chart reviewed. Patient currently sitting up on the edge of the bed and states he feels better today. He states his breathing seems to have slightly improved despite very little urine output overnight. Denies chest pain, palpitations, lightheadedness or dizziness. Telemetry reviewed: Review of Systems Review of Systems: All systems reviewed & are unremarkable except as noted in HPI & below Physical Exam Physical Exam: General: Awake, alert and oriented x 3. No acute distress. HEENT: Normocephalic, atraumatic. Pupils equal, round and reactive to light and accommodation. Extraocular muscles are intact. Anicteric sclera. Moist mucous membranes. Neck: No JVD. No bruit. Cardiovascular: Regular. Positive S-4. Normal S-1 and S-2. No S-3. 3/6 holosystolic ejection murmur, left sternal border, mid-clavicular line with radiation to the axilla. No rubs. Pulmonary: Clear to auscultation bilaterally. No rales, rhonchi, or wheezing. Abdomen: Bowel sounds x 4, soft. No rebound, guarding or tenderness. No organomegaly. Extremities: No clubbing, cyanosis or edema. +2 pedal pulses bilaterally. Skin: Warm and dry. Results & Data ([facility]) Vital Signs (Past 12 Hours) Vital Signs Temp Pulse Resp BP Pulse Ox 11/12/20 07:06 36.7 C 56 L 18 87/58 L 97 11/12/20 04:10 58 L 18 85/55 L 98 11/12/20 03:06 98/41 L 11/12/20 00:17 36.3 C L 59 L 18 94/61 L 99 (1) Acute exacerbation of CHF (congestive heart failure) Heart failure type: unspecified Qualified Code(s): I50.9 - Heart failure, unspecified
[2020-11-12] MEDS ORDERED: metOLazone 5 MG TABLET PO ONE (11:32)
[2020-11-12] MEDS: BUMETANIDE 10 MG in DEXTROSE 5% 10 ML IV SCH ×3 (12:04→21:32)
--- NOTE | 2020-11-12 12:56 | Consultation Report ---
DATE OF CONSULTATION: 11/12/2020 REASON FOR CONSULT: Acute renal failure in a patient with severe cardiorenal syndrome. HISTORY OF PRESENT ILLNESS: The patient is a 65-year-old white male who has severe nonischemic cardiomyopathy on outpatient milrinone drip followed closely by [facility]. He presented to the hospital with significant shortness of breath and volume overload with abnormal kidney function. The patient is not a great historian and he did not appear to be in good mood to answer detailed questions. As per H and P he was having increasing shortness of breath for the last few days. His outpatient lab was initially low with a potassium of 2.8, after which he was told to take extra potassium. However, when he presented to the hospital, his potassium was actually high at 6.1. Since admission, he has been on milrinone drip as well as the Bumex drip, but really has not had much urine output. Since admission, there has only been 450 mL of urine. There is ongoing discussion about the level of care given that patient appears to be essentially end-stage cardiac disease at this time. I have been consulted for abnormal kidney function. Creatinine in August was 2.6 on admission yesterday was 2.95 and this morning is 3.10, potassium was 6.1, this morning it was still 5.3. Sodium is low at 130. BNP is very elevated even bilirubin is abnormal. PAST MEDICAL AND SURGICAL HISTORY: Includes chronic kidney disease stage IV with most recent creatinine of 2.6, type 2 diabetes, presence of biventricular AICD, depression with anxiety, COPD, hypertension, nonischemic cardiomyopathy with an ejection fraction of 15%, peripheral vascular disease, history of bladder cancer, hypertension in the past, but currently low blood pressure. ALLERGIES: List reviewed and as per H and P. HOME MEDICATIONS: Includes aspirin, digoxin, amiodarone, metoprolol, milrinone drip, Eplerenone 25, ipratropium nebulizer, Protonix, torsemide 100 twice daily, ferrous sulfate, finasteride, potassium 30 twice daily. FAMILY HISTORY: Negative for renal disease or dialysis. SOCIAL HISTORY: He is , works at [employer]. History of smoking about half pack, current every day smoking. REVIEW OF SYSTEMS: All systems could not be reviewed as the patient is not talking much. As per H and P he was having increasing shortness of breath as well as decreased urine output for the last few days. PHYSICAL EXAMINATION: GENERAL: Middle-aged white male who appears to be chronically ill. He is awake and alert, but I could not really test the orientation as he did not answer questions much, moving all 4 extremities. CHEST: Bilateral decreased breath sounds, occasional crackles. CARDIOVASCULAR: S1 and S2 irregular. No murmur or rubs heard. ABDOMEN: Soft, nontender. EXTREMITIES: Shows trace edema with signs of poor circulation. VITAL SIGNS: Most recent vital signs include blood pressure 98/46, pulse rate 66, oxygen saturation 99% on room air, temperature 36.6. LABORATORY TESTS: Reviewed. Sodium 130 and is dropping. Potassium is back up to 5.3, chloride 97, BUN 56, creatinine 3.10. Magnesium 2.9. BNP 34,000. ASSESSMENT AND PLAN: A 65-year-old male, currently admitted with exacerbation of congestive heart failure. The patient has known severe nonischemic cardiomyopathy with an ejection fraction of 15% as well as chronic kidney disease IV which seems to be worsening. I have been consulted for abnormal kidney function in a patient with cardiorenal syndrome. Acute renal failure, I believe the etiology of acute renal failure is most likely to be further worsening of the cardiac situation. He is volume overloaded and has decompensated congestive heart failure. RECOMMENDATIONS: 1. Increase Bumex drip at 2 mg per hour. 2. Add metolazone 5 mg now and daily. 3. Repeat BMP later today to check for potassium. 4. Sodium is low and potassium is high because of decompensated congestive heart failure with renal failure. 5. Check UA as he may also have superimposed ATN on top of his CKD. 6. Overall, prognosis seems very poor given his advanced cardiac disease.
[2020-11-12 17:32] LABS: BUN Creatinine Ratio 21.2 (10-20); Calcium 9.5 mg/dl (8.5-10.1); Creatinine Clr Calc Pharmacy 22.1 ml/min; Est GFR (African American) 22.5 ml/min; Est GFR (Non-African American) 19.4 ml/min; Potassium 5.1 mmol/L (3.5-5.1)
[2020-11-13] MEDS: MILRINONE LACTATE/D5W 20,000 MCG/100 ML BAG IV SCH ×2 (00:48→17:14)
[2020-11-13 01:03] LABS: Appearance Urine Clear (Clear); Bilirubin Urine Negative (Negative); Blood Urine Negative (Negative); Color Urine Yellow; Glucose Urine UA Negative (Negative); Ketones Urine Negative (Negative); Leukocyte Esterase Urine Negative (Negative); Nitrite Urine Negative (Negative); Protein Urine Negative (Negative); Specific Gravity Urine 1.009 (1.000-1.030); Urobilinogen Urine Negative (Negative)
[2020-11-13] MEDS: BUMETANIDE 10 MG in DEXTROSE 5% 10 ML IV SCH ×5 (02:01→22:18)
[2020-11-13 06:54] LABS: Basophils # (auto) 0.01 K/uL (0-0.2); Basophils % (auto) 0.1 %; Eosinophils # (auto) 0.06 K/uL (0-0.5); Eosinophils % (auto) 0.7 %; Hematocrit (blood only) 34.3 % (42-52); Hemoglobin 11.4 g/dL (14.0-18.0); Immature Granulocytes # (auto) 0.03 K/uL (0.00-0.02); Immature Granulocytes % (auto) 0.4 %; Lymphocytes # (auto) 0.74 K/uL (1.2-3.4); Lymphocytes % (auto) 8.7 %; Mean Corpuscular Hemoglobin 32.2 pg (25-34); Mean Corpuscular Hgb Conc 33.2 g/dL (32-36); Mean Corpuscular Volume 96.9 fL (80-100); Mean Platelet Volume 10.3 fL (7.4-10.4); Monocytes # (auto) 0.89 K/uL (0.11-0.59); Monocytes % (auto) 10.5 %; Neutrophils # (auto) 6.76 K/uL (1.4-6.5); Neutrophils % (auto) 79.6 %; Platelet Count 317 K/uL (130-400); RDW Coefficient of Variation 16.3 % (11.5-14.5); RDW Standard Deviation 56.3 fL (36.4-46.3); Red Blood Count 3.54 M/uL (4.7-6.1); White Blood Count 8.49 K/uL (4.8-10.8)
[2020-11-13 07:45] LABS: Albumin Level 3.3 gm/dl (3.4-5.0); BUN Creatinine Ratio 21.8 (10-20); Bilirubin,Total 3.1 mg/dl (0.2-1); Calcium 8.8 mg/dl (8.5-10.1); Creatinine Clr Calc Pharmacy 23.9 ml/min; Est GFR (African American) 24.7 ml/min; Est GFR (Non-African American) 21.3 ml/min; Globulin 3.4 gm/dl (2.5-4.0); Total Protein 6.7 gm/dl (6.4-8.2)
[2020-11-13] MEDS: AMIODARONE 200 MG TAB PO SCH ×2 (08:16→21:25)
[2020-11-13] MEDS: HEPARIN SOD 5,000 UNIT/0.5 ML VIAL SQ SCH ×2 (08:16→21:25)
[2020-11-13] MEDS: FINASTERIDE 5 MG TAB PO SCH (08:17)
[2020-11-13] MEDS: PANTOprazole 40 MG TAB PO SCH ×2 (08:17→21:24)
[2020-11-13] MEDS: ASPIRIN 81 MG ECTAB PO SCH (08:17)
[2020-11-13] MEDS: METOPROLOL SUCC 25MG EXT REL TAB PO SCH (08:17)
[2020-11-13] MEDS: EPLERENONE 25 MG TAB PO SCH (08:18)
--- NOTE | 2020-11-13 09:19 | Electrocardiogram Report ---
Test Reason : Blood Pressure : / mmHG Vent. Rate : 060 BPM Atrial Rate : 037 BPM P-R Int : 216 ms QRS Dur : 188 ms QT Int : 636 ms P-R-T Axes : 001 -70 084 degrees QTc Int : 636 ms AV dual-paced rhythm with prolonged AV conduction Abnormal ECG When compared with ECG of 12-NOV-2020 07:28, Vent. rate has decreased BY 3 BPM Confirmed by Kartik Cruz ([id number]) on 11/13/2020 9:19:38 AM Referred By: REFERRED SELF Confirmed By:Kartik Cruz
[2020-11-13] MEDS ORDERED: POTASSIUM CHLORIDE CRTAB 20 MEQ TABCR PO STA (10:10)
--- NOTE | 2020-11-13 10:10 | Nephrology Progress Note ---
Date of Service November 13, 2020 Assessment & Plan Admission and Anticipated Discharge Date Admission Date: November 11, 2020 Subjective PHYSICAL EXAMINATION: GENERAL: Middle-aged white male who appears to be chronically ill. He is awake and alert, but I could not really test the orientation as he did not answer questions much, moving all 4 extremities. CHEST: Bilateral decreased breath sounds, occasional crackles. CARDIOVASCULAR: S1 and S2 irregular. No murmur or rubs heard. ABDOMEN: Soft, nontender. EXTREMITIES: Shows trace edema with signs of poor circulation. VITAL SIGNS: Most recent vital signs include blood pressure 98/46, pulse rate 66, oxygen saturation 99% on room air, temperature 36.6. LABORATORY TESTS: Reviewed. Creat trending lower. K is now low after metolazone ASSESSMENT AND PLAN: A 65-year-old male, currently admitted with exacerbation of congestive heart failure. The patient has known severe nonischemic cardiomyopathy with an ejection fraction of 15% as well as chronic kidney disease IV which seems to be worsening. I have been consulted for abnormal kidney function in a patient with cardiorenal syndrome. Acute renal failure, I believe the etiology of acute renal failure is most likely to be further worsening of the cardiac situation. He is volume overloaded and has decompensated congestive heart failure. RECOMMENDATIONS: 1. Conitnue Bumex drip at 2 mg per hour. 2. Will d/c metolazone --it seems his K really plummets after this but not much change in Urine output 3. k.cl 80 meq today. Recheck BMP later this afternoon 5. Check UA as he may also have superimposed ATN on top of his CKD. 6. Overall, prognosis seems very poor given his advanced cardiac disease. Not much urine even after bumex drip. Will defer to Cards whether we can add dobutmaine drip or not. Results & Data ([facility]) Vital Signs (Past 12 Hours) Vital Signs Temp Pulse Pulse Resp BP Pulse Ox 11/13/20 08:08 36.3 C L 60 18 90/58 L 90 11/13/20 03:20 36.3 C L 60 22 93/56 L 97 11/12/20 23:55 36.4 C L 60 16 89/55 L 97 11/12/20 22:20 60
--- NOTE | 2020-11-13 13:30 | CT Scan Report ---
CT OF THE CHEST WITHOUT IV CONTRAST CLINICAL HISTORY: Shortness of breath. COMPARISON STUDY: Chest CT May 29, 2019. Chest radiograph November 11, 2020. CT DOSE: 295.15 mGy.cm TECHNIQUE: Axial images of the chest were obtained without IV contrast. Images were reviewed in the axial, sagittal, and coronal planes. IV contrast was not administered for this examination. Automat ed exposure control was utilized for the study. A dose lowering technique was utilized adhering to t he principles of ALARA. FINDINGS: A left subclavian biventricular pacer/AICD is in place. There is a right internal jugular [id number]. Marked cardiomegaly is noted. There is no pericardial effusion. There is dilatation of the central pulmonary arteries. No enlarged axillary, mediastinal or hilar lymph nodes are present. There is mild bilateral gynecomastia. Lungs are suboptimally assessed due to respiratory motion. Mode rate emphysema is present. There is no pneumothorax or pleural effusion. Mild bilateral lower lobe an d lingular opacities are present. Minimal right middle lobe opacity is present. Left lower lobe opaci ty is somewhat dense. Associated groundglass opacity is noted. There is no lobar consolidation. No noland spicious lesions or acute fractures are identified within visualized portions of the bony thorax. Megha er attenuation is increased. A 3.1 cm lesion within the upper pole the right kidney is suboptimally a ssessed on this unenhanced exam. Although this measures above water attenuation, this is unchanged fr om prior exams and likely reflects a cyst. Low-attenuation bilateral adrenal nodules are unchanged. T hese reflect adenomas. There is scarring within the left kidney. IMPRESSION: 1. Mild bilateral lower lobe, right middle lobe and lingular opacities with associated groundglass op acity, suboptimally assessed due to respiratory motion. Differential considerations include an infect ious process and pulmonary edema. Although statistically less likely, amiodarone related lung disease could appear similar. 2. Marked cardiomegaly. 3. Emphysema. 4. Increased liver attenuation which may be related to amiodarone therapy. ACT 112: Negative or not required by law. Electronically signed by: Adam Black M.D. 11/13/2020 1:29 PM
--- NOTE | 2020-11-13 14:52 | Palliative Care Consultation ---
Date of Consultation November 13, 2020 Assessment & Plan (1) Palliative care encounter: This is a 65 year old male who presented to the [facility] with dyspnea and altered electrolytes. He has an extensive cardiac history that includes end-stage CHF, bi-ventricular AICD, cardiomyopathy, DM2, depression, anxiety, previous malignant neoplasm of the bladder, HTN and dyslipidemia. This gentleman has been treated by cardiology and seen as an outpatient by [facility] heart failure clinic, along with focusing on daily weights. He has had pulmonary edema throughout his hospitalization and medication adjustments have been done. Previous encounters and discussion with his has indicated that he has poor insight into the severity of his end-stage disease. I met with Mr. Mckeon who was in no apparent distress lying in his bed. He was AAOx4 and able to have a full conversation with me. I introduced palliative care and started to gain some insight into his perspective of what he feels is going on with his medical condition. He did express that he would want to continue aggressive treatment. I discussed full code vs DNR and he indicated that he understands he may not survive CPR, but would want to try. 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 He said " I would like to do everything aside from cardiac surgery to save my life". He will remain a full code for now. He said that his grand children bring him the most herb in life and no matter what he wants to be able to see them. He was agreeable to following palliative medicine on an outpatient basis which will be arranged. Hospitalist team updated. Thanks for involving palliative medicine with this unfortunate individual. (2) Chronic systolic CHF (congestive heart failure), NYHA class 4: (3) Dyspnea: (4) Weakness: History of Present Illness Reason for Consultation: Goals of care Requesting Physician: Dr. Diego Attending Physician: Moon Bobo MD History of Present Illness This is a 65 year old male who presented to the [facility] with dyspnea and altered electrolytes. He has an extensive cardiac history that includes end- stage CHF, bi-ventricular AICD, cardiomyopathy, DM2, depression, anxiety, previous malignant neoplasm of the bladder, HTN and dyslipidemia. This gentleman has been treated by cardiology and seen as an outpatient by [facility], along with focusing on daily weights. He has had pulmonary edema throughout his hospitalization and medication adjustments have been done. Previous encounters and discussion with his has indicated that he has poor insight into the severity of his end-stage disease. Palliative Medicine was consulted to discuss overall goals of care. Please see A/P for further details. Thanks for involving Palliative Medicine with this individual. Allergies Allergy/AdvReac Type Severity Reaction Status Date / Time Iodinated Contrast Media Allergy Intermediate itchiness, Verified 11/11/20 11:17 nausea metformin AdvReac Severe MEMORY LOSS Verified 11/11/20 11:17 codeine AdvReac Intermediate ITCHING Verified 11/11/20 11:17 Home Medications Medication Instructions Recorded Confirmed Type aspirin 81 mg tablet,delayed 81 mg PO QAM 12/25/18 11/11/20 History release digoxin [Digox] 125 mcg PO MOFR 08/06/19 11/11/20 History amiodarone 200 mg tablet 200 mg PO BID #60 tab 08/22/19 11/11/20 Rx metoprolol succinate 25 mg 25 mg PO DAILY #30 tab 08/22/19 11/11/20 Rx tablet,extended release 24 hr milrinone 1 mg/mL intravenous See Rx Instructions .ROUTE 08/22/19 11/11/20 Rx solution .COMPLEX #20 ml eplerenone 25 mg tablet 25 mg PO DAILY #30 tab 10/17/19 11/11/20 Rx ipratropium 0.5 mg-albuterol 3 mg 3 ml INH Q8H PRN #180 ml 10/17/19 11/11/20 Rx (2.5 mg base)/3 mL nebulization soln pantoprazole 40 mg tablet,delayed 40 mg PO BID tab 03/11/20 11/11/20 History release torsemide 100 mg tablet 100 mg PO BID tab 03/11/20 11/11/20 History albuterol sulfate 90 mcg/actuation See Rx Instructions INH .COMPLEX 04/23/20 11/11/20 Rx aerosol inhaler PRN #18 gm torsemide 20 mg tablet 20 mg PO QAM tab 09/11/20 11/11/20 History ferrous sulfate 325 mg PO 3XWK 11/11/20 11/11/20 History finasteride 5 mg PO DAILY 11/11/20 11/11/20 History potassium chloride 30 meq PO BID 11/11/20 11/11/20 History Patient History Medical History Allergic rhinitis Anxiety Arteriosclerotic cardiovascular disease Chronic kidney disease, stage 3 (moderate) Chronic obstructive pulmonary disease Chronic systolic CHF (congestive heart failure), NYHA class 4 <15%, milrinone dependent Degenerative joint disease of knee, left Depression with anxiety Diabetes mellitus type 2 in nonobese Dyspnea Erectile dysfunction History of infection of total joint prosthesis of knee HX. RESOLVED IN 2015 History of pacemaker Hyperlipidemia Hypertension Low output heart failure Lumbar disc disease Lumbar spinal stenosis Malignant neoplasm of bladder hx, s/p mass removal, in remission 11/2020 NICM (nonischemic cardiomyopathy) Palliative care encounter Peripheral vascular disease Renal cyst Tobacco abuse counseling Weakness Surgical History H/O transurethral destruction of bladder lesion (09/2016) TURBT September 2016 History of qcmxb-[id number]-gvhcuhn bypass (10/2013) October 2013 History of arthroscopy of knee L KNEE MENISCAL TEAR History of cholecystectomy History of hernia repair History of lumbar laminectomy ONSET: FEB 1981 History of total knee arthroplasty (01/2015) [id number] LEFT KNEE Presence of biventricular AICD (08/2016) Presence of combination internal cardiac defibrillator (ICD) and pacemaker (01/2016) then upgraded in August 2016 S/P cardiac catheterization 08/08/19 Dr. León- Rotational atherectomy and LULU x 2 S/P cardiac catheterization 08/15/19 Dr. Woodson S/P coronary artery stent placement (07/2019) LULU x 2 Family History Father Cardiac disorder Lung cancer Mother Diabetes Hypertension Type 2 diabetes mellitus Vision impairment Sister Type 2 diabetes mellitus Denies family history of Ovarian cancer Prostate cancer Myocardial infarction Breast cancer Colorectal cancer Social History Smoking Status: Current every day smoker Tobacco Type: Cigarettes packs per day: 0.5; Cigarettes Per Day: 0.5-1ppd; Second Hand Exposure: No; Do You Dip or Chew Tobacco: No; Tobacco Cessation Education Requested by Patient: No Hx Alcohol Use: No Hx Substance Use: No Preferred Language: Niuean Communication Ability: Effective Visual Impairment: No Limitations Hearing Ability: Normal Touch Up Edger Required: No Beliefs That Will Affect Care: None marital status: Current Living Situation: Spouse current occupational status: retired 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 Other Information That Helps Us Care for You: No Feels Safe at Home: Yes Safety Concerns: Feels Safe At This Time Childhood Exposure to Second-Hand Smoke: No caffeine: Yes (soda) Dental Care, Regularly: No Physical Activity Frequency: Does not Exercise Seatbelt Use: sometimes Sunscreen Use: No Assistive Devices: Oxygen - Continuous and Walker Review of Systems Review of Systems: [place] System Assessment Scale: Pain: 0/3 Lack of Appetite: 1/3 Tiredness: 1/3 Anxiety: 0/3 Shortness of Breath: 0/3 Palliative Performance Scale: 50% Physical Exam Constitutional: + thin, + frail appearing, cooperative and comfortable ENMT: Nose: + dry nasal mucous membranes Neck: trachea midline, no thyromegaly Respiratory: normal respiratory effort Auscultation: + diminished lung sounds Cardiovascular: Heart Sounds: normal S1, normal S2 and + murmur Vessels: + JVD Extremities: + abnormal capillary refill and no edema Gastrointestinal (Abdomen): normal bowel sounds, soft, nontender, no hepatosplenomegaly Skin: + skin tightening and + dry skin Psychiatric: A+Ox3, euthymic affect Insight: + poor insight and + impaired insight Genitourinary: voids in urinal Results & Data ([facility]) Vital Signs (Past 12 Hours) Vital Signs Temp Pulse Resp BP Pulse Ox 11/13/20 11:39 36.3 C L 60 20 96/59 L 90 11/13/20 08:08 36.3 C L 60 18 90/58 L 90 11/13/20 03:20 36.3 C L 60 22 93/56 L 97 PG Care Time/CCT Total # of Minutes Spent Total Time Spent with Patient: Total time spent is greater than 50% in coordination of care (as documented) at patient's floor/unit and/or counseling patient: 70 minutes with > 50% of that time spent assessing the patient, discussing goals of care with the patient, and collaborating with IDT Coding Level of Care Code 25967 Initial Inpt Care Lvl 3 Diagnoses Palliative care encounter Z51.5 Chronic systolic CHF (congestive heart failure), NYHA class 4 I50.22 Dyspnea R06.00 Weakness R53.1 Time Spent (min) 70
--- NOTE | 2020-11-13 16:00 | Cardiology Progress Note ---
Date of Service November 13, 2020 Assessment & Plan (1) Acute exacerbation of CHF (congestive heart failure): (2) Acute hyperkalemia: (3) Chronic kidney disease, stage 3 (moderate): (4) Chronic systolic CHF (congestive heart failure), NYHA class 4: (5) Presence of biventricular AICD: (6) Low output heart failure: (7) Malignant neoplasm of bladder: (8) Arteriosclerotic cardiovascular disease: (9) Chronic obstructive pulmonary disease: (10) Peripheral vascular disease: (11) Tobacco abuse counseling: Cardiovascular complex 65-year-old gentleman with severe nonischemic cardiomyopathy on outpatient milrinone drip followed closely by [facility]. He does present in significant volume overload and will require aggressive diuresis which is complicated by his chronic kidney disease. Given the fact he has not had a recent right heart catheterization I will not adjust his milrinone drip and should be continued at the outpatient settings. some continued clinical improvement overnight still minimal urine output. actually some improvement in renal function today Given his baseline cardiac issues and body habitus and having difficulty establishing his volume status on physical exam so I will order a noncontrast CT of the chest. At this point I would continue Bumex drip overnight and follow his volume status and renal function in the a.m. No other changes will be made at this time. (12) Unknown status of achievement of care plan goal: I discussed with the patient his very poor prognosis from a cardiac standpoint. At this point he is not even an LVAD candidate nor does he wish to have one implanted. I asked him directly if he would like heroic measures used to prolong his life knowing that the chances for meaningful recovery afterwards would be nil. He does not have an advanced directive currently and is still listed as a full code. He is not sure what he wants to do at this point in terms of end-of-life and will discuss it with his family. Recommend evaluation by our palliative care colleagues. Once again today I discussed end-of-life care with him briefly. His current main focus is to be able to be discharged so that he may attend his granddaughter's eighth birthday on Tuesday. Currently she likes porfirio. Admission and Anticipated Discharge Date Admission Date: November 11, 2020 Subjective Patient seen and examined, chart reviewed. Patient currently sitting up on the edge of the bed and states he feels better today. He states his breathing seems to have slightly improved despite minimal urine output overnight. Denies chest pain, palpitations, lightheadedness or dizziness. Telemetry reviewed: Review of Systems Review of Systems: All systems reviewed & are unremarkable except as noted in HPI & below Physical Exam Physical Exam: General: Awake, alert and oriented x 3. No acute distress. HEENT: Normocephalic, atraumatic. Pupils equal, round and reactive to light and accommodation. Extraocular muscles are intact. Anicteric sclera. Moist mucous membranes. Neck: No JVD. No bruit. Cardiovascular: Regular. Positive S-4. Normal S-1 and S-2. No S-3. 3/6 holosystolic ejection murmur, left sternal border, mid-clavicular line with radiation to the axilla. No rubs. Pulmonary: Clear to auscultation bilaterally. No rales, rhonchi, or wheezing. Abdomen: Bowel sounds x 4, soft. No rebound, guarding or tenderness. No organomegaly. Extremities: No clubbing, cyanosis or edema. +2 pedal pulses bilaterally. Skin: Warm and dry. Results & Data ([facility]) Vital Signs (Past 12 Hours) Vital Signs Temp Pulse Resp BP Pulse Ox 11/13/20 15:47 36.5 C 60 18 96/57 L 96 11/13/20 11:39 36.3 C L 60 20 96/59 L 90 11/13/20 08:08 36.3 C L 60 18 90/58 L 90 (1) Acute exacerbation of CHF (congestive heart failure) Heart failure type: unspecified Qualified Code(s): I50.9 - Heart failure, unspecified
[2020-11-13 17:43] LABS: BUN Creatinine Ratio 24.4 (10-20); Calcium 9.4 mg/dl (8.5-10.1); Creatinine Clr Calc Pharmacy 26.5 ml/min; Est GFR (African American) 27.9 ml/min; Est GFR (Non-African American) 24.1 ml/min
--- NOTE | 2020-11-13 18:30 | Hospitalist Progress Note ---
Date of Service November 13, 2020 Assessment & Plan (1) Chronic systolic CHF (congestive heart failure), NYHA class 4: 65 yo M with End stage CHF, extensive cardiac hx including biV AICD placement, nonischemic cardiomyopathy, HLD admitted for dyspnea and hyperkalemia. Acute Decompensated CHF exacerbation Patient with complex cardiac history followed closely at [place], EF 15 to 20%, is BiV AICD in place, with recent medication changes. Patient presents with significant fluid overload. Received 3 mg of IV Bumex in ED and was continued on IV Bumex drip in the floors. Unfortunately it appears as if this patient is not currently a candidate for LVAD and palliative care has been consulted - salt restriction, fluid restriction - i/o, daily weights - [facility] cardiology consulted following recommendations -Aggressive diuresis -Continue milrinone drip -Bumex drip, minimal UOP however improvement -Follow-up noncontrast chest CT -Potassium 4-5, magnesium greater than 2 - Nephrology consulted -Continue Bumex drip to 2 mg -DC metolazone -Electrolyte abnormalities secondary to cardiorenal syndrome -Follow-up UA for superimposed ATN on top of CKD - Palliative care consulted appreciate recommendations -Wants to continue aggressive treatment -No long-term ventilator -Everything aside from cardiac surgery to save my life -Follow-up with palliative medicine as an outpatient Cardiorenal syndrome superimposed on CKD3 Cr 2.71, GFR ~23 on presentation, baseline mid 40s. - CR:2.95->2.71->3.10 - renal dosing of medications - diuresis as above - daily bmp - Nephro consulted Congestive Hepatopathy - elevated LFTs 2/2 CHF exacerbation - diuresis as above, trend LFTs Nonischemic Cardiomyopathy - Dig level 2.1, given doses are on Tuesday and Tuesday, will continue - continue milrinone IV - continue metoprolol succinate daily; can consider holding if BP falls below 85/50 or MAP < 65 - continue amiodarone, eplerenone. - Recently taken off entresto. - holding torsemide for acute exacerbation of CHF, converted to bumex drip as above COPD - cont duonebs prn DVT ppx: heparin sq FEN/GI: DM2, low sodium, 2L fluid restriction diet, pantoprazole PO Dispo: PCU Code Status: Full Code. Palliative consult placed (2) Chronic kidney disease, stage 3 (moderate): (3) Diabetes mellitus type 2 in nonobese: (4) Presence of biventricular AICD: (5) Depression with anxiety: (6) Chronic obstructive pulmonary disease: (7) Hypertension: (8) NICM (nonischemic cardiomyopathy): (9) Peripheral vascular disease: (10) Lumbar spinal stenosis: (11) Hyperlipidemia: (12) Arteriosclerotic cardiovascular disease: Admission and Anticipated Discharge Date Admission Date: November 11, 2020 Supervising Physician Co-Signing Physician Notes Resident Physician Supervision Note: I independently interviewed and examined the patient and verified the padilla history and physical, reviewed labs and image studies and agree with resident Dr. Jose Angel Wylie findings and care plan. Subjective Patient lying in bed this morning in no acute distress. Reports subjective improvement in his breathing and decrease in swelling. No acute complaints or events overnight. Acute concerns relate to discharge. Physical Exam Physical Exam: General: Cachectic appearing gentleman in no acute distress HEENT: Normocephalic atraumatic Neck: Normal to visual inspection trachea midline Cardiac:Regular rate and rhythm I did not appreciate any significant murmurs rubs, S4 present, normal S1, normal S2, no S3 1+ pedal edema bilaterally, negative calf tenderness Respiratory: Poor air movement bilaterally with crackles in the bibasilar bases otherwise clear to auscultation GI: Bowel sounds present MSK: Moves all extremities Neuro: Alert and oriented x4 Psych: Calm and cooperative with interview Results & Data Results & Data ([facility]) Vital Signs (Past 12 Hours) Vital Signs Temp Pulse Resp BP Pulse Ox 11/13/20 15:47 36.5 C 60 18 96/57 L 96 11/13/20 11:39 36.3 C L 60 20 96/59 L 90 11/13/20 08:08 36.3 C L 60 18 90/58 L 90 Laboratory Results 11/13/20 11/13/20 11/13/20 Range/Units 17:05 06:29 06:29 WBC 8.49 (4.8-10.8) K/uL RBC 3.54 L (4.7-6.1) M/uL Hgb 11.4 L (14.0-18.0) g/dL Hct 34.3 L (42-52) % MCV 96.9 (80-100) fL MCH 32.2 (25-34) pg MCHC 33.2 (32-36) g/dL RDW Std Deviation 56.3 H (36.4-46.3) fL RDW Coeff of Rich 16.3 H (11.5-14.5) % Plt Count 317 (130-400) K/uL MPV 10.3 (7.4-10.4) fL Immature Gran % (Auto) 0.4 % Neut % (Auto) 79.6 % Lymph % (Auto) 8.7 % Iz[place] % (Auto) 10.5 % Eos % (Auto) 0.7 % Baso % (Auto) 0.1 % Neut # (Auto) 6.76 H (1.4-6.5) K/uL Lymph # (Auto) 0.74 L (1.2-3.4) K/uL [place] # (Auto) 0.89 H (0.11-0.59) K/uL Eos # (Auto) 0.06 (0-0.5) K/uL Baso # (Auto) 0.01 (0-0.2) K/uL Immature Gran # (Auto) 0.03 H (0.00-0.02) K/uL Sodium 132 L 132 L (136-145) mmol/L Potassium 3.0 L 3.0 L D (3.5-5.1) mmol/L Chloride 95 L 96 L (98-107) mmol/L Carbon Dioxide 28 23 (21-32) mmol/L Anion Gap 10.0 13.0 H (3-11) BUN 66 H 65 H (7-18) mg/dl Creatinine 2.69 H 2.98 H (0.6-1.4) mg/dl Est Cr Clr Drug Dosing 26.5 23.9 ml/min Est GFR ( Amer) 27.9 24.7 ml/min Est GFR (Non-Af Amer) 24.1 21.3 ml/min BUN/Creatinine Ratio 24.4 H 21.8 H (10-20) Glucose 119 H 111 H (70-99) mg/dl Calcium 9.4 8.8 (8.5-10.1) mg/dl Total Bilirubin 3.1 H (0.2-1) mg/dl AST 141 H (15-37) U/L ALT 209 H (12-78) U/L Alkaline Phosphatase 153 H (45-117) U/L Total Protein 6.7 (6.4-8.2) gm/dl Albumin 3.3 L (3.4-5.0) gm/dl Globulin 3.4 (2.5-4.0) gm/dl Albumin/Globulin Ratio 1.0 (0.9-2) Urine Color Urine Appearance (Clear) Urine pH (4.5-7.5) Ur Specific [place] (1.000-1.030) Urine Protein (Negative) Urine Glucose (UA) (Negative) Urine Ketones (Negative) Urine Blood (Negative) Urine Nitrite (Negative) Urine Bilirubin (Negative) Urine Urobilinogen (Negative) Ur Leukocyte Esterase (Negative) 11/13/20 Range/Units 00:50 WBC (4.8-10.8) K/uL RBC (4.7-6.1) M/uL Hgb (14.0-18.0) g/dL Hct (42-52) % MCV (80-100) fL MCH (25-34) pg MCHC (32-36) g/dL RDW Std Deviation (36.4-46.3) fL RDW Coeff of Rich (11.5-14.5) % Plt Count (130-400) K/uL MPV (7.4-10.4) fL Immature Gran % (Auto) % Neut % (Auto) % Lymph % (Auto) % [place] % (Auto) % Eos % (Auto) % Baso % (Auto) % Neut # (Auto) (1.4-6.5) K/uL Lymph # (Auto) (1.2-3.4) K/uL [place] # (Auto) (0.11-0.59) K/uL Eos # (Auto) (0-0.5) K/uL Baso # (Auto) (0-0.2) K/uL Immature Gran # (Auto) (0.00-0.02) K/uL Sodium (136-145) mmol/L Potassium (3.5-5.1) mmol/L Chloride (98-107) mmol/L Carbon Dioxide (21-32) mmol/L Anion Gap (3-11) BUN (7-18) mg/dl Creatinine (0.6-1.4) mg/dl Est Cr Clr Drug Dosing ml/min Est GFR ( Amer) ml/min Est GFR (Non-Af Amer) ml/min BUN/Creatinine Ratio (10-20) Glucose (70-99) mg/dl Calcium (8.5-10.1) mg/dl Total Bilirubin (0.2-1) mg/dl AST (15-37) U/L ALT (12-78) U/L Alkaline Phosphatase (45-117) U/L Total Protein (6.4-8.2) gm/dl Albumin (3.4-5.0) gm/dl Globulin (2.5-4.0) gm/dl Albumin/Globulin Ratio (0.9-2) Urine Color Yellow Urine Appearance Clear (Clear) Urine pH 5.0 (4.5-7.5) Ur Specific [place] 1.009 (1.000-1.030) Urine Protein Negative (Negative) Urine Glucose (UA) Negative (Negative) Urine Ketones Negative (Negative) Urine Blood Negative (Negative) Urine Nitrite Negative (Negative) Urine Bilirubin Negative (Negative) Urine Urobilinogen Negative (Negative) Ur Leukocyte Esterase Negative (Negative) Medications Administered Current Inpatient Medications Acetaminophen (Acetaminophen 325 Mg Tab) 650 mg PO Q4H PRN PRN Reason: Pain or Fever Stop: 12/11/20 15:06 Amiodarone HCl (Amiodarone 200 Mg Tab) 200 mg PO BID [facility] Stop: 12/11/20 20:59 Last Admin: 11/13/20 08:16 Dose: 200 mg Documented by: Aspirin (Aspirin 81 Mg Ectab) [facility] Stop: 12/12/20 08:59 Last Admin: 11/13/20 08:17 Dose: 81 mg Documented by: Digoxin (Digoxin 0.125 Mg Tab) 0.125 mg PO MoFr@1600 [facility] Stop: 12/14/20 15:59 Eplerenone (Eplerenone 25 Mg Tab) 1 ea [facility] [place] Stop: 12/13/20 08:59 Last Admin: 11/13/20 08:18 Dose: 1 ea Documented by: Ferrous Sulfate (Ferrous Sulfate 325 Mg Tab) 325 mg PO MoWeFr@0900 [facility] Stop: 12/12/20 08:59 Last Admin: 11/12/20 09:21 Dose: 325 mg Documented by: Finasteride (Finasteride 5 Mg Tab) 5 mg PO DAILY [facility] Stop: 12/12/20 08:59 Last Admin: 11/13/20 08:17 Dose: 5 mg Documented by: Heparin Sodium (Porcine) (Heparin Sod 5,000 Unit/0.5 Ml Vial) 5,000 units SQ Q12 [facility] Stop: 12/12/20 08:59 Last Admin: 11/13/20 08:16 Dose: 5,000 units Documented by: Milrinone Lactate/Dextrose (Primacor/D5w) 20,000 mcg in 100 mls @ 6.129 mls/hr IV .[id number] [facility]; Protocol Stop: 12/11/20 15:59 Last Admin: 11/13/20 17:14 Dose: 0.3 mcg/kg/min, 6.1 mls/hr Documented by: Bumetanide 10 mg/ Dextrose 50 mls @ 10 mls/hr IV .Q5H [facility] Stop: 12/12/20 12:14 Last Admin: 11/13/20 17:03 Dose: 2 mg/hr, 10 mls/hr Documented by: Lactic Acid (Ammonium Lactate 12% Lotion 225 Gm Btl) 1 gm EXT QID PRN PRN Reason: itching Stop: 12/11/20 18:49 Last Admin: 11/11/20 23:07 Dose: 1 gm Documented by: Magnesium Hydroxide (Magnesium Hydroxide Susp 30 Ml Udc) 30 ml PO Q12H PRN PRN Reason: Constipation Stop: 12/11/20 15:06 Metoprolol Succinate (Metoprolol Succ 25mg Ext Rel Tab) 25 mg PO DAILY [facility] Stop: 12/12/20 08:59 Last Admin: 11/13/20 08:17 Dose: 25 mg Documented by: Nitroglycerin (Nitroglycerin Sl 0.4 Mg/Tab Tab) 0.4 mg SL UD PRN PRN Reason: Chest Pain Stop: 12/11/20 15:06 Ondansetron HCl (Ondansetron Inj 2 Mg/Ml 2 Ml Vial) 4 mg IV Q6H PRN PRN Reason: Nausea Stop: 12/11/20 15:06 Pantoprazole Sodium (Pantoprazole 40 Mg Tab) 40 mg PO BID [facility] Stop: 12/11/20 20:59 Last Admin: 11/13/20 08:17 Dose: 40 mg Documented by: Polyethylene Glycol (Polyethylene (Miralax) 17 Gm Pack) 17 gm PO DAILY PRN PRN Reason: Constipation Stop: 12/11/20 15:06 Resident Activity Tracking Resident Involvement: Resident Care Provided Care Provided: Adult Hospital Medicine
[2020-11-14] MEDS: BUMETANIDE 10 MG in DEXTROSE 5% 10 ML IV SCH ×4 (03:26→19:26)
[2020-11-14 07:51] LABS: BUN Creatinine Ratio 24.8 (10-20); Calcium 9.1 mg/dl (8.5-10.1); Creatinine Clr Calc Pharmacy 30.6 ml/min; Est GFR (African American) 36.2 ml/min; Est GFR (Non-African American) 31.3 ml/min; Potassium 2.4 mmol/L (3.5-5.1)
[2020-11-14] MEDS ORDERED: POTASSIUM CHLORIDE CRTAB 20 MEQ TABCR PO STA ×2 (07:53→10:10)
[2020-11-14] MEDS: AMIODARONE 200 MG TAB PO SCH ×2 (07:55→20:35)
[2020-11-14] MEDS: FINASTERIDE 5 MG TAB PO SCH (07:56)
[2020-11-14] MEDS: ASPIRIN 81 MG ECTAB PO SCH (07:56)
[2020-11-14] MEDS: METOPROLOL SUCC 25MG EXT REL TAB PO SCH (07:57)
[2020-11-14] MEDS: PANTOprazole 40 MG TAB PO SCH ×2 (07:57→20:36)
[2020-11-14] MEDS: FERROUS SULFATE 325 MG TAB PO SCH (07:57)
[2020-11-14] MEDS: EPLERENONE 25 MG TAB PO SCH (07:58)
[2020-11-14] MEDS: HEPARIN SOD 5,000 UNIT/0.5 ML VIAL SQ SCH ×2 (07:58→20:36)
[2020-11-14] MEDS: MILRINONE LACTATE/D5W 20,000 MCG/100 ML BAG IV SCH (08:53)
--- NOTE | 2020-11-14 12:28 | Cardiology Progress Note ---
Date of Service November 14, 2020 Assessment & Plan (1) Acute exacerbation of CHF (congestive heart failure): (2) Acute hyperkalemia: (3) Chronic kidney disease, stage 3 (moderate): (4) Chronic systolic CHF (congestive heart failure), NYHA class 4: (5) Presence of biventricular AICD: (6) Low output heart failure: (7) Malignant neoplasm of bladder: (8) Arteriosclerotic cardiovascular disease: (9) Chronic obstructive pulmonary disease: (10) Peripheral vascular disease: (11) Tobacco abuse counseling: The patient had a large diuresis in the past 24 hours. His creatinine has actually improved perhaps due to improvement of venous congestion of the kidneys. I would continue the Bumex drip through today and tomorrow we can consider options of transitioning him over to oral medications. Potassium is being supplemented. (12) Unknown status of achievement of care plan goal: Admission and Anticipated Discharge Date Admission Date: November 11, 2020 Subjective The patient is sitting up in bed and eating lunch. Feels improved. Review of Systems Review of Systems: All systems reviewed & are unremarkable except as noted in Subjective Physical Exam Physical Exam: General: no acute distress and stated age Head: normocephalic, no masses, lesions, tenderness or abnormalities Eyes: conjunctiva are pink and non-injected, sclera clear Neck: supple, no adenopathy, no bruits, normal jugular venous pulse, no hepatojugular reflux Chest: normal shape and normal respiratory effort Lungs: clear to auscultation and percussion Cardiac Exam: - regular rate & rhythm, no murmurs gallops or rubs - normal S1, normal S2 Pulses: 2(+) throughout Abdomen: Distended, soft with bowel sounds Musculoskeletal: no gait disturbance, no joint inflammation, no deforming arthritis Extremities: no edema and no cyanosis Neuro: grossly normal exam Results & Data ([facility]) Vital Signs (Past 12 Hours) Vital Signs Temp Pulse Pulse Resp BP Pulse Ox 11/14/20 12:05 36.9 C 65 18 82/55 L 96 11/14/20 07:33 36.4 C L 19 90/53 L 11/14/20 06:41 61 11/14/20 04:07 36.3 C L 61 20 91/57 L 95 Laboratory Results Laboratory Results - last 24 hr 11/13/20 11/14/20 11/14/20 17:05 07:01 07:25 Sodium 132 L 133 L Potassium 3.0 L 2.4 L* D Chloride 95 L 91 L Carbon Dioxide 28 33 H Anion Gap 10.0 9.0 BUN 66 H 54 H Creatinine 2.69 H 2.17 H D Est Cr Clr Drug Dosing 26.5 30.6 Est GFR ( Amer) 27.9 36.2 Est GFR (Non-Af Amer) 24.1 31.3 BUN/Creatinine Ratio 24.4 H 24.8 H Glucose 119 H 89 POC Glucose 99 Calcium 9.4 9.1 Medications Administered Current Inpatient Medications Acetaminophen (Acetaminophen 325 Mg Tab) 650 mg PO Q4H PRN PRN Reason: Pain or Fever Stop: 12/11/20 15:06 Amiodarone HCl (Amiodarone 200 Mg Tab) 200 mg PO BID [facility] Stop: 12/11/20 20:59 Last Admin: 11/14/20 07:55 Dose: 200 mg Documented by: Aspirin (Aspirin 81 Mg Ectab) 81 mg PO QAM [facility] Stop: 12/12/20 08:59 Last Admin: 11/14/20 07:56 Dose: 81 mg Documented by: Digoxin (Digoxin 0.125 Mg Tab) 0.125 mg PO MoFr@1600 [facility] Stop: 12/14/20 15:59 Eplerenone (Eplerenone 25 Mg Tab) 1 ea PO QAM [facility] Stop: 12/13/20 08:59 Last Admin: 11/14/20 07:58 Dose: 1 ea Documented by: Ferrous Sulfate (Ferrous Sulfate 325 Mg Tab) 325 mg PO MoWeFr@0900 [facility] Stop: 12/12/20 08:59 Last Admin: 11/14/20 07:57 Dose: 325 mg Documented by: Finasteride (Finasteride 5 Mg Tab) 5 mg PO DAILY [facility] Stop: 12/12/20 08:59 Last Admin: 11/14/20 07:56 Dose: 5 mg Documented by: Heparin Sodium (Porcine) (Heparin Sod 5,000 Unit/0.5 Ml Vial) 5,000 units SQ Q12 [facility] Stop: 12/12/20 08:59 Last Admin: 11/14/20 07:58 Dose: 5,000 units Documented by: Milrinone Lactate/Dextrose (Primacor/D5w) 20,000 mcg in 100 mls @ 6.129 mls/hr IV .[id number] [facility]; Protocol Stop: 12/11/20 15:59 Last Admin: 11/14/20 08:53 Dose: 0.3 mcg/kg/min, 6.1 mls/hr Documented by: Bumetanide 10 mg/ Dextrose 50 mls @ 10 mls/hr IV .Q5H [facility] Stop: 12/12/20 12:14 Last Admin: 11/14/20 08:04 Dose: 2 mg/hr, 10 mls/hr Documented by: Lactic Acid (Ammonium Lactate 12% Lotion 225 Gm Btl) 1 gm EXT QID PRN PRN Reason: itching Stop: 12/11/20 18:49 Last Admin: 11/11/20 23:07 Dose: 1 gm Documented by: Magnesium Hydroxide (Magnesium Hydroxide Susp 30 Ml Udc) 30 ml PO Q12H PRN PRN Reason: Constipation Stop: 12/11/20 15:06 Metoprolol Succinate (Metoprolol Succ 25mg Ext Rel Tab) 25 mg PO DAILY [facility] Stop: 12/12/20 08:59 Last Admin: 11/14/20 07:57 Dose: Not Given Documented by: Nitroglycerin (Nitroglycerin Sl 0.4 Mg/Tab Tab) 0.4 mg SL UD PRN PRN Reason: Chest Pain Stop: 12/11/20 15:06 Ondansetron HCl (Ondansetron Inj 2 Mg/Ml 2 Ml Vial) 4 mg IV Q6H PRN PRN Reason: Nausea Stop: 12/11/20 15:06 Pantoprazole Sodium (Pantoprazole 40 Mg Tab) 40 mg PO BID [facility] Stop: 12/11/20 20:59 Last Admin: 11/14/20 07:57 Dose: 40 mg Documented by: Polyethylene Glycol (Polyethylene (Miralax) 17 Gm Pack) 17 gm PO DAILY PRN PRN Reason: Constipation Stop: 12/11/20 15:06 (1) Acute exacerbation of CHF (congestive heart failure) Heart failure type: unspecified Qualified Code(s): I50.9 - Heart failure, unspecified
--- NOTE | 2020-11-14 13:50 | Nephrology Progress Note ---
Date of Service November 14, 2020 Assessment & Plan Admission and Anticipated Discharge Date Admission Date: November 11, 2020 Subjective Lot more urine last 24 hrs. 5200 ml. PHYSICAL EXAMINATION: GENERAL: Middle-aged white male who appears to be chronically ill. He is awake and alert, but I could not really test the orientation CHEST: Bilateral decreased breath sounds, occasional crackles. CARDIOVASCULAR: S1 and S2 irregular. No murmur or rubs heard. ABDOMEN: Soft, nontender. EXTREMITIES: Shows trace edema with signs of poor circulation. LABORATORY TESTS: Reviewed. Creat trending lower. K is now low ASSESSMENT AND PLAN: A 65-year-old male, currently admitted with exacerbation of congestive heart failure. The patient has known severe nonischemic cardiomyopathy with an ejection fraction of 15% as well as chronic kidney disease IV which seems to be worsening. I have been consulted for abnormal kidney function in a patient with cardiorenal syndrome. Acute renal failure, I believe the etiology of acute renal failure is most likely to be further worsening of the cardiac situation. He is volume overloaded and has decompensated congestive heart failure. RECOMMENDATIONS: 1. Conitnue Bumex drip at 2 mg per hour. 2. Will d/c metolazone --it seems his K really plummets after this but not much change in Urine output 3. More K.cl. Needs a lot it seems now that urine really picked up. Check BMP a gain this afternoon 5. Overall, prognosis seems very poor given his advanced cardiac disease. Results & Data ([facility]) Vital Signs (Past 12 Hours) Vital Signs Temp Pulse Pulse Resp BP Pulse Ox 11/14/20 13:31 93/50 L 11/14/20 12:05 36.9 C 65 18 82/55 L 96 11/14/20 07:33 36.4 C L 19 90/53 L 11/14/20 06:41 61 11/14/20 04:07 36.3 C L 61 20 91/57 L 95
[2020-11-14] MEDS ORDERED: POTASSIUM CHLORIDE CRTAB 20 MEQ TABCR PO SCH ×2 (14:00→14:30)
[2020-11-14] MEDS ORDERED: DIGOXIN 0.125 MG TAB PO SCH (16:00)
--- NOTE | 2020-11-14 18:46 | Hospitalist Progress Note ---
Date of Service November 14, 2020 Assessment & Plan (1) Chronic systolic CHF (congestive heart failure), NYHA class 4: 65 yo M with End stage CHF, extensive cardiac hx including biV AICD placement, nonischemic cardiomyopathy, HLD admitted for dyspnea and hyperkalemia. Acute Decompensated CHF exacerbation EF 15 to 20%, is BiV AICD in place, with recent medication changes. Followed at [place] Received 3 mg of IV Bumex in the emergency department and was continued on IV Bumex drip in the floors. Not a candidate for heart transplant. - salt restriction, fluid restriction - i/o, daily weights - [facility] cardiology consulted following recommendations -Aggressive diuresis -Continue milrinone drip -Continue Bumex drip -Follow-up noncontrast chest CT -Potassium 4-5, magnesium greater than 2 -Improvement in creatinine - Nephrology consulted -Continue Bumex drip to 2 mg -DC metolazone -Electrolyte abnormalities secondary to cardiorenal syndrome -Follow-up UA for superimposed ATN on top of CKD - Palliative care consulted appreciate recommendations -Wants to continue aggressive treatment -No long-term ventilator -Everything aside from cardiac surgery to save my life -Follow-up with palliative medicine as an outpatient Cardiorenal syndrome superimposed on CKD3 Cr 2.71, GFR ~23 on presentation, baseline mid 40s. - CR:2.95->2.71->3.10 - renal dosing of medications - diuresis as above - daily bmp - Nephro consulted Congestive Hepatopathy - elevated LFTs 2/2 CHF exacerbation - diuresis as above, trend LFTs Nonischemic Cardiomyopathy - Dig level 2.1, given doses are on Tuesday and Tuesday, will continue - continue milrinone IV - continue metoprolol succinate daily; can consider holding if BP falls below 85/50 or MAP < 65 - continue amiodarone, eplerenone. - Recently taken off entresto. - holding torsemide for acute exacerbation of CHF, converted to bumex drip as above COPD - cont duonebs prn DVT ppx: heparin sq FEN/GI: DM2, low sodium, 2L fluid restriction diet, pantoprazole PO Dispo: PCU Code Status: Full Code. Palliative consult placed (2) Chronic kidney disease, stage 3 (moderate): (3) Diabetes mellitus type 2 in nonobese: (4) Presence of biventricular AICD: (5) Depression with anxiety: (6) Chronic obstructive pulmonary disease: (7) Hypertension: (8) NICM (nonischemic cardiomyopathy): (9) Peripheral vascular disease: (10) Lumbar spinal stenosis: (11) Hyperlipidemia: (12) Arteriosclerotic cardiovascular disease: Admission and Anticipated Discharge Date Admission Date: November 11, 2020 Supervising Physician Co-Signing Physician Notes Resident Physician Supervision Note: I independently interviewed and examined the patient and verified the padilla history and physical, reviewed labs and image studies and agree with resident Dr. Jose Angel Wylie findings and care plan. Subjective Had a lengthy conversation with the patient and his who was at the bedside. I explained to the best my ability the gravity of this patient's condition. Specifically explaining to them that the patient's electrolyte status was tenuous. I extensively explained to them the pathophysiology of cardiorenal syndrome and ensured adequate understanding. They both recognize the seriousness of the patient's condition, and that his condition is extremely tenuous. The goal was for the patient to return home today significantly, grandson quickly called. However after consultation with cardiology nephrology I explained to the patient is simply not possible. We will discharge him it is very likely that he would incur a significant electrolyte abnormality and ultimately fatal arrhythmia. Both the patient and his verbalized understanding. Through this conversation I was able to clarify more about their understanding of the patient's condition and goals of care. I believe that they have understood probably due to the time that the patient's condition could worsen acutely and he could very quickly . To that effect they have been more or less living their own modified version of the palliative lifestyle. They focus on enjoying the good things in life, and attempting to limit their needs for medical intervention. Ultimately they understand that Mr. Mckeon will likely pass within the next year, however they are happy that he has been for statistics thus far. Therefore they would like to continue full care and att empt to prolong the patient's life as long as possible so he is able to participate in as many life events as possible. I explained to both of them that there was to predict his life expectancy, they verbalized understanding. Their current goals are for discharge as quickly as possible in the best condition possible in efforts to minimize need for further hospitalizations. To that effect they are willing to stay until discharge is recommended by the patient's physicians the patient is agreed not to leave AMA Physical Exam Physical Exam: General: Cachectic appearing gentleman in no acute distress HEENT: Normocephalic atraumatic Neck: Normal to visual inspection trachea midline Cardiac:Regular rate and rhythm I did not appreciate any significant murmurs rubs, S4 present, normal S1, normal S2, no S3 1+ pedal edema bilaterally, negative calf tenderness Respiratory: Poor air movement bilaterally with crackles in the bibasilar bases otherwise clear to auscultation GI: Bowel sounds present MSK: Moves all extremities Neuro: Alert and oriented x4 Psych: Calm and cooperative with interview Results & Data Results & Data ([facility]) Vital Signs (Past 12 Hours) Vital Signs Temp Pulse Pulse Resp BP Pulse Ox 11/14/20 15:55 93 H 11/14/20 13:31 93/50 L 11/14/20 12:05 36.9 C 65 18 82/55 L 96 11/14/20 07:33 36.4 C L 19 90/53 L 11/14/20 06:41 61 Laboratory Results 11/14/20 11/14/20 Range/Units 07:25 07:01 Sodium 133 L (136-145) mmol/L Potassium 2.4 L* D (3.5-5.1) mmol/L Chloride 91 L (98-107) mmol/L Carbon Dioxide 33 H (21-32) mmol/L Anion Gap 9.0 (3-11) BUN 54 H (7-18) mg/dl Creatinine 2.17 H D (0.6-1.4) mg/dl Est Cr Clr Drug Dosing 30.6 ml/min Est GFR ( Amer) 36.2 ml/min Est GFR (Non-Af Amer) 31.3 ml/min BUN/Creatinine Ratio 24.8 H (10-20) Glucose 89 (70-99) mg/dl POC Glucose 99 (70-99) mg/dl Calcium 9.1 (8.5-10.1) mg/dl Medications Administered Current Inpatient Medications Acetaminophen (Acetaminophen 325 Mg Tab) 650 mg PO Q4H PRN PRN Reason: Pain or Fever Stop: 12/11/20 15:06 Amiodarone HCl (Amiodarone 200 Mg Tab) 200 mg PO BID [facility] Stop: 12/11/20 20:59 Last Admin: 11/14/20 07:55 Dose: 200 mg Documented by: Aspirin (Aspirin 81 Mg Ectab) 81 mg PO QAM [facility] Stop: 12/12/20 08:59 Last Admin: 11/14/20 07:56 Dose: 81 mg Documented by: Digoxin (Digoxin 0.125 Mg Tab) 0.125 mg PO MoFr@1600 [facility] Stop: 12/14/20 15:59 Last Admin: 11/14/20 15:55 Dose: 0.125 mg Documented by: Eplerenone (Eplerenone 25 Mg Tab) 1 ea PO QAM [facility] Stop: 12/13/20 08:59 Last Admin: 11/14/20 07:58 Dose: 1 ea Documented by: Ferrous Sulfate (Ferrous Sulfate 325 Mg Tab) 325 mg PO MoWeFr@0900 [facility] Stop: 12/12/20 08:59 Last Admin: 11/14/20 07:57 Dose: 325 mg Documented by: Finasteride (Finasteride 5 Mg Tab) 5 mg PO DAILY [facility] Stop: 12/12/20 08:59 Last Admin: 11/14/20 07:56 Dose: 5 mg Documented by: Heparin Sodium (Porcine) (Heparin Sod 5,000 Unit/0.5 Ml Vial) 5,000 units SQ Q12 [facility] Stop: 12/12/20 08:59 Last Admin: 11/14/20 07:58 Dose: 5,000 units Documented by: Milrinone Lactate/Dextrose (Primacor/D5w) 20,000 mcg in 100 mls @ 6.129 mls/hr IV .[id number] [facility]; Protocol Stop: 12/11/20 15:59 Last Admin: 11/14/20 08:53 Dose: 0.3 mcg/kg/min, 6.1 mls/hr Documented by: Bumetanide 10 mg/ Dextrose 50 mls @ 10 mls/hr IV .Q5H [facility] Stop: 12/12/20 12:14 Last Infusion: 11/14/20 18:39 Dose: Infused Documented by: Lactic Acid (Ammonium Lactate 12% Lotion 225 Gm Btl) 1 gm EXT QID PRN PRN Reason: itching Stop: 12/11/20 18:49 Last Admin: 11/11/20 23:07 Dose: 1 gm Documented by: Magnesium Hydroxide (Magnesium Hydroxide Susp 30 Ml Udc) 30 ml PO Q12H PRN PRN Reason: Constipation Stop: 12/11/20 15:06 Metoprolol Succinate (Metoprolol Succ 25mg Ext Rel Tab) 25 mg PO DAILY [facility] Stop: 12/12/20 08:59 Last Admin: 11/14/20 07:57 Dose: Not Given Documented by: Nitroglycerin (Nitroglycerin Sl 0.4 Mg/Tab Tab) 0.4 mg SL UD PRN PRN Reason: Chest Pain Stop: 12/11/20 15:06 Ondansetron HCl (Ondansetron Inj 2 Mg/Ml 2 Ml Vial) 4 mg IV Q6H PRN PRN Reason: Nausea Stop: 12/11/20 15:06 Pantoprazole Sodium (Pantoprazole 40 Mg Tab) 40 mg PO BID [facility] Stop: 12/11/20 20:59 Last Admin: 11/14/20 07:57 Dose: 40 mg Documented by: Polyethylene Glycol (Polyethylene (Miralax) 17 Gm Pack) 17 gm PO DAILY PRN PRN Reason: Constipation Stop: 12/11/20 15:06 Potassium Chloride (Potassium Chloride Crtab 20 Meq Tabcr) 80 meq PO QAM [facility] Stop: 12/14/20 14:29 Last Admin: 11/14/20 15:54 Dose: 80 meq Documented by: Resident Activity Tracking Resident Involvement: Resident Care Provided Care Provided: Adult Hospital Medicine
[2020-11-15] MEDS: BUMETANIDE 10 MG in DEXTROSE 5% 10 ML IV SCH ×2 (00:01→04:35)
[2020-11-15] MEDS: MILRINONE LACTATE/D5W 20,000 MCG/100 ML BAG IV SCH ×2 (01:49→17:06)
[2020-11-15] MEDS: POTASSIUM CHLORIDE CRTAB 20 MEQ TABCR PO SCH ×3 (08:35→20:20)
[2020-11-15] MEDS: ASPIRIN 81 MG ECTAB PO SCH (08:37)
[2020-11-15] MEDS: PANTOprazole 40 MG TAB PO SCH ×2 (08:38→20:19)
[2020-11-15] MEDS: METOPROLOL SUCC 25MG EXT REL TAB PO SCH (08:38)
[2020-11-15] MEDS: AMIODARONE 200 MG TAB PO SCH ×2 (08:38→20:19)
[2020-11-15] MEDS: FINASTERIDE 5 MG TAB PO SCH (08:38)
[2020-11-15] MEDS: HEPARIN SOD 5,000 UNIT/0.5 ML VIAL SQ SCH ×2 (08:39→20:18)
[2020-11-15] MEDS: EPLERENONE 25 MG TAB PO SCH (08:39)
[2020-11-15] MEDS: POTASSIUM CHLORIDE / WTR 10 MEQ/100 ML PLCT IV SCH ×2 (08:46→09:54)
--- NOTE | 2020-11-15 08:57 | Hospitalist Progress Note ---
Date of Service November 15, 2020 Assessment & Plan (1) Chronic systolic CHF (congestive heart failure), NYHA class 4: 65 yo M with End stage CHF, extensive cardiac hx including biV AICD placement, nonischemic cardiomyopathy, HLD admitted for dyspnea and hyperkalemia. Acute Systolic Decompensated CHF exacerbation EF 15 to 20%, is BiV AICD in place, with recent medication changes. Followed at [place], Received 3 mg of IV Bumex in the emergency department and was con tinued on IV Bumex drip in the floors. Not a candidate for heart transplant. - salt restriction, fluid restriction - i/o, daily weights - [facility] cardiology consulted following recommendations -Aggressive diuresis -Continue milrinone drip -DC'd Bumex drip transition to twice daily torsemide 100 mg -If patient remains stable anticipate discharge tomorrow - Nephrology consulted -Potassium chloride 80 mEq 3 times daily -Follow-up afternoon potassium -Electrolyte abnormalities secondary to cardiorenal syndrome - Palliative care consulted appreciate recommendations -Wants to continue aggressive treatment -No long-term ventilator -Everything aside from cardiac surgery to save my life -Follow-up with palliative medicine as an outpatient Cardiorenal syndrome superimposed on CKD3 Cr 2.71, GFR ~23 on presentation, baseline mid 40s. - CR:2.95->2.71->3.10->3.0->2.4->2.8 - renal dosing of medications - diuresis as above - daily bmp - Nephro following Congestive Hepatopathy - elevated LFTs 2/2 CHF exacerbation - diuresis as above, trend LFTs Nonischemic Cardiomyopathy on 11/11 Dig level 2.1, given doses are on Tuesday and Tuesday, will continue. Recently taken off entresto. - continue milrinone IV - continue metoprolol succinate daily; can consider holding if BP falls below 85/50 or MAP < 65 - continue amiodarone, eplerenone. COPD - cont duonebs prn DVT ppx: heparin sq FEN/GI: DM2, low sodium, 2L fluid restriction diet, pantoprazole PO Dispo: PCU Code Status: Full Code. Palliative care team following (2) Chronic kidney disease, stage 3 (moderate): (3) Diabetes mellitus type 2 in nonobese: (4) Presence of biventricular AICD: (5) Depression with anxiety: (6) Chronic obstructive pulmonary disease: (7) Hypertension: (8) NICM (nonischemic cardiomyopathy): (9) Peripheral vascular disease: (10) Lumbar spinal stenosis: (11) Hyperlipidemia: (12) Arteriosclerotic cardiovascular disease: Admission and Anticipated Discharge Date Admission Date: November 11, 2020 Supervising Physician Co-Signing Physician Notes Resident Physician Supervision Note: I independently interviewed and examined the patient and verified the padilla history and physical, reviewed labs and image studies and agree with resident Dr. Jose Angel Wylie findings and care plan. Subjective Patient sitting up in bed this morning in no acute distress. Patient is dressed in his usual street clothes. Patient reports doing well overnight, sleeping intermittently, he reports his shortness of breath is significantly improved. Patient reports voiding, stooling, tolerating his diet, no acute distress. Acute concerns relate to discharge planning. Physical Exam Physical Exam: General: Cachectic appearing gentleman in no acute distress HEENT: Normocephalic atraumatic Neck: Normal to visual inspection trachea midline Cardiac:Regular rate and rhythm I did not appreciate any significant murmurs rubs, S4 present, normal S1, normal S2, no S3 1+ pedal edema bilaterally, negative calf tenderness Respiratory: Poor air movement bilaterally with crackles in the bibasilar bases otherwise clear to auscultation GI: Bowel sounds present MSK: Moves all extremities Neuro: Alert and oriented x4 Psych: Calm and cooperative with interview Results & Data Results & Data ([facility]) Vital Signs (Past 12 Hours) Vital Signs Temp Pulse Pulse Resp BP Pulse Ox 11/15/20 04:04 36.4 C L 63 18 93/57 L 93 11/15/20 00:17 60 11/14/20 23:09 36.4 C L 61 18 94/58 L 92 Laboratory Results 11/15/20 Range/Units 09:28 Sodium 132 L (136-145) mmol/L Potassium 2.8 L D (3.5-5.1) mmol/L Chloride 92 L (98-107) mmol/L Carbon Dioxide 33 H (21-32) mmol/L Anion Gap 7.0 (3-11) BUN 55 H (7-18) mg/dl Creatinine 2.21 H (0.6-1.4) mg/dl Est Cr Clr Drug Dosing 30.0 ml/min Est GFR ( Amer) 35.4 ml/min Est GFR (Non-Af Amer) 30.6 ml/min BUN/Creatinine Ratio 24.8 H (10-20) Glucose 113 H (70-99) mg/dl Calcium 9.6 (8.5-10.1) mg/dl Magnesium 2.5 H (1.8-2.4) mg/dl Medications Administered Current Inpatient Medications Acetaminophen (Acetaminophen 325 Mg Tab) 650 mg PO Q4H PRN PRN Reason: Pain or Fever Stop: 12/11/20 15:06 Amiodarone HCl (Amiodarone 200 Mg Tab) 200 mg PO BID [facility] Stop: 12/11/20 20:59 Last Admin: 11/15/20 08:38 Dose: 200 mg Documented by: Aspirin (Aspirin 81 Mg Ectab) 81 mg PO QAM [facility] Stop: 12/12/20 08:59 Last Admin: 11/15/20 08:37 Dose: 81 mg Documented by: Digoxin (Digoxin 0.125 Mg Tab) 0.125 mg PO MoFr@1600 [facility] Stop: 12/14/20 15:59 Last Admin: 11/14/20 15:55 Dose: 0.125 mg Documented by: Eplerenone ([facility] 25 Mg Tab) [facility] Stop: 12/13/20 08:59 Last Admin: 11/15/20 08:39 Dose: 1 ea Documented by: Ferrous Sulfate (Ferrous Sulfate 325 Mg Tab) 325 mg PO MoWeFr@0900 [facility] Stop: 12/12/20 08:59 Last Admin: 11/14/20 07:57 Dose: 325 mg Documented by: Finasteride (Finasteride 5 Mg Tab) 5 mg PO DAILY [facility] Stop: 12/12/20 08:59 Last Admin: 11/15/20 08:38 Dose: 5 mg Documented by: Heparin Sodium (Porcine) (Heparin Sod 5,000 Unit/0.5 Ml Vial) 5,000 units SQ Q12 [facility] Stop: 12/12/20 08:59 Last Admin: 11/15/20 08:39 Dose: 5,000 units Documented by: Milrinone Lactate/Dextrose (Primacor/D5w) 20,000 mcg in 100 mls @ 6.129 mls/hr IV .[id number] [facility]; Protocol Stop: 12/11/20 15:59 Last Admin: 11/15/20 01:49 Dose: 0.3 mcg/kg/min, 6.1 mls/hr Documented by: Lactic Acid (Ammonium Lactate 12% Lotion 225 Gm Btl) 1 gm EXT QID PRN PRN Reason: itching Stop: 12/11/20 18:49 Last Admin: 11/11/20 23:07 Dose: 1 gm Documented by: Magnesium Hydroxide (Magnesium Hydroxide Susp 30 Ml Udc) 30 ml PO Q12H PRN PRN Reason: Constipation Stop: 12/11/20 15:06 Metoprolol Succinate (Metoprolol Succ 25mg Ext Rel Tab) 25 mg PO DAILY [facility] Stop: 12/12/20 08:59 Last Admin: 11/15/20 08:38 Dose: Not Given Documented by: Nitroglycerin (Nitroglycerin Sl 0.4 Mg/Tab Tab) 0.4 mg SL UD PRN PRN Reason: Chest Pain Stop: 12/11/20 15:06 Ondansetron HCl (Ondansetron Inj 2 Mg/Ml 2 Ml Vial) 4 mg IV Q6H PRN PRN Reason: Nausea Stop: 12/11/20 15:06 Pantoprazole Sodium (Pantoprazole 40 Mg Tab) 40 mg PO BID [facility] Stop: 12/11/20 20:59 Last Admin: 11/15/20 08:38 Dose: 40 mg Documented by: Polyethylene Glycol (Polyethylene (Miralax) 17 Gm Pack) 17 gm PO DAILY PRN PRN Reason: Constipation Stop: 12/11/20 15:06 Potassium Chloride (Potassium Chloride Crtab 20 Meq Tabcr) 80 meq PO TID [facility] Stop: 12/15/20 08:59 Last Admin: 11/15/20 08:35 Dose: 80 meq Documented by: Torsemide (Torsemide 100 Mg Tab) 100 mg PO BID [facility] Stop: 12/15/20 09:14 Last Admin: 11/15/20 10:56 Dose: 100 mg Documented by: Resident Activity Tracking Resident Involvement: Resident Care Provided Care Provided: Adult Hospital Medicine
--- NOTE | 2020-11-15 09:12 | Cardiology Progress Note ---
Date of Service November 15, 2020 Assessment & Plan (1) Acute exacerbation of CHF (congestive heart failure): (2) Acute hyperkalemia: (3) Chronic kidney disease, stage 3 (moderate): (4) Chronic systolic CHF (congestive heart failure), NYHA class 4: (5) Presence of biventricular AICD: (6) Low output heart failure: (7) Malignant neoplasm of bladder: (8) Arteriosclerotic cardiovascular disease: (9) Chronic obstructive pulmonary disease: (10) Peripheral vascular disease: (11) Tobacco abuse counseling: The patient had another large diuresis yesterday. I believe he is currently euvolemic. Creatinine has improved again. Still requiring large doses of potassium supplement. I will check a magnesium level. At times when you cannot catch up with the potassium its because the patient is compensating a low magnesium level. I think we can stop the Bumex drip. He was on torsemide 100 mg twice daily at home which I will restart today. If things continue to go well I anticipate possible discharge tomorrow. (12) Unknown status of achievement of care plan goal: Admission and Anticipated Discharge Date Admission Date: November 11, 2020 Subjective The patient is sitting up the side of the bed. He feels remarkably better. Anxious to go home. Review of Systems Review of Systems: All systems reviewed & are unremarkable except as noted in Subjective Physical Exam Physical Exam: General: no acute distress and stated age Head: normocephalic, no masses, lesions, tenderness or abnormalities Eyes: conjunctiva are pink and non-injected, sclera clear Neck: supple, no adenopathy, no bruits, normal jugular venous pulse, no hepatojugular reflux Chest: normal shape and normal respiratory effort Lungs: clear to auscultation and percussion Cardiac Exam: - regular rate & rhythm, no murmurs gallops or rubs - normal S1, normal S2 Pulses: 2(+) throughout Abdomen: abdomen soft, non-tender, no abnormal masses and no hepatosplenomegaly Musculoskeletal: no gait disturbance, no joint inflammation, no deforming arthritis Extremities: no edema and no cyanosis Neuro: grossly normal exam Results & Data ([facility]) Vital Signs (Past 12 Hours) Vital Signs Temp Pulse Pulse Resp BP Pulse Ox 11/15/20 04:04 36.4 C L 63 18 93/57 L 93 11/15/20 00:17 60 11/14/20 23:09 36.4 C L 61 18 94/58 L 92 Medications Administered Current Inpatient Medications Acetaminophen (Acetaminophen 325 Mg Tab) 650 mg PO Q4H PRN PRN Reason: Pain or Fever Stop: 12/11/20 15:06 Amiodarone HCl (Amiodarone 200 Mg Tab) 200 mg PO BID [facility] Stop: 12/11/20 20:59 Last Admin: 11/15/20 08:38 Dose: 200 mg Documented by: Aspirin (Aspirin 81 Mg Ectab) 81 mg PO QAM [facility] Stop: 12/12/20 08:59 Last Admin: 11/15/20 08:37 Dose: 81 mg Documented by: Digoxin (Digoxin 0.125 Mg Tab) 0.125 mg PO MoFr@1600 [facility] Stop: 12/14/20 15:59 Last Admin: 11/14/20 15:55 Dose: 0.125 mg Documented by: Eplerenone (E[place]one 25 Mg Tab) [facility] [place]a [place] [facility] Stop: 12/13/20 08:59 Last Admin: 11/15/20 08:39 Dose: 1 ea Documented by: Ferrous Sulfate (Ferrous Sulfate 325 Mg Tab) 325 mg PO MoWeFr@0900 [facility] Stop: 12/12/20 08:59 Last Admin: 11/14/20 07:57 Dose: 325 mg Documented by: Finasteride (Finasteride 5 Mg Tab) 5 mg PO DAILY [facility] Stop: 12/12/20 08:59 Last Admin: 11/15/20 08:38 Dose: 5 mg Documented by: Heparin Sodium (Porcine) (Heparin Sod 5,000 Unit/0.5 Ml Vial) 5,000 units SQ Q12 [facility] Stop: 12/12/20 08:59 Last Admin: 11/15/20 08:39 Dose: 5,000 units Documented by: Milrinone Lactate/Dextrose (Primacor/D5w) 20,000 mcg in 100 mls @ 6.129 mls/hr IV .[id number] [facility]; Protocol Stop: 12/11/20 15:59 Last Admin: 11/15/20 01:49 Dose: 0.3 mcg/kg/min, 6.1 mls/hr Documented by: Potassium Chloride (K Aries / Wtr) 10 meq in 100 mls @ 100 mls/hr IV Q1H [facility] Stop: 11/15/20 10:29 Last Admin: 11/15/20 08:46 Dose: 100 mls/hr Documented by: Lactic Acid (Ammonium Lactate 12% Lotion 225 Gm Btl) 1 gm EXT QID PRN PRN Reason: itching Stop: 12/11/20 18:49 Last Admin: 11/11/20 23:07 Dose: 1 gm Documented by: Magnesium Hydroxide (Magnesium Hydroxide Susp 30 Ml Udc) 30 ml PO Q12H PRN PRN Reason: Constipation Stop: 12/11/20 15:06 Metoprolol Succinate (Metoprolol Succ 25mg Ext Rel Tab) 25 mg PO DAILY [facility] Stop: 12/12/20 08:59 Last Admin: 11/15/20 08:38 Dose: Not Given Documented by: Nitroglycerin (Nitroglycerin Sl 0.4 Mg/Tab Tab) 0.4 mg SL UD PRN PRN Reason: Chest Pain Stop: 12/11/20 15:06 Ondansetron HCl (Ondansetron Inj 2 Mg/Ml 2 Ml Vial) 4 mg IV Q6H PRN PRN Reason: Nausea Stop: 12/11/20 15:06 Pantoprazole Sodium (Pantoprazole 40 Mg Tab) 40 mg PO BID [facility] Stop: 12/11/20 20:59 Last Admin: 11/15/20 08:38 Dose: 40 mg Documented by: Polyethylene Glycol (Polyethylene (Miralax) 17 Gm Pack) 17 gm PO DAILY PRN PRN Reason: Constipation Stop: 12/11/20 15:06 Potassium Chloride (Potassium Chloride Crtab 20 Meq Tabcr) 80 meq PO TID [facility] Stop: 12/15/20 08:59 Last Admin: 11/15/20 08:35 Dose: 80 meq Documented by: Torsemide (Torsemide 100 Mg Tab) 100 mg PO BID [facility] Stop: 12/15/20 09:14 (1) Acute exacerbation of CHF (congestive heart failure) Heart failure type: unspecified Qualified Code(s): I50.9 - Heart failure, unspecified
--- NOTE | 2020-11-15 09:41 | Nephrology Progress Note ---
Date of Service November 15, 2020 Assessment & Plan (1) Acute kidney injury superimposed on CKD: Patient with the CKD stage IV at baseline. He now has acute kidney injury on CKD likely due to cardiorenal syndrome. Renal function is improving with the creatinine of 2.1 from 2.6 yesterday. Patient is diuresing well and was net - 1.6 L. Continue Bumex drip. Monitor input output and daily standing weight (2) Hypokalemia: Patient continues to have hypokalemia despite aggressive K supplements. Patient received 200 mEq of potassium yesterday. We will increase KCl to 80 mg 3 times daily. We will also give IV potassium chloride 20 mEq this morning. Repeat potassium at 3 PM today Admission and Anticipated Discharge Date Admission Date: November 11, 2020 Subjective Seen in follow-up for acute kidney injury on CKD. Patient with nonischemic cardiomyopathy, EF of 15% and CKD stage IV. He feels better today. No shortness of breath. Leg swelling has subsided. He was net -1.6 L. He has severe hypokalemia. Review of Systems Review of Systems: All systems reviewed & are unremarkable except as noted in HPI & below Physical Exam Physical Exam: General exam: Appears comfortable, no acute distress HEENT: Pupils are equal and reactive to light Neck: No JVD, neck is supple trachea is midline Respiratory system: Clear breath sounds bilaterally. Gastrointestinal: Abdomen is soft, non distended, non tender, bowel sounds are present CVS: Regular rate and rhythm. No murmurs, rubs or gallops Musculoskeletal: No joint or muscle tenderness Extremities: Non tender, no edema, peripheral pulses are present Neuro: Oriented, no tremors, no focal neurological deficits Skin: No rashes Results & Data ([facility]) Vital Signs (Past 12 Hours) Vital Signs Temp Pulse Pulse Resp BP Pulse Ox 11/15/20 04:04 36.4 C L 63 18 93/57 L 93 11/15/20 00:17 60 11/14/20 23:09 36.4 C L 61 18 94/58 L 92 Laboratory Results 11/14/20 07:01
[2020-11-15 10:16] LABS: BUN Creatinine Ratio 24.8 (10-20); Calcium 9.6 mg/dl (8.5-10.1); Est GFR (African American) 35.4 ml/min; Est GFR (Non-African American) 30.6 ml/min; Magnesium 2.5 mg/dl (1.8-2.4); Potassium 2.8 mmol/L (3.5-5.1)
[2020-11-15] MEDS: TORSEMIDE 100 MG TAB PO SCH ×2 (10:56→20:19)
[2020-11-15 15:31] LABS: BUN Creatinine Ratio 26.5 (10-20); Calcium 8.6 mg/dl (8.5-10.1); Creatinine Clr Calc Pharmacy 31.8 ml/min; Est GFR (African American) 38.1 ml/min; Est GFR (Non-African American) 32.9 ml/min; Potassium 3.7 mmol/L (3.5-5.1)
[2020-11-16 08:22] LABS: BUN Creatinine Ratio 21.5 (10-20); Calcium 9.4 mg/dl (8.5-10.1); Creatinine Clr Calc Pharmacy 18.4 ml/min; Est GFR (African American) 19.8 ml/min; Est GFR (Non-African American) 17.1 ml/min; Magnesium 2.5 mg/dl (1.8-2.4); Potassium 6.7 mmol/L (3.5-5.1)
[2020-11-16] MEDS ORDERED: RAPID SEQUENCE INDUCTION BAG ONE (08:31)
[2020-11-16] MEDS ORDERED: AMIODARONE 150MG / 100ML D5W IV ONE (08:32)
[2020-11-16] MEDS ORDERED: DEXTROSE 50% 50 ML SYRINGE IV ONE ×2 (08:32→19:02)
--- NOTE | 2020-11-16 08:46 | Procedure Note ---
Procedure Note Date of Service November 16, 2020 Note INTUBATION PROCEDURE NOTE: Dr. Trae Manzano A time-out was completed verifying correct patient, procedure, site, positioning. Patient was evaluated and required intubation for worsening mentation and hypoxic respiratory failure. Sedative agent used: 50 mg etomidate Paralysis agent used: 50 mcg rocuronium Emergent consent was implied given patients rapidly declining clinical status and need for airway protection. Number of attempts: 1 Grade view: The patient was prepared in the appropriate fashion. Sedation was achieved utilizing etomidate and rocuronium. The patient was easily ventilated using [id number] to achieve adequate oxygenation. A 7.5 Stateless endotracheal tube was placed under glide scope guidance to 24 cm at the lip. The stylette was removed and balloon was inflated with 10mL of air. Appropriate Colorimetric change was appreciated. Bilateral breath sounds were heard without air sounds in the abdomen. Post Intubation Chest X-ray ordered Patient tolerated the procedure well and there were no immediate complications. Coding CPT Codes Resuscitation - Resuscitation: 32418 Endotracheal Intubation, emergency ([id number]) [facility] [place] Procedure Codes ([place]) Resuscitation Resuscitation: 76924 Endotracheal Intubation, emergency
[2020-11-16] MEDS ORDERED: STAT IV STA (08:48)
[2020-11-16] MEDS ORDERED: SODIUM BICARB 8.4% INJ 50 MEQ/50 ML SYR IV ONE (08:49)
[2020-11-16 08:51] LABS: Basophils # (auto) 0.01 K/uL (0-0.2); Basophils % (auto) 0.1 %; Hematocrit (blood only) 39.8 % (42-52); Hemoglobin 13.1 g/dL (14.0-18.0); Immature Granulocytes # (auto) 0.03 K/uL (0.00-0.02); Immature Granulocytes % (auto) 0.3 %; Lymphocytes # (auto) 0.54 K/uL (1.2-3.4); Lymphocytes % (auto) 4.9 %; Mean Corpuscular Hemoglobin 32.4 pg (25-34); Mean Corpuscular Hgb Conc 32.9 g/dL (32-36); Mean Corpuscular Volume 98.5 fL (80-100); Mean Platelet Volume 10.3 fL (7.4-10.4); Monocytes # (auto) 0.11 K/uL (0.11-0.59); Neutrophils # (auto) 10.39 K/uL (1.4-6.5); Neutrophils % (auto) 93.7 %; Nucleated RBC # (auto) 0.04 K/uL (0-0); Nucleated RBC % (auto) 0.3 %; Platelet Count 346 K/uL (130-400); RDW Coefficient of Variation 16.4 % (11.5-14.5); RDW Standard Deviation 58.7 fL (36.4-46.3); Red Blood Count 4.04 M/uL (4.7-6.1); White Blood Count 11.08 K/uL (4.8-10.8)
[2020-11-16] MEDS ORDERED: PATIROMER CALCIUM SORBITEX 8.4 GM PACK PO SCH (09:00)
[2020-11-16] MEDS ORDERED: SODIUM BICARBONATE 8.4% 150 MEQ in DEXTROSE 5% 1,000 ML IV SCH (09:00)
[2020-11-16] MEDS ORDERED: INSULIN HUMAN REGULAR PER UNIT 10 UNITS in SYRINGE 9.9 ML IV ONE (09:00)
--- NOTE | 2020-11-16 09:12 | Hospitalist Progress Note ---
Date of Service November 16, 2020 Assessment & Plan (1) Chronic systolic CHF (congestive heart failure), NYHA class 4: 65 yo M with End stage CHF, extensive cardiac hx including biV AICD placement, nonischemic cardiomyopathy, HLD admitted for dyspnea and hyperkalemia. Cardiac arrest with defibrillator going off multiple times Transferred to ICU Patient experienced a code purple as described above this morning, necessitating intubation and transfer to the ICU. Upon review of his records I suspect this is secondary to hyperkalemia which induced an arrhythmia leading to his unconscious state. The patient was stabilized and subsequently transferred to the ICU for further evaluation and management of cardiogenic shock -Continue care per ICU -Ventilator support -May require CRRT - updated. Acute Systolic Decompensated CHF exacerbation EF 15 to 20%, is BiV AICD in place, with recent medication changes. Followed at [place], Received 3 mg of IV Bumex in the emergency department and was continued on IV Bumex drip in the floors. Not a candidate for heart transplant. - salt restriction, fluid restriction - i/o, daily weights - [facility] cardiology consulted following recommendations -care per ICU -Poor Prognosis - Nephrology consulted -responding to torsemide -will not tolerate HD - Palliative care consulted -Wants to continue aggressive treatment -No long-term ventilator, Everything aside from cardiac surgery to save my life Cardiorenal syndrome superimposed on CKD3 Cr 2.71, GFR ~23 on presentation, baseline mid 40s. - CR:2.95->2.71->3.10->3.0->2.4->2.8->3.77 - renal dosing of medications - diuresis as above - daily bmp - Nephro following Acute Hyperkalemia - K 6.7. - Has had resistant hypokalemia and dose of K replacement increased yesterday and worsening renal function in setting of cardio-renal function. Congestive Hepatopathy - elevated LFTs 2/2 CHF exacerbation Nonischemic Cardiomyopathy on 11/11 Dig level 2.1, given doses are on Tuesday and Tuesday, will continue. Recently taken off entresto. - On milrinone IV COPD - cont duonebs prn DVT ppx: heparin sq FEN/GI: NPO Dispo: ICU Code Status: Full Code. Palliative care team following. Poor prognosis. (2) Chronic kidney disease, stage 3 (moderate): (3) Diabetes mellitus type 2 in nonobese: (4) Presence of biventricular AICD: (5) Depression with anxiety: (6) Chronic obstructive pulmonary disease: (7) Hypertension: (8) NICM (nonischemic cardiomyopathy): (9) Peripheral vascular disease: (10) Lumbar spinal stenosis: (11) Hyperlipidemia: (12) Arteriosclerotic cardiovascular disease: Admission and Anticipated Discharge Date Admission Date: November 11, 2020 Supervising Physician Co-Signing Physician Notes Resident Physician Supervision Note: I independently interviewed and examined the patient and verified the padilla history and physical, reviewed labs and image studies and agree with resident Dr. Jose Angel Wylie findings and care plan. Subjective Was paged to the room this morning due to a code purple. Upon arrival to the room the patient was nonresponsive, and the kitchen bath designer arrived shortly afterwards. From conversations with nursing it appears the patient was previously on the phone with his this morning. He then became unresponsive. Per review of a.m. labs his potassium was significantly elevated as is his creatinine. This likely led to an arrhythmia. I confirmed to the kitchen bath designer that the patient was a full code and wanted everything it could be done to be done. Patient was intubated and transferred to the ICU Physical Exam Physical Exam: General: Lying in bed in no acute distress intubated Cardiac: Did not appreciate significant murmurs rubs or gallops, normal S1 normal S2, murmur present Respiratory: Positive crackles bilaterally, diminished lung sounds bilaterally Neuro: Sedated and intubated Results & Data Results & Data ([facility]) Vital Signs (Past 12 Hours) Vital Signs Temp Pulse Pulse Resp BP BP Pulse Ox 11/16/20 08:08 36.4 C L 83 18 81/52 L 94 11/16/20 03:58 36.9 C 64 18 95/52 L 94 11/15/20 23:50 63 11/15/20 23:35 37.0 C 61 18 91/55 L 95 Laboratory Results 11/16/20 11/16/20 11/16/20 Range/Units 09:26 08:41 08:41 WBC (4.8-10.8) K/uL RBC (4.7-6.1) M/uL Hgb (14.0-18.0) g/dL POC Hgb 13.6 L (14.0-18.0) g/dl Hct (42-52) % POC Hct 40 L (42-52) % MCV (80-100) fL MCH (25-34) pg MCHC (32-36) g/dL RDW Std Deviation (36.4-46.3) fL RDW Coeff of Rich (11.5-14.5) % Plt Count (130-400) K/uL MPV (7.4-10.4) fL Immature Gran % (Auto) % Neut % (Auto) % Lymph % (Auto) % [place] % (Auto) % Eos % (Auto) % Baso % (Auto) % Neut # (Auto) (1.4-6.5) K/uL Lymph # (Auto) (1.2-3.4) K/uL [place] # (Auto) (0.11-0.59) K/uL Eos # (Auto) (0-0.5) K/uL Baso # (Auto) (0-0.2) K/uL Immature Gran # (Auto) (0.00-0.02) K/uL Absolute Nucleated RBC (0-0) K/uL Nucleated RBC % (auto) % Sample Site L Radial POC pH 7.28 L (7.35-7.45) POC pCO2 46 (35-46) mmHg POC pO2 217 H (80-95) mmHg POC HCO3 22 (19-24) steve/L POC Total CO2 23 L (24-31) mmol/L POC Base Excess -5.0 (-9-1.8) steve/L ABG pH (Temp Correct) 7.285 L (7.35-7.45) ABG pCO2 (Temp Corrct 46 (35-46) mmHg POC ABG pO2 at Pt Temp 217 POC ABG O2 Sat 100.0 H (90-95) % Paulino Test Pass O2 Delivery Device Ventilator POC O2 Rate 18 Minute Ventilation 8.2 POC FiO2 60 % Tidal Volume 460 PEEP 5 POC Sodium 132 L (135-144) mmol/L Sodium 128 L (136-145) mmol/L POC Potassium 5.8 H (3.3-5.0) mmol/L Potassium 6.2 H* (3.5-5.1) mmol/L Chloride 94 L (98-107) mmol/L Carbon Dioxide 17 L (21-32) mmol/L Anion Gap 17.0 H (3-11) BUN 75 H (7-18) mg/dl Creatinine 3.77 H (0.6-1.4) mg/dl Est Cr Clr Drug Dosing 17.5 ml/min Est GFR ( Amer) 18.6 ml/min Est GFR (Non-Af Amer) 16.0 ml/min BUN/Creatinine Ratio 19.8 (10-20) Glucose 352 H* (70-99) mg/dl POC Glucose (70-99) mg/dl Lactate 8.8 H* (0.4-2.0) mmol/L Calcium 12.0 H D (8.5-10.1) mg/dl Magnesium Total Bilirubin 2.6 H (0.2-1) mg/dl AST 194 H (15-37) U/L ALT 227 H (12-78) U/L Alkaline Phosphatase 155 H (45-117) U/L Total Protein 6.8 (6.4-8.2) gm/dl Albumin 3.2 L (3.4-5.0) gm/dl Globulin 3.6 (2.5-4.0) gm/dl Albumin/Globulin Ratio 0.9 (0.9-2) Beta-Hydroxybutyric Acd 2.56 (0.2-2.81) mg/dl 11/16/20 11/16/20 11/16/20 Range/Units 08:41 07:51 05:52 WBC 11.08 H (4.8-10.8) K/uL RBC 4.04 L (4.7-6.1) M/uL Hgb 13.1 L (14.0-18.0) g/dL POC Hgb (14.0-18.0) g/dl Hct 39.8 L (42-52) % POC Hct (42-52) % MCV 98.5 (80-100) fL MCH 32.4 (25-34) pg MCHC 32.9 (32-36) g/dL RDW Std Deviation 58.7 H (36.4-46.3) fL RDW Coeff of Rich 16.4 H (11.5-14.5) % Plt Count 346 (130-400) K/uL MPV 10.3 (7.4-10.4) fL Immature Gran % (Auto) 0.3 % Neut % (Auto) 93.7 % Lymph % (Auto) 4.9 % [place] % (Auto) 1.0 % Eos % (Auto) 0.0 % Baso % (Auto) 0.1 % Neut # (Auto) 10.39 H (1.4-6.5) K/uL Lymph # (Auto) 0.54 L (1.2-3.4) K/uL [place] # (Auto) 0.11 (0.11-0.59) K/uL Eos # (Auto) 0.00 (0-0.5) K/uL Baso # (Auto) 0.01 (0-0.2) K/uL Immature Gran # (Auto) 0.03 H (0.00-0.02) K/uL Absolute Nucleated RBC 0.04 H (0-0) K/uL Nucleated RBC % (auto) 0.3 % Sample Site POC pH (7.35-7.45) POC pCO2 (35-46) mmHg POC pO2 (80-95) mmHg POC HCO3 (19-24) steve/L POC Total CO2 (24-31) mmol/L POC Base Excess (-9-1.8) steve/L ABG pH (Temp Correct) (7.35-7.45) ABG pCO2 (Temp Corrct (35-46) mmHg POC ABG pO2 at Pt Temp POC ABG O2 Sat (90-95) % Paulino Test O2 Delivery Device POC O2 Rate Minute Ventilation POC FiO2 % Tidal Volume PEEP POC Sodium (135-144) mmol/L Sodium 131 L Cancelled (136-145) mmol/L POC Potassium (3.3-5.0) mmol/L Potassium 6.7 H* D Cancelled (3.5-5.1) mmol/L Chloride 98 Cancelled (98-107) mmol/L Carbon Dioxide 19 L Cancelled (21-32) mmol/L Anion Gap 14.0 H Cancelled (3-11) BUN 77 H Cancelled (7-18) mg/dl Creatinine 3.58 H D Cancelled (0.6-1.4) mg/dl Est Cr Clr Drug Dosing 18.4 Cancelled ml/min Est GFR ( Amer) 19.8 Cancelled ml/min Est GFR (Non-Af Amer) 17.1 Cancelled ml/min BUN/Creatinine Ratio 21.5 H Cancelled (10-20) Glucose 158 H Cancelled (70-99) mg/dl POC Glucose (70-99) mg/dl Lactate (0.4-2.0) mmol/L Calcium 9.4 Cancelled (8.5-10.1) mg/dl Magnesium 2.5 H Cancelled Total Bilirubin (0.2-1) mg/dl AST (15-37) U/L ALT (12-78) U/L Alkaline Phosphatase (45-117) U/L Total Protein (6.4-8.2) gm/dl Albumin (3.4-5.0) gm/dl Globulin (2.5-4.0) gm/dl Albumin/Globulin Ratio (0.9-2) Beta-Hydroxybutyric Acd (0.2-2.81) mg/dl 11/16/20 11/15/20 11/15/20 Range/Units 05:25 15:02 14:12 WBC (4.8-10.8) K/uL RBC (4.7-6.1) M/uL Hgb (14.0-18.0) g/dL POC Hgb (14.0-18.0) g/dl Hct (42-52) % POC Hct (42-52) % MCV (80-100) fL MCH (25-34) pg MCHC (32-36) g/dL RDW Std Deviation (36.4-46.3) fL RDW Coeff of Rich (11.5-14.5) % Plt Count (130-400) K/uL MPV (7.4-10.4) fL Immature Gran % (Auto) % Neut % (Auto) % Lymph % (Auto) % [place] % (Auto) % Eos % (Auto) % Baso % (Auto) % Neut # (Auto) (1.4-6.5) K/uL Lymph # (Auto) (1.2-3.4) K/uL [place] # (Auto) (0.11-0.59) K/uL Eos # (Auto) (0-0.5) K/uL Baso # (Auto) (0-0.2) K/uL Immature Gran # (Auto) (0.00-0.02) K/uL Absolute Nucleated RBC (0-0) K/uL Nucleated RBC % (auto) % Sample Site POC pH (7.35-7.45) POC pCO2 (35-46) mmHg POC pO2 (80-95) mmHg POC HCO3 (19-24) steve/L POC Total CO2 (24-31) mmol/L POC Base Excess (-9-1.8) steve/L ABG pH (Temp Correct) (7.35-7.45) ABG pCO2 (Temp Corrct (35-46) mmHg POC ABG pO2 at Pt Temp POC ABG O2 Sat (90-95) % Paulino Test O2 Delivery Device POC O2 Rate Minute Ventilation POC FiO2 % Tidal Volume PEEP POC Sodium (135-144) mmol/L Sodium Cancelled 132 L (136-145) mmol/L POC Potassium (3.3-5.0) mmol/L Potassium Cancelled 3.7 D (3.5-5.1) mmol/L Chloride Cancelled 94 L (98-107) mmol/L Carbon Dioxide Cancelled 31 (21-32) mmol/L Anion Gap Cancelled 7.0 (3-11) BUN Cancelled 55 H (7-18) mg/dl Creatinine Cancelled 2.08 H (0.6-1.4) mg/dl Est Cr Clr Drug Dosing Cancelled 31.8 ml/min Est GFR ( Amer) Cancelled 38.1 ml/min Est GFR (Non-Af Amer) Cancelled 32.9 ml/min BUN/Creatinine Ratio Cancelled 26.5 H (10-20) Glucose Cancelled 109 H (70-99) mg/dl POC Glucose 106 H (70-99) mg/dl Lactate (0.4-2.0) mmol/L Calcium Cancelled 8.6 (8.5-10.1) mg/dl Magnesium Cancelled Total Bilirubin (0.2-1) mg/dl AST (15-37) U/L ALT (12-78) U/L Alkaline Phosphatase (45-117) U/L Total Protein (6.4-8.2) gm/dl Albumin (3.4-5.0) gm/dl Globulin (2.5-4.0) gm/dl Albumin/Globulin Ratio (0.9-2) Beta-Hydroxybutyric Acd (0.2-2.81) mg/dl Medications Administered Current Inpatient Medications Acetaminophen (Acetaminophen 325 Mg Tab) 650 mg PO Q4H PRN PRN Reason: Pain or Fever Stop: 12/11/20 15:06 Amiodarone HCl (Amiodarone 200 Mg Tab) 200 mg PO BID [facility] Stop: 12/11/20 20:59 Last Admin: 11/15/20 20:19 Dose: 200 mg Documented by: Aspirin (Aspirin 81 Mg Chew) 81 mg NG QAM [facility] Stop: 12/16/20 11:14 Digoxin (Digoxin 0.125 Mg Tab) 0.125 mg PO MoFr@1600 [facility] Stop: 12/14/20 15:59 Last Admin: 11/14/20 15:55 Dose: 0.125 mg Documented by: Ferrous Sulfate (Ferrous Sulfate 325 Mg Tab) 325 mg PO MoWeFr@0900 [facility] Stop: 12/12/20 08:59 Last Admin: 11/14/20 07:57 Dose: 325 mg Documented by: Finasteride (Finasteride 5 Mg Tab) 5 mg PO DAILY [facility] Stop: 12/12/20 08:59 Last Admin: 11/16/20 10:33 Dose: Not Given Documented by: Heparin Sodium (Porcine) (Heparin Sod 5,000 Unit/0.5 Ml Vial) 5,000 units SQ Q12 [facility] Stop: 12/12/20 08:59 Last Admin: 11/16/20 10:48 Dose: 5,000 units Documented by: Milrinone Lactate/Dextrose (Primacor/D5w) 20,000 mcg in 100 mls @ 6.129 mls/hr IV .[id number] [facility]; Protocol Stop: 12/11/20 15:59 Last Admin: 11/16/20 10:48 Dose: 0.3 mcg/kg/min, 6.1 mls/hr Documented by: Sodium Bicarbonate 150 meq/ (Dextrose) 1,150 mls @ 75 mls/hr IV .[id number] [facility] Stop: 12/16/20 08:59 Last Admin: 11/16/20 09:36 Dose: 75 mls/hr Documented by: Lactic Acid (Ammonium Lactate 12% Lotion 225 Gm Btl) 1 gm EXT QID PRN PRN Reason: itching Stop: 12/11/20 18:49 Last Admin: 11/11/20 23:07 Dose: 1 gm Documented by: Lansoprazole (Lansoprazole 30 Mg Soltab) 30 mg NG BID [facility] Stop: 12/16/20 11:14 Magnesium Hydroxide (Magnesium Hydroxide Susp 30 Ml Udc) 30 ml PO Q12H PRN PRN Reason: Constipation Stop: 12/11/20 15:06 Metoprolol Succinate (Metoprolol Succ 25mg Ext Rel Tab) 25 mg PO DAILY [facility] Stop: 12/12/20 08:59 Last Admin: 11/16/20 10:34 Dose: Not Given Documented by: Nitroglycerin (Nitroglycerin Sl 0.4 Mg/Tab Tab) 0.4 mg SL UD PRN PRN Reason: Chest Pain Stop: 12/11/20 15:06 Ondansetron HCl (Ondansetron Inj 2 Mg/Ml 2 Ml Vial) 4 mg IV Q6H PRN PRN Reason: Nausea Stop: 12/11/20 15:06 Patiromer (Patiromer Calcium Sorbitex 8.4 Gm Pack) 16.8 gm PO DAILY [facility] Stop: 12/16/20 08:59 Polyethylene Glycol (Polyethylene (Miralax) 17 Gm Pack) 17 gm PO DAILY PRN PRN Reason: Constipation Stop: 12/11/20 15:06 Torsemide (Torsemide 100 Mg Tab) 100 mg PO BID [facility] Stop: 12/15/20 09:14 Last Admin: 11/16/20 10:34 Dose: Not Given Documented by: Resident Activity Tracking Resident Involvement: Resident Care Provided Care Provided: Adult Hospital Medicine
--- NOTE | 2020-11-16 09:28 | Critical Care Consultation ---
Date of Consultation November 16, 2020 Assessment & Plan (1) Acute hypoxemic respiratory failure: Neurologic: Acute encephalopathy likely related to decreased cerebral pressure perfusion due to cardiogenic shock. Pulmonary: Patient with evidence of pulmonary edema. Continue ventilatory support. We will try to minimize PEEP given his severe cardiomyopathy. Cardiovascular: Chronically on milrinone infusion. Severe cardiomyopathy. He is on digoxin. We will hold eplerenone given his hyperkalemia and [place]. Will consider initiation of dobutamine if he has evidence of worsening cardiomyopathy or hypertension. Can also consider the addition of Levophed for hypotension. Gastrointestinal: N.p.o. chronically on Protonix 40 mg twice daily Renal: Cardiorenal syndrome. Holding any further potassium repletion. Was given calcium gluconate, D50/insulin and an amp of bicarbonate for hyperkalemia. We have initiated a bicarbonate drip given his ongoing metabolic acidosis and hyperkalemia. Discussed with nephrology. He may require CRRT if his renal function or urine output worsens. Will need to discuss this further with his family. Infectious disease: No concerns for infectious etiology at this time. Hematologic: No significant issues Endocrine: Hyperglycemia management per ICU pharmacy Lines and tubes: Intubated 11/16/2020. Holm catheter in place. VTE prophylaxis: Heparin subcu CODE STATUS: Full code. Prognosis extremely poor. Will need to discuss further with family. Patient has been evaluated by palliative care in the past. Family at bedside: was called and voicemail left. Cardiology was able to speak with her. Family is coming to the ICU. Disposition: Remain in ICU I have personally spent 48 minutes of critical care time in the direct management of this patient. This is a life/limb threatening event. This includes time spent evaluating patient, direct bedside care, chart review, placing orders, interpretation of diagnostic studies, discussion with consultants, patient, and family members, as well as other required patient management activi ties. This time is exclusive of all separately billable procedures, and teaching time and separate from and in addition to any other critical care service time. Thank you for allowing us to participate in the care of this patient. (2) Chronic systolic CHF (congestive heart failure), NYHA class 4: (3) Chronic obstructive pulmonary disease: (4) Presence of biventricular AICD: (5) Cardiogenic shock: History of Present Illness Reason for Consultation: Hypoxemic respiratory failure with cardiogenic shock Attending Physician: Moon Bobo MD History of Present Illness 65-year-old male with a past medical history of CKD stage IV and ischemic cardiomyopathy who is currently in the hospital due to hypoxemic respiratory failure and now in the ICU. A ambar jefferson was called earlier in the morning due to patient having altered mental status and increasing oxygen demands. He was found to have wide-complex arrhythmia and then was discovered to have severe hyperkalemia. He was receiving potassium infusions yesterday due to hyperkalemia. He was also on a Bumex drip and given furosemide pushes. Patient was unable to participate in history and ultimately I elected to emergently intubate the patient due to worsening cognition and increasing oxygen demands. I had discussions with multiple nurses at bedside, the patient's generation mechanic helper and professional nursing tutor. I left a voicemail on the 's phone. The chart was extensively reviewed. Allergies Allergy/AdvReac Type Severity Reaction Status Date / Time Iodinated Contrast Media Allergy Intermediate itchiness, Verified 11/11/20 11:17 nausea metformin AdvReac Severe MEMORY LOSS Verified 11/11/20 11:17 codeine AdvReac Intermediate ITCHING Verified 11/11/20 11:17 Home Medications Medication Instructions Recorded Confirmed Type aspirin 81 mg tablet,delayed 81 mg PO QAM 12/25/18 11/11/20 History release digoxin [Digox] 125 mcg PO MOFR 08/06/19 11/11/20 History amiodarone 200 mg tablet 200 mg PO BID #60 tab 08/22/19 11/11/20 Rx metoprolol succinate 25 mg 25 mg PO DAILY #30 tab 08/22/19 11/11/20 Rx tablet,extended release 24 hr milrinone 1 mg/mL intravenous See Rx Instructions .ROUTE 08/22/19 11/11/20 Rx solution .COMPLEX #20 ml eplerenone 25 mg tablet 25 mg PO DAILY #30 tab 10/17/19 11/11/20 Rx ipratropium 0.5 mg-albuterol 3 mg 3 ml INH Q8H PRN #180 ml 10/17/19 11/11/20 Rx (2.5 mg base)/3 mL nebulization soln pantoprazole 40 mg tablet,delayed 40 mg PO BID tab 03/11/20 11/11/20 History release torsemide 100 mg tablet 100 mg PO BID tab 03/11/20 11/11/20 History albuterol sulfate 90 mcg/actuation See Rx Instructions INH .COMPLEX 04/23/20 11/11/20 Rx aerosol inhaler PRN #18 gm torsemide 20 mg tablet 20 mg PO QAM tab 09/11/20 11/11/20 History ferrous sulfate 325 mg PO 3XWK 11/11/20 11/11/20 History finasteride 5 mg PO DAILY 11/11/20 11/11/20 History potassium chloride 30 meq PO BID 11/11/20 11/11/20 History Patient History Medical History Allergic rhinitis Anxiety Arteriosclerotic cardiovascular disease Chronic kidney disease, stage 3 (moderate) Chronic obstructive pulmonary disease Chronic systolic CHF (congestive heart failure), NYHA class 4 <15%, milrinone dependent Degenerative joint disease of knee, left Depression with anxiety Diabetes mellitus type 2 in nonobese Dyspnea Erectile dysfunction History of infection of total joint prosthesis of knee HX. RESOLVED IN 2015 History of pacemaker Hyperlipidemia Hypertension Low output heart failure Lumbar disc disease Lumbar spinal stenosis Malignant neoplasm of bladder hx, s/p mass removal, in remission 11/2020 NICM (nonischemic cardiomyopathy) Palliative care encounter Peripheral vascular disease Renal cyst Tobacco abuse counseling Weakness Surgical History H/O transurethral destruction of bladder lesion (09/2016) TURBT September 2016 History of [id number] bypass (10/2013) October 2013 History of arthroscopy of knee L KNEE MENISCAL TEAR History of cholecystectomy History of hernia repair History of lumbar laminectomy ONSET: FEB 1981 History of total knee arthroplasty (01/2015) [id number] LEFT KNEE Presence of biventricular AICD (08/2016) Presence of combination internal cardiac defibrillator (ICD) and pacemaker (01/2016) then upgraded in August 2016 S/P cardiac catheterization 08/08/19 Dr. León- Rotational atherectomy and LULU x 2 S/P cardiac catheterization 08/15/19 Dr. Woodson S/P coronary artery stent placement (07/2019) LULU x 2 Family History Father Cardiac disorder Lung cancer Mother Diabetes Hypertension Type 2 diabetes mellitus Vision impairment Sister Type 2 diabetes mellitus Denies family history of Ovarian cancer Prostate cancer Myocardial infarction Breast cancer Colorectal cancer Social History Smoking Status: Current every day smoker Tobacco Type: Cigarettes packs per day: 0.5; Cigarettes Per Day: 0.5-1ppd; Second Hand Exposure: No; Do You Dip or Chew Tobacco: No; Tobacco Cessation Education Requested by Patient: No Hx Alcohol Use: No Hx Substance Use: No Preferred Language: Icelandic Communication Ability: Effective Visual Impairment: No Limitations Hearing Ability: Normal Patient Ombudsperson Required: No Beliefs That Will Affect Care: None marital status: Current Living Situation: Spouse current occupational status: retired 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 [employer] Other Information That Helps Us Care for You: No Feels Safe at Home: Yes Safety Concerns: Feels Safe At This Time Childhood Exposure to Second-Hand Smoke: No caffeine: Yes (soda) Dental Care, Regularly: No Physical Activity Frequency: Does not Exercise Seatbelt Use: sometimes Sunscreen Use: No Assistive Devices: None Review of Systems Review of Systems: Unobtainable due to cognitive status and Unobtainable due to endotracheal tube Physical Exam Constitutional: + ill appearing and + in distress Eyes: PERRL, conjunctivae normal, anicteric sclerae Neck: normal visual inspection Respiratory: + tachypneic and + prolonged expiratory phase Auscultation: + crackles Diminished lung sounds bilaterally Cardiovascular: Heart Sounds: normal S1, normal S2 and + murmur Gastrointestinal (Abdomen): normal bowel sounds, soft, nontender, no hepato splenomegaly Musculoskeletal: no cyanosis or clubbing, extremities motor strength 5/5 Skin: no rashes, warm and dry Neurologic: No obvious focal deficits Psychiatric: Unable to obtain due to altered mental status Results & Data Results & Data ([facility]) Vital Signs (Past 12 Hours) Vital Signs Temp Pulse Pulse Resp BP BP Pulse Ox 11/16/20 08:08 97.5 F L 83 18 81/52 L 94 11/16/20 03:58 98.4 F 64 18 95/52 L 94 11/15/20 23:50 63 11/15/20 23:35 98.6 F 61 18 91/55 L 95 Vital signs, labs and imaging reviewed. Chest x-ray reviewed with evidence of mild pulmonary edema. Coding Level of Care Code Critical Care 1st 30-74 mins Diagnoses Acute hypoxemic respiratory failure J96.01 Chronic systolic CHF (congestive heart failure), NYHA class 4 I50.22 Chronic obstructive pulmonary disease J44.9 Presence of biventricular AICD Z95.810 Cardiogenic shock R57.0 Time Spent (min) 48
[2020-11-16 09:31] LABS: Albumin Globulin Ratio 0.9 (0.9-2); Albumin Level 3.2 gm/dl (3.4-5.0); BUN Creatinine Ratio 19.8 (10-20); Bilirubin,Total 2.6 mg/dl (0.2-1); Creatinine Clr Calc Pharmacy 17.5 ml/min; Est GFR (African American) 18.6 ml/min; Globulin 3.6 gm/dl (2.5-4.0); Potassium 6.2 mmol/L (3.5-5.1); Total Protein 6.8 gm/dl (6.4-8.2)
--- NOTE | 2020-11-16 09:32 | XRay Report ---
XR chest 1V portable CLINICAL HISTORY: Tube placement COMPARISON STUDY: November 11, 2020 FINDINGS: No pneumothorax. No pleural effusion. Diffuse reticular nodular prominence of pulmonary interstitium is again seen cristina aterally. Cardiac silhouette remains moderately enlarged. Aorta is calcified. Mild pulmonary vascular congestion is again seen.. Osseous structures: Degenerative changes of bilateral shoulders and spine. Interval placement of endotracheal tube with tip projecting 3.5 cm above rosie. Interval placement of gastric tube with fenestrated side port below level of hemidiaphragm and tip ou tside the [id number]. Stable position of left-sided triple lead AICD and right-sided central venous catheter. IMPRESSION: 1. Interval placement of endotracheal tube with tip projecting 3.5 cm above rosie. The rest of supp ort apparatus as above. 2. CHF pattern as possible pulmonary edema, stable since prior. ACT 112: Negative or not required by law. The above report was generated using voice recognition software. It may contain grammatical, syntax o r spelling errors. Electronically signed by: Mariann Hernandez DO 11/16/2020 9:30 AM
--- NOTE | 2020-11-16 09:33 | Cardiology Progress Note ---
Date of Service November 16, 2020 Assessment & Plan (1) Acute exacerbation of CHF (congestive heart failure): (2) Acute hyperkalemia: (3) Chronic kidney disease, stage 3 (moderate): (4) Chronic systolic CHF (congestive heart failure), NYHA class 4: (5) Presence of biventricular AICD: (6) Low output heart failure: (7) Malignant neoplasm of bladder: (8) Arteriosclerotic cardiovascular disease: (9) Chronic obstructive pulmonary disease: (10) Peripheral vascular disease: (11) Tobacco abuse counseling: The patient was doing well yesterday and we were transitioning him over to oral medications eventual discharge. The patient wanted to return home to be with his family. Unfortunately this morning he developed respiratory distress and his labs indicated worsening renal failure. He was intubated and now has been transferred to the ICU. Prognosis both short and long-term unfortunately is poor for this gentleman. I spoke to his by phone. She is coming to the hospital. I indicated to her his overall poor prognosis and consideration should be given to at least making him a no code and no heroic measures. I also indicated to her that if other family members wanted to come to the hospital now would be the time. I discussed the care with the critical care and nephrology physicians. (12) Unknown status of achievement of care plan goal: Admission and Anticipated Discharge Date Admission Date: November 11, 2020 Subjective The patient had respiratory distress this morning requiring intubation and has now been moved to the ICU. Review of Systems Review of Systems: Unobtainable due to endotracheal tube Physical Exam Physical Exam: General: The patient is sedated and intubated on a respirator. Head: normocephalic, no masses, lesions, tenderness or abnormalities Eyes: conjunctiva are pink and non-injected, sclera clear Neck: supple, no adenopathy, no bruits, normal jugular venous pulse, no hepatojugular reflux Chest: normal shape and normal respiratory effort Lungs: clear to auscultation and percussion Cardiac Exam: - regular rate & rhythm, no murmurs gallops or rubs - normal S1, normal S2 Pulses: 2(+) throughout Abdomen: abdomen soft, non-tender, no abnormal masses and no hepatosplenomegaly Musculoskeletal: no gait disturbance, no joint inflammation, no deforming arthritis Extremities: no edema and no cyanosis Neuro: grossly normal exam Results & Data ([facility]) Vital Signs (Past 12 Hours) Vital Signs Temp Pulse Pulse Resp BP BP Pulse Ox 11/16/20 08:08 36.4 C L 83 18 81/52 L 94 11/16/20 03:58 36.9 C 64 18 95/52 L 94 11/15/20 23:50 63 11/15/20 23:35 37.0 C 61 18 91/55 L 95 Laboratory Results Laboratory Results - last 24 hr 11/15/20 11/15/20 11/15/20 09:28 14:12 15:02 WBC RBC Hgb Hct MCV MCH MCHC RDW Std Deviation RDW Coeff of Rich Plt Count MPV Immature Gran % (Auto) Neut % (Auto) Lymph % (Auto) Jones % (Auto) Eos % (Auto) Baso % (Auto) Neut # (Auto) Lymph # (Auto) Jones # (Auto) Eos # (Auto) Baso # (Auto) Immature Gran # (Auto) Absolute Nucleated RBC Nucleated RBC % (auto) Sodium 132 L 132 L Potassium 2.8 L D 3.7 D Chloride 92 L 94 L Carbon Dioxide 33 H 31 Anion Gap 7.0 7.0 BUN 55 H 55 H Creatinine 2.21 H 2.08 H Est Cr Clr Drug Dosing 30.0 31.8 Est GFR ( Amer) 35.4 38.1 Est GFR (Non-Af Amer) 30.6 32.9 BUN/Creatinine Ratio 24.8 H 26.5 H Glucose 113 H 109 H POC Glucose 106 H Lactate Calcium 9.6 8.6 Magnesium 2.5 H Total Bilirubin AST ALT Alkaline Phosphatase Total Protein Albumin Globulin Albumin/Globulin Ratio 11/16/20 11/16/20 11/16/20 05:25 05:52 07:51 WBC RBC Hgb Hct MCV MCH MCHC RDW Std Deviation RDW Coeff of Rich Plt Count MPV Immature Gran % (Auto) Neut % (Auto) Lymph % (Auto) Jones % (Auto) Eos % (Auto) Baso % (Auto) Neut # (Auto) Lymph # (Auto) Jones # (Auto) Eos # (Auto) Baso # (Auto) Immature Gran # (Auto) Absolute Nucleated RBC Nucleated RBC % (auto) Sodium Cancelled Cancelled 131 L Potassium Cancelled Cancelled 6.7 H* D Chloride Cancelled Cancelled 98 Carbon Dioxide Cancelled Cancelled 19 L Anion Gap Cancelled Cancelled 14.0 H BUN Cancelled Cancelled 77 H Creatinine Cancelled Cancelled 3.58 H D Est Cr Clr Drug Dosing Cancelled Cancelled 18.4 Est GFR ( Amer) Cancelled Cancelled 19.8 Est GFR (Non-Af Amer) Cancelled Cancelled 17.1 BUN/Creatinine Ratio Cancelled Cancelled 21.5 H Glucose Cancelled Cancelled 158 H POC Glucose Lactate Calcium Cancelled Cancelled 9.4 Magnesium Cancelled Cancelled 2.5 H Total Bilirubin AST ALT Alkaline Phosphatase Total Protein Albumin Globulin Albumin/Globulin Ratio 11/16/20 11/16/20 11/16/20 08:41 08:41 08:41 WBC 11.08 H RBC 4.04 L Hgb 13.1 L Hct 39.8 L MCV 98.5 MCH 32.4 MCHC 32.9 RDW Std Deviation 58.7 H RDW Coeff of Rich 16.4 H Plt Count 346 MPV 10.3 Immature Gran % (Auto) 0.3 Neut % (Auto) 93.7 Lymph % (Auto) 4.9 Jones % (Auto) 1.0 Eos % (Auto) 0.0 Baso % (Auto) 0.1 Neut # (Auto) 10.39 H Lymph # (Auto) 0.54 L Jones # (Auto) 0.11 Eos # (Auto) 0.00 Baso # (Auto) 0.01 Immature Gran # (Auto) 0.03 H Absolute Nucleated RBC 0.04 H Nucleated RBC % (auto) 0.3 Sodium Pending Potassium Pending Chloride Pending Carbon Dioxide Pending Anion Gap Pending BUN Pending Creatinine Pending Est Cr Clr Drug Dosing Pending Est GFR ( Amer) Pending Est GFR (Non-Af Amer) Pending BUN/Creatinine Ratio Pending Glucose Pending POC Glucose Lactate 8.8 H* Calcium Pending Magnesium Total Bilirubin Pending AST Pending ALT Pending Alkaline Phosphatase Pending Total Protein Pending Albumin Pending Globulin Pending Albumin/Globulin Ratio Pending Medications Administered Current Inpatient Medications Acetaminophen (Acetaminophen 325 Mg Tab) 650 mg PO Q4H PRN PRN Reason: Pain or Fever Stop: 12/11/20 15:06 Amiodarone HCl (Amiodarone 200 Mg Tab) 200 mg PO BID LUIS Stop: 12/11/20 20:59 Last Admin: 11/15/20 20:19 Dose: 200 mg Documented by: Aspirin (Aspirin 81 Mg Ectab) 81 mg PO QAM [facility] Stop: 12/12/20 08:59 Last Admin: 11/15/20 08:37 Dose: 81 mg Documented by: Digoxin (Digoxin 0.125 Mg Tab) 0.125 mg PO MoFr@1600 [facility] Stop: 12/14/20 15:59 Last Admin: 11/14/20 15:55 Dose: 0.125 mg Documented by: Eplerenone (Eplerenone 25 Mg Tab) 1 ea PO QAM [facility] Stop: 12/13/20 08:59 Last Admin: 11/15/20 08:39 Dose: 1 ea Documented by: Ferrous Sulfate (Ferrous Sulfate 325 Mg Tab) 325 mg PO MoWeFr@0900 [facility] Stop: 12/12/20 08:59 Last Admin: 11/14/20 07:57 Dose: 325 mg Documented by: Finasteride (Finasteride 5 Mg Tab) 5 mg PO DAILY [facility] Stop: 12/12/20 08:59 Last Admin: 11/15/20 08:38 Dose: 5 mg Documented by: Heparin Sodium (Porcine) (Heparin Sod 5,000 Unit/0.5 Ml Vial) 5,000 units SQ Q12 [facility] Stop: 12/12/20 08:59 Last Admin: 11/15/20 20:18 Dose: 5,000 units Documented by: Milrinone Lactate/Dextrose (Primacor/D5w) 20,000 mcg in 100 mls @ 6.129 mls/hr IV .[id number] [facility]; Protocol Stop: 12/11/20 15:59 Last Admin: 11/15/20 17:06 Dose: 0.3 mcg/kg/min, 6.1 mls/hr Documented by: Sodium Bicarbonate 150 meq/ (Dextrose) 1,150 mls @ 75 mls/hr IV .[id number] [facility] Stop: 12/16/20 08:59 Lactic Acid (Ammonium Lactate 12% Lotion 225 Gm Btl) 1 gm EXT QID PRN PRN Reason: itching Stop: 12/11/20 18:49 Last Admin: 11/11/20 23:07 Dose: 1 gm Documented by: Magnesium Hydroxide (Magnesium Hydroxide Susp 30 Ml Udc) 30 ml PO Q12H PRN PRN Reason: Constipation Stop: 12/11/20 15:06 Metoprolol Succinate (Metoprolol Succ 25mg Ext Rel Tab) 25 mg PO DAILY LUIS Stop: 12/12/20 08:59 Last Admin: 11/15/20 08:38 Dose: Not Given Documented by: Nitroglycerin (Nitroglycerin Sl 0.4 Mg/Tab Tab) 0.4 mg SL UD PRN PRN Reason: Chest Pain Stop: 12/11/20 15:06 Ondansetron HCl (Ondansetron Inj 2 Mg/Ml 2 Ml Vial) 4 mg IV Q6H PRN PRN Reason: Nausea Stop: 12/11/20 15:06 Pantoprazole Sodium (Pantoprazole 40 Mg Tab) 40 mg PO BID LUIS Stop: 12/11/20 20:59 Last Admin: 11/15/20 20:19 Dose: 40 mg Documented by: Patiromer (Patiromer Calcium Sorbitex 8.4 Gm Pack) 16.8 gm PO DAILY LUIS Stop: 12/16/20 08:59 Polyethylene Glycol (Polyethylene (Miralax) 17 Gm Pack) 17 gm PO DAILY PRN PRN Reason: Constipation Stop: 12/11/20 15:06 Torsemide (Torsemide 100 Mg Tab) 100 mg PO BID LUIS Stop: 12/15/20 09:14 Last Admin: 11/15/20 20:19 Dose: 100 mg Documented by: (1) Acute exacerbation of CHF (congestive heart failure) Heart failure type: unspecified Qualified Code(s): I50.9 - Heart failure, unspecified
[2020-11-16 09:41] LABS: iSTAT Allen Test Pass; iSTAT Art Bld Gas pCO2 Correct 46 mmHg (35-46); iSTAT Art Bld Gas pH Corrected 7.285 (7.35-7.45); iSTAT Arterial Blood Gas HCO3 22 meg/L (19-24); iSTAT Arterial Blood Gas pCO2 46 mmHg (35-46); iSTAT Arterial Blood Gas pH 7.28 (7.35-7.45); iSTAT Arterial Blood Gas pO2 217 mmHg (80-95); iSTAT Arterial Blood Gas pO2 C 217; iSTAT Carbon Dioxide 23 mmol/L (24-31); iSTAT FiO2 60 %; iSTAT Hematocrit 40 % (42-52); iSTAT Hemoglobin 13.6 g/dl (14.0-18.0); iSTAT Potassium 5.8 mmol/L (3.3-5.0); iSTAT Site L Radial; iSTAT Sodium 132 mmol/L (135-144)
[2020-11-16 09:43] LABS: Beta-Hydroxybutyrate 2.56 mg/dl (0.2-2.81)
--- NOTE | 2020-11-16 09:53 | Nephrology Progress Note ---
Date of Service November 16, 2020 Assessment & Plan (1) Acute kidney injury superimposed on CKD: Patient with the CKD stage IV at baseline. He now has acute kidney injury on CKD likely due to cardiorenal syndrome. Renal function is worse from yesterday. Creatinine up to 3.7 from 2 yesterday. Patient is now responding to torsemide. He was +1 L yesterday after being -1.6 L the day before on Bumex drip. Monitor input output and daily standing weight. I do not think patient will tolerate hemodialysis due to hypotension and end-stage CHF. (2) Hyperkalemia: Patient now hypokalemic after aggressive potassium supplementation yesterday, being off the Bumex drip and worsening renal function. Patient also has metabolic acidosis. Potassium supplements have been discontinued. We will give isotonic bicarbonate drip at 80 mL/h. We will give insulin 10 units IV 25 g of D50. Repeat potassium of 12. If potassium does not improve, will consider time-limited dialysis to correct potassium although i don't think patient will tolerate dialysis. Hypotension Admission and Anticipated Discharge Date Admission Date: November 11, 2020 Subjective Patient was intubated and transferred to ICU this morning. He was hypotensive, had a potassium of 6.7. He was +1 L yesterday and creatinine is up to 3.5 from 2 yesterday. He also has metabolic acidosis Review of Systems Review of Systems: Unobtainable due to endotracheal tube Physical Exam Physical Exam: General exam: Intubated and sedated HEENT: Pupils are equal and reactive to light Neck: No JVD, neck is supple trachea is midline Respiratory system: Clear breath sounds bilaterally. Gastrointestinal: Abdomen is soft, non distended, non tender, bowel sounds are present CVS: Regular rate and rhythm. No murmurs, rubs or gallops Musculoskeletal: No joint or muscle tenderness Extremities: Non tender, no edema, peripheral pulses are present Skin: No rashes Results & Data ([facility]) Vital Signs (Past 12 Hours) Vital Signs Temp Pulse Pulse Resp BP BP Pulse Ox 11/16/20 08:08 36.4 C L 83 18 81/52 L 94 11/16/20 03:58 36.9 C 64 18 95/52 L 94 11/15/20 23:50 63 11/15/20 23:35 37.0 C 61 18 91/55 L 95 Laboratory Results 11/16/20 08:41 11/16/20 11/16/20 08:41 08:41 WBC 11.08 H RBC 4.04 L MCV 98.5 MCH 32.4 MCHC 32.9 RDW Std Deviation 58.7 H RDW Coeff of Rich 16.4 H Plt Count 346 MPV 10.3 Albumin 3.2 L
[2020-11-16] MEDS: EPLERENONE 25 MG TAB PO SCH (10:33)
[2020-11-16] MEDS: FINASTERIDE 5 MG TAB PO SCH (10:33)
[2020-11-16] MEDS: TORSEMIDE 100 MG TAB PO SCH (10:34)
[2020-11-16] MEDS: METOPROLOL SUCC 25MG EXT REL TAB PO SCH (10:34)
[2020-11-16] MEDS: MILRINONE LACTATE/D5W 20,000 MCG/100 ML BAG IV SCH (10:48)
[2020-11-16] MEDS: HEPARIN SOD 5,000 UNIT/0.5 ML VIAL SQ SCH (10:48)
[2020-11-16] MEDS ORDERED: LANSOPRAZOLE 30 MG SOLTAB NG SCH (11:15)
[2020-11-16] MEDS ORDERED: ASPIRIN 81 MG CHEW NG SCH (11:15)
[2020-11-16] MEDS: AMIODARONE 200 MG TAB PO SCH (11:55)
[2020-11-16] MEDS ORDERED: STAT IV Infusion **Titration per Protocol STA (12:28)
[2020-11-16] MEDS ORDERED: ATROPINE SULFATE 1% OP SOLN 5 ML BTL SL PRN (12:28)
[2020-11-16] MEDS ORDERED: MoRPHine SULFATE 2 MG/ML CARP IV PRN (12:28)
[2020-11-16] MEDS ORDERED: LORazepam 0.5 MG TAB PO PRN (12:28)
[2020-11-16] MEDS ORDERED: ONDANSETRON 4 MG OD TAB SL PRN (12:28)
[2020-11-16] MEDS ORDERED: GLYCOPYRROLATE 0.2 MG/ML VIAL IV PRN (12:28)
[2020-11-16] MEDS ORDERED: LORazepam 0.5 MG/1 ML VIAL IV PRN (12:28)
[2020-11-16] MEDS ORDERED: ONDANSETRON INJ 2 MG/ML 2 ML VIAL IV PRN (12:28)
[2020-11-16] MEDS ORDERED: LORazepam 0.5 MG/1 ML VIAL IV SCH (12:30)
[2020-11-16] MEDS ORDERED: MoRPHine SULF/SW 240 MG/240 ML BTL IV SCH (12:30)
--- NOTE | 2020-11-16 12:31 | Communication Note ---
Date of Service: November 16, 2020 I had a discussion with the patient's at bedside regarding CODE STATUS and hospice care. She discussed with the family and she would like to proceed with comfort measures only. We will go ahead and compassionately extubate the patient. We are going to place a magnet over the AICD to prevent further firing of AICD. Comfort measures order set has been ordered. Coding Level of Care Code None
--- NOTE | 2020-11-16 16:26 | Discharge Summary ---
Date of Service November 16, 2020 Admission HPI Per Admitting Provider 65 yo M with end stage HFrEF with EF 15-20%, CKD3, nonischemic cardiomyopathy, PVD, HTN, hx bladder cancer, DM2, BiV AICD, who presented to ER for SOB x few days. He follows with [facility] cardiology and had multiple meds changed ~1 week ago. He states that labs were also drawn and showed he had a potassium of 2.8. After this, he was told to take 60 mg of extra potassium in addition to his normal 40 mg, and increase daily dosing to 60 mg going forward. History mostly taken from at bedside because patient was somnolent on and off. Primary Care Provider: Katelyn Sutton, DO Admission Exam Per Admitting Provider Constitutional: lethargic appearing elderly man sitting up in bed but frequently dozing off Eyes: EOMI, pupils equal and reactive bilaterally, no scleral icterus Cardiac: bradycardic RR, blowing systolic murmur, gallops or rubs. Normal S1, S2. minimal JVD visible. Pulm: poor inspiratory effort, bibasilar crackles, difficult to auscultate lung sounds Abd: soft, nontender, nondistended, normal bowel sounds, no rebound or guarding Extremities: 1+ peripheral pulses, 2+ pitting edema to midshins bilaterally Neuro: frequent jerking of feet and asymmetric muscle movements Principal Diagnosis Cardiac arrest/ventricular fibrillation secondary to severe ischemic cardiomyopathy Discharge Data Allergies Allergy/AdvReac Type Severity Reaction Status Date / Time Iodinated Contrast Media Allergy Intermediate itchiness, Verified 11/11/20 11:17 nausea metformin AdvReac Severe MEMORY LOSS Verified 11/11/20 11:17 codeine AdvReac Intermediate ITCHING Verified 11/11/20 11:17 Consultations 11/11/20 14:15 ED Decision to Admit Stat 11/11/20 15:07 Consult Cardiology Routine 11/11/20 22:05 Consult Palliative Care Routine 11/12/20 08:46 Consult Nephrology Routine 11/16/20 08:59 Consult Property Economist Routine 11/16/20 12:28 Consult Palliative Care Routine Ordered Studies 11/13/20 12:05 CT chest diagnostic wo con Routine Hospital Course (1) Chronic systolic CHF (congestive heart failure), NYHA class 4: 65 yo M with End stage CHF, extensive cardiac hx including biV AICD placement, nonischemic cardiomyopathy, HLD admitted for dyspnea and hyperkalemia. Cardiac arrest and ventricular arrhythmia secondary to severe ischemic cardiomyopathy. Patient with extensive cardiac history was admitted to the hospital with severe cardiorenal syndrome. His prognosis prior to presentation to the hospital was extremely poor, both the patient and his family were aware of this. Despite his prognosis the patient had wished to remain full code with hopes of returning home. Throughout the week with the assistance of cardiology and nephrology we carefully monitor the patient's electrolyte status and volume status. He required aggressive diuresis and would have extensive swings in his potassium levels. Throughout the week his creatinine levels continued to improve, as did his potassium balance. Yesterday his IV Bumex was discontinued in favor of p.o. torsemide in efforts to move the patient's closer to discharge. Repeat labs obtained that afternoon demonstrated improvement in his potassium balance, improvement in his creatinine function, and the patient felt well overall. Overnight the patient did not do well. This morning he spoke with his , and ended the conversation prematurely due to not feeling well. Subsequently a ambar jefferson was called. Upon arriving to the room the patient was unconscious and unresponsive, stat labs were obtained, and the ICU team was notified for intubation. The patient was subsequently transferred to the ICU for further management. His family was contacted and alerted to his condition, they presented to the hospital and consulted with the physicians. After extensive conversation about the patient's prognosis, likelihood of meaningful recovery, ability to be weaned from intubation the decision was made to pursue comfort measures only. Patient was compassionately extubated and a magnet was placed over his AICD to prevent further firing, time of 12:50 November 16, 2020. Total Time Total Time Spent Total Time Spent (In Minutes): 65 Discharge Plan Discharge Items Patient Disposition: Discharge Diagnosis: Cardiac arrest/ventricular fibrillation secondary to severe ischemic cardiomyopathy Addtl Attending Provider Instructions: 65 yo M with End stage CHF, extensive cardiac hx including biV AICD placement, nonischemic cardiomyopathy, HLD admitted for dyspnea and hyperkalemia. Cardiac arrest and ventricular arrhythmia secondary to severe ischemic cardiomyopathy. Patient with extensive cardiac history was admitted to the hospital with severe cardiorenal syndrome. His prognosis prior to presentation to the hospital was extremely poor, both the patient and his family were aware of this. Despite his prognosis the patient had wished to remain full code with hopes of returning home. Throughout the week with the assistance of cardiology and nephrology we carefully monitor the patient's electrolyte status and volume status. He required aggressive diuresis and would have extensive swings in his potassium levels. Throughout the week his creatinine levels continued to improve, as did his potassium balance. Yesterday his IV Bumex was discontinued in favor of p.o. torsemide in efforts to move the patient's closer to discharge. Repeat labs obtained that afternoon demonstrated improvement in his potassium balance, improvement in his creatinine function, and the patient felt well overall. Overnight the patient did not do well. This morning he spoke with his , and ended the conversation prematurely due to not feeling well. Subsequently a code purple was called. Upon arriving to the room the patient was unconscious and unresponsive, stat labs were obtained, and the ICU team was notified for intubation. The patient was subsequently transferred to the ICU for further management. His family was contacted and alerted to his condition, they presented to the hospital and consulted with the physicians. After extensive conversation about the patient's prognosis, likelihood of meaningful recovery, ability to be weaned from intubation the decision was made to pursue comfort measures only. Patient was compassionately extubated and a magnet was placed over his AICD to prevent further firing, time of 12:50 November 16, 2020. Jose Angel Wylie MD PGY 2, [facility] This chart was completed utilizing [employer] voice recognition software. Grammatical errors, random word insertions, pronoun errors, and in complete sentences are an occasional consequence of the system. Any questions or concerns about the content, text, or information contained within the body of this dictation should be addressed directly to the physician for clarification. Resident Activity Tracking Resident Involvement: Resident Care Provided Care Provided: Adult [facility]
[2020-11-16] MEDS ORDERED: CALCIUM CHLORIDE 10% 10 ML SYR IV ONE (19:02)
[2020-11-16] MEDS ORDERED: ROCURONIUM BROMIDE 10 MG/ML 5 ML VIAL IV ONE (19:02)
[2020-11-16] MEDS ORDERED: ETOMIDATE 2 MG/ML 20 ML VIAL IV ONE (19:02)
--- NOTE | 2020-11-17 15:49 | Electrocardiogram Report ---
Test Reason : Blood Pressure : / mmHG Vent. Rate : 074 BPM Atrial Rate : 074 BPM P-R Int : 000 ms QRS Dur : 320 ms QT Int : 578 ms P-R-T Axes : 113 122 -75 degrees QTc Int : 641 ms Poor data quality, interpretation may be adversely affected Possible Sinus rhythm Non-specific intra-ventricular conduction block Septal infarct , age undetermined Lateral infarct , age undetermined Peaked T waves(consider ischemia,hyperkalemia,etc.) Abnormal ECG When compared with ECG of 13-NOV-2020 06:05, Sinus rhythm has replaced AV pacing QRS has significantly widened Confirmed by Wayne Ortega ([id number]) on 11/17/2020 3:49:14 PM Referred By: REFERRED SELF Confirmed By:Wayne Ortega
--- NOTE | 2020-11-17 15:54 | Electrocardiogram Report ---
Test Reason : Blood Pressure : / mmHG Vent. Rate : 108 BPM Atrial Rate : 079 BPM P-R Int : 080 ms QRS Dur : 240 ms QT Int : 292 ms P-R-T Axes : 072 124 056 degrees QTc Int : 391 ms Poor data quality, interpretation may be adversely affected Undetermined rhythm with intermittent Atrial- Ventricular pacing Low voltage QRS Anterior infarct Non-specific intra-ventricular conduction block Peaked T waves(consider ischemia,hyperkalemia,etc.) Abnormal ECG When compared with ECG of 16-NOV-2020 08:23, Intermittent pacer spikes are now present Questionable change in initial forces of Anterolateral leads Confirmed by Wayne Ortega ([id number]) on 11/17/2020 3:53:44 PM Referred By: REFERRED SELF Confirmed By:Wayne Ortega
--- NOTE | 2020-11-18 22:23 | Billing Data ---
Date of Service November 11, 2020 Coding Level of Care Code 30930 Subseq Hosp Care Lvl 3
== END 2020-11-16 19:03 | disposition expired | DRG 291 ==
LOC: ED 10:30 → 2E 14:09 → SUATTDRO 14:09 → 2E 14:45 → 1E 11-16 09:04